=== PATIENT | male | born 1985 | race Caucasian/White ===

== ENCOUNTER 2018-02-22 01:19 | Emergency (ER) | payer OTHER ==
[2018-02-22 01:33] VITALS: RESP 16
--- NOTE | 2018-02-22 01:58 | ED ---
General Adult HPI - General Source: patient, RN notes reviewed Mode of arrival: ambulatory Limitations: no limitations <Ryan Long - Last Filed: 02/22/18 03:31> <Papo Ballesteros - Last Filed: 02/22/18 15:55> - General Chief complaint: Psychiatric Symptoms Stated complaint: mental health Time Seen by Provider: 02/22/18 01:44 - History of Present Illness Initial comments: 32-year-old male presents to the emergency department for a chief complaint of suicidal thoughts 3 days. Patient states he tried to kill himself by cutting his left arm 3 days ago. He is denies to do this. Patient admits to similar previous suicidal attempts. He states he has history of anxiety, depression, and bipolar disorder, denies taking any medications. Patient denies any events that precipitated his feelings. However, patient did recently learned his girlfriend was a few days ago. He does admit to current suicidal thoughts. Patient states he was admitted previously for psychiatric symptoms. Patient has no other complaints at this time including shortness of breath, chest pain, abdominal pain, nausea or vomiting, headache, or visual changes. ( Ryan Long) - Related Data Allergies Allergy/AdvReac Type Severity Reaction Status Date / Time No Known Allergies Allergy Verified 02/22/18 14:39 Review of Systems ROS Other: All systems not noted in ROS Statement are negative. <Ryan Long - Last Filed: 02/22/18 03:31> ROS Other: All systems not noted in ROS Statement are negative. <Papo Ballesteros - Last Filed: 02/22/18 15:55> ROS Statement: Those systems with pertinent positive or pertinent negative responses have been documented in the HPI. Past Medical History Past Medical History: No Reported History Additional Past Medical History / Comment(s): scoliosis, back pain History of Any Multi-Drug Resistant Organisms: None Reported Past Surgical History: No Surgical Hx Reported Past Psychological History: No Psychological Hx Reported Smoking Status: Current every day smoker Past Alcohol Use History: Occasional Past Drug Use History: None Reported - Past Family History Father Family Medical History: No Reported History (Father is 50-year-old has no major medical problems) Mother Family Medical History: No Reported History (Mother is 52-year-old year and has no major medical problems) Brother(s) Family Medical History: No Reported History (Patient has one brother no major medical problems) Sister(s) Family Medical History: No Reported History (Patient has one sister no major medical problems) <Ryan Long - Last Filed: 02/22/18 03:31> General Exam Limitations: no limitations General appearance: alert, in no apparent distress Head exam: Present: atraumatic, normocephalic, normal inspection Eye exam: Present: normal appearance, PERRL, EOMI. Absent: scleral icterus, conjunctival injection, periorbital swelling ENT exam: Present: normal exam, mucous membranes moist Neck exam: Present: normal inspection, full ROM. Absent: tenderness, meningismus, lymphadenopathy Respiratory exam: Present: normal lung sounds bilaterally. Absent: respiratory distress, wheezes, rales, rhonchi, stridor Cardiovascular Exam: Present: regular rate, normal rhythm, normal heart sounds. Absent: systolic murmur, diastolic murmur, rubs, gallop, clicks Extremities exam: Present: other (Patient has 4 superficial lacerations of the left volar forearm) <Ryan Long - Last Filed: 02/22/18 03:31> Course <Ryan Long - Last Filed: 02/22/18 03:31> <Papo Ballesteros - Last Filed: 02/22/18 15:55> Vital Signs 02/22/18 02/22/18 01:30 12:19 Temperature 98.5 F 98.1 F Pulse Rate 92 90 Respiratory 16 16 Rate Blood Pressure 132/91 125/78 O2 Sat by Pulse 97 98 Oximetry - Reevaluation(s) Reevaluation #1: 02/22/18 15:55 The patient was evaluated by psychiatric service and will be transferred (Papo Ballesteros) Medical Decision Making <Ryan Long - Last Filed: 02/22/18 03:31> - Lab Data Result diagrams: 02/22/18 03:35 02/22/18 03:35 <Papo Ballesteros - Last Filed: 02/22/18 15:55> - Medical Decision Making 32-year-old male presents to the emergency department for a chief complaint of suicidal thoughts 3 days. Apparently patient attempted suicide by cutting his left arm. There are 4 lacerations noted to the left volar forearm however these are very superficial. Patient is up-to-date on tetanus. Patient has a history of anxiety and depression. He does admit to active suicidal thoughts. He did recently when his girlfriend was . He denies anything specific causing these thoughts. Patient was evaluated by EPS, recommend inpatient treatment. Dr moses to cert. Care signed out to Dr Moses at 0400. (Ryan Long) - Lab Data Lab Results 02/22/18 02/22/18 02/22/18 Range/Units 02:05 03:35 03:35 WBC 13.4 H (3.8-10.6) k/uL RBC 5.11 (4.30-5.90) m/uL Hgb 15.5 (13.0-17.5) gm/dL Hct 44.4 (39.0-53.0) % MCV 87.0 (80.0-100.0) fL MCH 30.3 (25.0-35.0) pg MCHC 34.8 (31.0-37.0) g/dL RDW 12.5 (11.5-15.5) % Plt Count 265 (150-450) k/uL Neutrophils % 65 % Lymphocytes % 24 % Monocytes % 6 % Eosinophils % 3 % Basophils % 1 % Neutrophils # 8.8 H (1.3-7.7) k/uL Lymphocytes # 3.2 (1.0-4.8) k/uL Monocytes # 0.8 (0-1.0) k/uL Eosinophils # 0.4 (0-0.7) k/uL Basophils # 0.1 (0-0.2) k/uL Sodium 140 (137-145) mmol/L Potassium 3.6 (3.5-5.1) mmol/L Chloride 104 (98-107) mmol/L Carbon Dioxide 26 (22-30) mmol/L Anion Gap 10 mmol/L BUN 13 (9-20) mg/dL Creatinine 0.98 (0.66-1.25) mg/dL Est GFR (CKD-EPI)AfAm >90 (>60 ml/min/1.73 sqM) Est GFR (CKD-EPI)NonAf >90 (>60 ml/min/1.73 sqM) Glucose 114 H (74-99) mg/dL Calcium 9.7 (8.4-10.2) mg/dL Total Bilirubin 0.6 (0.2-1.3) mg/dL AST 21 (17-59) U/L ALT 21 (21-72) U/L Alkaline Phosphatase 46 (38-126) U/L Total Protein 7.4 (6.3-8.2) g/dL Albumin 4.3 (3.5-5.0) g/dL Urine Opiates Screen Detected H (NotDetected) Ur Oxycodone Screen Not Detected (NotDetected) Urine Methadone Screen Not Detected (NotDetected) Ur Propoxyphene Screen Not Detected (NotDetected) Ur Barbiturates Screen Not Detected (NotDetected) U Tricyclic Antidepress Not Detected (NotDetected) Ur Phencyclidine Scrn Not Detected (NotDetected) Ur Amphetamines Screen Not Detected (NotDetected) U Methamphetamines Scrn Not Detected (NotDetected) U Benzodiazepines Scrn Not Detected (NotDetected) Urine Cocaine Screen Not Detected (NotDetected) U Marijuana (THC) Screen Not Detected (NotDetected) Disposition Is patient prescribed a controlled substance at d/c from ED?: No <Ryan Long - Last Filed: 02/22/18 03:31> <Papo Ballesteros - Last Filed: 02/22/18 15:55> Clinical Impression: Suicidal behavior, Depression Disposition: TRANSFER TO PSYCH HOSP/UNIT Condition: Stable Referrals: None,Stated [Primary Care Provider] - 1-2 days Addendum entered and electronically signed by Papo Ballesteros MD 02/22/18 16:21: I did fill out the transfer forms.
[2018-02-22 02:34] LABS: Amphetamine Screen,Urine Not Detected (NotDetected); Barbiturate Screen,Urine Not Detected (NotDetected); Benzodiazepines Screen,Urine Not Detected (NotDetected); Cocaine Screen,Urine Not Detected (NotDetected); Methadone Screen, Urine Not Detected (NotDetected); Opiate Screen,Urine Detected (NotDetected); Oxycodone Screen, Urine Not Detected (NotDetected); Phencyclidine Screen,Urine Not Detected (NotDetected); Tricyclic Antidepressant,Urine Not Detected (NotDetected); Urn Cannabinoid Scrn Not Detected (NotDetected)
[2018-02-22 03:59] LABS: Basophils # (A) 0.1 k/uL (0-0.2); Basophils % (A) 1 %; Eosinophils # (A) 0.4 k/uL (0-0.7); Eosinophils % (A) 3 %; HCT 44.4 % (39.0-53.0); HGB 15.5 gm/dL (13.0-17.5); Lymphocytes # (A) 3.2 k/uL (1.0-4.8); Lymphocytes % (A) 24 %; MCH 30.3 pg (25.0-35.0); MCHC 34.8 g/dL (31.0-37.0); Mean Platelet Volume 6.9; Monocytes # (A) 0.8 k/uL (0-1.0); Monocytes % (A) 6 %; Neutrophils # (A) 8.8 k/uL (1.3-7.7); Neutrophils % (A) 65 %; Platelet Count 265 k/uL (150-450); RBC 5.11 m/uL (4.30-5.90); RDW 12.5 % (11.5-15.5); WBC 13.4 k/uL (3.8-10.6)
[2018-02-22 04:19] LABS: ALT 21 U/L (21-72); AST 21 U/L (17-59); Albumin 4.3 g/dL (3.5-5.0); Alkaline Phosphatase 46 U/L (38-126); Anion Gap 10 mmol/L; Blood Urea Nitrogen 13 mg/dL (9-20); Calcium 9.7 mg/dL (8.4-10.2); Carbon Dioxide 26 mmol/L (22-30); Chloride 104 mmol/L (98-107); Glucose 114 mg/dL (74-99); Potassium 3.6 mmol/L (3.5-5.1); Sodium 140 mmol/L (137-145); Total Bilirubin 0.6 mg/dL (0.2-1.3); Total Protein 7.4 g/dL (6.3-8.2)
[2018-02-22] MEDS ORDERED: LORazepam 1 MG TAB PO STA (16:17)
[2018-02-22 17:34] VITALS: BP 123/68; PULSE 75; TEMP 98.4
== END 2018-02-22 18:31 ==
LOC: EC 01:19
DX: F32.9 Major depressive disorder, single episode, unspecified (principal); R45.851 Suicidal ideations; F41.9 Anxiety disorder, unspecified; S51.812A Laceration without foreign body of left forearm, initial encounter; F17.200 Nicotine dependence, unspecified, uncomplicated; X83.8XXA Intentional self-harm by other specified means, initial encounter
CPT/HCPCS: 36415; 80053; 80306; 82075; 85025; 99285

== ENCOUNTER 2018-03-10 18:06 | Emergency (ER) | payer OTHER ==
[2018-03-10 18:40] VITALS: BP 126/89; PULSE 120; RESP 16; TEMP 98.4
--- NOTE | 2018-03-10 19:03 | ED ---
General Adult HPI - General Chief complaint: Back Pain/Injury Stated complaint: back injury Source: patient, RN notes reviewed Mode of arrival: ambulatory Limitations: no limitations - History of Present Illness Initial comments: Patient is a 32 year old male with history of scoliosis with complaint of low back pain that started about 2 hours ago when he tripped and fell at work. He reports that he fell forward, twisted and landed on a machine. He thinks the twisting caused his pain. Denies radiation of pain. Patient denies any recent head injury, loss of consciousness, lacerations, bowel or bladder incontinence, saddle anesthesia, fever, chills, shortness of breath, chest pain, abdominal pain, nausea or vomiting, numbness or tingling, headaches or visual changes, or any other complaints. - Related Data Home Medications Medication Instructions Recorded Confirmed No Known Home Medications 02/22/18 02/22/18 Allergies Allergy/AdvReac Type Severity Reaction Status Date / Time No Known Allergies Allergy Verified 03/10/18 18:40 Review of Systems ROS Statement: Those systems with pertinent positive or pertinent negative responses have been documented in the HPI. ROS Other: All systems not noted in ROS Statement are negative. Past Medical History Past Medical History: No Reported History Additional Past Medical History / Comment(s): scoliosis, back pain History of Any Multi-Drug Resistant Organisms: None Reported Past Surgical History: No Surgical Hx Reported Past Psychological History: No Psychological Hx Reported Smoking Status: Current every day smoker Past Alcohol Use History: Occasional Past Drug Use History: None Reported - Past Family History Father Family Medical History: No Reported History (Father is 50-year-old has no major medical problems) Mother Family Medical History: No Reported History (Mother is 52-year-old year and has no major medical problems) Brother(s) Family Medical History: No Reported History (Patient has one brother no major medical problems) Sister(s) Family Medical History: No Reported History (Patient has one sister no major medical problems) General Exam Limitations: no limitations General appearance: alert, in no apparent distress Head exam: Present: atraumatic, normocephalic Eye exam: Present: normal appearance Neck exam: Present: normal inspection, other (No tenderness to palpation.) Respiratory exam: Present: normal lung sounds bilaterally Cardiovascular Exam: Present: regular rate, normal rhythm Extremities exam: Present: normal capillary refill, other (DP and PT pulses palpable and strong bilaterally.) Back exam: Present: normal inspection, full ROM, tenderness (Midline tenderness over the thoracic and lumbar areas.) Neurological exam: Present: alert, oriented X3, normal gait, reflexes normal ( Patellar tendon reflex normal bilaterally.), other (Sensation intact.) Psychiatric exam: Present: normal affect, normal mood Skin exam: Present: warm, dry Course Vital Signs 03/10/18 18:37 Temperature 98.4 F Pulse Rate 120 H Respiratory 16 Rate Blood Pressure 126/89 O2 Sat by Pulse 96 Oximetry Medical Decision Making - Medical Decision Making I would like to order thoracic and lumbar x-rays as the patient has midline tenderness in these areas. He was originally agreeable to this plan and then changed his mind and refused the x-rays. I discussed the risks of possible spine injury and he acknowledged understanding the risks. He signed out against medical advice. Case discussed in detail with attending physician Dr. Kan. Disposition Clinical Impression: Back pain Disposition: Left Against Medical Advice Additional Instructions: Follow-up with your PCP in 1-2 days. Is patient prescribed a controlled substance at d/c from ED?: No Referrals: None,Stated [Primary Care Provider] - 1-2 days Cheko Del Rosario MD [STAFF PHYSICIAN] - 1-2 days Time of Disposition: 19:23
== END 2018-03-10 19:22 | disposition left against medical advice (07) ==
LOC: EC 18:06
DX: M54.5 Low back pain (principal); F17.200 Nicotine dependence, unspecified, uncomplicated; W01.0XXA Fall on same level from slipping, tripping and stumbling without subsequent striking against object, initial encounter; Y92.69 Other specified industrial and construction area as the place of occurrence of the external cause; Y99.0 Civilian activity done for income or pay
CPT/HCPCS: 99283

== ENCOUNTER 2020-03-11 18:08 | Emergency (ER) | payer OTHER ==
[2020-03-11 18:18] VITALS: RESP 18; TEMP 98.7
[2020-03-11] MEDS ORDERED: ONDANSETRON 4 MG/2 ML VIAL IVP STA (18:36)
[2020-03-11] MEDS ORDERED: SODIUM CHLORIDE 0.9% 1,000 ML IV ONE (18:36)
--- NOTE | 2020-03-11 18:45 | ED ---
Nausea/Vomiting/Diarrhea HPI - General Chief complaint: Nausea/Vomiting/Diarrhea Stated complaint: Vomiting Time Seen by Provider: 03/11/20 18:22 Source: patient Mode of arrival: ambulatory Limitations: no limitations - History of Present Illness Initial comments: This is a 34-year-old male who presents emergency department for nausea, vomiting. He states that the symptoms started approximately 8 hours ago. He states that prior to that he was feeling completely normal. He does not think he ate anything that was questionable. He denies any sick contacts. He states he's never had anything like this before. He states that he has vomited countless amount of times. He did have a little bit of blood mixed in with the last episode of vomitus or decided come emergency department. He denies abdominal pain. No diarrhea. No fevers or chills. He states that he does have some pain in a molar on the right lower jaw. He's been told that he might have an infection there and was curious if he had been developing an abscess that could be causing his symptoms. He otherwise denies any other medical problems. No acute complaints. - Related Data Home Medications Medication Instructions Recorded Confirmed Methadone HCl [Methadone Intensol] 73 mg PO DAILY 03/11/20 03/11/20 Previous Rx's Medication Instructions Recorded Ondansetron Odt [Zofran Odt] 4 mg PO Q8HR PRN #10 tab 03/11/20 Allergies Allergy/AdvReac Type Severity Reaction Status Date / Time No Known Allergies Allergy Verified 03/11/20 18:40 Review of Systems ROS Statement: Those systems with pertinent positive or pertinent negative responses have been documented in the HPI. ROS Other: All systems not noted in ROS Statement are negative. Past Medical History Past Medical History: No Reported History Additional Past Medical History / Comment(s): scoliosis, back pain, hep C History of Any Multi-Drug Resistant Organisms: None Reported Past Surgical History: No Surgical Hx Reported Past Psychological History: No Psychological Hx Reported Smoking Status: Current every day smoker Past Alcohol Use History: None Reported Past Drug Use History: None Reported - Past Family History Father Family Medical History: No Reported History (Father is 50-year-old has no major medical problems) Mother Family Medical History: No Reported History (Mother is 52-year-old year and has no major medical problems) Brother(s) Family Medical History: No Reported History (Patient has one brother no major medical problems) Sister(s) Family Medical History: No Reported History (Patient has one sister no major medical problems) General Exam - General Exam Comments Initial Comments: Constitutional: Awake alert Appears comfortable Head: Normocephalic atraumatic Eyes: no conjunctival injection No scleral icterus EOMI Teeth: The patient has multiple dental caries. He states that he has some tenderness around the right lower first molar. There is some mild gingivitis around this area however no obvious abscess formation. The patient does not have any swelling to the buccal mucosa in this area. Neck: No JVD Supple Heart: Regular rate rhythm normal S1-S2 no murmurs Lungs: Clear to auscultation bilaterally No wheezing No rales Abdomen: Soft nondistended nontender Extremities: Non edematous DP pulses intact Radial pulses intact Neuro: A&Ox3 No focal neurologic deficits Psych: Appropriate mood and affect Limitations: no limitations Course Vital Signs 03/11/20 18:14 Temperature 98.7 F Pulse Rate 88 Respiratory 18 Rate Blood Pressure 132/87 O2 Sat by Pulse 97 Oximetry Medical Decision Making - Medical Decision Making Is a 34-year-old male presents emergency department for nausea and vomiting. The patient was improved after Zofran and IV fluids. Labwork was reviewed and did show some mild transaminitis. Ultrasound was ordered and did not show any acute abnormalities. This is likely reactive from the patient's illness. Aubrey garcia denied any suspicious foods. Both do not seem high enough for hepatitis. I told to follow-up with his primary doctor regarding this. He was given Zofran for home. He can return emergency Department is persistent nausea and vomiting despite medications. All questions were answered. - Lab Data Result diagrams: 03/11/20 18:55 03/11/20 18:55 Lab Results 03/11/20 03/11/20 Range/Units 18:55 18:55 WBC 15.4 H (3.8-10.6) k/uL RBC 5.43 (4.30-5.90) m/uL Hgb 15.5 (13.0-17.5) gm/dL Hct 45.9 (39.0-53.0) % MCV 84.4 (80.0-100.0) fL MCH 28.5 (25.0-35.0) pg MCHC 33.7 (31.0-37.0) g/dL RDW 12.7 (11.5-15.5) % Plt Count 246 (150-450) k/uL MPV 7.2 Neutrophils % 87 % Lymphocytes % 8 % Monocytes % 3 % Eosinophils % 2 % Basophils % 0 % Neutrophils # 13.4 H (1.3-7.7) k/uL Lymphocytes # 1.2 (1.0-4.8) k/uL Monocytes # 0.4 (0-1.0) k/uL Eosinophils # 0.3 (0-0.7) k/uL Basophils # 0.0 (0-0.2) k/uL Sodium 139 (137-145) mmol/L Potassium 4.2 (3.5-5.1) mmol/L Chloride 102 (98-107) mmol/L Carbon Dioxide 29 (22-30) mmol/L Anion Gap 8 mmol/L BUN 17 (9-20) mg/dL Creatinine 0.86 (0.66-1.25) mg/dL Est GFR (CKD-EPI)AfAm >90 (>60 ml/min/1.73 sqM) Est GFR (CKD-EPI)NonAf >90 (>60 ml/min/1.73 sqM) Glucose 104 H (74-99) mg/dL Calcium 9.5 (8.4-10.2) mg/dL Magnesium 2.0 (1.6-2.3) mg/dL Total Bilirubin 0.6 (0.2-1.3) mg/dL AST 126 H (17-59) U/L ALT 155 H (4-49) U/L Alkaline Phosphatase 82 (38-126) U/L Total Protein 8.1 (6.3-8.2) g/dL Albumin 4.4 (3.5-5.0) g/dL Disposition Clinical Impression: Nausea & vomiting, Elevated liver enzymes Disposition: HOME SELF-CARE Instructions (If sedation given, give patient instructions): Acute Nausea and Vomiting (ED) Prescriptions: Ondansetron Odt [Zofran Odt] 4 mg PO Q8HR PRN #10 tab PRN Reason: Nausea Is patient prescribed a controlled substance at d/c from ED?: No Referrals: None,Stated [Primary Care Provider] - 1-2 days
[2020-03-11 19:08] LABS: Basophils % (A) 0 %; Eosinophils # (A) 0.3 k/uL (0-0.7); Eosinophils % (A) 2 %; HCT 45.9 % (39.0-53.0); HGB 15.5 gm/dL (13.0-17.5); Lymphocytes # (A) 1.2 k/uL (1.0-4.8); Lymphocytes % (A) 8 %; MCH 28.5 pg (25.0-35.0); MCHC 33.7 g/dL (31.0-37.0); MCV 84.4 fL (80.0-100.0); Mean Platelet Volume 7.2; Monocytes # (A) 0.4 k/uL (0-1.0); Monocytes % (A) 3 %; Neutrophils # (A) 13.4 k/uL (1.3-7.7); Neutrophils % (A) 87 %; Platelet Count 246 k/uL (150-450); RBC 5.43 m/uL (4.30-5.90); RDW 12.7 % (11.5-15.5); WBC 15.4 k/uL (3.8-10.6)
[2020-03-11 19:15] LABS: ALT 155 U/L (4-49); AST 126 U/L (17-59); African American GFR (CKD) >90 (>60 ml/min/1.73 sqM); Albumin 4.4 g/dL (3.5-5.0); Alkaline Phosphatase 82 U/L (38-126); Anion Gap 8 mmol/L; Blood Urea Nitrogen 17 mg/dL (9-20); Calcium 9.5 mg/dL (8.4-10.2); Carbon Dioxide 29 mmol/L (22-30); Chloride 102 mmol/L (98-107); Glucose 104 mg/dL (74-99); Non-African American GFR(CKD) >90 (>60 ml/min/1.73 sqM); Potassium 4.2 mmol/L (3.5-5.1); Sodium 139 mmol/L (137-145); Total Bilirubin 0.6 mg/dL (0.2-1.3); Total Protein 8.1 g/dL (6.3-8.2)
--- NOTE | 2020-03-11 20:01 | US ---
EXAMINATION TYPE: US abdomen limited DATE OF EXAM: 03/11/2020 COMPARISON: NONE CLINICAL HISTORY: transaminitis. vomiting today, elevated liver enzymes EXAM MEASUREMENTS: Liver Length: 14.4 cm Gallbladder Wall: 0.3 cm CBD: 0.5 cm Right Kidney: 11.0 x 3.6 x 4.3 cm Pancreas: Obscured by bowel gas Liver: mild starry lauren appearance Gallbladder: no evidence of stones Evidence for sonographic Bethea's sign: no CBD: appears wnl Right Kidney: dense echogenic area upper pole = 0.7cm IMPRESSION: No gallstones or dilated ducts. Nonshadowing hyperechoic focus upper pole right kidney could be a lip anna and measures 8 mm.
[2020-03-11 20:14] VITALS: BP 125/79; PULSE 80
== END 2020-03-11 20:14 | disposition home or self-care (01) ==
LOC: EC 18:08
DX: R11.2 Nausea with vomiting, unspecified (principal); R74.01 Elevation of levels of liver transaminase levels; M54.9 Dorsalgia, unspecified; K02.9 Dental caries, unspecified; K05.10 Chronic gingivitis, plaque induced; F17.200 Nicotine dependence, unspecified, uncomplicated; Z79.891 Long term (current) use of opiate analgesic
CPT/HCPCS: 36415; 80053; 83735; 85025; 76705; 99284; 96374; 96361; J2405

== ENCOUNTER 2020-05-26 17:58 | Emergency (ER) | payer OTHER ==
[2020-05-26 18:08] VITALS: RESP 18; TEMP 98.4
[2020-05-26] MEDS ORDERED: KETOROLAC 15 MG/ML 1 ML VIAL IM STA (18:18)
[2020-05-26] MEDS ORDERED: DIAZEPAM 5 MG/ML 2 ML INJ IM ONE (18:18)
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
[2020-05-26] MEDS ORDERED: MORPHINE SULFATE 4 MG/ML SYRINGE IM STA (19:52)
--- NOTE | 2020-05-26 19:55 | CT ---
EXAMINATION TYPE: CT cervical spine wo con DATE OF EXAM: 05/26/2020 COMPARISON: CT 05/07/2015 HISTORY: Pain after turning head all the way to left. CT DLP: 368.1 mGycm Automated exposure control for dose reduction was used. TECHNIQUE: CT scan of the cervical spine is obtained without contrast, axial images are obtained, sagittal and c oronal reformatted images are also reviewed. FINDINGS: There is no significant interval change. Cervical spine is visualized in its entirety from C1 through upper thoracic levels, demonstrates sati sfactory alignment without evidence of acute fracture or dislocation. Prevertebral soft tissue appea rs within normal limits. The C1-C2 articulation is within normal limits on the coronal images. IMPRESSION: There is no acute fracture or dislocation evident in the cervical spine.
[2020-05-26 20:23] VITALS: BP 131/88; PULSE 60
== END 2020-05-26 20:23 | disposition home or self-care (01) ==
LOC: EC 17:58
DX: S16.1XXA Strain of muscle, fascia and tendon at neck level, initial encounter (principal); Z87.891 Personal history of nicotine dependence; Y93.72 Activity, wrestling; X58.XXXA Exposure to other specified factors, initial encounter
CPT/HCPCS: 72125; 99283; 96372; J2270; J3360; J1885

== ENCOUNTER 2021-02-24 03:42 | Emergency (ER) | payer OTHER ==
[2021-02-24 03:51] VITALS: BP 134/83; PULSE 100; RESP 22; TEMP 98.1
--- NOTE | 2021-02-24 04:17 | ED ---
Neck Injury/Pain HPI - General Chief Complaint: Headache Stated Complaint: Headache Time Seen by Provider: 02/24/21 03:48 Mode of arrival: ambulatory Limitations: no limitations - Related Data Home Medications Medication Instructions Recorded Confirmed Methadone HCl [Methadone Intensol] 73 mg PO DAILY 03/11/20 03/11/20 Previous Rx's Medication Instructions Recorded Ondansetron Odt [Zofran Odt] 4 mg PO Q8HR PRN #10 tab 03/11/20 Allergies Allergy/AdvReac Type Severity Reaction Status Date / Time No Known Allergies Allergy Verified 02/24/21 03:50 Review of Systems ROS Statement: Those systems with pertinent positive or pertinent negative responses have been documented in the HPI. ROS Other: All systems not noted in ROS Statement are negative. Past Medical History Past Medical History: No Reported History Additional Past Medical History / Comment(s): scoliosis, back pain, hep C, History of Any Multi-Drug Resistant Organisms: None Reported Past Surgical History: No Surgical Hx Reported Past Psychological History: No Psychological Hx Reported Smoking Status: Former smoker Past Alcohol Use History: None Reported Past Drug Use History: None Reported - Past Family History Father Family Medical History: No Reported History (Father is 50-year-old has no major medical problems) Mother Family Medical History: No Reported History (Mother is 52-year-old year and has no major medical problems) Brother(s) Family Medical History: No Reported History (Patient has one brother no major medical problems) Sister(s) Family Medical History: No Reported History (Patient has one sister no major medical problems) General Exam Limitations: no limitations Course Vital Signs 02/24/21 03:47 Temperature 98.1 F Pulse Rate 100 Respiratory 22 Rate Blood Pressure 134/83 O2 Sat by Pulse 97 Oximetry Disposition Clinical Impression: Headache, Neck sprain Disposition: HOME SELF-CARE Condition: Good Instructions (If sedation given, give patient instructions): Acute Headache (ED), Cervical Sprain (ED), Neck Pain (ED) Is patient prescribed a controlled substance at d/c from ED?: No Referrals: None,Stated [Primary Care Provider] - 1-2 days
--- NOTE | 2021-02-24 04:45 | CT ---
EXAMINATION TYPE: CT brain musa faria con DATE OF EXAM: 02/24/2021 COMPARISON: 05/07/2015 HISTORY: pain CT DLP: 1455.7 mGycm Automated exposure control for dose reduction was used. Ventricles and sulci appear normal. There is no mass effect nor midline shift. There is no sign of in tracranial hemorrhage. There is no evidence of cerebral edema. Calvarium is intact. The skull base is intact. The cervical vertebra have normal spacing and alignment. Posterior elements are intact. Prevertebral soft tissues are intact. There is no compression fracture. Facet joints are intact. IMPRESSION: Negative CT scan of the brain. Negative CT scan cervical spine. No fracture.
[2021-02-24] MEDS ORDERED: MORPHINE SULFATE 4 MG/ML SYRINGE IM STA (05:08)
== END 2021-02-24 05:24 | disposition home or self-care (01) ==
LOC: EC 03:42
DX: R51.9 Headache, unspecified (principal); S16.1XXA Strain of muscle, fascia and tendon at neck level, initial encounter; Z87.891 Personal history of nicotine dependence; X58.XXXA Exposure to other specified factors, initial encounter
CPT/HCPCS: 99284; 96372; 72125; 70450; J2270

== ENCOUNTER 2021-02-24 07:52 | Emergency (ER) | payer OTHER ==
[2021-02-24 08:00] VITALS: BP 122/70; PULSE 106; RESP 18; TEMP 98.4
[2021-02-24] MEDS ORDERED: PANTOPRAZOLE 40 MG/10 ML VIAL IVP STA (08:08)
[2021-02-24] MEDS ORDERED: SODIUM CHLORIDE 0.9% 1,000 ML IV STA (08:08)
[2021-02-24] MEDS ORDERED: MAG HYDROX/AL HYDROX/SIMETH 30 ML, HYOSCYAMINE ELIXIR 10 ML, LIDOCAINE VISCOUS 2% 10 ML PO STA ×3 (08:08)
[2021-02-24] MEDS ORDERED: METOCLOPRAMIDE 5 MG/ML 2 ML VIAL IVP STA (08:08)
[2021-02-24] MEDS ORDERED: diphenhydrAMINE 50 MG/ML 1 ML VIAL IVP STA (08:08)
[2021-02-24 08:32] LABS: Basophils % (A) 0 %; Eosinophils # (A) 0.2 k/uL (0-0.7); Eosinophils % (A) 2 %; HCT 42.8 % (39.0-53.0); HGB 15.2 gm/dL (13.0-17.5); Lymphocytes # (A) 1.9 k/uL (1.0-4.8); Lymphocytes % (A) 18 %; MCH 28.6 pg (25.0-35.0); MCHC 35.4 g/dL (31.0-37.0); MCV 80.9 fL (80.0-100.0); Mean Platelet Volume 7.1; Monocytes # (A) 0.3 k/uL (0-1.0); Monocytes % (A) 3 %; Neutrophils # (A) 7.8 k/uL (1.3-7.7); Neutrophils % (A) 75 %; Platelet Count 257 k/uL (150-450); RBC 5.29 m/uL (4.30-5.90); RDW 12.8 % (11.5-15.5); WBC 10.4 k/uL (3.8-10.6)
[2021-02-24 08:47] LABS: ALT 18 U/L (4-49); African American GFR (CKD) >90 (>60 ml/min/1.73 sqM); Albumin 4.9 g/dL (3.5-5.0); Amylase 64 U/L (30-110); Anion Gap 13 mmol/L; Blood Urea Nitrogen 12 mg/dL (9-20); Calcium 10.9 mg/dL (8.4-10.2); Carbon Dioxide 21 mmol/L (22-30); Chloride 105 mmol/L (98-107); Glucose 125 mg/dL (74-99); Lipase 38 U/L (23-300); Non-African American GFR(CKD) >90 (>60 ml/min/1.73 sqM); Sodium 139 mmol/L (137-145); Total Protein 8.7 g/dL (6.3-8.2)
[2021-02-24 08:52] LABS: AST 28 U/L (17-59); Alkaline Phosphatase 54 U/L (38-126); Potassium 4.3 mmol/L (3.5-5.1)
[2021-02-24 08:59] LABS: Appearance,Urine Clear (Clear); Bilirubin,Urine Negative (Negative); Blood,Urine Negative (Negative); Color,Urine Yellow; Glucose,Urine (UA) Negative (Negative); Ketones,Urine 4+ (Negative); Leukocyte Esterase,Urine Negative (Negative); Mucus,Urine Few /hpf; Nitrite,Urine Negative (Negative); PH, Urine 6.5 (5.0-8.0); Protein,Urine 1+ (Negative); RBC,Urine 2 /hpf (0-5); Specific Gravity,Urine 1.026 (1.001-1.035); WBC,Urine 1 /hpf (0-5)
--- NOTE | 2021-02-24 09:01 | ED ---
Abdominal Pain HPI - General Chief Complaint: Abdominal Pain Stated Complaint: Abdominal Pain Time Seen by Provider: 02/24/21 08:03 Source: patient, RN notes reviewed Mode of arrival: ambulatory Limitations: no limitations - History of Present Illness Initial Comments: 35-year-old male presents emergency Department chief complaint abdominal pain. Patient was just seen in the emergency room for complaints of a headache at that time. He states he really was abdominal pain. Patient states he has a history of reflux, GERD and states he is feeling acidosis throat. Patient states that he had some nausea and spit up. Patient had no prior abdominal surgeries. Patient states she is also withdrawing from fentanyl. Patient denies any drug use denies alcohol abuse no history of pancreatic disease. - Related Data Previous Rx's Medication Instructions Recorded Famotidine [Pepcid] 20 mg PO BID #28 tablet 02/24/21 Ondansetron Odt [Zofran Odt] 4 mg PO Q8HR PRN #10 tab 02/24/21 Allergies Allergy/AdvReac Type Severity Reaction Status Date / Time No Known Allergies Allergy Verified 02/24/21 08:00 Review of Systems ROS Statement: Those systems with pertinent positive or pertinent negative responses have been documented in the HPI. ROS Other: All systems not noted in ROS Statement are negative. Past Medical History Past Medical History: No Reported History Additional Past Medical History / Comment(s): scoliosis, back pain, hep C, fentyl abuse History of Any Multi-Drug Resistant Organisms: None Reported Past Surgical History: No Surgical Hx Reported Past Psychological History: No Psychological Hx Reported Smoking Status: Former smoker Past Alcohol Use History: None Reported Past Drug Use History: Opiates, Prescription Drug Abuse - Past Family History Father Family Medical History: No Reported History (Father is 50-year-old has no major medical problems) Mother Family Medical History: No Reported History (Mother is 52-year-old year and has no major medical problems) Brother(s) Family Medical History: No Reported History (Patient has one brother no major medical problems) Sister(s) Family Medical History: No Reported History (Patient has one sister no major medical problems) General Exam Limitations: no limitations General appearance: alert, in no apparent distress Head exam: Present: atraumatic, normocephalic, normal inspection Eye exam: Present: normal appearance, PERRL, EOMI. Absent: scleral icterus, conjunctival injection, periorbital swelling ENT exam: Present: normal exam, normal oropharynx, mucous membranes moist Neck exam: Present: normal inspection, full ROM. Absent: tenderness, meningismus, lymphadenopathy Respiratory exam: Present: normal lung sounds bilaterally. Absent: respiratory distress, wheezes, rales, rhonchi, stridor Cardiovascular Exam: Present: normal rhythm, tachycardia, normal heart sounds. Absent: systolic murmur, diastolic murmur, rubs, gallop, clicks GI/Abdominal exam: Present: soft, tenderness (epigastric), normal bowel sounds. Absent: distended, guarding, rebound, rigid Course Vital Signs 02/24/21 07:58 Temperature 98.4 F Pulse Rate 106 H Respiratory 18 Rate Blood Pressure 122/70 O2 Sat by Pulse 99 Oximetry Medical Decision Making - Medical Decision Making 35-year-old male presented for abdominal pain. Patient was given antiemetics. Patient's pain related to opiate withdrawal. Patient will be discharged stable condition. - Lab Data Result diagrams: 02/24/21 08:25 02/24/21 08:25 Lab Results 02/24/21 02/24/21 02/24/21 Range/Units 08:25 08:25 08:25 WBC 10.4 (3.8-10.6) k/uL RBC 5.29 (4.30-5.90) m/uL Hgb 15.2 (13.0-17.5) gm/dL Hct 42.8 (39.0-53.0) % MCV 80.9 (80.0-100.0) fL MCH 28.6 (25.0-35.0) pg MCHC 35.4 (31.0-37.0) g/dL RDW 12.8 (11.5-15.5) % Plt Count 257 (150-450) k/uL MPV 7.1 Neutrophils % 75 % Lymphocytes % 18 % Monocytes % 3 % Eosinophils % 2 % Basophils % 0 % Neutrophils # 7.8 H (1.3-7.7) k/uL Lymphocytes # 1.9 (1.0-4.8) k/uL Monocytes # 0.3 (0-1.0) k/uL Eosinophils # 0.2 (0-0.7) k/uL Basophils # 0.0 (0-0.2) k/uL Sodium 139 (137-145) mmol/L Potassium 4.3 (3.5-5.1) mmol/L Chloride 105 (98-107) mmol/L Carbon Dioxide 21 L (22-30) mmol/L Anion Gap 13 mmol/L BUN 12 (9-20) mg/dL Creatinine 0.82 (0.66-1.25) mg/dL Est GFR (CKD-EPI)AfAm >90 (>60 ml/min/1.73 sqM) Est GFR (CKD-EPI)NonAf >90 (>60 ml/min/1.73 sqM) Glucose 125 H (74-99) mg/dL Plasma Lactic Acid Tonio 0.9 (0.7-2.0) mmol/L Calcium 10.9 H (8.4-10.2) mg/dL Total Bilirubin 1.0 (0.2-1.3) mg/dL AST 28 (17-59) U/L ALT 18 (4-49) U/L Alkaline Phosphatase 54 (38-126) U/L Total Protein 8.7 H (6.3-8.2) g/dL Albumin 4.9 (3.5-5.0) g/dL Amylase 64 (30-110) U/L Lipase 38 (23-300) U/L Disposition Clinical Impression: Opiate withdrawal, Abdominal pain Disposition: HOME SELF-CARE Condition: Stable Instructions (If sedation given, give patient instructions): Abdominal Pain (ED) Additional Instructions: Please return to the Emergency Department if symptoms worsen or any other concerns. Prescriptions: Famotidine [Pepcid] 20 mg PO BID #28 tablet Ondansetron Odt [Zofran Odt] 4 mg PO Q8HR PRN #10 tab PRN Reason: Nausea Is patient prescribed a controlled substance at d/c from ED?: No Referrals: None,Stated [Primary Care Provider] - 1-2 days Time of Disposition: 09:00
== END 2021-02-24 09:15 | disposition home or self-care (01) ==
LOC: EC 07:52
DX: F11.23 Opioid dependence with withdrawal (principal); R10.13 Epigastric pain; Z87.891 Personal history of nicotine dependence
CPT/HCPCS: 36415; 80053; 82150; 83605; 83690; 85025; 81001; 99284; 96374; 96375 ×2; J1200; J2765; C9113

== ENCOUNTER 2021-04-27 12:09 | Inpatient (IN) | payer OTHER ==
--- NOTE | 2021-04-27 12:22 | ED ---
General Adult HPI - General Chief complaint: Extremity Problem,Nontraumatic Stated complaint: L arm sore Time Seen by Provider: 04/27/21 12:19 Source: patient Mode of arrival: ambulatory Limitations: no limitations - History of Present Illness Initial comments: Patient presents to the ED complaining of having increasing left forearm swelling and pain for the past 3 days. Patient states that he is an IV drug user, and he states that he injected fentanyl and to his left distal forearm 3 days ago prior to the onset of his symptoms. Patient denies trauma or injury, fever or chills, focal numbness/weakness/neuro deficit, headache, chest pain or pressure, dyspnea, palpitations, dizziness, abdominal pain, nausea or vomiting, or any other symptoms or complaints. - Related Data Home Medications Medication Instructions Recorded Confirmed No Known Home Medications 04/27/21 04/27/21 Allergies Allergy/AdvReac Type Severity Reaction Status Date / Time ketorolac [From Toradol] Allergy Unknown Verified 04/27/21 14:38 Review of Systems ROS Statement: Those systems with pertinent positive or pertinent negative responses have been documented in the HPI. ROS Other: All systems not noted in ROS Statement are negative. Past Medical History Past Medical History: No Reported History Additional Past Medical History / Comment(s): scoliosis, back pain, hep C, fentanyl abuse History of Any Multi-Drug Resistant Organisms: None Reported Past Surgical History: No Surgical Hx Reported Past Psychological History: No Psychological Hx Reported Smoking Status: Current every day smoker Past Alcohol Use History: None Reported Past Drug Use History: Heroin, Opiates, Prescription Drug Abuse - Past Family History Father Family Medical History: No Reported History (Father is 50-year-old has no major medical problems) Mother Family Medical History: No Reported History (Mother is 52-year-old year and has no major medical problems) Brother(s) Family Medical History: No Reported History (Patient has one brother no major medical problems) Sister(s) Family Medical History: No Reported History (Patient has one sister no major medical problems) General Exam Limitations: no limitations General appearance: alert, in no apparent distress Head exam: Present: atraumatic, normocephalic Eye exam: Present: normal appearance, EOMI ENT exam: Present: mucous membranes moist Neck exam: Present: other (Trachea is in midline) Cardiovascular Exam: Present: normal rhythm, tachycardia, normal heart sounds, other (Normal radial pulses bilaterally) GI/Abdominal exam: Present: soft. Absent: distended, tenderness, guarding Extremities exam: Present: other (Diffuse left forearm swelling and tenderness; erythema and maximal swelling/tenderness is noted over left distal forearm; no crepitation is appreciated) Neurological exam: Present: alert, oriented X3. Absent: motor sensory deficit Psychiatric exam: Present: normal affect, normal mood Skin exam: Present: warm, dry, intact Course Vital Signs 04/27/21 04/27/21 04/27/21 12:13 12:16 13:42 Temperature 97.9 F Pulse Rate 136 H 100 Respiratory 20 18 Rate Blood Pressure 119/67 132/109 O2 Sat by Pulse 100 100 Oximetry - Reevaluation(s) Reevaluation #1: 04/27/21 13:18 Patient has horrible peripheral venous access due to IV drug abuse, and ED nursing staff was unable to place a peripheral IV line, so I was asked to attempt to place an IV line under ultrasound guidance. I attempted to place a right upper arm IV under ultrasound guidance, but I was unsuccessful. I was, however, able to place a 20-gauge left IJ line without complication. 04/27/21 15:17 Case, H&P, test results and ED management thus far were discussed with Dr. Sanchez. He accepts hospital admission. He recommends infectious disease consultation. He has no further recommendations at this time. 04/27/21 15:25 Patient denies development of any new symptoms while in the ED. Patient remains alert and breathing comfortable. Patient is aware of his test results, and he agrees with hospital admission at this time. Medical Decision Making - Medical Decision Making Given the patient's IV drug use history, physical exam findings, leukocytosis and CT findings, I am concerned for left upper extremity cellulitis and possible abscess versus hematoma. Patient has been treated with IV fluids, IV antibiotics and IV analgesics in the ED. Will admit the patient to the hospital for further evaluation, infectious disease consultation and continued IV antibiotic treatment. Dr. Sanchez has accepted hospital admission. - Lab Data Result diagrams: 04/27/21 13:15 04/27/21 13:15 Lab Results 04/27/21 04/27/21 04/27/21 Range/Units 13:15 13:15 13:15 WBC 25.2 H (3.8-10.6) k/uL RBC 4.59 (4.30-5.90) m/uL Hgb 13.6 (13.0-17.5) gm/dL Hct 39.3 (39.0-53.0) % MCV 85.7 (80.0-100.0) fL MCH 29.7 (25.0-35.0) pg MCHC 34.6 (31.0-37.0) g/dL RDW 13.5 (11.5-15.5) % Plt Count 276 (150-450) k/uL MPV 7.2 Neutrophils % 93 % Lymphocytes % 3 % Monocytes % 3 % Eosinophils % 1 % Basophils % 0 % Neutrophils # 23.4 H (1.3-7.7) k/uL Lymphocytes # 0.7 L (1.0-4.8) k/uL Monocytes # 0.7 (0-1.0) k/uL Eosinophils # 0.2 (0-0.7) k/uL Basophils # 0.0 (0-0.2) k/uL PT 11.7 (9.0-12.0) sec INR 1.1 (<1.2) APTT 25.2 (22.0-30.0) sec Sodium 138 (137-145) mmol/L Potassium 3.7 (3.5-5.1) mmol/L Chloride 107 (98-107) mmol/L Carbon Dioxide 22 (22-30) mmol/L Anion Gap 9 mmol/L BUN 12 (9-20) mg/dL Creatinine 0.81 (0.66-1.25) mg/dL Est GFR (CKD-EPI)AfAm >90 (>60 ml/min/1.73 sqM) Est GFR (CKD-EPI)NonAf >90 (>60 ml/min/1.73 sqM) Glucose 136 H (74-99) mg/dL Plasma Lactic Acid Tonio (0.7-2.0) mmol/L Calcium 9.3 (8.4-10.2) mg/dL Total Bilirubin 1.8 H (0.2-1.3) mg/dL AST 35 (17-59) U/L ALT 26 (4-49) U/L Alkaline Phosphatase 120 (38-126) U/L Total Protein 7.5 (6.3-8.2) g/dL Albumin 3.6 (3.5-5.0) g/dL 04/27/21 Range/Units 13:15 WBC (3.8-10.6) k/uL RBC (4.30-5.90) m/uL Hgb (13.0-17.5) gm/dL Hct (39.0-53.0) % MCV (80.0-100.0) fL MCH (25.0-35.0) pg MCHC (31.0-37.0) g/dL RDW (11.5-15.5) % Plt Count (150-450) k/uL MPV Neutrophils % % Lymphocytes % % Monocytes % % Eosinophils % % Basophils % % Neutrophils # (1.3-7.7) k/uL Lymphocytes # (1.0-4.8) k/uL Monocytes # (0-1.0) k/uL Eosinophils # (0-0.7) k/uL Basophils # (0-0.2) k/uL PT (9.0-12.0) sec INR (<1.2) APTT (22.0-30.0) sec Sodium (137-145) mmol/L Potassium (3.5-5.1) mmol/L Chloride (98-107) mmol/L Carbon Dioxide (22-30) mmol/L Anion Gap mmol/L BUN (9-20) mg/dL Creatinine (0.66-1.25) mg/dL Est GFR (CKD-EPI)AfAm (>60 ml/min/1.73 sqM) Est GFR (CKD-EPI)NonAf (>60 ml/min/1.73 sqM) Glucose (74-99) mg/dL Plasma Lactic Acid Tonio 1.4 (0.7-2.0) mmol/L Calcium (8.4-10.2) mg/dL Total Bilirubin (0.2-1.3) mg/dL AST (17-59) U/L ALT (4-49) U/L Alkaline Phosphatase (38-126) U/L Total Protein (6.3-8.2) g/dL Albumin (3.5-5.0) g/dL - Radiology Data CT left upper extremity with IV contrast: There is a 3.5 2.5 x 0.5 cm ovoid, [id number], intramuscular fluid collection at the ventral and lateral aspect of the distal radius. There is subcutaneous edema the forearm that extends from the wrist to the elbow. No underlying osseous abnormality. Findings could relate to an intramuscular hematoma. Partially visualized splenomegaly. Disposition Clinical Impression: Left arm cellulitis Narrative: Left forearm hematoma versus abscess Disposition: ADMITTED IP TO THIS [facility] Condition: Stable Is patient prescribed a controlled substance at d/c from ED?: No Referrals: None,Stated [Primary Care Provider] - 1-2 days Time of Disposition: 15:18
[2021-04-27] MEDS ORDERED: SODIUM CHLORIDE 0.9% 1,000 ML IV ONE (12:37)
[2021-04-27] MEDS ORDERED: HYDROmorphone 1 MG/ML 1 ML SYRINGE IVP STA ×4 (12:37→21:39)
[2021-04-27] MEDS ORDERED: RX INFO: IV CONTRAST WAS GIVEN 1 EACH MISC MISCELLANE PRN (12:38)
[2021-04-27] MEDS ORDERED: VANCOMYCIN IV PER PHARMACY 1 EACH MISC MISCELLANE STA (12:39)
[2021-04-27] MEDS ORDERED: PIPERACILLIN-TAZOBACTAM 3.375 GM in SODIUM CHLORIDE 0.9% 100 ML IVPB STA (12:42)
[2021-04-27] MEDS ORDERED: VANCOMYCIN 1,250 MG in SODIUM CHLORIDE 0.9% 250 ML IVPB STA (12:42)
[2021-04-27 13:44] LABS: Basophils % (A) 0 %; Eosinophils # (A) 0.2 k/uL (0-0.7); Eosinophils % (A) 1 %; HCT 39.3 % (39.0-53.0); HGB 13.6 gm/dL (13.0-17.5); INR 1.1 (<1.2); Lymphocytes # (A) 0.7 k/uL (1.0-4.8); Lymphocytes % (A) 3 %; MCH 29.7 pg (25.0-35.0); MCHC 34.6 g/dL (31.0-37.0); MCV 85.7 fL (80.0-100.0); Mean Platelet Volume 7.2; Monocytes # (A) 0.7 k/uL (0-1.0); Monocytes % (A) 3 %; Neutrophils # (A) 23.4 k/uL (1.3-7.7); Neutrophils % (A) 93 %; Partial Thromboplastin Time 25.2 sec (22.0-30.0); Platelet Count 276 k/uL (150-450); Prothrombin Time 11.7 sec (9.0-12.0); RBC 4.59 m/uL (4.30-5.90); RDW 13.5 % (11.5-15.5); WBC 25.2 k/uL (3.8-10.6)
[2021-04-27 13:50] LABS: ALT 26 U/L (4-49); African American GFR (CKD) >90 (>60 ml/min/1.73 sqM); Albumin 3.6 g/dL (3.5-5.0); Anion Gap 9 mmol/L; Blood Urea Nitrogen 12 mg/dL (9-20); Calcium 9.3 mg/dL (8.4-10.2); Carbon Dioxide 22 mmol/L (22-30); Chloride 107 mmol/L (98-107); Glucose 136 mg/dL (74-99); Non-African American GFR(CKD) >90 (>60 ml/min/1.73 sqM); Sodium 138 mmol/L (137-145); Total Bilirubin 1.8 mg/dL (0.2-1.3); Total Protein 7.5 g/dL (6.3-8.2)
[2021-04-27 13:52] LABS: AST 35 U/L (17-59); Alkaline Phosphatase 120 U/L (38-126); Potassium 3.7 mmol/L (3.5-5.1)
[2021-04-27] MEDS ORDERED: MORPHINE SULFATE 4 MG/ML SYRINGE IVP STA (14:20)
--- NOTE | 2021-04-27 14:42 | CT ---
EXAMINATION TYPE: CT upper extremity LT w con DATE OF EXAM: 04/27/2021 COMPARISON: EXAMINATION TYPE: CT upper extremity LT w con HISTORY: Left arm swelling. CT DLP: 547.3 mGycm Automated exposure control for dose reduction was used. CONTRAST: Performed with IV Contrast, patient injected with 100 mL of Isovue 300. FINDINGS: Study limited by beam hardening artifact due to patient's arms being by his side. There is a 3.5 x 2.5 x 0.5 cm ovoid, onr-pri-ykxnjzbbl fluid collection at the ventral and lateral as pect of the distal radius. There is subcutaneous edema the forearm that extends from the wrist to the elbow. No underlying osseous abnormality. Incidental note is made of a partially visualized, mildly enlarged spleen measuring up to 14 cm on ax ial imaging. IMPRESSION: There is a 3.5 x 2.5 x 0.5 cm ovoid, [id number]-ska-vvlzdnwft, intramuscular fluid collection at the ventral and lateral aspect of the distal radius. There is subcutaneous edema the forearm that extends from t he wrist to the elbow. No underlying osseous abnormality. Findings could relate to an intramuscular h ematoma. Partially visualized splenomegaly.
[2021-04-27] MEDS ORDERED: NALOXONE 0.4 MG/ML 1 ML VIAL IV PRN (15:21)
[2021-04-27] MEDS: SODIUM CHLORIDE 0.9% 1,000 ML IV SCH (15:40)
[2021-04-27] MEDS: MORPHINE SULFATE 4 MG/ML SYRINGE IV PRN ×2 (16:35→20:15)
[2021-04-27] MEDS: PANTOPRAZOLE 40 MG/10 ML VIAL IVP SCH (17:37)
[2021-04-27] MEDS ORDERED: ACETAMINOPHEN TAB 325 MG TAB PO PRN (22:04)
--- NOTE | 2021-04-27 22:10 | P.GSCN ---
History of Present Illness Consult date: 04/27/21 Reason for Consult: Left forearm pain History of present illness: 36-year-old male presents to the ER this afternoon with complaints of pain and swelling left forearm. Patient says this has been increasing in the last 3 days but is much more severe starting earlier today. Patient denies numbness or paresthesias. Says the forearm and hand feel very swollen. Patient has significant tattoos across both arms but describes the arm is being reddish in color. Feels warm. Patient has been tachycardic. White blood cell count is elevated. Patient apparently has injected into the left forearm 3 days ago. Was using fentanyl. Infectious disease has been consulted. Patient is on vancomycin currently. It appears patient received Zosyn earlier. No drainage from the arm. Patient had a CAT scan of the arm which shows an abscess versus hematoma ventral aspect of forearm in the muscular layers Review of Systems The patient denies any acute changes in vision or hearing, no dysphagia or odynophagia, no chest pain or shortness of breath, no dysuria or hematuria, no headache, no runny nose, no rectal bleeding or melena, no unexplained weight loss Past Medical History Past Medical History: No Reported History Additional Past Medical History / Comment(s): scoliosis, back pain, hep C, fentanyl abuse History of Any Multi-Drug Resistant Organisms: None Reported Past Surgical History: No Surgical Hx Reported Past Anesthesia/Blood Transfusion Reactions: No Reported Reaction Past Psychological History: No Psychological Hx Reported Smoking Status: Current every day smoker Past Alcohol Use History: None Reported Past Drug Use History: Heroin, Opiates, Prescription Drug Abuse - Past Family History Father Family Medical History: No Reported History (Father is 50-year-old has no major medical problems) Mother Family Medical History: No Reported History (Mother is 52-year-old year and has no major medical problems) Brother(s) Family Medical History: No Reported History (Patient has one brother no major medical problems) Sister(s) Family Medical History: No Reported History (Patient has one sister no major medical problems) Medications and Allergies Home Medications Medication Instructions Recorded Confirmed Type No Known Home Medications 04/27/21 04/27/21 History Allergies Allergy/AdvReac Type Severity Reaction Status Date / Time ketorolac [From Toradol] Allergy Unknown Verified 04/27/21 14:38 Surgical - Exam Vital Signs Temp Pulse Resp Pulse Ox 97.9 F 136 H 20 100 04/27/21 12:13 04/27/21 12:13 04/27/21 12:13 04/27/21 12:13 Physical exam: General: Well-developed, well-nourished male who appears in some distress related to the pain. I could hear the patient complaining of pain from outside of his room HEENT: Normocephalic, sclerae nonicteric Abdomen: Nontender, nondistended Extremities: Bilateral sleeve tattoos, bilateral oblique scars from self inflected lacerations both forearms, left forearm significantly more swollen than the right with erythema and marked tenderness, and a swollen as well, and is nontender however he does have pain with passive flexion and extension of the fingers, strong radial pulse, no numbness appreciated Neuro: Alert and oriented and agitated Results - Labs 04/27/21 13:15 04/27/21 13:15 Abnormal Lab Results - Last 24 Hours (Table) 04/27/21 04/27/21 Range/Units 13:15 13:15 WBC 25.2 H (3.8-10.6) k/uL Neutrophils # 23.4 H (1.3-7.7) k/uL Lymphocytes # 0.7 L (1.0-4.8) k/uL Glucose 136 H (74-99) mg/dL Total Bilirubin 1.8 H (0.2-1.3) mg/dL Diabetes panel 04/27/21 Range/Units 13:15 Sodium 138 (137-145) mmol/L Potassium 3.7 (3.5-5.1) mmol/L Chloride 107 (98-107) mmol/L Carbon Dioxide 22 (22-30) mmol/L BUN 12 (9-20) mg/dL Creatinine 0.81 (0.66-1.25) mg/dL Glucose 136 H (74-99) mg/dL Calcium 9.3 (8.4-10.2) mg/dL AST 35 (17-59) U/L ALT 26 (4-49) U/L Alkaline Phosphatase 120 (38-126) U/L Total Protein 7.5 (6.3-8.2) g/dL Albumin 3.6 (3.5-5.0) g/dL Calcium panel 04/27/21 Range/Units 13:15 Calcium 9.3 (8.4-10.2) mg/dL Albumin 3.6 (3.5-5.0) g/dL Pituitary panel 04/27/21 Range/Units 13:15 Sodium 138 (137-145) mmol/L Potassium 3.7 (3.5-5.1) mmol/L Chloride 107 (98-107) mmol/L Carbon Dioxide 22 (22-30) mmol/L BUN 12 (9-20) mg/dL Creatinine 0.81 (0.66-1.25) mg/dL Glucose 136 H (74-99) mg/dL Calcium 9.3 (8.4-10.2) mg/dL Adrenal panel 04/27/21 Range/Units 13:15 Sodium 138 (137-145) mmol/L Potassium 3.7 (3.5-5.1) mmol/L Chloride 107 (98-107) mmol/L Carbon Dioxide 22 (22-30) mmol/L BUN 12 (9-20) mg/dL Creatinine 0.81 (0.66-1.25) mg/dL Glucose 136 H (74-99) mg/dL Calcium 9.3 (8.4-10.2) mg/dL Total Bilirubin 1.8 H (0.2-1.3) mg/dL AST 35 (17-59) U/L ALT 26 (4-49) U/L Alkaline Phosphatase 120 (38-126) U/L Total Protein 7.5 (6.3-8.2) g/dL Albumin 3.6 (3.5-5.0) g/dL Assessment and Plan (1) Left arm cellulitis Narrative/Plan: 36-year-old male with left forearm swelling and pain. CAT scan reviewed suspect abscess. We'll proceed with operative exploration with incision and drainage. Risks of bleeding, infection, nerve injury, vascular injury, possible need for further surgeries reviewed. He understands and wishes to proceed. Patient quite anxious that this be as quickly as possible. Current Visit: Yes Status: Acute Code(s): L03.114 - CELLULITIS OF LEFT UPPER LIMB SNOMED Code(s): 006120968
[2021-04-27] MEDS ORDERED: ROPIVACAINE 5 MG/ML 30 ML VIAL ONE (22:56)
[2021-04-27] MEDS ORDERED: PROPOFOL 10 MG/ML 20 ML VIAL IV ONE (22:56)
[2021-04-27] MEDS ORDERED: DEXAMETHASONE SOD PHOSPHATE 4 MG/ML 1 ML VIAL ONE (22:56)
[2021-04-27] MEDS ORDERED: MIDAZOLAM 2 MG/2 ML VIAL ONE (22:56)
[2021-04-27] MEDS ORDERED: fentaNYL (PF) 50 MCG/ML 2 ML AMP ONE (22:56)
[2021-04-27] MEDS ORDERED: LACTATED RINGERS 1,000 ML IV ONE (23:00)
--- NOTE | 2021-04-27 23:03 | P.ANPRN ---
Procedure Note - Anesthesia - Nerve Block Performed Left Axillary Single Time Out Performed: Yes Date of Procedure: 04/27/21 Procedure Start Time: 10:40 Procedure Stop Time: 10:50 Location of Patient: PreOp Indication: Acute Post-Operative Pain, Requested by Surgeon Sedation Type: Sedate with meaningful contact maintained Preparation: Sterile Prep, Sterile Dressing Position: Supine Catheter: None Needle Types: Pajunk Needle Gauge: 20 Ultrasound used to visualize needle placement: Yes Ultrasound used to observe medication spread: Yes Injectate: 0.5% Ropivacaine (see comment for volume) (30 ml + decadron 4 mg) Blood Aspirated: No Pain Paresthesia on Injection Noted: No Resistance on Injection: Normal Image Stored and Saved: Yes Events: Uneventful and Well Tolerated
--- NOTE | 2021-04-27 23:22 | P.HPIM ---
History of Present Illness H&P Date: 04/27/21 Chief Complaint: left hand swelling Patient is a 36-year-old male with a known history of hepatitis c, fentanyl IV drug abuse, everyday smoker, Opiate drug abuse presents to ER with complaints of left upper extremity swelling and pain. Patient states that he injected fentanyl on the forearm about 3 days ago and since then he has been having increased swelling and redness and pain of the left forearm and got worse during the last 24 hours with throbbing sharp pain.. Patient otherwise denies any complaints of fever or chills. Patient was tachycardic on admission. Was also 100% on room air. Patient had upper extremity CT showed there is a 3.5 x 2.2 x 0.5 cm ovoid n onrim-enhancing intramuscular fluid collection at the ventral and lateral aspect of the distal radius. There is subcutaneous edema and the forearm the extent from the wrist to the elbow. No underlying osseous abnormality. Findings could related to intramuscular hematoma. Laboratory showed WBC 25.2 hemoglobin 13.6 and platelets 276 and neutrophils 23.4 Sodium 138 potassium 3.7 chloride 107 bicarb is 22 BUN 12 and creatinine 0.81 blood sugar is 136 and total bilirubin level is 1.8 liver enzymes are not elevated Coronavirus PCR not detected. Review of Systems Constitutional: Patient denies any fever or chills . No generalized weakness or weight loss. Abdomen: Patient denied nausea vomiting and diarrhea and abdominal pain. Cardiovascular: Patient denies any chest pain or short of breath no palpitations. Respiratory: patient denied any cough or sputum production. No shortness of breath Neurologic: Patient denied any numbness or tingling headache. Musculoskeletal: Patient denies any complaints of joint swelling or deformity.Left arm swelling and pain. Skin: Negative Psychiatric: Negative Endocrine: No heat or cold intolerance. No recent weight gain. Genitourinary: No dysuria or hematuria. All other 14 point ROS negative except the above Past Medical History Past Medical History: No Reported History Additional Past Medical History / Comment(s): scoliosis, back pain, hep C, fentanyl abuse History of Any Multi-Drug Resistant Organisms: None Reported Past Surgical History: No Surgical Hx Reported Past Anesthesia/Blood Transfusion Reactions: No Reported Reaction Past Psychological History: No Psychological Hx Reported Smoking Status: Current every day smoker Past Alcohol Use History: None Reported Past Drug Use History: Heroin, Opiates, Prescription Drug Abuse - Past Family History Father Family Medical History: No Reported History (Father is 50-year-old has no major medical problems) Mother Family Medical History: No Reported History (Mother is 52-year-old year and has no major medical problems) Brother(s) Family Medical History: No Reported History (Patient has one brother no major medical problems) Sister(s) Family Medical History: No Reported History (Patient has one sister no major medical problems) Medications and Allergies Home Medications Medication Instructions Recorded Confirmed Type No Known Home Medications 04/27/21 04/27/21 History Allergies Allergy/AdvReac Type Severity Reaction Status Date / Time ketorolac [From Toradol] Allergy Unknown Verified 04/27/21 14:38 Physical Exam Vitals: Vital Signs Temp Pulse Resp BP Pulse Ox 04/27/21 15:00 98/60 04/27/21 13:42 100 18 132/109 100 04/27/21 12:16 119/67 04/27/21 12:13 97.9 F 136 H 20 100 Intake and Output 04/27/21 04/27/21 04/28/21 14:59 22:59 06:59 Other: # Voids 1 # Bowel Movements 0 Weight 63.503 kg 63.503 kg PHYSICAL EXAMINATION: Patient is lying in the bed comfortably, no acute distress, awake alert and oriented.. HEENT: Normocephalic. Neck is supple. Pupils reactive. Nostrils clear. Oral cavity is moist. Neck reveals no JVD, carotid bruits, or thyromegaly. CHEST EXAMINATION: Trachea is central. Symmetrical expansion. Lung dubon clear to auscultation and percussion. CARDIAC: Normal S1, S2 with no gallops. No murmurs ABDOMEN: Soft. Bowel sounds normal. No organomegaly. No abdominal bruits. Extremities: reveal no edema. No clubbing or cyanosis Patient does have left upper extremity swelling, tightness and redness and tenderness extending up to the elbow. Neurologically awake, alert, oriented x3 with well-coordinated movements. No focal deficits noted Skin: No rash or skin lesions. Psychiatric: Cooperative. Nonsuicidal Musculoskeletal: No joint swelling or deformity. Normal range of motion. Results CBC & Chem 7: 04/28/21 06:16 04/28/21 15:04 Labs: Abnormal Lab Results - Last 24 Hours (Table) 04/27/21 04/27/21 Range/Units 13:15 13:15 WBC 25.2 H (3.8-10.6) k/uL Neutrophils # 23.4 H (1.3-7.7) k/uL Lymphocytes # 0.7 L (1.0-4.8) k/uL Glucose 136 H (74-99) mg/dL Total Bilirubin 1.8 H (0.2-1.3) mg/dL Thrombosis Risk Factor Assmnt - DVT/VTE Prophylaxis DVT/VTE Prophylaxis: Pharmacologic Prophylaxis ordered - Choose All That Apply Each Factor Represents 1 point: Minor surgery planned Thrombosis Risk Factor Assessment Total Risk Factor Score: 1 Thrombosis Risk Factor Assessment Level: Low Risk Assessment and Plan Assessment: Left upper extremity cellulitis with possible abscess versus hematoma. IVDU fentanyl used 3 days ago Scoliosis Chronic back pain Hepatitis C Currently everyday smoker DVT prophylax Heparin subcu Patient will be continued on antibiotics in the form of vancomycin and a dose of Zosyn was given in the ER. Continue with vancomycin and General surgery was consulted. Follow-up culture reports. Continue with pain management with Onset and Dilaudid. Follow closely. Time with Patient: Greater than 30
[2021-04-27] MEDS ORDERED: ONDANSETRON 4 MG/2 ML VIAL IVP PRN (23:30)
--- NOTE | 2021-04-27 23:40 | P.OP ---
Date of Procedure: 04/27/21 Procedure(s) Performed: PREOPERATIVE DIAGNOSIS: Left forearm abscess POSTOPERATIVE DIAGNOSIS: Same PROCEDURE: Incision and drainage left forearm abscess SURGEON: Araceli EBL: 15 mL ANESTHESIA: Left arm block with sedation COMPLICATIONS: None OPERATIVE PROCEDURE: Patient was kept in his hospital bed for the procedure. The arm block took place in preop. The patient was sedated per anesthesia. The patient's left arm was prepped and draped sterilely. A longitudinal incision was made on the Selvin aspect of the left forearm. This incision was 3 cm centrally located. As soon as the superficial skin was incised a large purulent collection was encountered. This was under significant pressure and I would estimate the purulence shot 3-4 feet out from his arm at that point. No blood was seen. Cultures were taken. The remainder of the incision was opened with electrocautery superficially. The patient's abscess cavity was noted to involve the superficial muscular layer and also penetrated down into the space between the radius and ulna. No other collections were identified. The wound bed was thoroughly irrigated. The patient had a few necrotic appearing superficial venous structures that were clipped using the Ligaclip. No deep clips were placed. Half inch iodophor gauze was then packed into the wound bed. Curlex fluff gauze and Kerlix roll was then used for dressings. Patient was taken to the recovery room at that time. DISPOSITION: Stable to recovery room. I called the patient's mother by phone to update her as to his condition and the operative findings.
--- NOTE | 2021-04-27 23:54 | P.CONS ---
History of Present Illness - Reason for Consult Consult date: 04/27/21 left arm abscess vs hematoma Requesting physician: Myra Sanchez - Chief Complaint left arm pain x 3 days - History of Present Illness History of present illness : Patient is a 36-year-old male with a past medical history significant for IV drug use in this patient injected into his left forearm about 3 days ago patient now presenting to [facility] ER this afternoon for evaluation of increasing pain swelling redness to the left forearm seem to be getting worse over the last 24 hours patient did have diffuse swelling redness to the left forearm is currently the pain to be sharp and throbbing with intensity almost 10 out of 10 no radiation with associated swelling redness but no open wound or any drainage patient complaining of some chills but no fever has been recorded he was noticed to have white count 25.2 with a left shift blood culture has been obtained which are currently pending patient was started on vancomycin has been admitted to hospital infectious disease was consulted for further management of antibiotic therapy, patient did have a CT of the left upper extremity which did shows 3.5 X2.5X 0.5 cm ovoid normal rim-enhancing intramuscular fluid collection with concern for possible hematoma Review of system: CONSTITUTIONAL: Positive for weakness denies high-grade fever. EYES: No complaint. ENT: No complaint. RESPIRATORY: No complaint. CARDIOVASCULAR: No complaint. GENITOURINARY: No complaint. GASTROINTESTINAL: No complaint. MUSCULOSKELETAL: As per history of present illness. INTEGUMENTARY: As per history of present illness. PSYCHOLOGIC: No complaint. ENDOCRINE: No complaint. NEUROLOGIC: No complaint. Past medical history : Reviewed, documented below Past surgical history : Reviewed, documented below Social history: Reviewed, documented below Medications: Reviewed, as documented below EXAMINATION: Vital sigans= Reviewed and documented below GENERAL DESCRIPTION: Middle-aged male lying in bed, no distress. No tachypnea or accessory muscle of respiration use. HEENT: Shows Pallor , no scleral icterus. Oral mucous membrane is dry. NECK: Trachea central, no thyromegaly. LUNGS: Unlabored breathing. Clear to auscultation anteriorly. No wheeze or crackle. HEART: S1, S2, regular rate and rhythm. ABDOMEN: Soft, no tenderness , guarding or rigidity EXTREMITIES: Left upper extremity swollen and red and tender to touch. SKIN: No rash, no masses palpable. NEUROLOGICAL: The patient is awake, alert, oriented x3, mood and affect normal. LABS AND RADIOLOGY: Reviewed results see below Assessment : Patient presented to hospital with extensive left upper extremity pain and swelling redness in this patient who did have a history of IV drug use and has injected into the area now with a CT did show some evidence of fluid collection intramuscularly likely representing an abscess rather than hematoma admitted to cover for the resistant gram-positive as well as gram-negative in view of his history of IV drug use Plan: 1-recommending general surgery evaluation for possible drainage of this abscess and deep cultures 2-vancomycin pharmacy to dose with a target trough of 15 while watching kidney function and Vanco trough closely. 3-we will add cefepime 2 g every 8 hours We will follow on clinical condition and cultures to further adjust medication if needed Thank you for this consultation we will follow the patient along with you Past Medical History Past Medical History: No Reported History Additional Past Medical History / Comment(s): scoliosis, back pain, hep C, fentanyl abuse History of Any Multi-Drug Resistant Organisms: None Reported Past Surgical History: No Surgical Hx Reported Past Psychological History: No Psychological Hx Reported Smoking Status: Current every day smoker Past Alcohol Use History: None Reported Past Drug Use History: Heroin, Opiates, Prescription Drug Abuse - Past Family History Father Family Medical History: No Reported History (Father is 50-year-old has no major medical problems) Mother Family Medical History: No Reported History (Mother is 52-year-old year and has no major medical problems) Brother(s) Family Medical History: No Reported History (Patient has one brother no major medical problems) Sister(s) Family Medical History: No Reported History (Patient has one sister no major m edical problems) Medications and Allergies Home Medications Medication Instructions Recorded Confirmed Type No Known Home Medications 04/27/21 04/27/21 History Allergies Allergy/AdvReac Type Severity Reaction Status Date / Time ketorolac [From Toradol] Allergy Unknown Verified 04/27/21 14:38 Physical Exam Vitals: Vital Signs Temp Pulse Resp BP Pulse Ox 04/27/21 15:00 98/60 04/27/21 13:42 100 18 132/109 100 04/27/21 12:16 119/67 04/27/21 12:13 97.9 F 136 H 20 100 Intake and Output 04/27/21 04/27/21 04/27/21 06:59 14:59 22:59 Other: Weight 63.503 kg Results CBC & Chem 7: 04/27/21 13:15 04/27/21 13:15 Labs: Abnormal Lab Results - Last 24 Hours (Table) 04/27/21 04/27/21 Range/Units 13:15 13:15 WBC 25.2 H (3.8-10.6) k/uL Neutrophils # 23.4 H (1.3-7.7) k/uL Lymphocytes # 0.7 L (1.0-4.8) k/uL Glucose 136 H (74-99) mg/dL Total Bilirubin 1.8 H (0.2-1.3) mg/dL
[2021-04-28] MEDS ORDERED: PIPERACILLIN-TAZOBACTAM 3.375 GM in SODIUM CHLORIDE 0.9% 100 ML IVPB SCH ×2
[2021-04-28] MEDS: VANCOMYCIN 1,250 MG in SODIUM CHLORIDE 0.9% 250 ML IVPB SCH ×4 (01:29→23:37)
[2021-04-28] MEDS: HEPARIN SODIUM,PORCINE/PF 5,000 UNIT/0.5 ML SYRINGE SQ SCH ×4 (01:30→23:46)
[2021-04-28] MEDS: CEFEPIME 2 GM in SODIUM CHLORIDE 0.9% 100 ML IVPB SCH ×4 (01:37→23:37)
[2021-04-28] MEDS: HYDROmorphone 1 MG/ML 1 ML SYRINGE IVP PRN ×6 (01:47→22:22)
[2021-04-28] MEDS: SODIUM CHLORIDE 0.9% 1,000 ML IV SCH ×2 (05:55→22:00)
[2021-04-28] MEDS: HYDROcodone/APAP 7.5-325MG 1 EACH TAB PO PRN ×5 (07:14→23:37)
--- NOTE | 2021-04-28 07:57 | P.PN ---
Subjective Progress Note Date: 04/28/21 Principal diagnosis: Left forearm abscess Patient states that the nerve block is still present to a certain degree. He does have some deep throbbing pain in the middle of his forearm. Pain much improved from preop however. Remains tachycardic. No fevers. Some serosanguineous strikethrough on the bandage.culture results and morning labs pending. Objective - Vital Signs Vital signs: Vital Signs Temp 98.3 F 04/28/21 04:47 Pulse 117 H 04/28/21 04:47 Resp 18 04/28/21 04:47 BP 135/77 04/28/21 04:47 Pulse Ox 98 04/28/21 04:47 Intake & Output 04/27/21 04/28/21 04/28/21 18:59 06:59 18:59 Intake Total 1000 Output Total 15 Balance 985 Weight 63.503 kg Intake: IV 500 Oral 500 Output: Estimated Blood Loss 15 Other: # Voids 1 2 # Bowel Movements 0 - Exam Left arm Kerlix roll dressing in place, some serosanguineous strikethrough, hand is warm, positive radial pulse, numbness and hand weakness persist post nerve block - Labs CBC & Chem 7: 04/27/21 13:15 04/27/21 13:15 Labs: Abnormal Lab Results - Last 24 Hours (Table) 04/27/21 04/27/21 Range/Units 13:15 13:15 WBC 25.2 H (3.8-10.6) k/uL Neutrophils # 23.4 H (1.3-7.7) k/uL Lymphocytes # 0.7 L (1.0-4.8) k/uL Glucose 136 H (74-99) mg/dL Total Bilirubin 1.8 H (0.2-1.3) mg/dL Assessment and Plan (1) Left arm cellulitis Narrative/Plan: Patient has less pain than he did preoperatively. We'll discuss with anesthesia the expected duration of the effects of the nerve block. Anticipate dressing change after showering today. Repack with Aquacel silver rope. Continue analgesics. Continue broad-spectrum antibiotics. Follow cultures. Await infectious disease consultation. Current Visit: Yes Status: Acute Code(s): L03.114 - CELLULITIS OF LEFT UPPER LIMB SNOMED Code(s): 951235283
[2021-04-28] MEDS: PANTOPRAZOLE 40 MG/10 ML VIAL IVP SCH ×2 (08:42→22:20)
[2021-04-28] MEDS ORDERED: IBUPROFEN 600 MG TAB PO SCH (09:00)
[2021-04-28 09:12] LABS: HCT 39.1 % (39.6-50.0); HGB 12.7 g/dL (13.0-17.0); MCH 27.9 pg (27.0-32.0); MCHC 32.5 g/dL (32.0-37.0); MCV 85.9 fL (80.0-97.0); Mean Platelet Volume 10.8 fL (9.5-12.2); NRBC Per 100 WBC 0 /100 WBCS (0.0-0.0); Platelet Count 291 X 10*3/uL (140-440); RBC 4.55 X 10*6/uL (4.40-5.60); RDW 13.2 % (11.5-14.5); WBC 25.91 X 10*3/uL (4.50-10.00)
[2021-04-28 09:23] LABS: African American GFR (CKD) 138.7 (60.0-200.0); Albumin 3.4 g/dL (3.8-4.9); Albumin/Globulin Ratio 1.17 (1.60-3.17); Anion Gap 15.6 mmol/L (10.00-18.00); Blood Urea Nitrogen 7.7 mg/dL (9.0-27.0); Carbon Dioxide 20.4 mmol/L (20.0-27.5); Globulin 2.9 g/dL (1.6-3.3); Non-African American GFR(CKD) 119.7 (60.0-200.0); Potassium 3.6 mmol/L (3.5-5.5); Total Bilirubin 0.6 mg/dL (0.30-1.20); Total Protein 6.3 g/dL (6.2-8.2)
[2021-04-28 09:56] LABS: Basophils # (A) 0.08 X 10*3/uL (0.00-0.10); Basophils % (A) 0.3 %; Eosinophils # (A) 0 X 10*3/uL (0.04-0.35); Eosinophils % (A) 0 %; Immature Grans, Automated 1.2 %; Lymphocytes # (A) 1.34 X 10*3/uL (0.90-5.00); Lymphocytes % (A) 5.2 %; Monocytes # (A) 0.73 X 10*3/uL (0.20-1.00); Monocytes % (A) 2.8 %; Neutrophils # (A) 23.46 X 10*3/uL (1.80-7.70); Neutrophils % (A) 90.5 %
[2021-04-28] MEDS ORDERED: HYDROmorphone 1 MG/ML 1 ML SYRINGE IVP STA ×2 (12:45→12:54)
[2021-04-28] MEDS: MORPHINE SULFATE 4 MG/ML SYRINGE IV PRN ×3 (14:52→23:38)
[2021-04-28] MEDS ORDERED: VANCOMYCIN TROUGH DUE 1 EACH MISC MISCELLANE ONE (15:00)
[2021-04-28] MEDS: IBUPROFEN 600 MG TAB PO PRN ×2 (15:11→22:21)
[2021-04-28 16:03] LABS: African American GFR (CKD) >90 (>60 ml/min/1.73 sqM); Non-African American GFR(CKD) >90 (>60 ml/min/1.73 sqM)
[2021-04-28] MEDS ORDERED: HYDROmorphone 1 MG/ML 1 ML SYRINGE IVP PRN (21:36)
[2021-04-28] MEDS ORDERED: ONDANSETRON 4 MG/2 ML VIAL IVP PRN (21:36)
[2021-04-28] MEDS: LACTATED RINGERS 1,000 ML IV SCH (21:39)
--- NOTE | 2021-04-28 22:19 | P.PN ---
Subjective Progress Note Date: 04/28/21 Patient is a 36-year-old male with a known history of hepatitis c, fentanyl IV drug abuse, everyday smoker, Opiate drug abuse presents to ER with complaints of left upper extremity swelling and pain. Patient states that he injected fentanyl on the forearm about 3 days ago and since then he has been having increased swelling and redness and pain of the left forearm and got worse during the last 24 hours with throbbing sharp pain.. Patient otherwise denies any complaints of fever or chills. Patient was tachycardic on admission. Was also 100% on room air. Patient had upper extremity CT showed there is a 3.5 x 2.2 x 0.5 cm ovoid nonrim-enhancing intramuscular fluid collection at the ventral and lateral aspect of the distal radius. There is subcutaneous edema and the forearm the extent from the wrist to the elbow. No underlying osseous abnormality. Findings could related to intramuscular hematoma. Laboratory showed WBC 25.2 hemoglobin 13.6 and platelets 276 and neutrophils 23.4 Sodium 138 potassium 3.7 chloride 107 bicarb is 22 BUN 12 and creatinine 0.81 blood sugar is 136 and total bilirubin level is 1.8 liver enzymes are not elevated Coronavirus PCR not detected. 04/28/2021 Patient is currently ambulating in the hallway. Complains of severe left forearm pain. Patient is status post I&D of left forearm abscess. Denies any complaints of fever or chills. No chest pain or shortness of breath. No nausea vomiting abdominal pain or diarrhea. No headache or dizziness or lightheadedness. Laboratory data showed WBC 25.9 hemoglobin 12.7 and platelets 291 BUN 7.7 creatinine 0.7 sodium 138 potassium 3.6 chloride 102 bicarb is 20.4 Vancomycin trough is 12.5. Patient is being continued on antibiotics in the form of vancomycin and cefepime was added. ID and general surgery is on board. Current medications reviewed. Objective - Vital Signs Vital signs: Vital Signs Temp 98.9 F 04/28/21 12:41 Pulse 100 04/28/21 12:41 Resp 20 04/28/21 12:41 BP 133/78 04/28/21 12:41 Pulse Ox 98 04/28/21 12:41 Intake & Output 04/28/21 04/28/21 04/29/21 06:59 18:59 06:59 Intake Total 1000 900 Output Total 15 800 Balance 985 900 -800 Intake: IV 500 Intake, IV Titration 900 Amount Sodium Chloride 0.9% 1, 900 000 ml @ 75 mls/hr IV . [id number] [facility] Rx#:[id number] Oral 500 Output: Urine 800 Estimated Blood Loss 15 Other: Voiding Method Toilet Toilet Urinal Urinal # Voids 2 # Bowel Movements 0 - Exam PHYSICAL EXAMINATION: Patient is lying in the bed comfortably, no acute distress, awake alert and oriented.. HEENT: Normocephalic. Neck is supple. Pupils reactive. Nostrils clear. Oral cavity is moist. Neck reveals no JVD, carotid bruits, or thyromegaly. CHEST EXAMINATION: Trachea is central. Symmetrical expansion. Lung dubon clear to auscultation and percussion. CARDIAC: Normal S1, S2 with no gallops. No murmurs ABDOMEN: Soft. Bowel sounds normal. No organomegaly. No abdominal bruits. Extremities: reveal no edema. No clubbing or cyanosis Patient does have left upper extremity swelling, tightness and redness and tenderness extending up to the elbow. Neurologically awake, alert, oriented x3 with well-coordinated movements. No focal deficits noted Skin: No rash or skin lesions. Psychiatric: Cooperative. Nonsuicidal Musculoskeletal: No joint swelling or deformity. Normal range of motion. - Labs CBC & Chem 7: 04/28/21 06:16 04/28/21 15:04 Labs: Abnormal Lab Results - Last 24 Hours (Table) 04/28/21 04/28/21 Range/Units 06:16 06:16 WBC 25.91 H (4.50-10.00) X 10*3/uL Hgb 12.7 L (13.0-17.0) g/dL Hct 39.1 L (39.6-50.0) % Immature Gran # 0.30 H (0.00-0.04) X 10*3/uL Neutrophils # 23.46 H (1.80-7.70) X 10*3/uL Eosinophils # 0 L (0.04-0.35) X 10*3/uL BUN 7.7 L (9.0-27.0) mg/dL BUN/Creatinine Ratio 11.00 L (12.00-20.00) Ratio Glucose 182 H (70-110) mg/dL Albumin 3.4 L (3.8-4.9) g/dL Albumin/Globulin Ratio 1.17 L (1.60-3.17) g/dL Microbiology - Last 24 Hours (Table) 04/27/21 13:15 Blood Culture Gram Stain - Preliminary Blood Blood Culture - Preliminary Staphylococcus epidermidis Streptococcus species 04/27/21 23:12 Anaerobic Culture - Preliminary Arm - Left 04/27/21 13:15 Blood Culture - Final Blood Assessment and Plan Assessment: Left upper extremity cellulitis with possible abscess versus hematoma. s/p I&D IVDU fentanyl used 3 days ago Scoliosis Chronic back pain Hepatitis C Currently everyday smoker DVT prophylax Heparin subcu Patient will be continued on antibiotics in the form of vancomycin and a dose of Zosyn was given in the ER. Continue with vancomycin and General surgery was consulted. Surgery was added. ID and general surgery is on board. Status post incision and drainage. Follow-up wound cultures. Continue pain management with Dilaudid and Oxly 5 increase to every 4 hourly. Continue to monitor for any opioid withdrawal symptoms. Time with Patient: Greater than 30
--- NOTE | 2021-04-28 23:16 | P.PN ---
Subjective Progress Note Date: 04/28/21 Principal diagnosis: Left arm abscess and cellulitis Patient is a 36-year-old male with a past medical history significant for IV drug use presented to hospital with left upper extremity swelling and redness in this patient has been diagnosed with a left arm abscess status post surgical drainage completed 04/27/2021. On today's evaluation and that is 04/28/2021, the patient remains to be afebrile, patient is a breathing comfortably however is complaining of pain to the left arm and more more pain medication patient denies having any chest pain shortness of breath or cough no abdominal pain and no diarrhea Objective - Vital Signs Vital signs: Vital Signs Temp 99 F 04/28/21 20:00 Pulse 89 04/28/21 20:00 Resp 18 04/28/21 20:00 BP 125/72 04/28/21 20:00 Pulse Ox 99 04/28/21 20:00 Intake & Output 04/28/21 04/28/21 04/29/21 06:59 18:59 06:59 Intake Total 1000 900 Output Total 15 800 Balance 985 900 -800 Intake: IV 500 Intake, IV Titration 900 Amount Sodium Chloride 0.9% 1, 900 000 ml @ 75 mls/hr IV . [id number] [facility] Rx#:[id number] Oral 500 Output: Urine 800 Estimated Blood Loss 15 Other: Voiding Method Toilet Toilet Urinal Urinal # Voids 2 # Bowel Movements 0 - Exam GENERAL DESCRIPTION: An middle-aged male lying in bed in no distress RESPIRATORY SYSTEM: Unlabored breathing , decreased breath sounds at bases HEART: S1 S2 regular rate and rhythm , ABDOMEN: Soft , no tenderness EXTREMITIES: Left arm is currently dressed no drainage of the dressing - Labs CBC & Chem 7: 04/28/21 06:16 04/28/21 15:04 Labs: Abnormal Lab Results - Last 24 Hours (Table) 04/28/21 04/28/21 Range/Units 06:16 06:16 WBC 25.91 H (4.50-10.00) X 10*3/uL Hgb 12.7 L (13.0-17.0) g/dL Hct 39.1 L (39.6-50.0) % Immature Gran # 0.30 H (0.00-0.04) X 10*3/uL Neutrophils # 23.46 H (1.80-7.70) X 10*3/uL Eosinophils # 0 L (0.04-0.35) X 10*3/uL BUN 7.7 L (9.0-27.0) mg/dL BUN/Creatinine Ratio 11.00 L (12.00-20.00) Ratio Glucose 182 H (70-110) mg/dL Albumin 3.4 L (3.8-4.9) g/dL Albumin/Globulin Ratio 1.17 L (1.60-3.17) g/dL Microbiology - Last 24 Hours (Table) 04/27/21 13:15 Blood Culture Gram Stain - Preliminary Blood Blood Culture - Preliminary Staphylococcus epidermidis Streptococcus species 04/27/21 23:12 Anaerobic Culture - Preliminary Arm - Left 04/27/21 13:15 Blood Culture - Final Blood Assessment and Plan (1) Abscess of left arm Current Visit: Yes Status: Acute Code(s): L02.414 - CUTANEOUS ABSCESS OF LEFT UPPER LIMB SNOMED Code(s): [id number] Plan: 1-patient with left arm abscess from IV drug use status post drainage cultures are currently pending patient also have positive blood culture with staph epi, patient to continue with the cefepime and vancomycin while waiting for the culture finalized Time with Patient: Less than 30
[2021-04-29] MEDS: HYDROmorphone 1 MG/ML 1 ML SYRINGE IVP PRN ×10 (00:33→23:27)
[2021-04-29] MEDS: HYDROcodone/APAP 7.5-325MG 1 EACH TAB PO PRN ×5 (03:32→20:45)
[2021-04-29] MEDS: MORPHINE SULFATE 4 MG/ML SYRINGE IV PRN ×3 (03:33→18:53)
[2021-04-29] MEDS: IBUPROFEN 600 MG TAB PO PRN ×3 (04:48→23:26)
[2021-04-29] MEDS: CEFEPIME 2 GM in SODIUM CHLORIDE 0.9% 100 ML IVPB SCH ×3 (07:23→23:27)
[2021-04-29] MEDS: PANTOPRAZOLE 40 MG/10 ML VIAL IVP SCH ×2 (07:24→20:46)
[2021-04-29] MEDS: HEPARIN SODIUM,PORCINE/PF 5,000 UNIT/0.5 ML SYRINGE SQ SCH ×5 (07:24→23:37)
[2021-04-29] MEDS: VANCOMYCIN 1,250 MG in SODIUM CHLORIDE 0.9% 250 ML IVPB SCH ×3 (07:24→23:39)
[2021-04-29] MEDS: SODIUM CHLORIDE 0.9% 1,000 ML IV SCH ×2 (07:46→20:48)
[2021-04-29 07:48] LABS: African American GFR (CKD) >90 (>60 ml/min/1.73 sqM); Non-African American GFR(CKD) >90 (>60 ml/min/1.73 sqM)
[2021-04-29 11:53] LABS: Basophils # (A) 0.04 X 10*3/uL (0.00-0.10); Basophils % (A) 0.2 %; Eosinophils # (A) 0.04 X 10*3/uL (0.04-0.35); Eosinophils % (A) 0.2 %; HCT 38.3 % (39.6-50.0); HGB 12.1 g/dL (13.0-17.0); Immature Grans, Automated 1.1 %; Lymphocytes # (A) 2.26 X 10*3/uL (0.90-5.00); Lymphocytes % (A) 11.3 %; MCH 27.9 pg (27.0-32.0); MCHC 31.6 g/dL (32.0-37.0); MCV 88.2 fL (80.0-97.0); Mean Platelet Volume 11.4 fL (9.5-12.2); Monocytes # (A) 1.21 X 10*3/uL (0.20-1.00); Monocytes % (A) 6.1 %; NRBC Per 100 WBC 0 /100 WBCS (0.0-0.0); Neutrophils # (A) 16.21 X 10*3/uL (1.80-7.70); Neutrophils % (A) 81.1 %; Platelet Count 267 X 10*3/uL (140-440); RBC 4.34 X 10*6/uL (4.40-5.60); RDW 13.4 % (11.5-14.5); WBC 19.97 X 10*3/uL (4.50-10.00)
--- NOTE | 2021-04-29 12:32 | P.PN ---
<EarnestChula - Last Filed: 04/29/21 12:25> Subjective Progress Note Date: 04/29/21 CHIEF COMPLAINT: HISTORY OF PRESENT ILLNESS: PHYSICAL EXAM: VITAL SIGNS: Reviewed. GENERAL: Well-developed in no acute distress. HEENT: No sclera icterus. Extraocular movements grossly intact. Moist buccal mucosa. Head is atraumatic, normocephalic. ABDOMEN: Soft. Nondistended. Nontender. EXTREMITIES: Left upper extremity with dressing clean dry and intact. Dressing removed with copious amounts of purulent and light brown foul odor drainage. Surgical debridement site with pink tissue, wound bed pink. Skin surrounding debridement site with mild erythema, swelling. Patient tender to palpation along the left arm and hand. Palpable +2 radial pulse. Patient has full range of motion of the left upper extremity as well as fingers. NEUROLOGIC: Alert and oriented. Cranial nerves II through XII grossly intact. ASSESSMENT: 1. Left arm cellulitis status post incision and drainage 2. IV drug abuse PLAN: 1. Continue with daily dressing change with Aquasol silver rope 2. Continue with IV antibiotics per recommendations from infectious disease 3. Will consult wound care for further wound management and outpatient wound management 4. Follow wound cultures The impression and plan of care has been dictated as directed. Dr. Charles I performed a history and examination of this patient, discussed the same with the dictator. I agree with the dictator's note ,documented as a scribe. Any additional findings or plans will be noted. Objective - Vital Signs Vital signs: Vital Signs Temp 97.6 F 04/29/21 04:15 Pulse 87 04/29/21 04:15 Resp 16 04/29/21 04:15 BP 129/77 04/29/21 04:15 Pulse Ox 99 04/29/21 04:15 Intake & Output 04/28/21 04/29/21 04/29/21 18:59 06:59 18:59 Intake Total 900 950 Output Total 800 Balance 900 150 Intake: Intake, IV Titration 900 950 Amount Cefepime 2 gm In Sodium 100 Chloride 0.9% 100 ml @ 25 mls/hr IVPB Q8HR [facility] Rx# :[id number] Sodium Chloride 0.9% 1, 900 600 000 ml @ 75 mls/hr IV . [id number] [facility] Rx#:[id number] Vancomycin 1,250 mg In 250 Sodium Chloride 0.9% 250 ml @ 125 mls/hr IVPB Q8HR [facility] Rx#:[id number] Output: Urine 800 Other: Voiding Method Toilet Toilet Urinal Urinal - Labs CBC & Chem 7: 04/29/21 06:58 04/29/21 06:58 Labs: Abnormal Lab Results - Last 24 Hours (Table) 04/29/21 Range/Units 06:58 WBC 19.97 H (4.50-10.00) X 10*3/uL RBC 4.34 L (4.40-5.60) X 10*6/uL Hgb 12.1 L (13.0-17.0) g/dL Hct 38.3 L (39.6-50.0) % MCHC 31.6 L (32.0-37.0) g/dL Immature Gran # 0.21 H (0.00-0.04) X 10*3/uL Neutrophils # 16.21 H (1.80-7.70) X 10*3/uL Monocytes # 1.21 H (0.20-1.00) X 10*3/uL Microbiology - Last 24 Hours (Table) 04/27/21 13:15 Blood Culture Gram Stain - Preliminary Blood Blood Culture - Preliminary Staphylococcus epidermidis Streptococcus species 04/27/21 23:12 Anaerobic Culture - Preliminary Arm - Left 04/27/21 13:15 Blood Culture - Final Blood <Rogelio Charles - Last Filed: 04/29/21 19:07> Subjective I have personally seen and examined the patient, reviewed the MACHINE I CUTTER /PAs history, exam and MDM and agree with the assessment and plan as written. Based on total visit time, I have performed more than 50% of the visit. As above. Patient says overall his pain has improved in the last 48 hours. He has no sensory loss and is able to move all digits of his hand at this time. He does still feel the pain is more than it should be however. Still having some drainage. Wound is not being packed deeply because of the discomfort. Patient has had some increased edema present above the elbow which is new from yesterday. Patient says he does not have any areas that feel like the abscess site felt Thursday evening when the incision and drainage procedure was required. Cultures are noted. Appreciate infectious disease comanagement. Repeat CBC tomorrow. Will schedule for washout of the wound tomorrow with possible additional incision and drainage if necessary. If the patient is doing better on the patient's arm swelling is decreased may forego that and continue with local wound care at the bedside. Patient is agreeable. Objective - Vital Signs Vital signs: Vital Signs Temp 97.9 F 04/29/21 12:56 Pulse 83 04/29/21 12:56 Resp 17 04/29/21 12:56 BP 113/68 04/29/21 12:56 Pulse Ox 96 04/29/21 12:56 Intake & Output 04/29/21 04/29/21 04/30/21 06:59 18:59 06:59 Intake Total 950 1070 Output Total 800 Balance 150 1070 Intake: Intake, IV Titration 950 350 Amount Cefepime 2 gm In Sodium 100 100 Chloride 0.9% 100 ml @ 25 mls/hr IVPB Q8HR [facility] Rx# :[id number] Sodium Chloride 0.9% 1, 600 000 ml @ 75 mls/hr IV . [id number] [facility] Rx#:[id number] Vancomycin 1,250 mg In 250 250 Sodium Chloride 0.9% 250 ml @ 125 mls/hr IVPB Q8HR [facility] Rx#:[id number] Oral 720 Output: Urine 800 Other: Voiding Method Toilet Toilet Urinal Urinal # Voids 4 - Labs CBC & Chem 7: 04/29/21 06:58 04/29/21 06:58 Labs: Abnormal Lab Results - Last 24 Hours (Table) 04/29/21 Range/Units 06:58 WBC 19.97 H (4.50-10.00) X 10*3/uL RBC 4.34 L (4.40-5.60) X 10*6/uL Hgb 12.1 L (13.0-17.0) g/dL Hct 38.3 L (39.6-50.0) % MCHC 31.6 L (32.0-37.0) g/dL Immature Gran # 0.21 H (0.00-0.04) X 10*3/uL Neutrophils # 16.21 H (1.80-7.70) X 10*3/uL Monocytes # 1.21 H (0.20-1.00) X 10*3/uL Microbiology - Last 24 Hours (Table) 04/27/21 13:15 Blood Culture Gram Stain - Preliminary Blood Blood Culture - Preliminary Staphylococcus epidermidis Streptococcus species Assessment and Plan (1) Left arm cellulitis Current Visit: Yes Status: Acute Code(s): L03.114 - CELLULITIS OF LEFT UPPER LIMB SNOMED Code(s): 318898473
[2021-04-29] MEDS ORDERED: MORPHINE SULFATE 4 MG/ML SYRINGE IVP STA (12:45)
--- NOTE | 2021-04-29 13:55 | P.PN ---
Subjective Patient is a 36-year-old male with a known history of hepatitis c, fentanyl IV drug abuse, everyday smoker, Opiate drug abuse presents to ER with complaints of left upper extremity swelling and pain. Patient states that he injected fentanyl on the forearm about 3 days ago and since then he has been having increased swelling and redness and pain of the left forearm and got worse during the last 24 hours with throbbing sharp pain.. Patient otherwise denies any complaints of fever or chills. Patient was tachycardic on admission. Was also 100% on room air. Patient had upper extremity CT showed there is a 3.5 x 2.2 x 0.5 cm ovoid nonrim-enhancing intramuscular fluid collection at the ventral and lateral aspect of the distal radius. There is subcutaneous edema and the forearm the extent from the wrist to the elbow. No underlying osseous abnormality. Findings could related to intramuscular hematoma. Laboratory showed WBC 25.2 hemoglobin 13.6 and platelets 276 and neutrophils 23.4 Sodium 138 potassium 3.7 chloride 107 bicarb is 22 BUN 12 and creatinine 0.81 blood sugar is 136 and total bilirubin level is 1.8 liver enzymes are not elevated Coronavirus PCR not detected. 04/28/2021 Patient is currently ambulating in the hallway. Complains of severe left forearm pain. Patient is status post I&D of left forearm abscess. Denies any complaints of fever or chills. No chest pain or shortness of breath. No nausea vomiting abdominal pain or diarrhea. No headache or dizziness or lightheadedness. Laboratory data showed WBC 25.9 hemoglobin 12.7 and platelets 291 BUN 7.7 creatinine 0.7 sodium 138 potassium 3.6 chloride 102 bicarb is 20.4 Vancomycin trough is 12.5. Patient is being continued on antibiotics in the form of vancomycin and cefepime was added. ID and general surgery is on board. 04/29/2021 Patient with left forearm infection secondary to IV drug abuse with abscess status post I&D. Today postop day #1. Patient is still complaining of from significant pain and swelling of the left upper extremity. He is afebrile and vital signs stable. Leukocytosis trending down to 19.9. Wound culture is pending. We will order ultrasound of the left upper extremity to rule out Vi disease. Continue with cefepime and IV vancomycin per ID team or following the case closely. Objective - Vital Signs Vital signs: Vital Signs Temp 97.6 F 04/29/21 04:15 Pulse 87 04/29/21 04:15 Resp 16 04/29/21 04:15 BP 129/77 04/29/21 04:15 Pulse Ox 99 04/29/21 04:15 Intake & Output 04/28/21 04/29/21 04/29/21 18:59 06:59 18:59 Intake Total 900 950 Output Total 800 Balance 900 150 Intake: Intake, IV Titration 900 950 Amount Cefepime 2 gm In Sodium 100 Chloride 0.9% 100 ml @ 25 mls/hr IVPB Q8HR [facility] Rx# :[id number] Sodium Chloride 0.9% 1, 900 600 000 ml @ 75 mls/hr IV . [id number] [facility] Rx#:[id number] Vancomycin 1,250 mg In 250 Sodium Chloride 0.9% 250 ml @ 125 mls/hr IVPB Q8HR [facility] Rx#:[id number] Output: Urine 800 Other: Voiding Method Toilet Toilet Urinal Urinal - Exam GENERAL: The patient is alert and oriented x3, not in any acute distress. Well developed, well nourished. HEENT: Pupils are round and equally reacting to light. EOMI. No scleral icterus. No conjunctival pallor. Normocephalic, atraumatic. No pharyngeal erythema. No thyromegaly. CARDIOVASCULAR: S1 and S2 present. No murmurs, rubs, or gallops. PULMONARY: Chest is clear to auscultation, no wheezing or crackles. ABDOMEN: Soft, nontender, nondistended, normoactive bowel sounds. No palpable organomegaly. MUSCULOSKELETAL: No joint swelling or deformity. -EXTREMITIES: No cyanosis, clubbing, or pedal edema. Left forearm is swollen, warm and tender, wound was dressed in a Place NEUROLOGICAL: Gross neurological examination did not reveal any focal deficits. SKIN: No rashes. no petechiae. - Labs CBC & Chem 7: 04/29/21 06:58 04/29/21 06:58 Labs: Abnormal Lab Results - Last 24 Hours (Table) 04/29/21 Range/Units 06:58 WBC 19.97 H (4.50-10.00) X 10*3/uL RBC 4.34 L (4.40-5.60) X 10*6/uL Hgb 12.1 L (13.0-17.0) g/dL Hct 38.3 L (39.6-50.0) % MCHC 31.6 L (32.0-37.0) g/dL Immature Gran # 0.21 H (0.00-0.04) X 10*3/uL Neutrophils # 16.21 H (1.80-7.70) X 10*3/uL Monocytes # 1.21 H (0.20-1.00) X 10*3/uL Microbiology - Last 24 Hours (Table) 04/27/21 13:15 Blood Culture Gram Stain - Preliminary Blood Blood Culture - Preliminary Staphylococcus epidermidis Streptococcus species 04/27/21 23:12 Anaerobic Culture - Preliminary Arm - Left 04/27/21 13:15 Blood Culture - Final Blood Assessment and Plan Assessment: Left upper extremity cellulitis with possible abscess. s/p I&D streptococcus bacteremia. IVDU fentanyl used 3 days prior to admission Scoliosis Chronic back pain Hepatitis C Currently everyday smoker Plan: This is a pleasant 36 years old male with left approximately cellulitis Continue with IV hydration and antibiotics per ID team Pain management Follow-up wound culture Left upper extremity Doppler ultrasound Labs and medication were reviewed.. Continue same treatment. Continue with symptomatic treatment. Resume home medication. Monitor lytes and vitals. DVT and GI prophylaxis. Further recommendationsas per clinical course of the patient DVT prophylaxis: Subcutaneous heparin GI Prophylaxis: Ppi PT/OT: Pending Prognosis is guarded
--- NOTE | 2021-04-29 16:01 | US ---
EXAMINATION TYPE: US venous doppler duplex UE LT DATE OF EXAM: 04/29/2021 COMPARISON: NONE CLINICAL HISTORY: pain and swelling. Patient is IV drug user and left arm developed infection in fore arm, resulting in incision and drainage of left forearm. SIDE PERFORMED: left Left Arm: Negative for DVT. Is positive for left Cephalic Vein superficial thrombosis mid level and could not be followed distally due to surgical dressing on forearm. Left mid forearm lymph node is s een = 1.3 x 1.1 x 0.5cm. Multiple edema channels are seen anteriorly from upper arm to elbow where sk in redness is seen. Limited left forearm US due to surgical dressing here. IMPRESSION: Exam is positive for superficial venous thrombosis involving the cephalic vein. Note is made there is limited assessment of the left forearm due to surgical dressing. All the visualized deep venous stru ctures no DVT seen.
[2021-04-29] MEDS: LACTATED RINGERS 1,000 ML IV SCH (22:37)
--- NOTE | 2021-04-29 23:29 | P.PN ---
Subjective Progress Note Date: 04/29/21 Principal diagnosis: Left arm abscess and cellulitis Patient is a 36-year-old male with a past medical history significant for IV drug use presented to hospital with left upper extremity swelling and redness in this patient has been diagnosed with a left arm abscess status post surgical drainage completed 04/27/2021. On today's evaluation and that is 04/29/2021, the patient continues to be afebrile, patient is a breathing comfortably, the patient is complaining of pain to the left arm and want more pain medication patient denies having any chest pain shortness of breath or cough no abdominal pain and no diarrhea Objective - Vital Signs Vital signs: Vital Signs Temp 97.9 F 04/29/21 12:56 Pulse 83 04/29/21 12:56 Resp 17 04/29/21 12:56 BP 113/68 04/29/21 12:56 Pulse Ox 96 04/29/21 12:56 Intake & Output 04/28/21 04/29/21 04/29/21 18:59 06:59 18:59 Intake Total 900 950 Output Total 800 Balance 900 150 Intake: Intake, IV Titration 900 950 Amount Cefepime 2 gm In Sodium 100 Chloride 0.9% 100 ml @ 25 mls/hr IVPB Q8HR [facility] Rx# :[id number] Sodium Chloride 0.9% 1, 900 600 000 ml @ 75 mls/hr IV . [id number] [facility] Rx#:[id number] Vancomycin 1,250 mg In 250 Sodium Chloride 0.9% 250 ml @ 125 mls/hr IVPB Q8HR [facility] Rx#:[id number] Output: Urine 800 Other: Voiding Method Toilet Toilet Urinal Urinal - Exam GENERAL DESCRIPTION: An middle-aged male lying in bed in no distress RESPIRATORY SYSTEM: Unlabored breathing , decreased breath sounds at bases HEART: S1 S2 regular rate and rhythm , ABDOMEN: Soft , no tenderness EXTREMITIES: Left arm is currently dressed no drainage of the dressing - Labs CBC & Chem 7: 04/29/21 06:58 04/29/21 06:58 Labs: Abnormal Lab Results - Last 24 Hours (Table) 04/29/21 Range/Units 06:58 WBC 19.97 H (4.50-10.00) X 10*3/uL RBC 4.34 L (4.40-5.60) X 10*6/uL Hgb 12.1 L (13.0-17.0) g/dL Hct 38.3 L (39.6-50.0) % MCHC 31.6 L (32.0-37.0) g/dL Immature Gran # 0.21 H (0.00-0.04) X 10*3/uL Neutrophils # 16.21 H (1.80-7.70) X 10*3/uL Monocytes # 1.21 H (0.20-1.00) X 10*3/uL Microbiology - Last 24 Hours (Table) 04/27/21 13:15 Blood Culture Gram Stain - Preliminary Blood Blood Culture - Preliminary Staphylococcus epidermidis Streptococcus species 04/27/21 23:12 Anaerobic Culture - Preliminary Arm - Left Assessment and Plan (1) Abscess of left arm Current Visit: Yes Status: Acute Code(s): L02.414 - CUTANEOUS ABSCESS OF LEFT UPPER LIMB SNOMED Code(s): [id number] Plan: 1-patient with left arm abscess from IV drug use status post drainage OR cultures are currently pending patient also have positive blood culture with staph epi, repeat blood culture has been obtained, patient to continue with the cefepime and vancomycin while waiting for deep OR culture to be finalized Time with Patient: Less than 30
[2021-04-30] MEDS: HYDROmorphone 1 MG/ML 1 ML SYRINGE IVP PRN ×8 (02:02→21:38)
[2021-04-30] MEDS: HYDROcodone/APAP 7.5-325MG 1 EACH TAB PO PRN ×2 (06:15→19:28)
[2021-04-30] MEDS: PANTOPRAZOLE 40 MG/10 ML VIAL IVP SCH ×2 (08:25→21:40)
[2021-04-30] MEDS: CEFEPIME 2 GM in SODIUM CHLORIDE 0.9% 100 ML IVPB SCH ×2 (08:26→16:39)
[2021-04-30] MEDS: VANCOMYCIN 1,250 MG in SODIUM CHLORIDE 0.9% 250 ML IVPB SCH ×2 (08:26→16:38)
[2021-04-30] MEDS: HEPARIN SODIUM,PORCINE/PF 5,000 UNIT/0.5 ML SYRINGE SQ SCH ×2 (08:50→16:52)
[2021-04-30 09:29] LABS: Basophils # (A) 0.1 k/uL (0-0.2); Basophils % (A) 1 %; Eosinophils # (A) 0.2 k/uL (0-0.7); Eosinophils % (A) 2 %; HGB 13.4 gm/dL (13.0-17.5); Lymphocytes # (A) 3.6 k/uL (1.0-4.8); Lymphocytes % (A) 25 %; MCH 29.5 pg (25.0-35.0); MCHC 34.4 g/dL (31.0-37.0); MCV 85.6 fL (80.0-100.0); Mean Platelet Volume 9.6; Monocytes # (A) 0.8 k/uL (0-1.0); Monocytes % (A) 6 %; Neutrophils # (A) 9.4 k/uL (1.3-7.7); Neutrophils % (A) 65 %; Platelet Count 303 k/uL (150-450); RBC 4.55 m/uL (4.30-5.90); RDW 13.1 % (11.5-15.5); WBC 14.5 k/uL (3.8-10.6)
[2021-04-30] MEDS: SODIUM CHLORIDE 0.9% 1,000 ML IV SCH (10:53)
[2021-04-30] MEDS ORDERED: LACTATED RINGERS 1,000 ML IV ONE (12:40)
--- NOTE | 2021-04-30 12:51 | P.CONS ---
History of Present Illness - Reason for Consult Consult date: 04/30/21 wound care - History of Present Illness This is a 36-year-old patient with a history of IV drug abuse being seen on 5 N. for open ulceration related to right arm cellulitis post incision and drainage of the left arm. At this time there utilizing absorptive silver rope. Patient is scheduled for a another incision and drainage and possible surgical debridement to the site. At this time the dressing is in place dry and intact. Patient declined for the dressing to be removed. He is scheduled to have this procedure today. Review Of Systems: Constitutional: No fever, no chills, no night sweats. No weight change. No weakness, fatigue or lethargy. No daytime sleepiness. Integumentary:reports wounds, no lesions. No rash or pruritus. No unusual bruising. No change in hair or nails. Physical exam: General Appearance: Alert, cooperative, no distress, appears stated age. Skin: See HPI all other Skin color, texture, tugor normal, no rashes or lesions. Neurologic: Alert oriented x3 Assessment: 1. Nonhealing ulceration with fatty layer exposure of the left arm 2. Left arm cellulitis post incision and drainage 3. IV drug abuse Plan: 1. May change dressing to Thursday. Apply absorptive silver rope, saline moistened gauze, ABDs and rolled gauze. Secure paper tape. 2. We'll be happy to see the patient in the wound care center after discharge for advance wound care. Thank you for the consultation any questions please contact the wound care center DNP note has been reviewed and discussed with Dr. Cook and the impression and plan of care has been directed as dictated. Past Medical History Past Medical History: No Reported History Additional Past Medical History / Comment(s): scoliosis, back pain, hep C, fen tanyl abuse History of Any Multi-Drug Resistant Organisms: None Reported Past Surgical History: No Surgical Hx Reported Past Anesthesia/Blood Transfusion Reactions: No Reported Reaction Past Psychological History: No Psychological Hx Reported Smoking Status: Current every day smoker Past Alcohol Use History: None Reported Past Drug Use History: Heroin, Opiates, Prescription Drug Abuse - Past Family History Father Family Medical History: No Reported History (Father is 50-year-old has no major medical problems) Mother Family Medical History: No Reported History (Mother is 52-year-old year and has no major medical problems) Brother(s) Family Medical History: No Reported History (Patient has one brother no major medical problems) Sister(s) Family Medical History: No Reported History (Patient has one sister no major medical problems) Medications and Allergies Home Medications Medication Instructions Recorded Confirmed Type No Known Home Medications 04/27/21 04/27/21 History Allergies Allergy/AdvReac Type Severity Reaction Status Date / Time ketorolac [From Toradol] Allergy Unknown Verified 04/30/21 12:25 Physical Exam Vitals: Vital Signs Temp Pulse Resp BP Pulse Ox 04/30/21 12:29 97.8 F 82 16 150/89 99 04/30/21 11:42 98.2 F 83 15 145/71 98 04/30/21 11:32 98.2 F 78 18 133/78 98 04/30/21 08:10 97.6 F 89 15 121/80 99 04/30/21 08:00 80 18 04/30/21 05:00 97.9 F 69 16 127/77 99 04/29/21 20:26 98.4 F 87 18 127/71 98 04/29/21 19:03 98.2 F 78 18 133/78 98 04/29/21 12:56 97.9 F 83 17 113/68 96 Intake and Output 04/29/21 04/30/21 04/30/21 22:59 06:59 14:59 Intake Total 1070 600 Balance 1070 600 Intake: Intake, IV Titration 350 600 Amount Cefepime 2 gm In Sodium 100 Chloride 0.9% 100 ml @ 25 mls/hr IVPB Q8HR [facility] Rx# :[id number] Sodium Chloride 0.9% 1, 600 000 ml @ 75 mls/hr IV . [id number] [facility] Rx#:[id number] Vancomycin 1,250 mg In 250 Sodium Chloride 0.9% 250 ml @ 125 mls/hr IVPB Q8HR [facility] Rx#:[id number] Oral 720 Other: Voiding Method Toilet Toilet # Voids 4 Results CBC & Chem 7: 04/30/21 08:19 04/29/21 06:58 Labs: Abnormal Lab Results - Last 24 Hours (Table) 04/30/21 Range/Units 08:19 WBC 14.5 H (3.8-10.6) k/uL Neutrophils # 9.4 H (1.3-7.7) k/uL Microbiology - Last 24 Hours (Table) 04/27/21 13:15 Blood Culture Gram Stain - Preliminary Blood Blood Culture - Preliminary Staphylococcus epidermidis Streptococcus species Assessment and Plan (1) Non-pressure chronic ulcer of skin of other sites with fat layer exposed Current Visit: Yes Status: Acute Code(s): L98.492 - NON-PRS CHRONIC ULCER OF SKIN OF SITES W FAT LAYER EXPOSED SNOMED Code(s): 72725787 (2) IV drug abuse Current Visit: Yes Status: Acute Code(s): F19.10 - OTHER PSYCHOACTIVE SUBSTANCE ABUSE, UNCOMPLICATED SNOMED Code(s): 032212178 (3) Left arm cellulitis Current Visit: Yes Status: Acute Code(s): L03.114 - CELLULITIS OF LEFT UPPER LIMB SNOMED Code(s): 816558218
[2021-04-30] MEDS ORDERED: ROPIVACAINE 5 MG/ML 30 ML VIAL ONE (13:09)
[2021-04-30] MEDS ORDERED: NEOSTIGMINE 1 MG/ML 10 ML VIAL ONE (13:09)
[2021-04-30] MEDS ORDERED: DEXAMETHASONE SOD PHOSPHATE 4 MG/ML 1 ML VIAL ONE (13:09)
[2021-04-30] MEDS ORDERED: GLYCOPYRROLATE 0.2 MG/ML 2 ML VIAL ONE (13:09)
[2021-04-30] MEDS ORDERED: PROPOFOL 10 MG/ML 20 ML VIAL IV ONE (13:09)
[2021-04-30] MEDS ORDERED: fentaNYL (PF) 50 MCG/ML 2 ML AMP ONE (13:09)
[2021-04-30] MEDS ORDERED: ROCURONIUM 10 MG/ML (5 ML VIAL) IV ONE (13:09)
[2021-04-30] MEDS ORDERED: KETAMINE 10 MG/ML 20 ML VIAL ONE (13:09)
[2021-04-30] MEDS ORDERED: LIDOCAINE 1% INJ 10MG/ML (20 ML MDV) ONE (13:09)
[2021-04-30] MEDS ORDERED: MIDAZOLAM 2 MG/2 ML VIAL ONE (13:09)
[2021-04-30] MEDS ORDERED: SUCCINYLCHOLINE CHLORIDE 100 MG/5 ML SYR IV ONE (13:09)
[2021-04-30] MEDS ORDERED: ESMOLOL 100 MG/10 ML VIAL ONE (13:09)
[2021-04-30] MEDS ORDERED: HYDROmorphone (PF) 1 MG/ML ONE (13:09)
--- NOTE | 2021-04-30 14:16 | P.OP ---
Date of Procedure: 04/30/21 Procedure(s) Performed: PREOPERATIVE DIAGNOSIS: Left forearm abscess POSTOPERATIVE DIAGNOSIS: Same PROCEDURE: Washout left forearm abscess wound, incision and drainage left forearm abscess SURGEON: Araceli PATTERSON: Maira Ramirez ANESTHESIA: Gen. COMPLICATIONS: None OPERATIVE PROCEDURE: Patient placed in the operating table in the supine position. Patient was placed under general anesthesia. A nerve block was performed by anesthesia. The left arm was prepped and draped sterilely. The patient's wound was present on the anterior aspect of the forearm. The wound was probed. The wound that was present between the radius and ulnar where the abscess was identified on Thursday was much smaller, there was no significant purulence identified here. As we palpated the subcutaneous tissues there was noted to be tracking of the abscess cavity laterally and superiorly. This seemed to reach an area distal to the elbow where the patient and I had circled an area preoperatively that was causing increased pain. Probing that area did result in some purulent fluid being evacuated. I made a counterincision at that time at the more superior extent of this tracking area. The subcutaneous tissues were inspected. Subcutaneous tunneling of the wound was identified circumferentially in that area with a diameter of approximately 6-7 cm. Again some purulence was evacuated. I then used the pulse dye weigher to irrigate out both incision sites. A [place] drain was then brought from the forearm incision site to the elbow incision site. This was sutured back to itself using 0 silk sutures. No further purulence was encountered. Both wounds were packed with 2 inch iodoform gauze. Sterile dressings were applied. DISPOSITION: Stable to recovery room
[2021-04-30] MEDS: LACTATED RINGERS 1,000 ML IV SCH (21:49)
--- NOTE | 2021-04-30 23:46 | P.PN ---
Subjective Progress Note Date: 04/30/21 04/29/2021 Patient with left forearm infection secondary to IV drug abuse with abscess status post I&D. Today postop day #1. Patient is still complaining of from significant pain and swelling of the left upper extremity. He is afebrile and vital signs stable. Leukocytosis trending down to 19.9. Wound culture is pending. We will order ultrasound of the left upper extremity to rule out Vi disease. Continue with cefepime and IV vancomycin per ID team or following the case closely. 04/30/2021 Patient is evaluated today walking in the hallways. Did not wish to go back to his room for evaluation. Doppler shows a superficial venous thrombosis in the left cephalic. Continues with left arm cellulitis is currently wrapped with Kerlix. White count today 14.5 his IV cefepime and IV Vanco being followed closely by infectious disease. Blood cultures show Staphylococcus epidermidis and Streptococcus species, repeat blood cultures ordered today. Patient went today for washout of left forearm abscess with I&D and cultures. Patient has a sam drain in place. Also evaluated today by wound care. Dressing change Thursday with absorbent silver rope, saline moistened gauze ABDs and rolled gauze. Afebrile heart rate 77, blood pressure 122/68, 95% room air. Patient complaining of pain to his left arm, there is peripheral edema up to shoulder. States that he is done using IV drugs, he has been using them for about 3 years, started with IV heroin however he states it was hard to find and began using IV fentanyl. He works in a factory type setting. ROS Constitutional: Denied any fatigue denied any fever. Cardio vascular: denied any chest pain, palpitations Gastrointestinal denied any nausea vomiting Pulmonary: Denied any shortness of breath cough Neurologic denied any new focal deficits All inpatient medications were reviewed and appropriate changes in these medications as dictated in the interval history and assessment and plan. PHYSICAL EXAMINATION: GENERAL: The patient is alert and oriented x3, not in any acute distress. Well developed, well nourished. HEENT: Pupils are round and equally reacting to light. EOMI. No scleral icterus. No conjunctival pallor. Normocephalic, atraumatic. No pharyngeal erythema. No thyromegaly. CARDIOVASCULAR: S1 and S2 present. No murmurs, rubs, or gallops. PULMONARY: Chest is clear to auscultation, no wheezing or crackles. ABDOMEN: Soft, nontender, nondistended, normoactive bowel sounds. No palpable organomegaly. MUSCULOSKELETAL: No joint swelling or deformity. EXTREMITIES: No cyanosis, clubbing, or pedal edema. Left upper extremity peripheral edema, cap refill <3 NEUROLOGICAL: Gross neurological examination did not reveal any focal deficits. SKIN: No rashes. Assessment and Plan Left upper extremity cellulitis with possible abscess. s/p I&D and follow up washout abscess wound with 2nd I&D streptococcus bacteremia. IVDU fentanyl used 3 days prior to admission Scoliosis Chronic back pain Hepatitis C Currently everyday smoker Plan: This is a pleasant 36 years old male with left approximately cellulitis Continue with IV hydration and antibiotics per ID team Pain management Follow-up wound culture Left upper extremity Doppler ultrasound Labs and medication were reviewed.. Continue same treatment. Continue with symptomatic treatment. Resume home medication. Monitor lytes and vitals. DVT and GI prophylaxis. Further recommendationsas per clinical course of the patient DVT prophylaxis: Subcutaneous heparin GI Prophylaxis: Ppi PT/OT: Pending Prognosis is guarded Objective - Vital Signs Vital signs: Vital Signs Temp 98.8 F 04/30/21 14:21 Pulse 82 04/30/21 14:30 Resp 20 04/30/21 14:30 BP 129/75 04/30/21 14:30 Pulse Ox 94 L 04/30/21 14:30 Intake & Output 04/29/21 04/30/21 04/30/21 18:59 06:59 18:59 Intake Total 1070 600 700 Output Total 10 Balance 1070 600 690 Intake: IV 700 Intake, IV Titration 350 600 Amount Cefepime 2 gm In Sodium 100 Chloride 0.9% 100 ml @ 25 mls/hr IVPB Q8HR [facility] Rx# :[id number] Sodium Chloride 0.9% 1, 600 000 ml @ 75 mls/hr IV . [id number] [facility] Rx#:[id number] Vancomycin 1,250 mg In 250 Sodium Chloride 0.9% 250 ml @ 125 mls/hr IVPB Q8HR [facility] Rx#:[id number] Oral 720 Output: Estimated Blood Loss 10 Other: Voiding Method Toilet Toilet Toilet Urinal # Voids 4 - Labs CBC & Chem 7: 04/30/21 08:19 02/07/22 06:58 Labs: Abnormal Lab Results - Last 24 Hours (Table) 04/30/21 Range/Units 08:19 WBC 14.5 H (3.8-10.6) k/uL Neutrophils # 9.4 H (1.3-7.7) k/uL Microbiology - Last 24 Hours (Table) 04/27/21 13:15 Blood Culture Gram Stain - Preliminary Blood Blood Culture - Preliminary Staphylococcus epidermidis Streptococcus species
[2021-05-01] MEDS: HYDROmorphone 1 MG/ML 1 ML SYRINGE IVP PRN ×11 (00:05→22:30)
[2021-05-01] MEDS: HEPARIN SODIUM,PORCINE/PF 5,000 UNIT/0.5 ML SYRINGE SQ SCH ×5 (00:08→23:42)
[2021-05-01] MEDS: SODIUM CHLORIDE 0.9% 1,000 ML IV SCH ×2 (00:09→12:01)
[2021-05-01] MEDS: IBUPROFEN 600 MG TAB PO PRN (00:16)
[2021-05-01] MEDS: HYDROcodone/APAP 7.5-325MG 1 EACH TAB PO PRN ×5 (00:16→19:24)
[2021-05-01] MEDS: CEFEPIME 2 GM in SODIUM CHLORIDE 0.9% 100 ML IVPB SCH ×2 (00:18→07:57)
[2021-05-01] MEDS: VANCOMYCIN 1,250 MG in SODIUM CHLORIDE 0.9% 250 ML IVPB SCH ×2 (00:19→07:58)
[2021-05-01 00:20] LABS: Hepatitis A Antibody IgM Nonreactive (Nonreactive); Hepatitis B Core IgM Nonreactive (Nonreactive); Hepatitis B Surface Antigen Nonreactive (Nonreactive); Hepatitis C IgG Antibody Reactive (Nonreactive)
[2021-05-01] MEDS ORDERED: VANCOMYCIN TROUGH DUE 1 EACH MISC MISCELLANE ONE (07:00)
[2021-05-01 07:45] LABS: African American GFR (CKD) >90 (>60 ml/min/1.73 sqM); Anion Gap 6 mmol/L; Blood Urea Nitrogen 16 mg/dL (9-20); Calcium 8.8 mg/dL (8.4-10.2); Carbon Dioxide 23 mmol/L (22-30); Chloride 106 mmol/L (98-107); Glucose 115 mg/dL (74-99); Non-African American GFR(CKD) >90 (>60 ml/min/1.73 sqM); Sodium 135 mmol/L (137-145)
[2021-05-01] MEDS: PANTOPRAZOLE 40 MG/10 ML VIAL IVP SCH ×2 (07:59→21:25)
[2021-05-01 08:28] LABS: Potassium 4.3 mmol/L (3.5-5.1)
--- NOTE | 2021-05-01 11:09 | P.PN ---
<[place] - Last Filed: 05/01/21 11:16> Subjective Progress Note Date: 05/01/21 CHIEF COMPLAINT: Left arm pain, abscess HISTORY OF PRESENT ILLNESS: Patient is a 28-year-old male with a history of IV drug abuse who came in with an abscess of the left arm. He initially underwent an I&D on 04/27/2021. History he underwent washout of the left forearm abscess wound, incision and drainage of left forearm abscess. Today he states he still continues to have pain in the left arm. He has been afebrile. He is asking to be discharged home. Blood cultures are showing staphylococcus dermatitis, Streptococcus species. He is being followed closely by infectious disease and remains on cefepime and vancomycin. Hepatitis panel was ordered and patient was found to be hepatitis C positive. PHYSICAL EXAM: VITAL SIGNS: Reviewed. GENERAL: Well-developed in no acute distress. HEENT: No sclera icterus. Extraocular movements grossly intact. Moist buccal mucosa. Head is atraumatic, normocephalic. ABDOMEN: Soft. Nondistended. Nontender. EXTREMITIES: Left upper extremity with dressing noted old bloody drainage on dressing. Patient tender to palpation along the left arm and hand. Palpable +2 radial pulse. Patient has full range of motion of the left upper extremity as well as fingers. NEUROLOGIC: Alert and oriented. Cranial nerves II through XII grossly intact. ASSESSMENT: 1. Left arm cellulitis status post incision and drainage 2. IV drug abuse 3. Positive Hepatitis C antibody 4. Positive blood culture with Staphylococcus epidermis mitis, Streptococcus species PLAN: 1. Continue with daily dressing change with Aquasol silver rope 2. Continue with IV antibiotics per recommendations from infectious disease 3. Will consult wound care for further wound management and outpatient wound management 4. Follow wound cultures 5. Recommend patient follow up with gastroenterology as outpatient for positive hepatitis C antibody The impression and plan of care has been dictated as directed. Dr. Charles I performed a history and examination of this patient, discussed the same with the dictator. I agree with the dictator's note ,documented as a scribe. Any additional findings or plans will be noted. Objective - Vital Signs Vital signs: Vital Signs Temp 97.6 F 05/01/21 08:42 Pulse 72 05/01/21 08:42 Resp 18 05/01/21 08:42 BP 137/80 05/01/21 08:42 Pulse Ox 100 05/01/21 05:00 Intake & Output 04/30/21 05/01/21 05/01/21 18:59 06:59 18:59 Intake Total 1999 Output Total 10 Balance 1989 Intake: IV 750 Intake, IV Titration 1250 Amount Cefepime 2 gm In Sodium 100 Chloride 0.9% 100 ml @ 25 mls/hr IVPB Q8HR [facility] Rx# :[id number] Sodium Chloride 0.9% 1, 900 000 ml @ 75 mls/hr IV . [id number] [facility] Rx#:[id number] Vancomycin 1,250 mg In 250 Sodium Chloride 0.9% 250 ml @ 125 mls/hr IVPB Q8HR [facility] Rx#:[id number] Output: Estimated Blood Loss 10 Other: Voiding Method Toilet Toilet # Voids 4 - Labs CBC & Chem 7: 04/30/21 08:19 05/01/21 06:46 Labs: Abnormal Lab Results - Last 24 Hours (Table) 04/30/21 05/01/21 Range/Units 16:47 06:46 Sodium 135 L (137-145) mmol/L Glucose 115 H (74-99) mg/dL Hep C IgG Ab Reactive A (Nonreactive) <Rogelio Charles - Last Filed: 05/01/21 12:28> Subjective I have personally seen and examined the patient, reviewed the DAY TREATMENT CLINICIAN/ART THERAPIST /PAs history, exam and MDM and agree with the assessment and plan as written. Based on total visit time, I have performed more than 50% of the visit. As above. Patient doing better today. Pain finally improved. Continue local wound care. Continue antibiotics. Objective - Vital Signs Vital signs: Vital Signs Temp 97.6 F 05/01/21 08:42 Pulse 72 05/01/21 08:42 Resp 18 05/01/21 08:42 BP 137/80 05/01/21 08:42 Pulse Ox 100 05/01/21 05:00 Intake & Output 04/30/21 05/01/21 05/01/21 18:59 06:59 18:59 Intake Total 1999 Output Total 10 Balance 1989 Intake: IV 750 Intake, IV Titration 1250 Amount Cefepime 2 gm In Sodium 100 Chloride 0.9% 100 ml @ 25 mls/hr IVPB Q8HR [facility] Rx# :[id number] Sodium Chloride 0.9% 1, 900 000 ml @ 75 mls/hr IV . [id number] [facility] Rx#:[id number] Vancomycin 1,250 mg In 250 Sodium Chloride 0.9% 250 ml @ 125 mls/hr IVPB Q8HR [facility] Rx#:[id number] Output: Estimated Blood Loss 10 Other: Voiding Method Toilet Toilet Toilet # Voids 4 - Labs CBC & Chem 7: 04/30/21 08:19 05/01/21 06:46 Labs: Abnormal Lab Results - Last 24 Hours (Table) 04/30/21 05/01/21 Range/Units 16:47 06:46 Sodium 135 L (137-145) mmol/L Glucose 115 H (74-99) mg/dL Hep C IgG Ab Reactive A (Nonreactive) Microbiology - Last 24 Hours (Table) 04/27/21 13:15 Blood Culture Gram Stain - Final Blood Blood Culture - Final Staphylococcus epidermidis Streptococcus species Assessment and Plan (1) Left arm cellulitis Current Visit: Yes Status: Acute Code(s): L03.114 - CELLULITIS OF LEFT UPPER LIMB SNOMED Code(s): 257712740
[2021-05-01] MEDS: CLINDAMYCIN 900 MG in DEXTROSE 5% IN WATER 50 ML IVPB SCH ×6 (12:01→19:26)
--- NOTE | 2021-05-01 12:31 | P.ANPRN ---
Procedure Note - Anesthesia - Nerve Block Performed Left Supraclavicular Single Time Out Performed: Yes Date of Procedure: 04/30/21 Procedure Start Time: : Procedure Stop Time: Location of Patient: PreOp Indication: Acute Post-Operative Pain, Requested by Surgeon Sedation Type: Sedate with meaningful contact maintained Preparation: Sterile Prep Position: Supine Needle Types: Pajunk Needle Gauge: 21 Ultrasound used to visualize needle placement: Yes Ultrasound used to observe medication spread: Yes Blood Aspirated: No Pain Paresthesia on Injection Noted: No Resistance on Injection: Normal Image Stored and Saved: Yes Events: Uneventful and Well Tolerated (ropi .5% 20cc)
[2021-05-01] MEDS: GABAPENTIN 300 MG CAP PO SCH ×2 (13:10→21:25)
--- NOTE | 2021-05-01 15:34 | P.PN ---
Subjective Progress Note Date: 05/01/21 04/29/2021 Patient with left forearm infection secondary to IV drug abuse with abscess status post I&D. Today postop day #1. Patient is still complaining of from significant pain and swelling of the left upper extremity. He is afebrile and vital signs stable. Leukocytosis trending down to 19.9. Wound culture is pending. We will order ultrasound of the left upper extremity to rule out Vi disease. Continue with cefepime and IV vancomycin per ID team or following the case closely. 04/30/2021 Patient is evaluated today walking in the hallways. Did not wish to go back to his room for evaluation. Doppler shows a superficial venous thrombosis in the left cephalic. Continues with left arm cellulitis is currently wrapped with Kerlix. White count today 14.5 his IV cefepime and IV Vanco being followed closely by infectious disease. Blood cultures show Staphylococcus epidermidis and Streptococcus species, repeat blood cultures ordered today. Patient went today for washout of left forearm abscess with I&D and cultures. Patient has a sam drain in place. Also evaluated today by wound care. Dressing change Thursday with absorbent silver rope, saline moistened gauze ABDs and rolled gauze. Afebrile heart rate 77, blood pressure 122/68, 95% room air. Patient complaining of pain to his left arm, there is peripheral edema up to shoulder. States that he is done using IV drugs, he has been using them for about 3 years, started with IV heroin however he states it was hard to find and began using IV fentanyl. 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 He is complaining of significant pain to the left upper extremity however edema is much improved and still with 3 second cap refill positive pulse. Vital stable today, afebrile, blood pressure 137/80 on room air. He is tolerating diet bowels are moving. Patient is on 1.5 mg IV push Dilaudid every 2 hours as well as Motrin 600 4 times a day as needed in addition to [place] 7.5 every 4 hours. He also has Tylenol as needed. Patient is requesting an increase in pain medication. We added gabapentin 300 tid for neuropathic pain to left extremity. Antibiotics per ID, changed today to IV cefazolin, IV clindamycin. Blood cultures show staph epidermidis and Strept ococcus species, anaerobic culture left arm showing anaerobic gram-negative bacilli organism 1 and 2 as well as anaerobic gram-positive cocci, Gram stain and culture of left arm shows beta hemolytic strep group C. ROS Constitutional: Denied any fatigue denied any fever. Cardio vascular: denied any chest pain, palpitations Gastrointestinal denied any nausea vomiting Pulmonary: Denied any shortness of breath cough Neurologic denied any new focal deficits Pain as above All inpatient medications were reviewed and appropriate changes in these medications as dictated in the interval history and assessment and plan. PHYSICAL EXAMINATION: GENERAL: The patient is alert and oriented x3, not in any acute distress. Well developed, well nourished. HEENT: Pupils are round and equally reacting to light. EOMI. No scleral icterus. No conjunctival pallor. Normocephalic, atraumatic. No pharyngeal erythema. No thyromegaly. CARDIOVASCULAR: S1 and S2 present. No murmurs, rubs, or gallops. PULMONARY: Chest is clear to auscultation, no wheezing or crackles. ABDOMEN: Soft, nontender, nondistended, normoactive bowel sounds. No palpable organomegaly. MUSCULOSKELETAL: No joint swelling or deformity. EXTREMITIES: No cyanosis, clubbing, or pedal edema. Left upper extremity peripheral edema improving, cap refill <3 NEUROLOGICAL: Gross neurological examination did not reveal any focal deficits. SKIN: No rashes. Assessment and Plan Left upper extremity cellulitis with abscess. s/p I&D and follow up washout abscess wound with 2nd I&D Streptococcus bacteremia. Repeat cultures pending IVDU fentanyl used 3 days prior to admission Scoliosis Chronic back pain Hepatitis C Currently everyday smoker Plan: This is a pleasant 36 years old male with left upper extremity cellulitis Continue with IV hydration and antibiotics per ID team Pain management Added Gabapentin today Follow-up culture. Labs and medication were reviewed.. Continue same treatment. Continue with symptomatic treatment. Resume home medication. Monitor lytes and vitals. DVT and GI prophylaxis. Further recommendationsas per clinical course of the patient DVT prophylaxis: Subcutaneous heparin GI Prophylaxis: Ppi PT/OT: Home, pt ambulating in [place] independent Prognosis is guarded Objective - Vital Signs Vital signs: Vital Signs Temp 97.6 F 05/01/21 08:42 Pulse 72 05/01/21 08:42 Resp 18 05/01/21 08:42 BP 137/80 05/01/21 08:42 Pulse Ox 100 05/01/21 05:00 Intake & Output 04/30/21 05/01/21 05/01/21 18:59 06:59 18:59 Intake Total 1999 Output Total Balance 1989 Intake: IV 750 Intake, IV Titration 1250 Amount Cefepime 2 gm In Sodium 100 Chloride 0.9% 100 ml @ 25 mls/hr IVPB Q8HR [facility] Rx# :[id number] Sodium Chloride 0.9% 1, 900 000 ml @ 75 mls/hr IV . [id number] [facility] Rx#:[id number] Vancomycin 1,250 mg In 250 Sodium Chloride 0.9% 250 ml @ 125 mls/hr IVPB Q8HR [facility] Rx#:[id number] Output: Estimated Blood Loss 10 Other: Voiding Method Toilet Toilet Toilet # Voids 4 - Labs CBC & Chem 7: 04/30/21 08:19 05/01/21 06:46 Labs: Abnormal Lab Results - Last 24 Hours (Table) 04/30/21 05/01/21 Range/Units 16:47 06:46 Sodium 135 L (137-145) mmol/L Glucose 115 H (74-99) mg/dL Hep C IgG Ab Reactive A (Nonreactive) Microbiology - Last 24 Hours (Table) 04/27/21 13:15 Blood Culture Gram Stain - Final Blood Blood Culture - Final Staphylococcus epidermidis Streptococcus species
[2021-05-01] MEDS: LACTATED RINGERS 1,000 ML IV SCH (21:21)
--- NOTE | 2021-05-01 23:47 | P.PN ---
Subjective Progress Note Date: 04/30/21 Principal diagnosis: Left arm abscess and cellulitis Patient is a 36-year-old male with a past medical history significant for IV drug use presented to hospital with left upper extremity swelling and redness in this patient has been diagnosed with a left arm abscess status post surgical drainage completed 04/27/2021. On today's evaluation and that is 04/30/2021, the patient remains to be afebrile, patient is breathing comfortably on room air, the patient is complai siobhan of pain to the left arm and want more pain medication, and the patient denies having any chest pain shortness of breath or cough no abdominal pain and no diarrhea Objective - Vital Signs Vital signs: Vital Signs Temp 97.6 F 04/30/21 08:10 Pulse 89 04/30/21 08:10 Resp 15 04/30/21 08:10 BP 121/80 04/30/21 08:10 Pulse Ox 99 04/30/21 08:10 Intake & Output 04/29/21 04/30/21 04/30/21 18:59 06:59 18:59 Intake Total 1070 600 Balance 1070 600 Intake: Intake, IV Titration 350 600 Amount Cefepime 2 gm In Sodium 100 Chloride 0.9% 100 ml @ 25 mls/hr IVPB Q8HR [facility] Rx# :[id number] Sodium Chloride 0.9% 1, 600 000 ml @ 75 mls/hr IV . [id number] [facility] Rx#:[id number] Vancomycin 1,250 mg In 250 Sodium Chloride 0.9% 250 ml @ 125 mls/hr IVPB Q8HR [facility] Rx#:[id number] Oral 720 Other: Voiding Method Toilet Toilet Urinal # Voids 4 - Exam GENERAL DESCRIPTION: An middle-aged male lying in bed in no distress RESPIRATORY SYSTEM: Unlabored breathing , decreased breath sounds at bases HEART: S1 S2 regular rate and rhythm , ABDOMEN: Soft , no tenderness EXTREMITIES: Left arm is currently dressed with no drainage on the dressing - Labs CBC & Chem 7: 04/30/21 08:19 05/01/21 06:46 Labs: Abnormal Lab Results - Last 24 Hours (Table) 04/29/21 04/30/21 Range/Units 06:58 08:19 WBC 19.97 H 14.5 H (4.50-10.00) X 10*3/uL RBC 4.34 L (4.40-5.60) X 10*6/uL Hgb 12.1 L (13.0-17.0) g/dL Hct 38.3 L (39.6-50.0) % MCHC 31.6 L (32.0-37.0) g/dL Immature Gran # 0.21 H (0.00-0.04) X 10*3/uL Neutrophils # 16.21 H 9.4 H (1.80-7.70) X 10*3/uL Monocytes # 1.21 H (0.20-1.00) X 10*3/uL Microbiology - Last 24 Hours (Table) 04/27/21 13:15 Blood Culture Gram Stain - Preliminary Blood Blood Culture - Preliminary Staphylococcus epidermidis Streptococcus species Assessment and Plan (1) Abscess of left arm Current Visit: Yes Status: Acute Code(s): L02.414 - CUTANEOUS ABSCESS OF LEFT UPPER LIMB SNOMED Code(s): 95812852849969954 Plan: 1-patient with left arm abscess from IV drug use status post drainage OR cultures are currently pending patient also have positive blood culture with staph epi, repeat blood culture has been obtained, patient is scheduled to go back to the OR for further debridement, patient to continue with the cefepime and vancomycin while waiting for deep OR culture to be finalized Time with Patient: Less than 30
--- NOTE | 2021-05-01 23:48 | P.PN ---
Subjective Progress Note Date: 05/01/21 Principal diagnosis: Left arm abscess and cellulitis Patient is a 36-year-old male with a past medical history significant for IV drug use presented to hospital with left upper extremity swelling and redness in this patient has been diagnosed with a left arm abscess status post surgical drainage completed 04/27/2021. Patient did have repeat debridement of his left forearm abscess on 04/30/2021 On today's evaluation and that is 05/01/2021, the patient remains to be afebrile, patient is a breathing comfortably, the patient continues to be complaining of pain to the left arm and want more pain medication specifically IV Dilaudid, patient denies having any chest pain shortness of breath or cough no abdominal pain and no diarrhea Objective - Vital Signs Vital signs: Vital Signs Temp 97.6 F 05/01/21 08:42 Pulse 72 05/01/21 08:42 Resp 18 05/01/21 08:42 BP 137/80 05/01/21 08:42 Pulse Ox 100 05/01/21 05:00 Intake & Output 04/30/21 05/01/21 05/01/21 18:59 06:59 18:59 Intake Total 2000 Output Total 10 Balance 1989 Intake: IV 750 Intake, IV Titration 1250 Amount Cefepime 2 gm In Sodium 100 Chloride 0.9% 100 ml @ 25 mls/hr IVPB Q8HR [facility] Rx# :[id number] Sodium Chloride 0.9% 1, 900 000 ml @ 75 mls/hr IV . [id number] [facility] Rx#:[id number] Vancomycin 1,250 mg In 250 Sodium Chloride 0.9% 250 ml @ 125 mls/hr IVPB Q8HR [facility] Rx#:[id number] Output: Estimated Blood Loss 10 Other: Voiding Method Toilet Toilet Toilet # Voids 4 - Exam GENERAL DESCRIPTION: An middle-aged male lying in bed in no distress RESPIRATORY SYSTEM: Unlabored breathing , decreased breath sounds at bases HEART: S1 S2 regular rate and rhythm , ABDOMEN: Soft , no tenderness EXTREMITIES: Left arm is currently dressed with some blood stained drainage on the dressing - Labs CBC & Chem 7: 04/30/21 08:19 05/01/21 06:46 Labs: Abnormal Lab Results - Last 24 Hours (Table) 04/30/21 05/01/21 Range/Units 16:47 06:46 Sodium 135 L (137-145) mmol/L Glucose 115 H (74-99) mg/dL Hep C IgG Ab Reactive A (Nonreactive) Microbiology - Last 24 Hours (Table) 04/27/21 13:15 Blood Culture Gram Stain - Final Blood Blood Culture - Final Staphylococcus epidermidis Streptococcus species Assessment and Plan (1) Abscess of left arm Current Visit: Yes Status: Acute Code(s): L02.414 - CUTANEOUS ABSCESS OF LEFT UPPER LIMB SNOMED Code(s): 94720580958418301 Plan: 1-patient with left arm abscess from IV drug use status post drainage OR cultures has been finalized with group C strep and anaerobes, the patient anybody has been adjusted to clindamycin and cefazolin and monitor his clinical course closely, her local wound care per the wound care team Time with Patient: Less than 30
[2021-05-02] MEDS: HYDROmorphone 1 MG/ML 1 ML SYRINGE IVP PRN ×10 (00:29→22:27)
[2021-05-02] MEDS: SODIUM CHLORIDE 0.9% 1,000 ML IV SCH ×2 (02:34→15:54)
[2021-05-02] MEDS: CLINDAMYCIN 900 MG in DEXTROSE 5% IN WATER 50 ML IVPB SCH ×6 (04:31→20:11)
[2021-05-02] MEDS: HYDROcodone/APAP 7.5-325MG 1 EACH TAB PO PRN ×4 (05:28→21:22)
[2021-05-02] MEDS: PANTOPRAZOLE 40 MG/10 ML VIAL IVP SCH ×2 (07:19→20:11)
[2021-05-02] MEDS: GABAPENTIN 300 MG CAP PO SCH ×3 (07:20→21:23)
[2021-05-02 08:26] LABS: African American GFR (CKD) >90 (>60 ml/min/1.73 sqM); Anion Gap 7 mmol/L; Blood Urea Nitrogen 15 mg/dL (9-20); Calcium 8.9 mg/dL (8.4-10.2); Carbon Dioxide 26 mmol/L (22-30); Chloride 106 mmol/L (98-107); Glucose 101 mg/dL (74-99); Non-African American GFR(CKD) >90 (>60 ml/min/1.73 sqM); Sodium 139 mmol/L (137-145)
[2021-05-02 08:29] LABS: Potassium 4.9 mmol/L (3.5-5.1)
[2021-05-02] MEDS: HEPARIN SODIUM,PORCINE/PF 5,000 UNIT/0.5 ML SYRINGE SQ SCH ×4 (08:56→23:59)
--- NOTE | 2021-05-02 09:57 | P.PN ---
Subjective Progress Note Date: 05/02/21 04/29/2021 Patient with left forearm infection secondary to IV drug abuse with abscess status post I&D. Today postop day #1. Patient is still complaining of from significant pain and swelling of the left upper extremity. He is afebrile and vital signs stable. Leukocytosis trending down to 19.9. Wound culture is pending. We will order ultrasound of the left upper extremity to rule out Vi disease. Continue with cefepime and IV vancomycin per ID team or following the case closely. 04/30/2021 Patient is evaluated today walking in the hallways. Did not wish to go back to his room for evaluation. Doppler shows a superficial venous thrombosis in the left cephalic. Continues with left arm cellulitis is currently wrapped with Kerlix. White count today 14.5 his IV cefepime and IV Vanco being followed closely by infectious disease. Blood cultures show Staphylococcus epidermidis and Streptococcus species, repeat blood cultures ordered today. Patient went today for washout of left forearm abscess with I&D and cultures. Patient has a sam drain in place. Also evaluated today by wound care. Dressing change Thursday with absorbent silver rope, saline moistened gauze ABDs and rolled gauze. Afebrile heart rate 77, blood pressure 122/68, 95% room air. Patient complaining of pain to his left arm, there is peripheral edema up to shoulder. States that he is done using IV drugs, he has been using them for about 3 years, started with IV heroin however he states it was hard to find and began using IV fentanyl. 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 He is complaining of significant pain to the left upper extremity however edema is much improved and still with 3 second cap refill positive pulse. Vital stable today, afebrile, blood pressure 137/80 on room air. He is tolerating diet bowels are moving. Patient is on 1.5 mg IV push Dilaudid every 2 hours as well as Motrin 600 4 times a day as needed in addition to [place] 7.5 every 4 hours. He also has Tylenol as needed. Patient is requesting an increase in pain medication. We added gabapentin 300 tid for neuropathic pain to left extremity. Antibiotics per ID, changed today to IV cefazolin, IV clindamycin. Blood cultures show staph epidermidis and Strept ococcus species, anaerobic culture left arm showing anaerobic gram-negative bacilli organism 1 and 2 as well as anaerobic gram-positive cocci, Gram stain and culture of left arm shows beta hemolytic strep group C. 05/02/2021 Patient is resting better. He states that the gabapentin that was added yesterday really helped with the pain control. We can lower the IV pain medication. Otherwise edema is improving, dressing is intact. Patient is tolerating diet, ambulating independently. Afebrile, heart rate 98, blood pressure 129/86, 98% room air. Electrolytes today unremarkable, glucose 101. Pending final cultures and microsensitivities, repeat blood culture pending. ROS Constitutional: Denied any fatigue denied any fever. Cardio vascular: denied any chest pain, palpitations Gastrointestinal denied any nausea vomiting Pulmonary: Denied any shortness of breath cough Neurologic denied any new focal deficits Pain as above All inpatient medications were reviewed and appropriate changes in these medications as dictated in the interval history and assessment and plan. PHYSICAL EXAMINATION: GENERAL: The patient is alert and oriented x3, not in any acute distress. Well developed, well nourished. HEENT: Pupils are round and equally reacting to light. EOMI. No scleral icterus. No conjunctival pallor. Normocephalic, atraumatic. No pharyngeal erythema. No thyromegaly. CARDIOVASCULAR: S1 and S2 present. No murmurs, rubs, or gallops. PULMONARY: Chest is clear to auscultation, no wheezing or crackles. ABDOMEN: Soft, nontender, nondistended, normoactive bowel sounds. No palpable organomegaly. MUSCULOSKELETAL: No joint swelling or deformity. EXTREMITIES: No cyanosis, clubbing, or pedal edema. Left upper extremity peripheral edema improving, cap refill <3 NEUROLOGICAL: Gross neurological examination did not reveal any focal deficits. SKIN: No rashes. Assessment and Plan Left upper extremity cellulitis with abscess. s/p I&D and follow up washout abscess wound with 2nd I&D Streptococcus bacteremia. Repeat cultures pending IVDU fentanyl used 3 days prior to admission Scoliosis Chronic back pain Hepatitis C Currently everyday smoker Plan: This is a pleasant 36 years old male with left upper extremity cellulitis Continue with IV hydration and antibiotics per ID team Pain management, with norco, tylenol, motrin, gabapentin, decrease IV dilaudid Follow-up culture. Labs and medication were reviewed.. Continue same treatment. Continue with symptomatic treatment. Resume home medication. Monitor lytes and vitals. DVT and GI prophylaxis. Further recommendationsas per clinical course of the patient DVT prophylaxis: Subcutaneous heparin GI Prophylaxis: Ppi PT/OT: Home, pt ambulating in [place] independent Prognosis is guarded Objective - Vital Signs Vital signs: Vital Signs Temp 97.7 F 05/02/21 07:23 Pulse 98 05/02/21 07:23 Resp 18 05/02/21 07:23 BP 129/86 05/02/21 07:23 Pulse Ox 98 05/02/21 07:23 Intake & Output 05/01/21 05/02/21 05/02/21 18:59 06:59 18:59 Intake Total 400 1550 Balance 400 1550 Intake: Intake, IV Titration 950 Amount Clindamycin 900 mg In 100 Dextrose 5% in Water 50 ml @ 50 mls/hr IVPB Q8H [facility] Rx#:[id number] Sodium Chloride 0.9% 1, 800 000 ml @ 75 mls/hr IV . [id number] [facility] Rx#:[id number] ceFAZolin 2 gm In Sodium 50 Chloride 0.9% 50 ml @ 100 mls/hr IVPB Q8HR [facility] Rx# :[id number] Oral 400 600 Other: Voiding Method Toilet Toilet # Voids 3 3 - Labs CBC & Chem 7: 04/30/21 08:19 05/02/21 06:52 Labs: Abnormal Lab Results - Last 24 Hours (Table) 05/02/21 Range/Units 06:52 Glucose 101 H (74-99) mg/dL Microbiology - Last 24 Hours (Table) 04/27/21 13:15 Blood Culture Gram Stain - Final Blood Blood Culture - Final Staphylococcus epidermidis Streptococcus species 04/30/21 16:47 Blood Culture - Preliminary Blood No Growth after 24 hours 04/27/21 23:12 Gram Stain - Final Arm - Left Wound Culture - Final Beta Hemolytic Strep Group C 04/27/21 23:12 Anaerobic Culture - Preliminary Arm - Left Anaerobic Gram Positive Cocci Anaerobic Gm Negative Bacilli Anaerobic Gm Negative Bacilli#2
--- NOTE | 2021-05-02 14:44 | P.PN ---
<Chula Tinoco - Last Filed: 05/02/21 14:39> Subjective Progress Note Date: 05/02/21 CHIEF COMPLAINT: Left arm pain, abscess HISTORY OF PRESENT ILLNESS: Patient is a 28-year-old male with a history of IV drug abuse who came in with an abscess of the left arm. He initially underwent an I&D on 04/27/2021. He then underwent washout of the left forearm abscess wound, incision and drainage of left forearm abscess. Today seen and examined as a follow-up. States the pain in his arm has improved. Yesterday he underwent left supraclavicular nerve block with anesthesia and states his pain is improved however he still is having some burning sensation. He was also started on gabapentin by primary medicine. He denies any fevers or chills. Wound cultures positive for beta-hemolytic strep group C. Antibiotics were changed to cefazolin and clindamycin per recommendations from infectious dise ase. He remains afebrile. PHYSICAL EXAM: VITAL SIGNS: Reviewed. GENERAL: Well-developed in no acute distress. HEENT: No sclera icterus. Extraocular movements grossly intact. Moist buccal mucosa. Head is atraumatic, normocephalic. ABDOMEN: Soft. Nondistended. Nontender. EXTREMITIES: Left upper extremity with dressing dry and intact. Swelling has improved. Palpable +2 radial pulse. Patient has full range of motion of the left upper extremity as well as fingers. NEUROLOGIC: Alert and oriented. Cranial nerves II through XII grossly intact. ASSESSMENT: 1. Left arm cellulitis status post incision and drainage 2. IV drug abuse 3. Positive Hepatitis C antibody 4. Positive blood culture with Staphylococcus epidermis mitis, Streptococcus species PLAN: 1. Continue with local wound care per recommendations from wound care center. 2. Continue with IV antibiotics per recommendations from infectious disease 3. Recommend patient follow up with gastroenterology as outpatient for positive hepatitis C antibody, genotype and quantitative ordered 4. Recommend abstinence from illicit drug use/ IV drug use The impression and plan of care has been dictated as directed. Dr. Charles I performed a history and examination of this patient, discussed the same with the dictator. I agree with the dictator's note ,documented as a scribe. Any additional findings or plans will be noted. Objective - Vital Signs Vital signs: Vital Signs Temp 97.7 F 05/02/21 07:23 Pulse 98 05/02/21 07:23 Resp 18 05/02/21 07:23 BP 129/86 05/02/21 07:23 Pulse Ox 98 05/02/21 07:23 Intake & Output 05/01/21 05/02/21 05/02/21 18:59 06:59 18:59 Intake Total 400 1550 Balance 400 1550 Intake: Intake, IV Titration 950 Amount Clindamycin 900 mg In 100 Dextrose 5% in Water 50 ml @ 50 mls/hr IVPB Q8H [facility] Rx#:[id number] Sodium Chloride 0.9% 1, 800 000 ml @ 75 mls/hr IV . [id number] [facility] Rx#:[id number] ceFAZolin 2 gm In Sodium 50 Chloride 0.9% 50 ml @ 100 mls/hr IVPB Q8HR [facility] Rx# :[id number] Oral 400 600 Other: Voiding Method Toilet Toilet # Voids 3 3 - Labs CBC & Chem 7: 04/30/21 08:19 05/02/21 06:52 Labs: Abnormal Lab Results - Last 24 Hours (Table) 05/02/21 Range/Units 06:52 Glucose 101 H (74-99) mg/dL Microbiology - Last 24 Hours (Table) 04/30/21 16:47 Blood Culture - Preliminary Blood No Growth after 24 hours 04/27/21 23:12 Gram Stain - Final Arm - Left Wound Culture - Final Beta Hemolytic Strep Group C 04/27/21 23:12 Anaerobic Culture - Preliminary Arm - Left Anaerobic Gram Positive Cocci Anaerobic Gm Negative Bacilli Anaerobic Gm Negative Bacilli#2 04/27/21 13:15 Blood Culture Gram Stain - Final Blood Blood Culture - Final Staphylococcus epidermidis Streptococcus species <Rogelio Charles - Last Filed: 05/02/21 17:33> Subjective I have personally seen and examined the patient, reviewed the [employer] /PAs history, exam and MDM and agree with the assessment and plan as written. Based on total visit time, I have performed more than 50% of the visit. As above. Cultures noted. Patient still having pain although says it's continuing to improve. He does have an area involving the posterior medial aspect of the proximal forearm that does appear slightly more edematous and erythematous than yesterday. We'll take back to the OR for washout. Patient may require further incision and drainage. Patient's edema and arm function definitely improved however. Objective - Vital Signs Vital signs: Vital Signs Temp 98.3 F 05/02/21 12:54 Pulse 88 05/02/21 12:54 Resp 15 05/02/21 12:54 BP 116/73 05/02/21 12:54 Pulse Ox 96 05/02/21 12:54 Intake & Output 05/01/21 05/02/21 05/02/21 18:59 06:59 18:59 Intake Total 400 1550 Balance 400 1550 Intake: Intake, IV Titration 950 Amount Clindamycin 900 mg In 100 Dextrose 5% in Water 50 ml @ 50 mls/hr IVPB Q8H [facility] Rx#:[id number] Sodium Chloride 0.9% 1, 800 000 ml @ 75 mls/hr IV . [id number] [facility] Rx#:[id number] ceFAZolin 2 gm In Sodium 50 Chloride 0.9% 50 ml @ 100 mls/hr IVPB Q8HR [facility] Rx# :[id number] Oral 400 600 Other: Voiding Method Toilet Toilet # Voids 3 3 - Labs CBC & Chem 7: 04/30/21 08:19 05/02/21 06:52 Labs: Abnormal Lab Results - Last 24 Hours (Table) 05/02/21 Range/Units 06:52 Glucose 101 H (74-99) mg/dL Microbiology - Last 24 Hours (Table) 04/27/21 23:12 Anaerobic Culture - Final Arm - Left Anaerobic Gram Positive Cocci Anaerobic Gm Negative Bacilli Anaerobic Gm Negative Bacilli#2 04/27/21 13:15 Blood Culture Gram Stain - Final Blood Blood Culture - Final Staphylococcus epidermidis Streptococcus species 04/30/21 16:47 Blood Culture - Preliminary Blood No Growth after 24 hours 04/27/21 23:12 Gram Stain - Final Arm - Left Wound Culture - Final Beta Hemolytic Strep Group C Assessment and Plan (1) Left arm cellulitis Current Visit: Yes Status: Acute Code(s): L03.114 - CELLULITIS OF LEFT UPPER LIMB SNOMED Code(s): 668635312
[2021-05-02] MEDS ORDERED: HYDROmorphone 1 MG/ML 1 ML SYRINGE IVP STA (17:20)
[2021-05-02] MEDS: IBUPROFEN 600 MG TAB PO PRN (20:12)
[2021-05-03] MEDS: HYDROmorphone 1 MG/ML 1 ML SYRINGE IVP PRN ×9 (00:27→22:16)
[2021-05-03] MEDS: HYDROcodone/APAP 7.5-325MG 1 EACH TAB PO PRN ×5 (03:37→23:19)
[2021-05-03] MEDS: CLINDAMYCIN 900 MG in DEXTROSE 5% IN WATER 50 ML IVPB SCH ×6 (04:27→19:11)
[2021-05-03 06:39] LABS: HCT 38.9 % (39.0-53.0); HGB 13.5 gm/dL (13.0-17.5); MCH 29.8 pg (25.0-35.0); MCHC 34.7 g/dL (31.0-37.0); MCV 85.9 fL (80.0-100.0); Mean Platelet Volume 7.4; Platelet Count 459 k/uL (150-450); RBC 4.52 m/uL (4.30-5.90); RDW 13.6 % (11.5-15.5); WBC 21.9 k/uL (3.8-10.6)
[2021-05-03 07:17] LABS: Band Neutrophils % 2 %; Basophils # (M) 0.22 k/uL (0-0.2); Eosinophils # (M) 0.22 k/uL (0-0.7); Lymphocytes # (M) 7.88 k/uL (1.0-4.8); Metamyelocytes # (M) 0.44 k/uL (0); Metamyelocytes % 2 %; Monocytes # (M) 1.31 k/uL (0-1.0); Myelocytes # (M) 0.22 k/uL (0); Myelocytes % 1 %; Neutrophils % (M) 52 %; Nucleated Red Blood Cells 0 /100 WBC (0-0); Total Cells Counted 200
[2021-05-03] MEDS: HEPARIN SODIUM,PORCINE/PF 5,000 UNIT/0.5 ML SYRINGE SQ SCH ×3 (07:23→21:30)
[2021-05-03] MEDS: PANTOPRAZOLE 40 MG/10 ML VIAL IVP SCH ×2 (07:24→19:11)
[2021-05-03] MEDS: GABAPENTIN 300 MG CAP PO SCH ×3 (08:15→19:10)
[2021-05-03] MEDS ORDERED: IV FLUID CONTINUATION 1,000 ML IV ONE (15:04)
[2021-05-03 15:09] VITALS: BMI 23.3
[2021-05-03] MEDS: SODIUM CHLORIDE 0.9% 1,000 ML IV SCH (15:14)
--- NOTE | 2021-05-03 16:24 | P.PN ---
Subjective Progress Note Date: 05/02/21 Principal diagnosis: Left arm abscess and cellulitis Patient is a 36-year-old male with a past medical history significant for IV drug use presented to hospital with left upper extremity swelling and redness in this patient has been diagnosed with a left arm abscess status post surgical drainage completed 04/27/2021. Patient did have repeat debridement of his left forearm abscess on 04/30/2021, patient is scheduled to go back to the OR 05/03/2019 for further debridement On today's evaluation and that is 05/02/2021, the patient continues to be afebrile, patient is a breathing comfortably, the patient pain to the left arm has decreased in intensity, patient denies having any chest pain shortness of breath or cough no abdominal pain and no diarrhea Objective - Vital Signs Vital signs: Vital Signs Temp 97.7 F 05/02/21 07:23 Pulse 98 05/02/21 07:23 Resp 18 05/02/21 07:23 BP 129/86 05/02/21 07:23 Pulse Ox 98 05/02/21 07:23 Intake & Output 05/01/21 05/02/21 05/02/21 18:59 06:59 18:59 Intake Total 400 1550 Balance 400 1550 Intake: Intake, IV Titration 950 Amount Clindamycin 900 mg In 100 Dextrose 5% in Water 50 ml @ 50 mls/hr IVPB Q8H [facility] Rx#:[id number] Sodium Chloride 0.9% 1, 800 000 ml @ 75 mls/hr IV . [id number] [facility] Rx#:[id number] ceFAZolin 2 gm In Sodium 50 Chloride 0.9% 50 ml @ 100 mls/hr IVPB Q8HR [facility] Rx# :[id number] Oral 400 600 Other: Voiding Method Toilet Toilet # Voids 3 3 - Exam GENERAL DESCRIPTION: An middle-aged male lying in bed in no distress RESPIRATORY SYSTEM: Unlabored breathing , decreased breath sounds at bases HEART: S1 S2 regular rate and rhythm , ABDOMEN: Soft , no tenderness EXTREMITIES: Left arm is currently dressed with some blood stained drainage on the dressing - Labs CBC & Chem 7: 05/03/21 05:58 05/02/21 06:52 Labs: Abnormal Lab Results - Last 24 Hours (Table) 05/02/21 Range/Units 06:52 Glucose 101 H (74-99) mg/dL Microbiology - Last 24 Hours (Table) 04/27/21 13:15 Blood Culture Gram Stain - Final Blood Blood Culture - Final Staphylococcus epidermidis Streptococcus species 04/30/21 16:47 Blood Culture - Preliminary Blood No Growth after 24 hours 04/27/21 23:12 Gram Stain - Final Arm - Left Wound Culture - Final Beta Hemolytic Strep Group C 04/27/21 23:12 Anaerobic Culture - Preliminary Arm - Left Anaerobic Gram Positive Cocci Anaerobic Gm Negative Bacilli Anaerobic Gm Negative Bacilli#2 Assessment and Plan (1) Abscess of left arm Current Visit: Yes Status: Acute Code(s): L02.414 - CUTANEOUS ABSCESS OF LEFT UPPER LIMB SNOMED Code(s): 84175585519267035 Plan: 1-patient with left arm abscess from IV drug use status post drainage OR cultures has been finalized with group C strep and anaerobes, the patient is cu rrently being treated with clindamycin and cefazolin and monitor his clinical course closely, local wound care per the wound care team Time with Patient: Less than 30
--- NOTE | 2021-05-03 16:26 | P.PN ---
Subjective Progress Note Date: 05/03/21 Principal diagnosis: Left arm abscess and cellulitis Patient is a 36-year-old male with a past medical history significant for IV drug use presented to hospital with left upper extremity swelling and redness in this patient has been diagnosed with a left arm abscess status post surgical drainage completed 04/27/2021. Patient did have repeat debridement of his left forearm abscess on 04/30/2021, patient is scheduled to go back to the OR 05/03/2019 for further debridement On today's evaluation and that is 05/03/2021, the patient denies any fever or any chills, patient is a breathing comfortably, the patient pain to the left arm is currently controlled with the pain medication, patient denies having any chest pain shortness of breath or cough no abdominal pain and no diarrhea Objective - Vital Signs Vital signs: Vital Signs Temp 97.7 F 05/03/21 15:09 Pulse 75 05/03/21 15:09 Resp 17 05/03/21 15:09 BP 119/65 05/03/21 15:09 Pulse Ox 98 05/03/21 15:09 Intake & Output 05/02/21 05/03/21 05/03/21 18:59 06:59 18:59 Intake Total 750 Balance 750 Weight 63.503 kg Intake: Intake, IV Titration 750 Amount Clindamycin 900 mg In 100 Dextrose 5% in Water 50 ml @ 50 mls/hr IVPB Q8H [facility] Rx#:[id number] Sodium Chloride 0.9% 1, 600 000 ml @ 50 mls/hr IV . Q20H [facility] Rx#:[id number] ceFAZolin 2 gm In Sodium 50 Chloride 0.9% 50 ml @ 100 mls/hr IVPB Q8HR [facility] Rx# :[id number] Other: Voiding Method Toilet # Voids 2 3 - Exam GENERAL DESCRIPTION: An middle-aged male lying in bed in no distress RESPIRATORY SYSTEM: Unlabored breathing , decreased breath sounds at bases HEART: S1 S2 regular rate and rhythm , ABDOMEN: Soft , no tenderness EXTREMITIES: Left arm is currently dressed with minimal blood stained drainage on the dressing - Labs CBC & Chem 7: 05/03/21 05:58 05/02/21 06:52 Labs: Abnormal Lab Results - Last 24 Hours (Table) 05/03/21 Range/Units 05:58 WBC 21.9 H (3.8-10.6) k/uL Hct 38.9 L (39.0-53.0) % Plt Count 459 H (150-450) k/uL Neutrophils # (Manual) 11.80 H (1.3-7.7) k/uL Lymphocytes # (Manual) 7.88 H (1.0-4.8) k/uL Monocytes # (Manual) 1.31 H (0-1.0) k/uL Basophils # (Manual) 0.22 H (0-0.2) k/uL Metamyelocytes # (Man) 0.44 H (0) k/uL Myelocytes # (Manual) 0.22 H (0) k/uL Microbiology - Last 24 Hours (Table) 04/30/21 16:47 Blood Culture - Preliminary Blood No Growth after 48 hours 04/27/21 23:12 Anaerobic Culture - Final Arm - Left Anaerobic Gram Positive Cocci Anaerobic Gm Negative Bacilli Anaerobic Gm Negative Bacilli#2 Assessment and Plan (1) Abscess of left arm Current Visit: Yes Status: Acute Code(s): L02.414 - CUTANEOUS ABSCESS OF LEFT UPPER LIMB SNOMED Code(s): 02029730940298965 Plan: 1-patient with left arm abscess from IV drug use status post drainage OR cultures has been finalized with group C strep and anaerobes, the patient is scheduled for further debridement and evaluation of the wound in the OR today, patient to continue with clindamycin and cefazolin and monitor his clinical course closely, local wound care per the wound care team
[2021-05-03] MEDS ORDERED: MIDAZOLAM 2 MG/2 ML VIAL ONE (16:30)
[2021-05-03] MEDS ORDERED: PROPOFOL 10 MG/ML 20 ML VIAL IV ONE (16:30)
[2021-05-03] MEDS ORDERED: SUCCINYLCHOLINE CHLORIDE 100 MG/5 ML SYR IV ONE (16:30)
[2021-05-03] MEDS ORDERED: KETAMINE 10 MG/ML 20 ML VIAL ONE (16:30)
[2021-05-03] MEDS ORDERED: fentaNYL (PF) 50 MCG/ML 2 ML AMP ONE (16:30)
[2021-05-03] MEDS ORDERED: LIDOCAINE 1% INJ 10MG/ML (20 ML MDV) ONE (16:30)
[2021-05-03] MEDS ORDERED: LACTATED RINGERS 1,000 ML IV ONE (16:33)
--- NOTE | 2021-05-03 17:07 | P.PN ---
Subjective Patient is a 36-year-old male with a known history of hepatitis c, fentanyl IV drug abuse, everyday smoker, Opiate drug abuse presents to ER with complaints of left upper extremity swelling and pain. Patient states that he injected fentanyl on the forearm about 3 days ago and since then he has been having increased swelling and redness and pain of the left forearm and got worse during the last 24 hours with throbbing sharp pain.. Patient otherwise denies any complaints of fever or chills. Patient was tachycardic on admission. Was also 100% on room air. Patient had upper extremity CT showed there is a 3.5 x 2.2 x 0.5 cm ovoid nonrim-enhancing intramuscular fluid collection at the ventral and lateral aspect of the distal radius. There is subcutaneous edema and the forearm the extent from the wrist to the elbow. No underlying osseous abnormality. Findings could related to intramuscular hematoma. Laboratory showed WBC 25.2 hemoglobin 13.6 and platelets 276 and neutrophils 23.4 Sodium 138 potassium 3.7 chloride 107 bicarb is 22 BUN 12 and creatinine 0.81 blood sugar is 136 and total bilirubin level is 1.8 liver enzymes are not elevated Coronavirus PCR not detected. 04/28/2021 Patient is currently ambulating in the hallway. Complains of severe left forearm pain. Patient is status post I&D of left forearm abscess. Denies any complaints of fever or chills. No chest pain or shortness of breath. No nausea vomiting abdominal pain or diarrhea. No headache or dizziness or lightheadedness. Laboratory data showed WBC 25.9 hemoglobin 12.7 and platelets 291 BUN 7.7 creatinine 0.7 sodium 138 potassium 3.6 chloride 102 bicarb is 20.4 Vancomycin trough is 12.5. Patient is being continued on antibiotics in the form of vancomycin and cefepime was added. ID and general surgery is on board. 04/29/2021 Patient with left forearm infection secondary to IV drug abuse with abscess status post I&D. Today postop day #1. Patient is still complaining of from significant pain and swelling of the left upper extremity. He is afebrile and vital signs stable. Leukocytosis trending down to 19.9. Wound culture is pending. We will order ultrasound of the left upper extremity to rule out Vi disease. Continue with cefepime and IV vancomycin per ID team or following the case closely. Subjective: I'm resume in the care of the patient today. 05/03/2021 Patient still been treated for his left forearm cellulitis, is status post incision and drainage by surgical team however his left upper extremity still evidence with induration, distention and tenderness with erythema especially proximal forearm close to the elbow. He couldn't bend his elbow and extended fdc up due to pain. Vitals are stable but leukocytosis worsened 21.9 today. Once culture is growing bedtime of Streptococcus and many anaerobic bacteria. Surgery team are planning for another incision and drainage today. Patient kept on cefazolin and clindamycin by ID team Check labs in the morning Objective - Vital Signs Vital signs: Vital Signs Temp 98.1 F 05/03/21 07:41 Pulse 80 05/03/21 07:41 Resp 16 05/03/21 07:41 BP 118/42 05/03/21 07:41 Pulse Ox 99 05/03/21 07:41 Intake & Output 05/02/21 05/03/21 05/03/21 18:59 06:59 18:59 Intake Total 750 Balance 750 Intake: Intake, IV Titration 750 Amount Clindamycin 900 mg In 100 Dextrose 5% in Water 50 ml @ 50 mls/hr IVPB Q8H [facility] Rx#:[id number] Sodium Chloride 0.9% 1, 600 000 ml @ 50 mls/hr IV . Q20H [facility] Rx#:[id number] ceFAZolin 2 gm In Sodium 50 Chloride 0.9% 50 ml @ 100 mls/hr IVPB Q8HR [facility] Rx# :[id number] Other: Voiding Method Toilet # Voids 2 3 - Exam GENERAL: The patient is alert and oriented x3, not in any acute distress. Well developed, well nourished. HEENT: Pupils are round and equally reacting to light. EOMI. No scleral icterus. No conjunctival pallor. Normocephalic, atraumatic. No pharyngeal erythema. No thyromegaly. CARDIOVASCULAR: S1 and S2 present. No murmurs, rubs, or gallops. PULMONARY: Chest is clear to auscultation, no wheezing or crackles. ABDOMEN: Soft, nontender, nondistended, normoactive bowel sounds. No palpable organomegaly. MUSCULOSKELETAL: No joint swelling or deformity. -EXTREMITIES: No cyanosis, clubbing, or pedal edema. Left forearm is swollen, warm and tender, wound was dressed in a Place NEUROLOGICAL: Gross neurological examination did not reveal any focal deficits. SKIN: No rashes. no petechiae. - Labs CBC & Chem 7: 05/03/21 05:58 05/02/21 06:52 Labs: Abnormal Lab Results - Last 24 Hours (Table) 05/03/21 Range/Units 05:58 WBC 21.9 H (3.8-10.6) k/uL Hct 38.9 L (39.0-53.0) % Plt Count 459 H (150-450) k/uL Neutrophils # (Manual) 11.80 H (1.3-7.7) k/uL Lymphocytes # (Manual) 7.88 H (1.0-4.8) k/uL Monocytes # (Manual) 1.31 H (0-1.0) k/uL Basophils # (Manual) 0.22 H (0-0.2) k/uL Metamyelocytes # (Man) 0.44 H (0) k/uL Myelocytes # (Manual) 0.22 H (0) k/uL Microbiology - Last 24 Hours (Table) 04/30/21 16:47 Blood Culture - Preliminary Blood No Growth after 48 hours 04/27/21 23:12 Anaerobic Culture - Final Arm - Left Anaerobic Gram Positive Cocci Anaerobic Gm Negative Bacilli Anaerobic Gm Negative Bacilli#2 04/27/21 13:15 Blood Culture Gram Stain - Final Blood Blood Culture - Final Staphylococcus epidermidis Streptococcus species Assessment and Plan Assessment: Left upper extremity cellulitis with possible abscess. s/p I&D streptococcus bacteremia. IVDU fentanyl used 3 days prior to admission Scoliosis Chronic back pain Hepatitis C Currently everyday smoker Plan: This is a pleasant 36 years old male with left approximately cellulitis Continue with IV hydration and antibiotics per ID team, currently on cefazolin and clindamycin Pain management Surgery team are planning for another I&D Labs and medication were reviewed.. Continue same treatment. Continue with symptomatic treatment. Resume home medication. Monitor lytes and vitals. DVT and GI prophylaxis. Further recommendations as per clinical course of the patient DVT prophylaxis: Subcutaneous heparin GI Prophylaxis: Ppi PT/OT: Pending Prognosis is guarded
[2021-05-03] MEDS ORDERED: HYDROmorphone 0.5 MG/0.5 ML SYRINGE IVP ONE ×5 (17:25→18:13)
--- NOTE | 2021-05-03 17:34 | P.OP ---
Date of Procedure: 05/03/21 Procedure(s) Performed: PREOPERATIVE DIAGNOSIS: Left forearm abscess POSTOPERATIVE DIAGNOSIS: Same PROCEDURE: Re-washout left forearm wound, incision and drainage left forearm abscess SURGEON: Araceli BRAMBILAL: Elizabeth Ramirez ANESTHESIA: Gen. COMPLICATIONS: None OPERATIVE PROCEDURE: Patient placed in the operating table in the supine position. Patient was placed under general anesthesia. The left arm was prepped and draped sterilely. The patient currently has 2 separate wounds one in the anterior aspect of the left forearm from our initial incision and drainage and the second in the left lateral aspect distal to the elbow. Between these 2 there was a Janie drain that we had placed previously. The wound tract was free of any purulence. There was no extension around the anterior forearm wound and that wound is actually healing in quite nicely at this time with excellent granulation tissue. The lateral wound closer and distal to the elbow did have some tunneling circumferentially. There was noted to be extension posteriorly and distally and this was again appreciated last night when I examined his arm in the room. There was some edema present there with some erythema. That was where he was more tender. Overall the degree of edema of the arm and erythema are dramatically improved. The patient has essentially no edema of the hand and has good function. In preop the patient was stating that his arm feels better than it has the whole time he has been here. The tracking posteriorly was followed and a new counterincision was created at that location using a scalpel. This was approximately 5 inches distal to the lateral wound that we had made 3 days ago. When I examined the wound during his last surgery the fascia appeared fully viable. As I examined the fascia overlying the extensor musculature there did appear to be some loss of the fascia in that location. This was patchy in nature. It was clean without any significant purulence identified. There was a small amount of tunneling seen just distal to that area by about 1 inch or so. Circumferentially all 3 wounds were irrigated with saline using the Pulsavac. No further collections were encountered. No debridement of the fascia was required as it was visible appeared quite viable. After irrigation took place I took a Janie drain from the newly made incision posteriorly to the lateral wound that had been made last time. The Janie was sutured back to itself using 0 silk sutures. At that time all 3 wounds were packed with 2 inch iodoform gauze. Sterile dressings were applied. DISPOSITION: Stable to recovery room. Spoke with the patient's mom by phone and informed her addressed to the operative findings. Also discussed the case again with infectious disease. He and I discussed that if further issues developed we would consider tertiary care transfer for consideration of hyperbaric treatment. No nerve block was performed this time as it had been performed the last 2 surgeries. Anesthesia did not feel comfortable performing this a third time.
[2021-05-03] MEDS ORDERED: diphenhydrAMINE 50 MG/ML 1 ML VIAL IVP ONE (18:10)
[2021-05-03] MEDS ORDERED: SODIUM CHLORIDE 0.9% 1,000 ML IV ONE (18:50)
[2021-05-04] MEDS: HYDROmorphone 1 MG/ML 1 ML SYRINGE IVP PRN ×11 (00:17→22:23)
[2021-05-04] MEDS: IBUPROFEN 600 MG TAB PO PRN (02:16)
[2021-05-04] MEDS: CLINDAMYCIN 900 MG in DEXTROSE 5% IN WATER 50 ML IVPB SCH ×6 (04:14→20:17)
[2021-05-04] MEDS: HEPARIN SODIUM,PORCINE/PF 5,000 UNIT/0.5 ML SYRINGE SQ SCH ×3 (07:07→23:45)
[2021-05-04] MEDS: SODIUM CHLORIDE 0.9% 1,000 ML IV SCH ×2 (07:07→15:25)
[2021-05-04 07:42] LABS: African American GFR (CKD) >90 (>60 ml/min/1.73 sqM); Anion Gap 9 mmol/L; Blood Urea Nitrogen 19 mg/dL (9-20); Calcium 9.3 mg/dL (8.4-10.2); Carbon Dioxide 24 mmol/L (22-30); Chloride 107 mmol/L (98-107); Glucose 106 mg/dL (74-99); Non-African American GFR(CKD) >90 (>60 ml/min/1.73 sqM); Sodium 140 mmol/L (137-145)
[2021-05-04 07:46] LABS: Potassium 5.6 mmol/L (3.5-5.1)
[2021-05-04] MEDS: PANTOPRAZOLE 40 MG/10 ML VIAL IVP SCH ×2 (08:29→20:17)
[2021-05-04] MEDS: GABAPENTIN 300 MG CAP PO SCH ×3 (08:29→21:10)
[2021-05-04 08:44] LABS: HCT 39.3 % (39.0-53.0); HGB 13.6 gm/dL (13.0-17.5); MCH 30.2 pg (25.0-35.0); MCHC 34.5 g/dL (31.0-37.0); MCV 87.5 fL (80.0-100.0); Mean Platelet Volume 9.7; Platelet Count 471 k/uL (150-450); RBC 4.49 m/uL (4.30-5.90); RDW 13.5 % (11.5-15.5); WBC 22.4 k/uL (3.8-10.6)
[2021-05-04] MEDS: HYDROcodone/APAP 7.5-325MG 1 EACH TAB PO PRN ×2 (09:36→21:10)
[2021-05-04 09:39] LABS: Band Neutrophils % 1 %; Basophils # (M) 0.22 k/uL (0-0.2); Lymphocytes # (M) 5.82 k/uL (1.0-4.8); Myelocytes # (M) 0.45 k/uL (0); Myelocytes % 2 %; Nucleated Red Blood Cells 0 /100 WBC (0-0)
[2021-05-04 09:58] LABS: Eosinophils # (M) 0.67 k/uL (0-0.7); Metamyelocytes # (M) 0.45 k/uL (0); Metamyelocytes % 2 %; Monocytes # (M) 1.57 k/uL (0-1.0); Neutrophils % (M) 59 %; Total Cells Counted 200
[2021-05-04] MEDS ORDERED: HYDROmorphone 1 MG/ML 1 ML SYRINGE IVP STA (09:59)
[2021-05-04 10:01] LABS: RBC Morphology Normal
--- NOTE | 2021-05-04 10:36 | P.PN ---
Progress Note - Text Progress Note Date: 05/04/21 Patient is complaining of pain at his debridement site. The dressing was taken down. The arm appears to be less cellulitic. The patient also states her swelling. The wound is clean. Status post incision and drainage of multiple abscesses left arm due to IV drug abuse. Patient will Receive supportive care and local wound care.
--- NOTE | 2021-05-04 17:40 | P.PN ---
Subjective Patient is a 36-year-old male with a known history of hepatitis c, fentanyl IV drug abuse, everyday smoker, Opiate drug abuse presents to ER with complaints of left upper extremity swelling and pain. Patient states that he injected fentanyl on the forearm about 3 days ago and since then he has been having increased swelling and redness and pain of the left forearm and got worse during the last 24 hours with throbbing sharp pain.. Patient otherwise denies any complaints of fever or chills. Patient was tachycardic on admission. Was also 100% on room air. Patient had upper extremity CT showed there is a 3.5 x 2.2 x 0.5 cm ovoid nonrim-enhancing intramuscular fluid collection at the ventral and lateral aspect of the distal radius. There is subcutaneous edema and the forearm the extent from the wrist to the elbow. No underlying osseous abnormality. Findings could related to intramuscular hematoma. Laboratory showed WBC 25.2 hemoglobin 13.6 and platelets 276 and neutrophils 23.4 Sodium 138 potassium 3.7 chloride 107 bicarb is 22 BUN 12 and creatinine 0.81 blood sugar is 136 and total bilirubin level is 1.8 liver enzymes are not elevated Coronavirus PCR not detected. 04/28/2021 Patient is currently ambulating in the hallway. Complains of severe left forearm pain. Patient is status post I&D of left forearm abscess. Denies any complaints of fever or chills. No chest pain or shortness of breath. No nausea vomiting abdominal pain or diarrhea. No headache or dizziness or lightheadedness. Laboratory data showed WBC 25.9 hemoglobin 12.7 and platelets 291 BUN 7.7 creatinine 0.7 sodium 138 potassium 3.6 chloride 102 bicarb is 20.4 Vancomycin trough is 12.5. Patient is being continued on antibiotics in the form of vancomycin and cefepime was added. ID and general surgery is on board. 04/29/2021 Patient with left forearm infection secondary to IV drug abuse with abscess status post I&D. Today postop day #1. Patient is still complaining of from significant pain and swelling of the left upper extremity. He is afebrile and vital signs stable. Leukocytosis trending down to 19.9. Wound culture is pending. We will order ultrasound of the left upper extremity to rule out Vi disease. Continue with cefepime and IV vancomycin per ID team or following the case closely. Subjective: I'm resume in the care of the patient today. 05/03/2021 Patient still been treated for his left forearm cellulitis, is status post incision and drainage by surgical team however his left upper extremity still evidence with induration, distention and tenderness with erythema especially proximal forearm close to the elbow. He couldn't bend his elbow and extended longterm up due to pain. Vitals are stable but leukocytosis worsened 21.9 today. Once culture is growing bedtime of Streptococcus and many anaerobic bacteria. Surgery team are planning for another incision and drainage today. Patient kept on cefazolin and clindamycin by ID team Check labs in the morning 05/04/2021 Patient is in the hospital for his left forearm abscess secondary to IV drug abuse, he underwent another washout of his left forearm abscess and another I and D by surgery team, his pain is less severe than yesterday however is still bothering him and still in distress due to pain, extra dose of Dilaudid is provided for him this morning. He still has leukocytosis 22,000. He is covered with antibiotics cefazolin and clindamycin as per ID team We will keep monitoring Objective - Vital Signs Vital signs: Vital Signs Temp 97.7 F 05/04/21 13:00 Pulse 89 05/04/21 13:00 Resp 14 05/04/21 13:00 BP 132/83 05/04/21 13:00 Pulse Ox 98 05/04/21 13:00 Intake & Output 05/03/21 05/04/21 05/04/21 18:59 06:59 18:59 Intake Total 1400 1350 Output Total 625 Balance 775 1350 Weight 63.503 kg Intake: IV 1400 Intake, IV Titration 750 Amount Clindamycin 900 mg In 100 Dextrose 5% in Water 50 ml @ 50 mls/hr IVPB Q8H [facility] Rx#:[id number] Sodium Chloride 0.9% 1, 600 000 ml @ 50 mls/hr IV . Q20H [facility] Rx#:[id number] ceFAZolin 2 gm In Sodium 50 Chloride 0.9% 50 ml @ 100 mls/hr IVPB Q8HR [facility] Rx# :[id number] Oral 600 Output: Urine 600 Estimated Blood Loss 25 Other: Voiding Method Toilet Toilet # Voids 1 3 - Exam GENERAL: The patient is alert and oriented x3, not in any acute distress. Well developed, well nourished. HEENT: Pupils are round and equally reacting to light. EOMI. No scleral icterus. No conjunctival pallor. Normocephalic, atraumatic. No pharyngeal erythema. No thyromegaly. CARDIOVASCULAR: S1 and S2 present. No murmurs, rubs, or gallops. PULMONARY: Chest is clear to auscultation, no wheezing or crackles. ABDOMEN: Soft, nontender, nondistended, normoactive bowel sounds. No palpable organomegaly. MUSCULOSKELETAL: No joint swelling or deformity. -EXTREMITIES: No cyanosis, clubbing, or pedal edema. Left forearm is swollen, warm and tender, wound was dressed in a Place NEUROLOGICAL: Gross neurological examination did not reveal any focal deficits. SKIN: No rashes. no petechiae. - Labs CBC & Chem 7: 05/04/21 06:19 05/04/21 06:19 Labs: Abnormal Lab Results - Last 24 Hours (Table) 05/04/21 05/04/21 Range/Units 06:19 06:19 WBC 22.4 H (3.8-10.6) k/uL Plt Count 471 H (150-450) k/uL Neutrophils # (Manual) 13.40 H (1.3-7.7) k/uL Lymphocytes # (Manual) 5.82 H (1.0-4.8) k/uL Monocytes # (Manual) 1.57 H (0-1.0) k/uL Basophils # (Manual) 0.22 H (0-0.2) k/uL Metamyelocytes # (Man) 0.45 H (0) k/uL Myelocytes # (Manual) 0.45 H (0) k/uL Potassium 5.6 H (3.5-5.1) mmol/L Glucose 106 H (74-99) mg/dL Microbiology - Last 24 Hours (Table) 04/30/21 16:47 Blood Culture - Preliminary Blood No Growth after 72 hours Assessment and Plan Assessment: Left upper extremity cellulitis with possible abscess. s/p I&D . Status post washout and another I and D on 05/03 streptococcus bacteremia. IVDU fentanyl used 3 days prior to admission Scoliosis Chronic back pain Hepatitis C Currently everyday smoker Plan: This is a pleasant 36 years old male with left approximately cellulitis Continue with IV hydration and antibiotics per ID team, currently on cefazolin and clindamycin Pain management Surgery team are planning for another I&D Labs and medication were reviewed.. Continue same treatment. Continue with sy mptomatic treatment. Resume home medication. Monitor lytes and vitals. DVT and GI prophylaxis. Further recommendations as per clinical course of the patient DVT prophylaxis: Subcutaneous heparin GI Prophylaxis: Ppi PT/OT: Pending Prognosis is guarded
[2021-05-05] MEDS: HYDROmorphone 1 MG/ML 1 ML SYRINGE IVP PRN ×11 (00:24→22:28)
[2021-05-05] MEDS: CLINDAMYCIN 900 MG in DEXTROSE 5% IN WATER 50 ML IVPB SCH ×6 (04:23→19:29)
[2021-05-05] MEDS: IBUPROFEN 600 MG TAB PO PRN ×2 (04:23→19:30)
[2021-05-05] MEDS: PANTOPRAZOLE 40 MG/10 ML VIAL IVP SCH ×2 (08:38→19:29)
[2021-05-05] MEDS: HYDROcodone/APAP 7.5-325MG 1 EACH TAB PO PRN ×4 (08:39→21:25)
[2021-05-05] MEDS: HEPARIN SODIUM,PORCINE/PF 5,000 UNIT/0.5 ML SYRINGE SQ SCH ×2 (08:39→16:50)
[2021-05-05] MEDS: GABAPENTIN 300 MG CAP PO SCH ×3 (08:39→21:25)
--- NOTE | 2021-05-05 09:58 | P.PN ---
Subjective Progress Note Date: 05/04/21 Principal diagnosis: Left arm abscess and cellulitis Patient is a 36-year-old male with a past medical history significant for IV drug use presented to hospital with left upper extremity swelling and redness in this patient has been diagnosed with a left arm abscess status post surgical drainage completed 04/27/2021. Patient did have repeat debridement of his left forearm abscess on 04/30/2021, patient did go back to the OR 05/03/2019 noticed to have some extension of necrosis status post further debridement as per discussion with the surgeon On today's evaluation and that is 05/04/2021, the patient remains to be afebrile, patient is a breathing comfortably, the patient pain to the left arm is currently controlled with the pain medication, patient denies chest pain shortness of breath or cough no abdominal pain and no diarrhea Objective - Vital Signs Vital signs: Vital Signs Temp 98.5 F 05/04/21 04:21 Pulse 85 05/04/21 08:40 Resp 16 05/04/21 08:40 BP 129/81 05/04/21 04:21 Pulse Ox 98 05/04/21 04:21 Intake & Output 05/03/21 05/04/21 05/04/21 18:59 06:59 18:59 Intake Total 1400 1350 Output Total 625 Balance 775 1350 Weight 63.503 kg Intake: IV 1400 Intake, IV Titration 750 Amount Clindamycin 900 mg In 100 Dextrose 5% in Water 50 ml @ 50 mls/hr IVPB Q8H [facility] Rx#:[id number] Sodium Chloride 0.9% 1, 600 000 ml @ 50 mls/hr IV . Q20H [facility] Rx#:[id number] ceFAZolin 2 gm In Sodium 50 Chloride 0.9% 50 ml @ 100 mls/hr IVPB Q8HR [facility] Rx# :[id number] Oral 600 Output: Urine 600 Estimated Blood Loss 25 Other: Voiding Method Toilet Toilet # Voids 1 3 - Exam GENERAL DESCRIPTION: An middle-aged male lying in bed in no distress RESPIRATORY SYSTEM: Unlabored breathing , decreased breath sounds at bases HEART: S1 S2 regular rate and rhythm , ABDOMEN: Soft , no tenderness EXTREMITIES: Left arm is currently dressed with minimal blood stained drainage on the dressing - Labs CBC & Chem 7: 05/04/21 06:19 05/04/21 06:19 Labs: Abnormal Lab Results - Last 24 Hours (Table) 05/04/21 05/04/21 Range/Units 06:19 06:19 WBC 22.4 H (3.8-10.6) k/uL Plt Count 471 H (150-450) k/uL Neutrophils # (Manual) 13.40 H (1.3-7.7) k/uL Lymphocytes # (Manual) 5.82 H (1.0-4.8) k/uL Monocytes # (Manual) 1.57 H (0-1.0) k/uL Basophils # (Manual) 0.22 H (0-0.2) k/uL Metamyelocytes # (Man) 0.45 H (0) k/uL Myelocytes # (Manual) 0.45 H (0) k/uL Potassium 5.6 H (3.5-5.1) mmol/L Glucose 106 H (74-99) mg/dL Microbiology - Last 24 Hours (Table) 04/30/21 16:47 Blood Culture - Preliminary Blood No Growth after 72 hours Assessment and Plan (1) Abscess of left arm Current Visit: Yes Status: Acute Code(s): L02.414 - CUTANEOUS ABSCESS OF LEFT UPPER LIMB SNOMED Code(s): 92998131306725713 Plan: 1-patient with left arm abscess from IV drug use status post drainage OR cultures has been finalized with group C strep and anaerobes, the patient is currently covered with with clindamycin and cefazolin and the arm looks better per discussion with the surgeon this morning white count is slightly up and will be monitored closely continue supportive care Time with Patient: Less than 30
--- NOTE | 2021-05-05 12:14 | P.PN ---
Progress Note - Text Progress Note Date: 05/05/21 Patient remains stable. There is less cellulitis of his left arm. He will continue receive local wound care and antibiotics.
--- NOTE | 2021-05-05 16:50 | P.PN ---
Subjective Patient is a 36-year-old male with a known history of hepatitis c, fentanyl IV drug abuse, everyday smoker, Opiate drug abuse presents to ER with complaints of left upper extremity swelling and pain. Patient states that he injected fentanyl on the forearm about 3 days ago and since then he has been having increased swelling and redness and pain of the left forearm and got worse during the last 24 hours with throbbing sharp pain.. Patient otherwise denies any complaints of fever or chills. Patient was tachycardic on admission. Was also 100% on room air. Patient had upper extremity CT showed there is a 3.5 x 2.2 x 0.5 cm ovoid nonrim-enhancing intramuscular fluid collection at the ventral and lateral aspect of the distal radius. There is subcutaneous edema and the forearm the extent from the wrist to the elbow. No underlying osseous abnormality. Findings could related to intramuscular hematoma. Laboratory showed WBC 25.2 hemoglobin 13.6 and platelets 276 and neutrophils 23.4 Sodium 138 potassium 3.7 chloride 107 bicarb is 22 BUN 12 and creatinine 0.81 blood sugar is 136 and total bilirubin level is 1.8 liver enzymes are not elevated Coronavirus PCR not detected. 04/28/2021 Patient is currently ambulating in the hallway. Complains of severe left forearm pain. Patient is status post I&D of left forearm abscess. Denies any complaints of fever or chills. No chest pain or shortness of breath. No nausea vomiting abdominal pain or diarrhea. No headache or dizziness or lightheadedness. Laboratory data showed WBC 25.9 hemoglobin 12.7 and platelets 291 BUN 7.7 creatinine 0.7 sodium 138 potassium 3.6 chloride 102 bicarb is 20.4 Vancomycin trough is 12.5. Patient is being continued on antibiotics in the form of vancomycin and cefepime was added. ID and general surgery is on board. 04/29/2021 Patient with left forearm infection secondary to IV drug abuse with abscess status post I&D. Today postop day #1. Patient is still complaining of from significant pain and swelling of the left upper extremity. He is afebrile and vital signs stable. Leukocytosis trending down to 19.9. Wound culture is pending. We will order ultrasound of the left upper extremity to rule out Vi disease. Continue with cefepime and IV vancomycin per ID team or following the case closely. Subjective: I'm resume in the care of the patient today. 05/03/2021 Patient still been treated for his left forearm cellulitis, is status post incision and drainage by surgical team however his left upper extremity still evidence with induration, distention and tenderness with erythema especially proximal forearm close to the elbow. He couldn't bend his elbow and extended snf up due to pain. Vitals are stable but leukocytosis worsened 21.9 today. Once culture is growing bedtime of Streptococcus and many anaerobic bacteria. Surgery team are planning for another incision and drainage today. Patient kept on cefazolin and clindamycin by ID team Check labs in the morning 05/04/2021 Patient is in the hospital for his left forearm abscess secondary to IV drug abuse, he underwent another washout of his left forearm abscess and another I and D by surgery team, his pain is less severe than yesterday however is still bothering him and still in distress due to pain, extra dose of Dilaudid is provided for him this morning. He still has leukocytosis 22,000. He is covered with antibiotics cefazolin and clindamycin as per ID team We will keep monitoring 05/05/2019 Patient left forearm cellulitis is improving slowly and gradually while he is on broad-spectrum antibiotics of cefazolin and clindamycin. Vitals stable. Patient was seen walking the hallway with no difficulties and no other new complaints. Repeat labs tomorrow Objective - Vital Signs Vital signs: Vital Signs Temp 98.0 F 05/05/21 04:31 Pulse 73 05/05/21 04:31 Resp 18 05/05/21 04:31 BP 135/84 05/05/21 04:31 Pulse Ox 98 05/05/21 04:31 Intake & Output 05/04/21 05/05/21 05/05/21 18:59 06:59 18:59 Intake Total 1350 Balance 1350 Intake: Intake, IV Titration 750 Amount Clindamycin 900 mg In 100 Dextrose 5% in Water 50 ml @ 50 mls/hr IVPB Q8H [facility] Rx#:[id number] Sodium Chloride 0.9% 1, 600 000 ml @ 50 mls/hr IV . Q20H [facility] Rx#:[id number] ceFAZolin 2 gm In Sodium 50 Chloride 0.9% 50 ml @ 100 mls/hr IVPB Q8HR [facility] Rx# :[id number] Oral 600 Other: Voiding Method Toilet Toilet # Voids 4 3 - Exam GENERAL: The patient is alert and oriented x3, not in any acute distress. Well developed, well nourished. HEENT: Pupils are round and equally reacting to light. EOMI. No scleral icterus. No conjunctival pallor. Normocephalic, atraumatic. No pharyngeal erythema. No thyromegaly. CARDIOVASCULAR: S1 and S2 present. No murmurs, rubs, or gallops. PULMONARY: Chest is clear to auscultation, no wheezing or crackles. ABDOMEN: Soft, nontender, nondistended, normoactive bowel sounds. No palpable organomegaly. MUSCULOSKELETAL: No joint swelling or deformity. -EXTREMITIES: No cyanosis, clubbing, or pedal edema. Left forearm is swollen, warm and tender, wound was dressed in a Place NEUROLOGICAL: Gross neurological examination did not reveal any focal deficits. SKIN: No rashes. no petechiae. - Labs CBC & Chem 7: 05/04/21 06:19 05/04/21 06:19 Labs: Abnormal Lab Results - Last 24 Hours (Table) 05/04/21 Range/Units 06:19 Neutrophils # (Manual) 13.40 H (1.3-7.7) k/uL Lymphocytes # (Manual) 5.82 H (1.0-4.8) k/uL Monocytes # (Manual) 1.57 H (0-1.0) k/uL Basophils # (Manual) 0.22 H (0-0.2) k/uL Metamyelocytes # (Man) 0.45 H (0) k/uL Myelocytes # (Manual) 0.45 H (0) k/uL Microbiology - Last 24 Hours (Table) 04/30/21 16:47 Blood Culture - Preliminary Blood No Growth after 96 hours Assessment and Plan Assessment: Left upper extremity cellulitis with possible abscess. s/p I&D . Status post washout and another I and D on 05/03 streptococcus bacteremia. IVDU fentanyl used 3 days prior to admission Scoliosis Chronic back pain Hepatitis C Currently everyday smoker Plan: This is a pleasant 36 years old male with left approximately cellulitis Continue with IV hydration and antibiotics per ID team, currently on cefazolin and clindamycin Pain management Surgery team are planning for another I&D Labs and medication were reviewed.. Continue same treatment. Continue with symptomatic treatment. Resume home medication. Monitor lytes and vitals. DVT and GI prophylaxis. Further recommendations as per clinical course of the patient DVT prophylaxis: Subcutaneous heparin GI Prophylaxis: Ppi PT/OT: Pending Prognosis is guarded
--- NOTE | 2021-05-05 21:42 | P.PN ---
Subjective Progress Note Date: 05/05/21 Principal diagnosis: Left arm abscess and cellulitis Patient is a 36-year-old male with a past medical history significant for IV drug use presented to hospital with left upper extremity swelling and redness in this patient has been diagnosed with a left arm abscess status post surgical drainage completed 04/27/2021. Patient did have repeat debridement of his left forearm abscess on 04/30/2021, patient did go back to the OR 05/03/2019 noticed to have some extension of necrosis status post further debridement as per discussion with the surgeon On today's evaluation and that is 05/05/2021, the patient continues to be afebrile, patient is a breathing comfortably on room air, the patient pain to the left arm is currently controlled with the pain medication, patient denies chest pain shortness of breath or cough no abdominal pain and no diarrhea, patient was threatening to leave AMA to bring his to the hospital who seems to be dealing with a right breast abscess and left AMA from the hospital a few days ago Objective - Vital Signs Vital signs: Vital Signs Temp 97.5 F L 05/05/21 13:00 Pulse 93 05/05/21 13:00 Resp 19 05/05/21 13:00 BP 130/83 05/05/21 13:00 Pulse Ox 100 05/05/21 13:00 Intake & Output 05/04/21 05/05/21 05/05/21 18:59 06:59 18:59 Intake Total 1350 Balance 1350 Intake: Intake, IV Titration 750 Amount Clindamycin 900 mg In 100 Dextrose 5% in Water 50 ml @ 50 mls/hr IVPB Q8H [facility] Rx#:[id number] Sodium Chloride 0.9% 1, 600 000 ml @ 50 mls/hr IV . Q20H [facility] Rx#:[id number] ceFAZolin 2 gm In Sodium 50 Chloride 0.9% 50 ml @ 100 mls/hr IVPB Q8HR [facility] Rx# :[id number] Oral 600 Other: Voiding Method Toilet Toilet # Voids 4 3 - Exam GENERAL DESCRIPTION: An middle-aged male lying in bed in no distress RESPIRATORY SYSTEM: Unlabored breathing , decreased breath sounds at bases HEART: S1 S2 regular rate and rhythm , ABDOMEN: Soft , no tenderness EXTREMITIES: Left arm is currently dressed with no drainage and the dressing, RN who change the dressing earlier ,mention wound base looks clean with no surrounding redness or any drainage - Labs CBC & Chem 7: 05/04/21 06:19 05/04/21 06:19 Labs: Microbiology - Last 24 Hours (Table) 04/30/21 16:47 Blood Culture - Preliminary Blood No Growth after 96 hours Assessment and Plan (1) Abscess of left arm Current Visit: Yes Status: Acute Code(s): L02.414 - CUTANEOUS ABSCESS OF LEFT UPPER LIMB SNOMED Code(s): 64733359003651131 Plan: 1-patient with left arm abscess from IV drug use status post drainage OR cultures has been finalized with group C strep and anaerobes, the patient to continue with clindamycin and cefazolin and the arm looks better per discussion with the RN, patient has been advised against leaving AGAINST MEDICAL ADVICE as doing such will jeopardize his own health and may end up losing his arm Time with Patient: Less than 30
[2021-05-06] MEDS: HYDROmorphone 1 MG/ML 1 ML SYRINGE IVP PRN ×12 (00:28→23:12)
[2021-05-06] MEDS: SODIUM CHLORIDE 0.9% 1,000 ML IV SCH ×2 (00:29→18:53)
[2021-05-06] MEDS: HEPARIN SODIUM,PORCINE/PF 5,000 UNIT/0.5 ML SYRINGE SQ SCH ×3 (00:29→15:33)
[2021-05-06] MEDS: HYDROcodone/APAP 7.5-325MG 1 EACH TAB PO PRN ×3 (02:25→15:03)
[2021-05-06] MEDS: IBUPROFEN 600 MG TAB PO PRN ×2 (04:35→12:52)
[2021-05-06] MEDS: CLINDAMYCIN 900 MG in DEXTROSE 5% IN WATER 50 ML IVPB SCH ×6 (04:35→19:34)
[2021-05-06] MEDS: PANTOPRAZOLE 40 MG/10 ML VIAL IVP SCH ×2 (07:10→19:34)
[2021-05-06 08:35] LABS: Basophils # (A) 0.1 k/uL (0-0.2); Basophils % (A) 1 %; Eosinophils # (A) 0.3 k/uL (0-0.7); Eosinophils % (A) 4 %; HCT 39.1 % (39.0-53.0); HGB 12.5 gm/dL (13.0-17.5); Hypochromasia Moderate; Lymphocytes # (A) 3.3 k/uL (1.0-4.8); Lymphocytes % (A) 35 %; MCH 29.3 pg (25.0-35.0); MCHC 31.9 g/dL (31.0-37.0); MCV 91.7 fL (80.0-100.0); Mean Platelet Volume 6.8; Monocytes # (A) 0.5 k/uL (0-1.0); Monocytes % (A) 5 %; Neutrophils % (A) 53 %; Platelet Count 406 k/uL (150-450); RBC 4.27 m/uL (4.30-5.90); RDW 13.8 % (11.5-15.5); WBC 9.4 k/uL (3.8-10.6)
[2021-05-06 08:36] LABS: African American GFR (CKD) >90 (>60 ml/min/1.73 sqM); Anion Gap 9 mmol/L; Blood Urea Nitrogen 18 mg/dL (9-20); Calcium 9.1 mg/dL (8.4-10.2); Carbon Dioxide 23 mmol/L (22-30); Chloride 105 mmol/L (98-107); Glucose 128 mg/dL (74-99); Non-African American GFR(CKD) >90 (>60 ml/min/1.73 sqM); Potassium 4.2 mmol/L (3.5-5.1); Sodium 137 mmol/L (137-145)
[2021-05-06] MEDS: GABAPENTIN 300 MG CAP PO SCH ×3 (08:46→21:08)
[2021-05-06 09:52] LABS: C Reactive Protein 0.8 mg/dL (<1.0)
--- NOTE | 2021-05-06 11:18 | P.PN ---
<Tiffanie Cervantes - Last Filed: 05/06/21 11:13> Subjective Progress Note Date: 05/06/21 CHIEF COMPLAINT: Left forearm abscess HISTORY OF PRESENT ILLNESS: Patient reports he is still having pain in his arm. It is improving since admission. He is on IV antibiotics. Patient had dressing changed by nursing staff during the night. He has been ambulating. Afebrile. WBC has normalized at 9.4 HGB 12.5 platelets 40 6 repeat blood culture no growth PHYSICAL EXAM: VITAL SIGNS: Reviewed. GENERAL: Well-developed in no acute distress. HEENT: No sclera icterus. Extraocular movements grossly intact. Moist buccal mucosa. Head is atraumatic, normocephalic. ABDOMEN: Soft. Nondistended. Nontender. NEUROLOGIC: Alert and oriented. Cranial nerves II through XII grossly intact. Extremities: Left forearm dressing small area of saturation anteriorly near the elbow crease. Otherwise clean dry and intact. ASSESSMENT: 1. Left forearm abscess status post Re-washout left forearm wound, incision and drainage left forearm abscess 2. History of IV drug abuse 3. Positive hepatitis C antibody 4. Positive blood cultures PLAN: -Continue local wound care -Continue supportive care -Continue antibiotics per ID -Continue pain medication as needed -Encourage patient to ambulate -GI prophylaxis Protonix and DVT prophylaxis subcu heparin Physician Lamp Wirer note has been reviewed by physician. Signing provider agrees with the documented findings, assessment, and plan of care. Objective - Vital Signs Vital signs: Vital Signs Temp 97.2 F L 05/06/21 04:35 Pulse 71 05/06/21 04:35 Resp 20 05/06/21 04:35 BP 136/73 05/06/21 04:35 Pulse Ox 98 05/06/21 04:35 Intake & Output 05/05/21 05/06/21 05/06/21 18:59 06:59 18:59 Intake Total 400 Balance 400 Intake: Oral 400 Other: Voiding Method Toilet # Voids 4 2 # Bowel Movements 1 - Labs CBC & Chem 7: 05/06/21 07:43 05/06/21 07:43 Labs: Abnormal Lab Results - Last 24 Hours (Table) 05/06/21 05/06/21 Range/Units 07:43 07:43 RBC 4.27 L (4.30-5.90) m/uL Hgb 12.5 L (13.0-17.5) gm/dL Glucose 128 H (74-99) mg/dL Microbiology - Last 24 Hours (Table) 04/30/21 16:47 Blood Culture - Preliminary Blood No Growth after 120 hours <Rogelio Charles - Last Filed: 05/06/21 12:41> Subjective As above. Patient doing well today. Pain is much improved. Minimal tenderness on exam. All wounds are clean. May discharge from my point of view. Objective - Vital Signs Vital signs: Vital Signs Temp 98.0 F 05/06/21 11:02 Pulse 76 05/06/21 11:02 Resp 18 05/06/21 11:02 BP 127/70 05/06/21 11:02 Pulse Ox 96 05/06/21 11:02 Intake & Output 05/05/21 05/06/21 05/06/21 18:59 06:59 18:59 Intake Total 400 Balance 400 Intake: Oral 400 Other: Voiding Method Toilet # Voids 4 2 # Bowel Movements 1 - Labs CBC & Chem 7: 05/06/21 07:43 05/06/21 07:43 Labs: Abnormal Lab Results - Last 24 Hours (Table) 05/06/21 05/06/21 Range/Units 07:43 07:43 RBC 4.27 L (4.30-5.90) m/uL Hgb 12.5 L (13.0-17.5) gm/dL Glucose 128 H (74-99) mg/dL Microbiology - Last 24 Hours (Table) 04/30/21 16:47 Blood Culture - Preliminary Blood No Growth after 120 hours Assessment and Plan (1) Left arm cellulitis Current Visit: Yes Status: Acute Code(s): L03.114 - CELLULITIS OF LEFT UPPER LIMB SNOMED Code(s): 305534773
--- NOTE | 2021-05-06 23:10 | P.PN ---
Subjective Progress Note Date: 05/06/21 Principal diagnosis: Left arm abscess and cellulitis Patient is a 36-year-old male with a past medical history significant for IV drug use presented to hospital with left upper extremity swelling and redness in this patient has been diagnosed with a left arm abscess status post surgical drainage completed 04/27/2021. Patient did have repeat debridement of his left forearm abscess on 04/30/2021, patient did go back to the OR 05/03/2019 noticed to have some extension of necrosis status post further debridement as per discussion with the surgeon On today's evaluation and that is 05/06/2021, the patient denies any fever or any chills, patient is a breathing comfortably on room air, the patient pain to the left arm is currently controlled with the pain medication, patient denies chest pain shortness of breath or cough no abdominal pain and no diarrhea, Objective - Vital Signs Vital signs: Vital Signs Temp 97.2 F L 05/06/21 04:35 Pulse 71 05/06/21 04:35 Resp 20 05/06/21 04:35 BP 136/73 05/06/21 04:35 Pulse Ox 98 05/06/21 04:35 Intake & Output 05/05/21 05/06/21 05/06/21 18:59 06:59 18:59 Intake Total 400 Balance 400 Intake: Oral 400 Other: Voiding Method Toilet # Voids 4 2 # Bowel Movements 1 - Exam GENERAL DESCRIPTION: An middle-aged male lying in bed in no distress RESPIRATORY SYSTEM: Unlabored breathing , decreased breath sounds at bases HEART: S1 S2 regular rate and rhythm , ABDOMEN: Soft , no tenderness EXTREMITIES: Left arm wound 3 wound base is clean with no slough tissue no surrounding redness or drainage - Labs CBC & Chem 7: 05/06/21 07:43 05/06/21 07:43 Labs: Abnormal Lab Results - Last 24 Hours (Table) 05/06/21 05/06/21 Range/Units 07:43 07:43 RBC 4.27 L (4.30-5.90) m/uL Hgb 12.5 L (13.0-17.5) gm/dL Glucose 128 H (74-99) mg/dL Microbiology - Last 24 Hours (Table) 04/30/21 16:47 Blood Culture - Preliminary Blood No Growth after 120 hours Assessment and Plan (1) Abscess of left arm Current Visit: Yes Status: Acute Code(s): L02.414 - CUTANEOUS ABSCESS OF LEFT UPPER LIMB SNOMED Code(s): 05880299279288732 Plan: 1-patient with left arm abscess from IV drug use status post drainage OR cultures has been finalized with group C strep and anaerobes, the patient to continue with clindamycin and cefazolin , the patient white count has normalized in view of the extensive infection may be candidate for weekly Delvance as the patient is not an ideal candidate for PICC line and outpatient IV to by therapy because of active drug use, if IV Delvance cannot be arranged we will switch him over to oral antibiotics and close outpatient follow-up Time with Patient: Less than 30
[2021-05-07] MEDS: HEPARIN SODIUM,PORCINE/PF 5,000 UNIT/0.5 ML SYRINGE SQ SCH ×3 (00:38→10:01)
[2021-05-07] MEDS: IBUPROFEN 600 MG TAB PO PRN (01:38)
[2021-05-07] MEDS: HYDROmorphone 1 MG/ML 1 ML SYRINGE IVP PRN ×5 (01:39→11:43)
[2021-05-07] MEDS: CLINDAMYCIN 900 MG in DEXTROSE 5% IN WATER 50 ML IVPB SCH ×4 (04:30→11:43)
[2021-05-07 07:03] LABS: Basophils # (A) 0.1 k/uL (0-0.2); Basophils % (A) 1 %; Eosinophils # (A) 0.4 k/uL (0-0.7); Eosinophils % (A) 4 %; HCT 39.3 % (39.0-53.0); HGB 12.8 gm/dL (13.0-17.5); Lymphocytes # (A) 3.2 k/uL (1.0-4.8); Lymphocytes % (A) 36 %; MCHC 32.6 g/dL (31.0-37.0); Mean Platelet Volume 6.9; Monocytes # (A) 0.5 k/uL (0-1.0); Monocytes % (A) 6 %; Neutrophils # (A) 4.4 k/uL (1.3-7.7); Neutrophils % (A) 50 %; Platelet Count 451 k/uL (150-450); RBC 4.42 m/uL (4.30-5.90); WBC 8.8 k/uL (3.8-10.6)
[2021-05-07] MEDS: PANTOPRAZOLE 40 MG/10 ML VIAL IVP SCH (07:50)
[2021-05-07] MEDS: GABAPENTIN 300 MG CAP PO SCH (07:51)
[2021-05-07] MEDS: HYDROcodone/APAP 7.5-325MG 1 EACH TAB PO PRN ×2 (07:56→14:04)
[2021-05-07 11:20] LABS: African American GFR (CKD) 125.1 (60.0-200.0); Anion Gap 12.1 mmol/L (10.00-18.00); BUN/Creat Ratio 14.67 Ratio (12.00-20.00); Blood Urea Nitrogen 13.2 mg/dL (9.0-27.0); Calcium 9.1 mg/dL (8.7-10.3); Carbon Dioxide 23.9 mmol/L (20.0-27.5); Potassium 4.1 mmol/L (3.5-5.5)
[2021-05-07 11:30] VITALS: BP 138/87; PULSE 91; RESP 18; TEMP 97.7
--- NOTE | 2021-05-07 13:09 | P.PN ---
<Tiffanie Cervantes - Last Filed: 05/07/21 13:07> Subjective Progress Note Date: 05/07/21 CHIEF COMPLAINT: Left forearm abscess HISTORY OF PRESENT ILLNESS: Patient reports that he has had improvement in his left arm pain. Dressing is clean dry and intact. He is hoping to be discharged today. Afebrile. WBC 8.8 PHYSICAL EXAM: VITAL SIGNS: Reviewed. GENERAL: Well-developed in no acute distress. HEENT: No sclera icterus. Extraocular movements grossly intact. Moist buccal mucosa. Head is atraumatic, normocephalic. ABDOMEN: Soft. Nondistended. Nontender. NEUROLOGIC: Alert and oriented. Cranial nerves II through XII grossly intact. Extremities: Left forearm dressing clean dry and intact ASSESSMENT: 1. Left forearm abscess status post Re-washout left forearm wound, incision and drainage left forearm abscess 2. History of IV drug abuse 3. Positive hepatitis C antibody 4. Positive blood cultures PLAN: -Patient can be discharged from surgical standpoint when medically cleared -Continue local wound care -Continue supportive care -Continue antibiotics per ID -Continue pain medication as needed -Encourage patient to ambulate -GI prophylaxis Protonix and DVT prophylaxis subcu heparin Physician Receptionist note has been reviewed by physician. Signing provider agrees with the documented findings, assessment, and plan of care. Objective - Vital Signs Vital signs: Vital Signs Temp 97.7 F 05/07/21 11:04 Pulse 91 05/07/21 11:04 Resp 18 05/07/21 11:04 BP 138/87 05/07/21 11:04 Pulse Ox 96 05/07/21 11:04 Intake & Output 05/06/21 05/07/21 05/07/21 18:59 06:59 18:59 Intake Total 3580 950 Balance 3580 950 Intake: Intake, IV Titration 700 750 Amount Clindamycin 900 mg In 100 100 Dextrose 5% in Water 50 ml @ 50 mls/hr IVPB Q8H [facility] Rx#:[id number] Sodium Chloride 0.9% 1, 400 000 ml @ 0 mls/hr IV .STK -[facility] Rx#:[id number] Sodium Chloride 0.9% 1, 600 000 ml @ 50 mls/hr IV . Q20H [facility] Rx#:[id number] ceFAZolin 2 gm In Sodium 200 50 Chloride 0.9% 50 ml @ 100 mls/hr IVPB Q8HR [facility] Rx# :[id number] Oral 2880 200 Other: Voiding Method Toilet Toilet # Voids 5 2 - Labs CBC & Chem 7: 05/07/21 06:36 05/07/21 06:36 Labs: Abnormal Lab Results - Last 24 Hours (Table) 05/07/21 Range/Units 06:36 Hgb 12.8 L (13.0-17.5) gm/dL Plt Count 451 H (150-450) k/uL Microbiology - Last 24 Hours (Table) 04/30/21 16:47 Blood Culture - Final Blood No Growth after 144 hours <Rogelio Charles - Last Filed: 05/07/21 16:13> Subjective I have personally seen and examined the patient, reviewed the [facility] history, exam and MDM and agree with the assessment and plan as written. Based on total visit time, I have performed more than 50% of the visit. As above: Patient doing better today. Pain is improved. He would like to go home. May discharge. Follow-up 1 week. Objective - Vital Signs Vital signs: Vital Signs Temp 97.7 F 05/07/21 11:04 Pulse 91 05/07/21 11:04 Resp 18 05/07/21 11:04 BP 138/87 05/07/21 11:04 Pulse Ox 96 05/07/21 11:04 Intake & Output 05/06/21 05/07/21 05/07/21 18:59 06:59 18:59 Intake Total 3580 950 Balance 3580 950 Intake: Intake, IV Titration 700 750 Amount Clindamycin 900 mg In 100 100 Dextrose 5% in Water 50 ml @ 50 mls/hr IVPB Q8H [facility] Rx#:[id number] Sodium Chloride 0.9% 1, 400 000 ml @ 0 mls/hr IV .STK -[facility] Rx#:[id number] Sodium Chloride 0.9% 1, 600 000 ml @ 50 mls/hr IV . Q20H [facility] Rx#:[id number] ceFAZolin 2 gm In Sodium 200 50 Chloride 0.9% 50 ml @ 100 mls/hr IVPB Q8HR [facility] Rx# :[id number] Oral 2880 200 Other: Voiding Method Toilet Toilet # Voids 5 2 - Labs CBC & Chem 7: 05/07/21 06:36 05/07/21 06:36 Labs: Abnormal Lab Results - Last 24 Hours (Table) 05/07/21 Range/Units 06:36 Hgb 12.8 L (13.0-17.5) gm/dL Plt Count 451 H (150-450) k/uL Microbiology - Last 24 Hours (Table) 04/30/21 16:47 Blood Culture - Final Blood No Growth after 144 hours Assessment and Plan (1) Left arm cellulitis Status: Acute Code(s): L03.114 - CELLULITIS OF LEFT UPPER LIMB SNOMED Cod e(s): 440891314
--- NOTE | 2021-05-08 13:25 | P.PN ---
Subjective Progress Note Date: 04/29/21 Principal diagnosis: Left arm abscess and cellulitis Patient is a 36-year-old male with a past medical history significant for IV drug use presented to hospital with left upper extremity swelling and redness in this patient has been diagnosed with a left arm abscess status post surgical drainage completed 04/27/2021. On today's evaluation and that is 04/29/2021, the patient is afebrile, patient is a breathing comfortably, pt is complaining of pain to the left arm and more more pain medication, patient denies having any chest pain shortness of breath or cough no abdominal pain and no diarrhea Objective - Vital Signs Vital signs: Vital Signs Temp 97.6 F 04/29/21 04:15 Pulse 87 04/29/21 04:15 Resp 16 04/29/21 04:15 BP 129/77 04/29/21 04:15 Pulse Ox 99 04/29/21 04:15 Intake & Output 04/28/21 04/29/21 04/29/21 18:59 06:59 18:59 Intake Total 900 950 Output Total 800 Balance 900 150 Intake: Intake, IV Titration 900 950 Amount Cefepime 2 gm In Sodium 100 Chloride 0.9% 100 ml @ 25 mls/hr IVPB Q8HR [facility] Rx# :[id number] Sodium Chloride 0.9% 1, 900 600 000 ml @ 75 mls/hr IV . [id number] [facility] Rx#:[id number] Vancomycin 1,250 mg In 250 Sodium Chloride 0.9% 250 ml @ 125 mls/hr IVPB Q8HR [facility] Rx#:[id number] Output: Urine 800 Other: Voiding Method Toilet Toilet Urinal Urinal - Exam GENERAL DESCRIPTION: An middle-aged male lying in bed in no distress RESPIRATORY SYSTEM: Unlabored breathing , decreased breath sounds at bases HEART: S1 S2 regular rate and rhythm , ABDOMEN: Soft , no tenderness EXTREMITIES: Left arm is currently dressed no drainage of the dressing - Labs CBC & Chem 7: 05/07/21 06:36 05/07/21 06:36 Labs: Microbiology - Last 24 Hours (Table) 04/27/21 13:15 Blood Culture Gram Stain - Preliminary Blood Blood Culture - Preliminary Staphylococcus epidermidis Streptococcus species 04/27/21 23:12 Anaerobic Culture - Preliminary Arm - Left 02/05/22 13:15 Blood Culture - Final Blood Assessment and Plan (1) Abscess of left arm Status: Acute Code(s): L02.414 - CUTANEOUS ABSCESS OF LEFT UPPER LIMB SNOMED Code(s): 51223409077110427 Plan: 1-patient with left arm abscess from IV drug use status post drainage OR cultures are currently pending patient also have positive blood culture with staph epi, patient Is currently being treated with cefepime and vancomycin while waiting for the culture finalized Time with Patient: Less than 30
--- NOTE | 2021-05-10 10:57 | CDI ---
Documentation Clarification Form Date: 05/10/21 From: Geraldine Wells Admit Date: 04/27/2021 03:21:00 PM Patient Name: Lj Theodore Visit Number: [id number] Discharge Date: 05/07/2021 03:28:00 PM ATTENTION: The Clinical Documentation Specialists (CDI) and [facility] Coding Staff appreciate your assistance in clarifying documentation. Please respond to the clarification below the line at the bottom and electronically sign. The CDI & [facility] Coding staff will review the response and follow-up if needed. Please note: Queries are made part of the Legal Health Record. If you have any questions, please contact the author of this message via ITS. Dr. Myra Sanchez, There is documentation of bacteremia [insert documentation, date, location]. Bacteremia is considered a lab finding. Additional clarification regarding bacteremia is requested. Patient history/risk factors: Fentanyl abuse, hepatitis C, scoliosis, chronic back pain, Clinical Indicators: Patient with left forearm infection secondary to IV drug abuse with abscess status post ID. WBC: 25.2 Left Shift: 23.4 Blood Culture: Streptococcus Consult: Patient presented to hospital with extensive left upper extremity pain and swelling redness in this patient who did have a history of IV drug use and has injected into the area now with a CT did show some evidence of fluid collection intramuscularly likely representing an abscess rather than hematoma admitted to cover for the resistant gram-positive as well as gram-negative in view of his history of IV drug use. Treatment: Drainage, IV Vanco, IV Cefepime Please provide additional clarification regarding the etiology/cause and/or clinical significance of the bacteremia: [ x ] Bacteremia is related to sepsis, POA [ ] Bacteremia is due to infectious process, please specify: [ ] Bacteremia is not clinically significant [ ] Other, please specify [ ] Unable to determine MTDD
--- NOTE | 2021-05-14 21:37 | P.PN ---
Subjective Progress Note Date: 05/07/21 Principal diagnosis: Left arm abscess and cellulitis Patient is a 36-year-old male with a past medical history significant for IV drug use presented to hospital with left upper extremity swelling and redness in this patient has been diagnosed with a left arm abscess status post surgical drainage completed 04/27/2021. On today's evaluation and that is 05/07/2021, the patient remains to be afebrile, patient is a breathing comfortably, the patient pain to the left arm has decreased intensity, patient denies having any chest pain shortness of breath or cough no abdominal pain and no diarrhea Objective - Vital Signs Vital signs: Vital Signs Temp 97.7 F 05/07/21 11:04 Pulse 91 05/07/21 11:04 Resp 18 05/07/21 11:04 BP 138/87 05/07/21 11:04 Pulse Ox 96 05/07/21 11:04 Intake & Output 05/06/21 05/07/21 05/07/21 18:59 06:59 18:59 Intake Total 3580 950 Balance 3580 950 Intake: Intake, IV Titration 700 750 Amount Clindamycin 900 mg In 100 100 Dextrose 5% in Water 50 ml @ 50 mls/hr IVPB Q8H [facility] Rx#:[id number] Sodium Chloride 0.9% 1, 400 000 ml @ 0 mls/hr IV .[facility]K -[facility] Rx#:[id number] Sodium Chloride 0.9% 1, 600 000 ml @ 50 mls/hr IV . Q20H [facility] Rx#:[id number] ceFAZolin 2 gm In Sodium 200 50 Chloride 0.9% 50 ml @ 100 mls/hr IVPB Q8HR [facility] Rx# :[id number] Oral 2880 200 Other: Voiding Method Toilet Toilet # Voids 5 2 - Exam GENERAL DESCRIPTION: An middle-aged male lying in bed in no distress RESPIRATORY SYSTEM: Unlabored breathing , decreased breath sounds at bases HEART: S1 S2 regular rate and rhythm , ABDOMEN: Soft , no tenderness EXTREMITIES: Left arm is currently dressed no drainage of the dressing - Labs CBC & Chem 7: 05/07/21 06:36 05/07/21 06:36 Labs: Abnormal Lab Results - Last 24 Hours (Table) 05/07/21 Range/Units 06:36 Hgb 12.8 L (13.0-17.5) gm/dL Plt Count 451 H (150-450) k/uL Microbiology - Last 24 Hours (Table) 04/30/21 16:47 Blood Culture - Final Blood No Growth after 144 hours Assessment and Plan (1) Abscess of left arm Status: Acute Code(s): L02.414 - CUTANEOUS ABSCESS OF LEFT UPPER LIMB SNOMED Code(s): [id number] Plan: 1-patient with left arm abscess from IV drug use status post drainage OR cultures has been finalized and group C streptococcus patient did have a history of IV drug use and Levaquin continued for a PICC line. We are trying to arrange for IV Delvance however the patient did not want to stay further evaluated for outpatient IV antibiotic arrangement patient has been sent home on oral Keflex 500 mg by mouth every 6 hours and clindamycin local wound care with Aquacel silver dressing advised to follow-up in the wound care center next week Time with Patient: Less than 30
--- NOTE | 2021-06-03 00:53 | P.DS ---
Providers Date of admission: 04/27/21 15:21 Expected date of discharge: 05/07/21 Attending physician: Myra Sanchez Consults: 04/27/21 15:21 Consult Physician Urgent Consulting Provider: Justine Dow Consult Reason/Comments: Left arm cellulitis; left arm abscess versus hematoma Do you want consulting provider notified?: Yes 04/27/21 18:46 Consult Physician Routine Consulting Provider: Rogelio Charles Consult Reason/Comments: Possible I&D Do you want consulting provider notified?: Yes Primary care physician: Stated None Hospital Course: Discharge diagnosis Left upper extremity cellulitis with possible abscess. s/p I&D . Status post washout and another I and D on 05/03 streptococcus bacteremia. IVDU fentanyl used 3 days prior to admission Scoliosis Chronic back pain Hepatitis C Currently everyday smoker Hospital course Patient is a 36-year-old male with a known history of hepatitis c, fentanyl IV drug abuse, everyday smoker, Opiate drug abuse presents to ER with complaints of left upper extremity swelling and pain. Patient states that he injected fentanyl on the forearm about 3 days ago and since then he has been having increased swelling and redness and pain of the left forearm and got worse during the last 24 hours with throbbing sharp pain.. Patient otherwise denies any complaints of fever or chills. Patient was tachycardic on admission. Was also 100% on room air. Patient had upper extremity CT showed there is a 3.5 x 2.2 x 0.5 cm ovoid nonrim-enhancing intramuscular fluid collection at the ventral and lateral aspect of the distal radius. There is subcutaneous edema and the forearm the extent from the wrist to the elbow. No underlying osseous abnormality. Findings could related to intramuscular hematoma. Laboratory showed WBC 25.2 hemoglobin 13.6 and platelets 276 and neutrophils 23.4 Sodium 138 potassium 3.7 chloride 107 bicarb is 22 BUN 12 and creatinine 0.81 blood sugar is 136 and total bilirubin level is 1.8 liver enzymes are not elevated Coronavirus PCR not detected. 04/28/2021 Patient is currently ambulating in the hallway. Complains of severe left forearm pain. Patient is status post I&D of left forearm abscess. Denies any complaints of fever or chills. No chest pain or shortness of breath. No nausea vomiting abdominal pain or diarrhea. No headache or dizziness or lightheadedness. Laboratory data showed WBC 25.9 hemoglobin 12.7 and platelets 291 BUN 7.7 creatinine 0.7 sodium 138 potassium 3.6 chloride 102 bicarb is 20.4 Vancomycin trough is 12.5. Patient is being continued on antibiotics in the form of vancomycin and cefepime was added. ID and general surgery is on board. 04/29/2021 Patient with left forearm infection secondary to IV drug abuse with abscess status post I&D. Today postop day #1. Patient is still complaining of from significant pain and swelling of the left upper extremity. He is afebrile and vital signs stable. Leukocytosis trending down to 19.9. Wound culture is pending. We will order ultrasound of the left upper extremity to rule out Vi disease. Continue with cefepime and IV vancomycin per ID team or following the case closely. Subjective: I'm resume in the care of the patient today. 05/03/2021 Patient still been treated for his left forearm cellulitis, is status post incision and drainage by surgical team however his left upper extremity still evidence with induration, distention and tenderness with erythema especially proximal forearm close to the elbow. He couldn't bend his elbow and extended prison up due to pain. Vitals are stable but leukocytosis worsened 21.9 today. Once culture is growing bedtime of Streptococcus and many anaerobic bacteria. Surgery team are planning for another incision and drainage today. Patient kept on cefazolin and clindamycin by ID team Check labs in the morning 05/04/2021 Patient is in the hospital for his left forearm abscess secondary to IV drug abuse, he underwent another washout of his left forearm abscess and another I and D by surgery team, his pain is less severe than yesterday however is still bothering him and still in distress due to pain, extra dose of Dilaudid is provided for him this morning. He still has leukocytosis 22,000. He is covered with antibiotics cefazolin and clindamycin as per ID team We will keep monitoring 05/05/2019 Patient left forearm cellulitis is improving slowly and gradually while he is on broad-spectrum antibiotics of cefazolin and clindamycin. Vitals stable. Patient was seen walking the hallway with no difficulties and no other new complaints. 05/06/2021 Patient is currently ambulating the hallway. No complaints of chest pain or shortness of. Pain is controlled with pain medications. No nausea vomiting abdominal pain or diarrhea. No fever no chills. No cough or sputum production. No abdominal pain no nausea or vomiting. No other acute overnight issues. Patient is being continued on antibiotics in the form of clindamycin and cefazolin.. Patient may be a candidate for weekly [employer] as an outpatient due to history of reactive IV drug use. ID is following. 05/07/2031 Patient is currently sitting on the side of the bed comfortably. Awake alert and oriented x3. No fever no chills. Left pain is better controlled. No complaints of fever or chills. No nausea vomiting abdominal pain or diarrhea. Tolerating oral diet. Patient was counseled extensively not to use IV drugs. I recommend to continue Keflex and clindamycin and dressing changes and follow-up with wound care clinic next week. Patient would like to be discharged home to ay. Anticipate discharge with oral antibiotics. - Exam GENERAL: The patient is alert and oriented x3, not in any acute distress. Well developed, well nourished. HEENT: Pupils are round and equally reacting to light. EOMI. No scleral icterus. No conjunctival pallor. Normocephalic, atraumatic. No pharyngeal erythema. No thyromegaly. CARDIOVASCULAR: S1 and S2 present. No murmurs, rubs, or gallops. PULMONARY: Chest is clear to auscultation, no wheezing or crackles. ABDOMEN: Soft, nontender, nondistended, normoactive bowel sounds. No palpable organomegaly. MUSCULOSKELETAL: No joint swelling or deformity. -EXTREMITIES: No cyanosis, clubbing, or pedal edema. Left forearm is swollen, warm and tender, wound was dressed in a Place NEUROLOGICAL: Gross neurological examination did not reveal any focal deficits. SKIN: No rashes. no petechiae. Vital signs: Vital Signs Temp 97.7 F 05/07/21 11:04 Pulse 91 05/07/21 11:04 Resp 18 05/07/21 11:04 BP 138/87 05/07/21 11:04 Pulse Ox 96 05/07/21 11:04 Intake & Output 05/06/21 05/07/21 05/07/21 18:59 06:59 18:59 Intake Total 3580 950 Balance 3580 950 Intake: Intake, IV Titration 700 750 Amount Clindamycin 900 mg In 100 100 Dextrose 5% in Water 50 ml @ 50 mls/hr IVPB Q8H [facility] Rx#:[id number] Sodium Chloride 0.9% 1, 400 000 ml @ 0 mls/hr IV .STK [facility] Rx#:[id number] Sodium Chloride 0.9% 1, 600 000 ml @ 50 mls/hr IV . Q20H [facility] Rx#:[id number] ceFAZolin 2 gm In Sodium 200 50 Chloride 0.9% 50 ml @ 100 mls/hr IVPB Q8HR [facility] Rx# :[id number] Oral 2880 200 Other: Voiding Method Toilet Toilet # Voids 5 2 Patient Condition at Discharge: Stable Plan - Discharge Summary New Discharge Prescriptions: New Cephalexin [Keflex] 500 mg PO Q6HR 14 Days #56 cap No Action HYDROcodone/APAP 7.5-325MG [[place] 7.5-325] 1 tab PO Q6HR PRN PRN Reason: Pain Discharge Medication List Cephalexin [Keflex] 500 mg PO Q6HR 14 Days #56 cap 05/07/21 [Rx] HYDROcodone/APAP 7.5-325MG [[place] 7.5-325] 1 tab PO Q6HR PRN 05/15/21 [History] Follow up Appointment(s)/Referral(s): Rogelio Charles MD [Medical Doctor] - 05/16/21 8:50 am Raeann Zamarripa MD [STAFF PHYSICIAN] - 06/17/21 12:00 pm (GI Doctor for your hepatitis C INFECTION ) Muna Davies MD [REFERRING] - 1 Week [facility], [NON-STAFF] - 1 Week None,Stated [Primary Care Provider] - 1-2 days Justine Dow MD [STAFF PHYSICIAN] - 05/14/21 1:45 pm (infectious disease doctor) Activity/Diet/Wound Care/Special Instructions: regular diet activity is restricted till you see your doctor Continue with Keflex 500 mg 4 times daily for the next 2 weeks and patient to follow-up with Dr. Dow at the wound center in the next 1 week to 10 days Discharge Disposition: HOME WITH HOME HEALTH SERVICES
== END 2021-05-07 15:28 | disposition home health service (06) | DRG 854 ==
LOC: EC 12:09 → 5NMEDONC 15:21
PROVIDERS: ADMIT Internal Medicine; ATTEND Internal Medicine
PROC: 05HN33Z Insertion of Infusion Device into Left Internal Jugular Vein, Percutaneous Approach (ICD-10-PCS; 2021-04-27)
PROC: 0K9B0ZX Drainage of Left Lower Arm and Wrist Muscle, Open Approach, Diagnostic (ICD-10-PCS; principal; 2021-04-27 22:20)
PROC: 0J9H0ZZ Drainage of Left Lower Arm Subcutaneous Tissue and Fascia, Open Approach (ICD-10-PCS; 2021-04-30)
PROC: 05H933Z Insertion of Infusion Device into Right Brachial Vein, Percutaneous Approach (ICD-10-PCS; 2021-05-01)
PROC: 0JDH0ZZ Extraction of Left Lower Arm Subcutaneous Tissue and Fascia, Open Approach (ICD-10-PCS; 2021-05-03)
DX: A40.9 Streptococcal sepsis, unspecified (principal); L02.414 Cutaneous abscess of left upper limb; I82.612 Acute embolism and thrombosis of superficial veins of left upper extremity; L03.114 Cellulitis of left upper limb; L03.113 Cellulitis of right upper limb; L98.492 Non-pressure chronic ulcer of skin of other sites with fat layer exposed; F11.10 Opioid abuse, uncomplicated; Z20.822 Contact with and (suspected) exposure to COVID-19; B95.5 Unspecified streptococcus as the cause of diseases classified elsewhere; B19.20 Unspecified viral hepatitis C without hepatic coma; M41.9 Scoliosis, unspecified; G89.29 Other chronic pain; F17.200 Nicotine dependence, unspecified, uncomplicated; M54.9 Dorsalgia, unspecified; Z88.5 Allergy status to narcotic agent
CPT/HCPCS: 36410; 36415; 64415; 76937; 76942; 80048; 80053; 80074; 80202; 82553; 82565; 83605; 85025; 85610; 85730; 86140; 87040; 87070; 87075; 87077; 87186; 87205; 87635; 96365; 96367; 96375; 99285

== ENCOUNTER 2021-05-15 20:27 | Emergency (ER) | payer OTHER ==
[2021-05-15 20:53] VITALS: BP 122/65; PULSE 93; RESP 18; TEMP 98.1
--- NOTE | 2021-05-15 23:02 | ED ---
Skin/Abscess/FB HPI - General Chief complaint: Skin/Abscess/Foreign Body Stated complaint: arm pain, post surgery Time Seen by Provider: 05/15/21 22:20 Source: patient Mode of arrival: ambulatory Limitations: no limitations - History of Present Illness Initial comments: This patient is a 36-year-old man who presents to have evaluation of his left forearm. He has had incision and drainage of left forearm abscess by Dr. Saini while he was in the hospital in early April. The patient denies any systemic symptoms no fever or chills, chest pain, tachycardia, dyspnea. He did note that there was some yellowish drainage. MD complaint: other -: days(s) Tetanus Up to Date: yes Location: LUE Severity: moderate Quality: burning Consistency: constant Improves with: none Worsens with: none Context: none Associated symptoms: denies other symptoms Treatments Prior to Arrival: none - Related Data Previous Rx's Medication Instructions Recorded Cephalexin [Keflex] 500 mg PO Q6HR 14 Days #56 cap 05/07/21 Gabapentin [Neurontin] 300 mg PO TID 7 Days #21 cap 05/07/21 HYDROcodone/APAP 7.5-325MG [[place] 1 each PO Q6HR PRN 3 Days #12 tab 05/07/21 7.5-325] Allergies Allergy/AdvReac Type Severity Reaction Status Date / Time ketorolac [From Toradol] Allergy Unknown Verified 05/15/21 20:53 Review of Systems ROS Statement: Those systems with pertinent positive or pertinent negative responses have been documented in the HPI. ROS Other: All systems not noted in ROS Statement are negative. Constitutional: Denies: fever, chills Respiratory: Denies: dyspnea Cardiovascular: Denies: chest pain, palpitations Musculoskeletal: Reports: other (Left arm pain) Skin: Reports: as per HPI Past Medical History Past Medical History: No Reported History Additional Past Medical History / Comment(s): scoliosis, back pain, hep C, fentanyl abuse History of Any Multi-Drug Resistant Organisms: None Reported Past Surgical History: No Surgical Hx Reported Additional Past Surgical History / Comment(s): cyst removal Past Anesthesia/Blood Transfusion Reactions: No Reported Reaction Past Psychological History: No Psychological Hx Reported Smoking Status: Current every day smoker Past Alcohol Use History: None Reported Past Drug Use History: Heroin, Opiates, Prescription Drug Abuse - Past Family History Father Family Medical History: No Reported History (Father is 50-year-old has no major medical problems) Mother Family Medical History: No Reported History (Mother is 52-year-old year and has no major medical problems) Brother(s) Family Medical History: No Reported History (Patient has one brother no major medical problems) Sister(s) Family Medical History: No Reported History (Patient has one sister no major medical problems) General Exam Limitations: no limitations General appearance: alert, in no apparent distress Head exam: Present: atraumatic, normocephalic Eye exam: Present: normal appearance Respiratory exam: Present: normal lung sounds bilaterally. Absent: respiratory distress, wheezes, rales, rhonchi, stridor Cardiovascular Exam: Present: regular rate, normal rhythm, normal heart sounds. Absent: systolic murmur, diastolic murmur, rubs, gallop GI/Abdominal exam: Present: soft. Absent: tenderness, guarding, rebound Neurological exam: Present: alert. Absent: motor sensory deficit Skin exam: Present: warm, dry, intact, normal color, other (The patient's left forearm looks to be in the appropriate postsurgical state. There are surgical drains present. There is no abnormal erythema. There is some fibrinous drainage on the dressing. There is no purulent discharge.). Absent: rash Course Vital Signs 05/15/21 20:49 Temperature 98.1 F Pulse Rate 93 Respiratory 18 Rate Blood Pressure 122/65 O2 Sat by Pulse 92 L Oximetry Medical Decision Making - Medical Decision Making This patient is a 36-year-old man with left forearm pain. I presents to have reevaluation of his arm it does appear to be healing appropriately following the surgery for abscess drainage. There is no purulent drainage. There is no erythema or warmth indicative of infection. The drains are still intact. The patient does have established follow-up tomorrow with Dr. Saini who is his surgeon. Disposition Clinical Impression: Encounter for postoperative wound check Disposition: HOME SELF-CARE Condition: Good Instructions (If sedation given, give patient instructions): Abscess Incision and Drainage (DC) Is patient prescribed a controlled substance at d/c from ED?: No Referrals: None,Stated [Primary Care Provider] - 1-2 days
[2021-05-15] MEDS ORDERED: IBUPROFEN 600 MG TAB PO STA (23:08)
[2021-05-15] MEDS ORDERED: ACETAMINOPHEN TAB 325 MG TAB PO STA (23:09)
== END 2021-05-15 23:28 | disposition home or self-care (01) ==
LOC: EC 20:27
DX: Z48.817 Encounter for surgical aftercare following surgery on the skin and subcutaneous tissue (principal); F17.200 Nicotine dependence, unspecified, uncomplicated; F11.90 Opioid use, unspecified, uncomplicated
CPT/HCPCS: 99283

== ENCOUNTER 2022-09-22 10:06 | Inpatient (IN) | payer OTHER ==
[2022-09-22] MEDS ORDERED: SODIUM CHLORIDE 0.9% 1,000 ML IV STA ×2 (10:13)
--- NOTE | 2022-09-22 10:13 | ED ---
Chest Pain HPI - General Chief Complaint: Chest Pain Stated Complaint: Chest Pain Time Seen by Provider: 09/22/22 10:10 Source: EMS Mode of arrival: EMS Limitations: no limitations - History of Present Illness Initial Comments: 37-year-old male presents to the emergency department for chest pain. EMS states that they were called to a house where the patient was having chest pain. Reports it's going on for the past 3 days. He denies having a cardiac history that is making him short of breath. They tried to give him aspirin but he refused. Patient was found to be markedly tachycardic. Patient is also reporting to a frontal headache. Denies history of trauma. No neck pain or stiffness. No fevers. He denies drug use. Admits that he drinks alcohol however it is very infrequent. Upon review the patient's record demonstrates that he has polysubstance abuse history. EMS states that they picked the patient up from a known drug house. - Related Data Previous Rx's Medication Instructions Recorded Dicyclomine [Bentyl] 20 mg PO QID PRN #20 tab 09/24/22 cloNIDine HCL [Catapres] 0.1 mg PO TID 5 Days #15 tab 09/24/22 Allergies Allergy/AdvReac Type Severity Reaction Status Date / Time ketorolac [From Toradol] Allergy Rash/Hives Verified 09/22/22 11:47 Review of Systems ROS Statement: Those systems with pertinent positive or pertinent negative responses have been documented in the HPI. ROS Other: All systems not noted in ROS Statement are negative. Past Medical History Past Medical History: No Reported History Additional Past Medical History / Comment(s): scoliosis, back pain, hep C, fentanyl abuse History of Any Multi-Drug Resistant Organisms: None Reported Past Surgical History: No Surgical Hx Reported Additional Past Surgical History / Comment(s): cyst removal Past Anesthesia/Blood Transfusion Reactions: No Reported Reaction Past Psychological History: No Psychological Hx Reported Smoking Status: Former smoker Past Alcohol Use History: None Reported Past Drug Use History: Heroin, Opiates, Prescription Drug Abuse - Past Family History Father Family Medical History: No Reported History (Father is 50-year-old has no major medical problems) Mother Family Medical History: No Reported History (Mother is 52-year-old year and has no major medical problems) Brother(s) Family Medical History: No Reported History (Patient has one brother no major medical problems) Sister(s) Family Medical History: No Reported History (Patient has one sister no major medical problems) General Exam General appearance: alert, anxious, in distress Head exam: Present: atraumatic, normocephalic, normal inspection Eye exam: Present: normal appearance, PERRL, EOMI. Absent: scleral icterus, conjunctival injection, periorbital swelling ENT exam: Present: normal exam, mucous membranes moist Neck exam: Present: normal inspection. Absent: tenderness, meningismus, lymphadenopathy Respiratory exam: Present: normal lung sounds bilaterally. Absent: respiratory distress, wheezes, rales, rhonchi, stridor Cardiovascular Exam: Present: normal rhythm, tachycardia, normal heart sounds. Absent: systolic murmur, diastolic murmur, rubs, gallop, clicks GI/Abdominal exam: Present: soft, normal bowel sounds. Absent: distended, tenderness, guarding, rebound, rigid Extremities exam: Present: normal inspection, full ROM, normal capillary refill. Absent: tenderness, pedal edema, joint swelling, calf tenderness Back exam: Present: normal inspection Neurological exam: Present: alert, oriented X3, CN II-XII intact Psychiatric exam: Present: normal affect, normal mood Skin exam: Present: warm, intact, normal color, diaphoretic. Absent: rash Course Vital Signs 09/22/22 09/22/22 09/22/22 10:07 10:09 10:12 Temperature 99.5 F Pulse Rate 130 H Pulse Rate [ 130 H Acquisition Cost Estimator ] Respiratory 22 30 H Rate Blood Pressure 127/86 127/86 O2 Sat by Pulse 98 Oximetry 09/22/22 09/22/22 09/22/22 10:30 11:00 11:16 Temperature Pulse Rate 124 H 121 H 125 H Pulse Rate [ Acquisition Cost Estimator ] Respiratory 29 H 20 20 Rate Blood Pressure 130/82 125/83 O2 Sat by Pulse 98 99 Oximetry 09/22/22 09/22/22 09/22/22 11:30 12:00 12:30 Temperature Pulse Rate 120 H 123 H 126 H Pulse Rate [ Acquisition Cost Estimator ] Respiratory 35 H 22 12 Rate Blood Pressure 125/83 127/82 130/87 O2 Sat by Pulse Oximetry 09/22/22 09/22/22 09/22/22 12:31 13:00 13:30 Temperature Pulse Rate 126 H 120 H Pulse Rate [ Acquisition Cost Estimator ] Respiratory 16 10 L Rate Blood Pressure 141/116 136/95 O2 Sat by Pulse 98 Oximetry 09/22/22 09/22/22 09/22/22 13:41 14:00 14:30 Temperature Pulse Rate 123 H 111 H 107 H Pulse Rate [ Acquisition Cost Estimator ] Respiratory 20 31 H 11 L Rate Blood Pressure 130/80 132/93 O2 Sat by Pulse 100 Oximetry 09/22/22 09/22/22 09/22/22 15:00 15:30 16:00 Temperature Pulse Rate 101 H 96 92 Pulse Rate [ Acquisition Cost Estimator ] Respiratory 21 22 20 Rate Blood Pressure O2 Sat by Pulse Oximetry 09/22/22 09/22/22 09/22/22 16:30 17:00 17:30 Temperature Pulse Rate 89 95 81 Pulse Rate [ Acquisition Cost Estimator ] Respiratory 16 21 19 Rate Blood Pressure O2 Sat by Pulse Oximetry 09/22/22 09/22/22 09/22/22 18:00 18:30 18:43 Temperature Pulse Rate 82 80 82 Pulse Rate [ Acquisition Cost Estimator ] Respiratory 17 18 Rate Blood Pressure 137/90 O2 Sat by Pulse 98 Oximetry 09/22/22 09/22/22 19:00 19:30 Temperature Pulse Rate 77 84 Pulse Rate [ Acquisition Cost Estimator ] Respiratory 14 16 Rate Blood Pressure 137/90 137/90 O2 Sat by Pulse Oximetry Chest Pain MDM - MDM Was pt. sent in by a medical professional or institution (SABRINA Crocker, HEALTH AND SOCIAL CARE TEACHER, urgent care, hospital, or shelter...) When possible be specific @ -No Did you speak to anyone other than the patient for history (EMS, parent, family, police, friend...)? What history was obtained from this source @ - EMS Did you review nursing and triage notes (agree or disagree)? Why? @ -I reviewed and agree with nursing and triage notes Were old charts reviewed (outside hosp., previous admission, EMS record, old EKG, old radiological studies, urgent care reports/EKG's, shelter records)? Report findings @ -old charts were reviewed - previous ED visits for drug use Differential Diagnosis (chest pain, altered mental status, abdominal pain women, abdominal pain men, vaginal bleeding, weakness, fever, dyspnea, syncope, headache, dizziness, GI bleed, back pain, seizure, CVA, palpatations, mental health, musculoskeletal)? @ -acs, coronary vasospasm, menigitis, sah, sbh, myocarditis, epicarditis EKG interpreted by me (3pts min.). @ -Yes and demonstrates sinus tach with a rate of 128. KS interval 92. QRS 82. QTC 414. No acute ST segment elevations or depressions X-rays interpreted by me (1pt min.). @ -yes, no acute process CT interpreted by me (1pt min.). @ -yes, no acute process U/S interpreted by me (1pt. min.). @ -None done What testing was considered but not performed or refused? (CT, X-rays, U/S, labs)? Why? @ -None What meds were considered but not given or refused? Why? @ -None Did you discuss the management of the patient with other professionals (professionals i.e. , PA, HEALTH AND SOCIAL CARE TEACHER, lab, RT, psych nurse, social work coordinator, plugger man, teacher, surveillance dual rate officer, case assistant)? Give summary @ -Dr. Vargas Was smoking cessation discussed for >3mins.? @ -No Was critical care preformed (if so, how long)? @ -No Were there social determinants of health that impacted care today? How? (Homelessness, low income, unemployed, alcoholism, drug addiction, transportation, low edu. Level, literacy, decrease access to med. care, nursing home, rehab)? @ -drug abuse Was there de-escalation of care discussed even if they declined (Discuss DNR or withdrawal of care, Hospice)? DNR status @ -No What co-morbidities impacted this encounter? (DM, HTN, Smoking, COPD, CAD, Cancer, CVA, ARF, Chemo, Hep., AIDS, mental health diagnosis, sleep apnea, morbid obesity)? @ -None Was patient admitted / discharged? Hospital course, mention meds given and route, prescriptions, significant lab abnormalities, going to OR and other pertinent info. @ -Upon arrival patient is placed into room 6. There are history of physical exam was performed. He is placed on continuous pulse ox and cardiac monitoring. 12-lead EKG was obtained which demonstrates that the patient is markedly tachycardic. Laboratory studies are completed which demonstrate a white blood cell count of 15. A potassium is 2.9. Urine drug screen is positive for amphetamines, methamphetamines, cocaine. It is also positive for opiates and benzos however patient had been given both these medications while within the emergency department. CT of the patient's chest is performed due to his elevated d-dimer. I also CT the patient's head because he is reporting to a headache. Upon return the results they are discussed with the patient. Magnesium is replaced. Recommended admission. Spoke with Dr. Vargas who agreed to admit the patient. He remained in stable condition with a guarded prognosis and is awaiting about on the floor Undiagnosed new problem with uncertain prognosis? @ -yes Drug Therapy requiring intensive monitoring for toxicity (Heparin, Nitro, Insulin, Cardizem)? @ -No Were any procedures done? @ -No Diagnosis/symptom? @ -acute cephalgia, acute chest pain, acute tachycardia, acute hypokalemia, leukocytosis, polysubstance abuse Acute, or Chronic, or Acute on Chronic? @ -acute Uncomplicated (without systemic symptoms) or Complicated (systemic symptoms)? @ -complicated Side effects of treatment? @ -No Exacerbation, Progression, or Severe Exacerbation? @ -No Poses a threat to life or bodily function? How? (Chest pain, [place], [place], pneumonia, PE, COPD, DKA, ARF, appy, cholecystitis, CVA, Diverticulitis, Homicidal, Suicidal, threat to staff... and all critical care pts) @ yes - patient having chest pain Disposition Clinical Impression: Chest pain, Tachycardia, Leukocytosis, Elevated d-dimer, Hypokalemia Disposition: ADMITTED IP TO THIS [facility] Condition: Stable Is patient prescribed a controlled substance at d/c from ED?: No Time of Disposition: 14:18 Decision to Admit Reason: Admit from EC Decision Date: 09/22/22 Decision Time: 14:18
[2022-09-22] MEDS ORDERED: LORazepam 2 MG/ML INJ IV STA (10:14)
--- NOTE | 2022-09-22 10:57 | CT ---
EXAMINATION TYPE: CT brain wo con DATE OF EXAM: 09/22/2022 COMPARISON: 02/24/21 HISTORY: Headache CT DLP: 1143..[address] of the brain was performed. The ventricles, basal cisterns and sulci overlying the cerebral convexities demonstrate a normal appe arance. There is no evidence for intracranial hemorrhage or sulcal effacement. No mass effects are seen. Osseous calvarium is intact. If symptoms persist consider MRI as clinically warranted. IMPRESSION: 1. No acute intracranial process is seen at this time.
[2022-09-22] MEDS ORDERED: MORPHINE SULFATE 4 MG/ML SYRINGE IVP STA (10:59)
[2022-09-22 11:00] LABS: African American GFR (CKD) >90 (>60 ml/min/1.73 sqM); Albumin 4.7 g/dL (3.5-5.0); Alkaline Phosphatase 77 U/L (38-126); Anion Gap 20 mmol/L; Blood Urea Nitrogen 21 mg/dL (9-20); Calcium 9.9 mg/dL (8.4-10.2); Carbon Dioxide 26 mmol/L (22-30); Chloride 93 mmol/L (98-107); Glucose 131 mg/dL (74-99); Lipase 79 U/L (23-300); Magnesium 2.3 mg/dL (1.6-2.3); Non-African American GFR(CKD) 86 (>60 ml/min/1.73 sqM); Potassium 2.9 mmol/L (3.5-5.1); Sodium 139 mmol/L (137-145); Total Protein 8.5 g/dL (6.3-8.2)
[2022-09-22 11:02] LABS: INR 1.1 (<1.2); Prothrombin Time 11.6 sec (9.0-12.0)
--- NOTE | 2022-09-22 11:03 | XR ---
EXAMINATION TYPE: XR chest 2V DATE OF EXAM: 09/22/2022 COMPARISON: 05/07/2015 HISTORY: Chest pain TECHNIQUE: Frontal and lateral views of the chest are obtained. FINDINGS: There is no focal air space opacity. No evidence for pneumothorax. No pleural effusion. The cardiac silhouette size is within normal limits. The osseous structures are grossly intact. IMPRESSION: 1. No acute cardiopulmonary process.
[2022-09-22 11:05] LABS: HCT 42.5 % (39.0-53.0); HGB 14.6 gm/dL (13.0-17.5); MCH 27.2 pg (25.0-35.0); MCHC 34.5 g/dL (31.0-37.0); Mean Platelet Volume 7.5; Platelet Count 305 k/uL (150-450); RBC 5.38 m/uL (4.30-5.90); RDW 14.2 % (11.5-15.5)
[2022-09-22 11:06] LABS: AST 35 U/L (17-59)
[2022-09-22 11:09] LABS: Partial Thromboplastin Time 20.9 sec (22.0-30.0)
[2022-09-22 11:28] LABS: ALT 37 U/L (4-49)
[2022-09-22 11:29] LABS: Band Neutrophils % 5 %; Lymphocytes # (M) 0.45 k/uL (1.0-4.8); Metamyelocytes # (M) 0.15 k/uL (0); Metamyelocytes % 1 %; Myelocytes # (M) 0.15 k/uL (0); Myelocytes % 1 %; Neutrophils % (M) 91 %; Nucleated Red Blood Cells 0 /100 WBC (0-0); Total Cells Counted 200
[2022-09-22] MEDS ORDERED: POTASSIUM CHLORIDE ER 20 MEQ TAB.ER PO STA (12:15)
[2022-09-22] MEDS ORDERED: POTASSIUM CHLORIDE 20 MEQ in WATER FOR INJECTION 1 100ML.BAG IVPB STA (12:15)
[2022-09-22] MEDS ORDERED: diphenhydrAMINE 50 MG/ML 1 ML VIAL IVP STA (12:37)
[2022-09-22] MEDS ORDERED: METOCLOPRAMIDE 5 MG/ML 2 ML VIAL IVP STA (12:37)
--- NOTE | 2022-09-22 13:20 | CT ---
EXAMINATION TYPE: CT chest angio for PE DATE OF EXAM: 09/22/2022 COMPARISON: None HISTORY: Chest pain CONTRAST: CT chest with contrast and 3D reconstruction with MIP imaging is performed with IV Contrast, patient injected with 100 mL of Isovue 370. Contrast-enhanced CT of the chest was performed through the course of the pulmonary arteries with hardeep g and mediastinal window settings submitted. 3D reconstruction with MIP imaging was also performed. PULMONARY ARTERIES: The pulmonary arteries and their major tributaries are patent. I do not see yony dence for sizable filling defect to suggest pulmonary embolic process. LUNGS: The lungs are clear and free of infiltrate. No evidence for atelectasis. No pulmonary nodule or mass is detected. No pleural effusion. MEDIASTINUM: Thoracic aorta is of normal caliber.The heart is not enlarged. No evidence for mediast inal mass. No mediastinal lymph nodes greater than 1cm. HILAR STRUCTURES: No evidence for mass. No hilar lymph nodes greater than 1 cm. UPPER ABDOMEN: No significant abnormality is seen. IMPRESSION: 1. No evidence for Pulmonary embolism at this time.
[2022-09-22] MEDS ORDERED: HYDROmorphone 1 MG/ML 1 ML SYRINGE IVP STA (13:38)
[2022-09-22 14:05] LABS: Appearance,Urine Clear (Clear); Bilirubin,Urine Negative (Negative); Blood,Urine Negative (Negative); Color,Urine Yellow; Glucose,Urine (UA) Negative (Negative); Ketones,Urine Negative (Negative); Leukocyte Esterase,Urine Negative (Negative); Mucus,Urine Rare /hpf; Nitrite,Urine Negative (Negative); PH, Urine 8.5 (5.0-8.0); Protein,Urine 1+ (Negative); RBC,Urine 4 /hpf (0-5); Specific Gravity,Urine 1.037 (1.001-1.035); Urobilinogen,Urine <2.0 mg/dL (<2.0); WBC,Urine 1 /hpf (0-5)
[2022-09-22] MEDS ORDERED: NALOXONE 0.4 MG/ML 1 ML VIAL IV PRN (14:18)
[2022-09-22 14:31] LABS: Amphetamine Screen,Urine Detected (NotDetected); Barbiturate Screen,Urine Not Detected (NotDetected); Benzodiazepines Screen,Urine Detected (NotDetected); Cocaine Screen,Urine Detected (NotDetected); Methadone Screen, Urine Not Detected (NotDetected); Opiate Screen,Urine Detected (NotDetected); Oxycodone Screen, Urine Not Detected (NotDetected); Phencyclidine Screen,Urine Not Detected (NotDetected); Tricyclic Antidepressant,Urine Not Detected (NotDetected); Urn Cannabinoid Scrn Not Detected (NotDetected)
[2022-09-22] MEDS: SODIUM CHLORIDE 0.9% 1,000 ML IV SCH (17:15)
--- NOTE | 2022-09-22 18:21 | P.HPIM ---
History of Present Illness H&P Date: 09/22/22 Chief Complaint: chest pain, headache 37-year-old man with a history of polysubstance abuse including heroin, methamphetamine, cocaine presented for evaluation of chest pain and headache. Patient says that his pain started 3 days ago, shortly after he ran out of his heroin. He reports some nausea associated with his headache. He reports intermittent visual changes. He denies numbness/weakness of extremities. Regarding his chest pain, he reports that he feels throbbing in nature. He does not know anything that makes it better or worse. He denies fevers, chills, p alpitations, syncope, presyncope, cough, dyspnea, abdominal pain, constipation, diarrhea, dysuria, numbness/weakness or tremors. In the emergency room, patient was afebrile, 130/80, heart rate 123, 100% on room air. CBC shows leukocytosis to 15, otherwise unremarkable. Chemistries show potassium of 2.9, chloride of 93, BUN 21, otherwise unremarkable. Liver function tests showing high total protein of 8.5, otherwise unremarkable. Troponin was less than 0.012. Repeat troponin was less than 0.012. Coags are unremarkable. D-dimer was 8.51. UA shows 1+ protein, specific gravity 1.037. Urine tox screen shows positive opiates, positive amphetamines, positive methamphetamines, positive benzos, positive cocaine. EKG shows sinus tachycardia with a short OR interval. Brain CT is negative for acute intracranial process. Chest x-ray shows no acute process. Chest CTA shows no acute pulmonary embolism. Case was discussed the emergency room provider and decision was made to have the patient observation for chest pain. All Systems reviewed and pertinent positives and negatives noted in HPI, all other symptoms are negative Gen: in no apparent distress, resting comfortably in bed Eyes: PERRL, no scleral injection or icterus HENT: normocephalic, atraumatic, good hearing acuity, moist mucous membranes Neck: no tracheal deviation, full range of motion Resp: good air exchange, breathing comfortably with no accessory muscle use, no tactile fremitus CVS: good distal perfusion x 4, no pitting edema GI: soft, NTTP, ND, no hepatosplenomegaly : no suprapubic tenderness, no CVAT, eric catheter not present MSK: no clubbing, no cyanosis, no noted contractures of extremities, multiple track rodriguez Skin: no noted rashes, petechiae; temperature of skin is appropriate Neuro: moving all extremities without signs of weakness, CN II-XII intact Psych: cooperative, euthymic mood, insight and judgment is poor Labs and imaging as above Assessment: Substance abuse withdrawal, specifically heroin Headache secondary withdrawal Nausea secondary withdrawal Chest pain, noncardiac Polysubstance abuse Plan: Vital signs reviewed and noted in the HPI Lab work reviewed and noted in the HPI EKG and CXR are personally interpreted and noted in the HPI CT of the chest, brain CT are reviewed and noted in HPI Case was discussed with the Emergency Room provider and decision was made to admit the patient for chest pain, headache For withdrawal: Zofran when necessary for nausea; Tylenol, Motrin, Fioricet when necessary for headache; 0.5 mg every 6 hours Ativan when necessary for agitation, anxiety For withdrawal we will also start clonidine 0.1 mg 3 times a day Trend troponins Avoid narcotics Check HIV, hepatitis C viral load Safe needle practices counseling provided, recommended cessation and resources will be provided on discharge Consideration of psych consult Patient is full code Past Medical History Past Medical History: No Reported History Additional Past Medical History / Comment(s): scoliosis, back pain, hep C, fentanyl abuse History of Any Multi-Drug Resistant Organisms: None Reported Past Surgical History: No Surgical Hx Reported Additional Past Surgical History / Comment(s): cyst removal Past Anesthesia/Blood Transfusion Reactions: No Reported Reaction Past Psychological History: No Psychological Hx Reported Smoking Status: Former smoker Past Alcohol Use History: None Reported Past Drug Use History: Heroin, Opiates, Prescription Drug Abuse - Past Family History Father Family Medical History: No Reported History (Father is 50-year-old has no major medical problems) Mother Family Medical History: No Reported History (Mother is 52-year-old year and has no major medical problems) Brother(s) Family Medical History: No Reported History (Patient has one brother no major medical problems) Sister(s) Family Medical History: No Reported History (Patient has one sister no major medical problems) Medications and Allergies Home Medications Medication Instructions Recorded Confirmed Type No Known Home Medications 09/22/22 09/22/22 History Allergies Allergy/AdvReac Type Severity Reaction Status Date / Time ketorolac [From Toradol] Allergy Rash/Hives Verified 09/22/22 11:47 Physical Exam Osteopathic Statement: *. No significant issues noted on an osteopathic structural exam other than those noted in the History and Physical/Consult. Vitals: Vital Signs Temp Pulse Pulse Resp BP Pulse Ox 09/22/22 13:41 123 H 20 130/80 100 09/22/22 12:31 126 H 16 141/116 98 09/22/22 11:16 125 H 20 125/83 99 09/22/22 10:12 130 H 09/22/22 10:07 99.5 F 130 H 22 127/86 98 Intake and Output 09/22/22 09/22/22 09/22/22 06:59 14:59 22:59 Other: Weight 54.431 kg Results CBC & Chem 7: 09/22/22 10:23 09/22/22 10:23 Labs: Abnormal Lab Results - Last 24 Hours (Table) 09/22/22 09/22/22 09/22/22 Range/Units 10:23 10:23 10:23 WBC 15.0 H (3.8-10.6) k/uL MCV 79.0 L (80.0-100.0) fL Neutrophils # (Manual) 14.40 H (1.3-7.7) k/uL Lymphocytes # (Manual) 0.45 L (1.0-4.8) k/uL Metamyelocytes # (Man) 0.15 H (0) k/uL Myelocytes # (Manual) 0.15 H (0) k/uL APTT 20.9 L (22.0-30.0) sec D-Dimer (<0.60) mg/L FEU Potassium (3.5-5.1) mmol/L Chloride (98-107) mmol/L BUN (9-20) mg/dL Glucose (74-99) mg/dL Total Protein (6.3-8.2) g/dL Urine pH 8.5 H (5.0-8.0) Ur Specific [place] 1.037 H (1.001-1.035) Urine Protein 1+ H (Negative) Urine Mucus Rare H (None) /hpf Urine Opiates Screen (NotDetected) Ur Amphetamines Screen (NotDetected) U Methamphetamines Scrn (NotDetected) U Benzodiazepines Scrn (NotDetected) Urine Cocaine Screen (NotDetected) 09/22/22 09/22/22 09/22/22 Range/Units 10:23 10:23 11:33 WBC (3.8-10.6) k/uL MCV (80.0-100.0) fL Neutrophils # (Manual) (1.3-7.7) k/uL Lymphocytes # (Manual) (1.0-4.8) k/uL Metamyelocytes # (Man) (0) k/uL Myelocytes # (Manual) (0) k/uL APTT (22.0-30.0) sec D-Dimer 8.51 H (<0.60) mg/L FEU Potassium 2.9 L (3.5-5.1) mmol/L Chloride 93 L (98-107) mmol/L BUN 21 H (9-20) mg/dL Glucose 131 H (74-99) mg/dL Total Protein 8.5 H (6.3-8.2) g/dL Urine pH (5.0-8.0) Ur Specific [place] (1.001-1.035) Urine Protein (Negative) Urine Mucus (None) /hpf Urine Opiates Screen Detected H (NotDetected) Ur Amphetamines Screen Detected H (NotDetected) U Methamphetamines Scrn Detected H (NotDetected) U Benzodiazepines Scrn Detected H (NotDetected) Urine Cocaine Screen Detected H (NotDetected)
[2022-09-22] MEDS: LORazepam 0.5 MG TAB PO PRN (18:46)
[2022-09-22] MEDS: cloNIDine HCL 0.1 MG TAB PO SCH ×2 (18:46→22:01)
[2022-09-22] MEDS: BUTALB/APAP/CAFF 50-325-40MG TAB PO PRN (18:46)
[2022-09-22] MEDS: ONDANSETRON 4 MG/2 ML VIAL IVP PRN (18:48)
[2022-09-23] MEDS: ONDANSETRON 4 MG/2 ML VIAL IVP PRN (02:58)
[2022-09-23] MEDS: SODIUM CHLORIDE 0.9% 1,000 ML IV SCH ×5 (04:38→23:31)
[2022-09-23] MEDS ORDERED: PROCHLORPERAZINE INJ 10 MG/2 ML VIAL IVP PRN (07:57)
[2022-09-23] MEDS: LORazepam 0.5 MG TAB PO PRN ×2 (08:55→23:31)
[2022-09-23] MEDS: cloNIDine HCL 0.1 MG TAB PO SCH ×3 (08:55→20:34)
[2022-09-23] MEDS: ACETAMINOPHEN TAB 325 MG TAB PO PRN (08:55)
[2022-09-23] MEDS ORDERED: MAG HYDROX/AL HYDROX/SIMETH 30 ML, HYOSCYAMINE ELIXIR 10 ML, LIDOCAINE VISCOUS 10 ML PO ONE ×3 (09:00)
[2022-09-23] MEDS ORDERED: LOPERAMIDE 2 MG CAP PO PRN (13:05)
--- NOTE | 2022-09-23 13:49 | P.PN ---
Subjective Progress Note Date: 09/23/22 Hospital course: Patient is a pleasant 37-year-old male with a past medical history of polysubstance abuse including heroin, methamphetamines, and cocaine. He presented to the emergency department on 09/22/22 secondary to reports of chest pain and headache secondary to withdrawal. Patient reports running out of heroin 3 days ago and since developing severe headache, nausea, and throbbing chest pain. He underwent full evaluation in the emergency department. Upon arrival patient found to be tachycardic with heart rate of 130, tachypneic with respiratory rate of 30, BP 127/86, 98% on room air, and temp 99.5F. EKG was completed showing sinus tachycardia at 128 bpm with no noted T-wave or ST abnormalities showing no signs of acute ischemia upon personal review and interpretation. CT head was completed secondary to reports of severe headache and CT head was negative for acute intercranial process. Labs completed and reviewed. CBC showing leukocytosis with WBC count of 15. BMP revealing hypokalemia with potassium of 2.9 and hypochloremia with chloride of 93. Troponin was negative at less than 0.012. D-dimer was elevated at 8.51 and patient underwent a CTA chest which was negative for acute cardiopulmonary process showing no evidence for pulmonary embolism at this time. Urine drug screen obtained positive for opiates, amphetamines, methamphetamines, benzodiaze pines, and cocaine. Physical exam: Vital signs reviewed and stable. Thin build. General: Nontoxic, patient appears in mild distress secondary to acute withdrawal. Derm: Skin warm and dry, normal coloration for ethnicity. Head: Atraumatic, normocephalic and symmetric. Eyes: EOMs intact, no lid lag, and anicteric sclera Mouth: no lip lesions, mucus membranes moist Cardiovascular: Regular rate and regular rhythm with normal S1S2, no murmur, positive posterior tibial pulses bilaterally, and cap refill < 2 seconds. Lungs: Respirations even, regular, and unlabored on room air. Lungs CTA yann aterally, no rhonchi, no rales, no wheezing, and no accessory muscle usage. Abdominal: soft, nontender to palpation, no guarding, no appreciable organomegaly Ext: ROM intact. No gross muscle atrophy, no edema, no contractures Neuro: Speech clear, face symmetrical and CN II-XII grossly intact with no noted focal neuro deficits. Patient with mild tremors and slightly unsteady gait upon walking to bathroom. Psych: Alert and oriented to person, place, time, and situation. Appropriate and pleasant affect. Assessment and Plan of Care: Substance abuse withdrawal, specifically heroin withdrawal Chest pain, noncardiac secondary to withdrawal Headache, nausea, and diarrhea secondary to withdrawal Sinus tachycardia secondary to withdrawal Elevated d-dimer, CTA ruled out PE Hypokalemia Polysubstance abuse including heroin, benzodiazepines, methamphetamines, cocaine Still Awaiting morning labs to result. Discussed with RN and lab at 12:53 PM. Continue clonidine 0.1 mg 3 times daily for opioid withdrawal Continue Ativan 0.5 mg every 6 hours for severe agitation Order placed for Vistaril 50 mg every 6 hours as needed for anxiety Order placed for Bentyl 20 mg every 6 hours as needed for abdominal cramping/GI discomfort. Order placed for blood cultures 2 sets secondary to leukocytosis and elevated d-dimer. May consider echocardiogram if positive blood cultures. Order placed for telemetry monitoring Order placed for Compazine 10 mg IVP every 6 hours as needed for nausea, as p xenaient reports Zofran 4 mg IVP every 6 hours has shown no improvement in nausea. Order placed for Imodium 2 mg by mouth every 6 hours as needed for diarrhea secondary to withdrawal. We will monitor patient for an additional 24 hours, if patient continues severe symptoms of withdrawal may consider consult to psychiatry for methadone taper. Continue close monitoring of electrolytes and replace abnormal values as indicated. Order placed for Seizure and fall precautions CODE STATUS: Full code DVT prophylaxis: Heparin Discussed with: Patient and RN Anticipated discharge date: Clinical course to determine Anticipated discharge place: Home versus inpatient drug and alcohol rehabilitation facility Patient was seen independently by Nurse Pracitioner. This document was prepared using [employer] dictation software. Please allow for errors in asphalt mixing machine operator, while rare they do occur. Jaden Nash NP rendered care for this patient independently, reviewed the findi ngs and plan as documented in the note above. I did not physically speak with or examine the patient on this date. Objective - Vital Signs Vital signs: Vital Signs Temp 98.5 F 09/23/22 04:00 Pulse 85 09/23/22 04:00 Resp 18 09/23/22 04:00 BP 121/77 09/23/22 04:00 Pulse Ox 98 09/23/22 04:00 FiO2 Intake & Output 09/22/22 09/23/22 09/23/22 18:59 06:59 18:59 Intake Total 540 Output Total 350 Balance 190 Weight 54.431 kg 54.431 kg Intake: Oral 540 Output: Urine 350 - Labs CBC & Chem 7: 09/25/22 11:11 09/25/22 11:11 Labs: Abnormal Lab Results - Last 24 Hours (Table) 09/22/22 09/22/22 09/22/22 Range/Units 10:23 10:23 10:23 WBC 15.0 H (3.8-10.6) k/uL MCV 79.0 L (80.0-100.0) fL Neutrophils # (Manual) 14.40 H (1.3-7.7) k/uL Lymphocytes # (Manual) 0.45 L (1.0-4.8) k/uL Metamyelocytes # (Man) 0.15 H (0) k/uL Myelocytes # (Manual) 0.15 H (0) k/uL APTT 20.9 L (22.0-30.0) sec D-Dimer (<0.60) mg/L FEU Potassium (3.5-5.1) mmol/L Chloride (98-107) mmol/L BUN (9-20) mg/dL Glucose (74-99) mg/dL Total Protein (6.3-8.2) g/dL Urine pH 8.5 H (5.0-8.0) Ur Specific [place] 1.037 H (1.001-1.035) Urine Protein 1+ H (Negative) Urine Mucus Rare H (None) /hpf Urine Opiates Screen (NotDetected) Ur Amphetamines Screen (NotDetected) U Methamphetamines Scrn (NotDetected) U Benzodiazepines Scrn (NotDetected) Urine Cocaine Screen (NotDetected) 09/22/22 09/22/22 09/22/22 Range/Units 10:23 10:23 11:33 WBC (3.8-10.6) k/uL MCV (80.0-100.0) fL Neutrophils # (Manual) (1.3-7.7) k/uL Lymphocytes # (Manual) (1.0-4.8) k/uL Metamyelocytes # (Man) (0) k/uL Myelocytes # (Manual) (0) k/uL APTT (22.0-30.0) sec D-Dimer 8.51 H (<0.60) mg/L FEU Potassium 2.9 L (3.5-5.1) mmol/L Chloride 93 L (98-107) mmol/L BUN 21 H (9-20) mg/dL Glucose 131 H (74-99) mg/dL Total Protein 8.5 H (6.3-8.2) g/dL Urine pH (5.0-8.0) Ur Specific [place] (1.001-1.035) Urine Protein (Negative) Urine Mucus (None) /hpf Urine Opiates Screen Detected H (NotDetected) Ur Amphetamines Screen Detected H (NotDetected) U Methamphetamines Scrn Detected H (NotDetected) U Benzodiazepines Scrn Detected H (NotDetected) Urine Cocaine Screen Detected H (NotDetected)
[2022-09-23] MEDS: hydrOXYzine pamoate 25 MG CAP PO PRN ×2 (14:30→20:33)
[2022-09-23 15:23] LABS: Basophils # (A) 0.1 k/uL (0-0.2); Basophils % (A) 0 %; Eosinophils # (A) 0.2 k/uL (0-0.7); Eosinophils % (A) 1 %; HCT 37.9 % (39.0-53.0); HGB 12.8 gm/dL (13.0-17.5); Lymphocytes # (A) 2.9 k/uL (1.0-4.8); Lymphocytes % (A) 13 %; MCH 26.8 pg (25.0-35.0); MCHC 33.7 g/dL (31.0-37.0); MCV 79.5 fL (80.0-100.0); Mean Platelet Volume 8.6; Monocytes # (A) 1.4 k/uL (0-1.0); Monocytes % (A) 6 %; Neutrophils # (A) 17.6 k/uL (1.3-7.7); Neutrophils % (A) 77 %; Platelet Count 244 k/uL (150-450); RBC 4.77 m/uL (4.30-5.90); RDW 14.3 % (11.5-15.5); WBC 22.8 k/uL (3.8-10.6)
[2022-09-23] MEDS ORDERED: LORazepam 2 MG/ML INJ IV STA (15:28)
[2022-09-23 15:40] LABS: African American GFR (CKD) >90 (>60 ml/min/1.73 sqM); Anion Gap 11 mmol/L; Blood Urea Nitrogen 17 mg/dL (9-20); Calcium 8.8 mg/dL (8.4-10.2); Carbon Dioxide 17 mmol/L (22-30); Chloride 109 mmol/L (98-107); Glucose 100 mg/dL (74-99); Non-African American GFR(CKD) >90 (>60 ml/min/1.73 sqM); Sodium 137 mmol/L (137-145)
[2022-09-23] MEDS: HEPARIN SODIUM,PORCINE/PF 5,000 UNIT/0.5 ML SYRINGE SQ SCH ×2 (15:41→23:31)
[2022-09-23 15:50] LABS: Magnesium 2.6 mg/dL (1.6-2.3); Potassium 4.8 mmol/L (3.5-5.1)
[2022-09-23] MEDS: DICYCLOMINE 20 MG TAB PO PRN (20:34)
[2022-09-23] MEDS ORDERED: ALPRAZolam 0.5 MG TAB PO STA (20:50)
[2022-09-24] MEDS: hydrOXYzine pamoate 25 MG CAP PO PRN ×4 (03:06→21:14)
[2022-09-24] MEDS: LORazepam 0.5 MG TAB PO PRN ×2 (04:54→10:36)
[2022-09-24] MEDS: SODIUM CHLORIDE 0.9% 1,000 ML IV SCH ×3 (06:17→21:37)
[2022-09-24] MEDS: cloNIDine HCL 0.1 MG TAB PO SCH ×3 (08:40→21:13)
[2022-09-24] MEDS: HEPARIN SODIUM,PORCINE/PF 5,000 UNIT/0.5 ML SYRINGE SQ SCH ×2 (08:41→15:57)
[2022-09-24] MEDS ORDERED: LORazepam 2 MG/ML INJ IV STA (10:49)
--- NOTE | 2022-09-24 14:22 | P.PN ---
Subjective Progress Note Date: 09/24/22 Hospital course: Patient is a pleasant 37-year-old male with a past medical history of polysubstance abuse including heroin, methamphetamines, and cocaine. He presented to the emergency department on 09/22/22 secondary to reports of chest pain and headache secondary to withdrawal. Patient reports running out of heroin 3 days ago and since developing severe headache, nausea, and throbbing chest pain. He underwent full evaluation in the emergency department. Upon arrival patient found to be tachycardic with heart rate of 130, tachypneic with respiratory rate of 30, BP 127/86, 98% on room air, and temp 99.5F. EKG was completed showing sinus tachycardia at 128 bpm with no noted T-wave or ST abnormalities showing no signs of acute ischemia upon personal review and interpretation. CT head was completed secondary to reports of severe headache and CT head was negative for acute intercranial process. Labs completed and reviewed. CBC showing leukocytosis with WBC count of 15. BMP revealing hypokalemia with potassium of 2.9 and hypochloremia with chloride of 93. Troponin was negative at less than 0.012. D-dimer was elevated at 8.51 and patient underwent a CTA chest which was negative for acute cardiopulmonary process showing no evidence for pulmonary embolism at this time. Urine drug screen obtained positive for opiates, amphetamines, methamphetamines, benzodiaze pines, and cocaine. Physical exam: Patient seen and fully evaluated at bedside this morning. Patient reports Bentyl and Imodium have been controlling abdominal discomfort and diarrhea secondary to withdrawal. Patient reports continued feeling of severe anxiety. Currently denies any chest pain or discomfort, shortness of breath, or palpitations. Sinus tachycardia is resolved and patient maintaining normal sinus rhythm. Vital signs reviewed and stable. Thin build. General: Nontoxic, patient appears in mild distress secondary to acute withdrawal. Derm: Skin warm and dry, normal coloration for ethnicity. Head: Atraumatic, normocephalic and symmetric. Eyes: EOMs intact, no lid lag, and anicteric sclera Mouth: no lip lesions, mucus membranes moist Cardiovascular: Regular rate and regular rhythm with normal S1S2, no murmur, positive posterior tibial pulses bilaterally, and cap refill < 2 seconds. Lungs: Respirations even, regular, and unlabored on room air. Lungs CTA bilaterally, no rhonchi, no rales, no wheezing, and no accessory muscle usage. Abdominal: soft, nontender to palpation, no guarding, no appreciable organomegaly Ext: ROM intact. No gross muscle atrophy, no edema, no contractures Neuro: Speech clear, face symmetrical and CN II-XII grossly intact with no noted focal neuro deficits. Patient with mild tremors and slightly unsteady gait upon walking to bathroom. Psych: Alert and oriented to person, place, time, and situation. Appropriate and pleasant affect. Assessment and Plan of Care: Substance abuse withdrawal, specifically heroin withdrawal Chest pain, noncardiac secondary to withdrawal Headache, nausea, and diarrhea secondary to withdrawal Sinus tachycardia secondary to withdrawal Elevated d-dimer, CTA ruled out PE Leukocytosis, likely reactive, will monitor for improvement. Hypokalemia, resolved Polysubstance abuse including heroin, benzodiazepines, methamphetamines, cocaine Patient is a very difficult lab draw. WBC count elevated at 22.8, possibly reactive secondary to withdrawal however order being placed for midline and we will repeat labs tomorrow morning to monitor for improvement. Continue clonidine 0.1 mg 3 times daily for opioid withdrawal Continue Ativan 0.5 mg every 6 hours for severe agitation Continue Vistaril 50 mg every 6 hours as needed for anxiety Continue Bentyl 20 mg every 6 hours as needed for abdominal cramping/GI discomfort. Order placed for blood cultures 2 sets secondary to leukocytosis and elevated d-dimer. May consider echocardiogram if positive blood cultures. Continue telemetry monitoring Continue Compazine 10 mg IVP every 6 hours as needed for nausea, as patient reports Zofran 4 mg IVP every 6 hours has shown no improvement in nausea. Continue Imodium 2 mg by mouth every 6 hours as needed for diarrhea secondary to withdrawal. Consult placed to psychiatry for evaluation for possible methadone taper. Discussed plan of care psychiatrist and patient planning to follow up outpatient at [facility] placed on methadone. Hypokalemia resolved with potassium of 4.8. Continue Seizure and fall precautions Orders place for repeat morning CBC, and CMP. We'll follow-up on these results closely and place additional orders as needed. CODE STATUS: Full code DVT prophylaxis: Heparin Discussed with: Patient, psychiatrist and RN Anticipated discharge date: Clinical course to determine Anticipated discharge place: Home versus inpatient drug and alcohol rehabilitation facility Patient was seen independently by Nurse Pracitioner. This document was prepared using [employer] dictation software. Please allow for errors in telecom assistant, while rare they do occur. Jaden Nash NP rendered care for this patient independently, reviewed the findings and plan as documented in the note above. I did not physically speak with or examine the patient on this date. Objective - Vital Signs Vital signs: Vital Signs Temp 98.5 F 09/24/22 04:00 Pulse 79 09/24/22 04:00 Resp 18 09/24/22 04:00 BP 129/68 09/24/22 04:00 Pulse Ox 99 09/24/22 04:00 FiO2 Intake & Output 09/23/22 09/24/22 09/24/22 18:59 06:59 18:59 Intake Total 480 Output Total 800 Balance 480 -800 Intake: Oral 480 Output: Urine 800 Other: Voiding Method Toilet # Voids 1 1 - Labs CBC & Chem 7: 09/25/22 11:11 09/25/22 11:11 Labs: Abnormal Lab Results - Last 24 Hours (Table) 09/23/22 09/23/22 Range/Units 15:07 15:07 WBC 22.8 H (3.8-10.6) k/uL Hgb 12.8 L (13.0-17.5) gm/dL Hct 37.9 L (39.0-53.0) % MCV 79.5 L (80.0-100.0) fL Neutrophils # 17.6 H (1.3-7.7) k/uL Monocytes # 1.4 H (0-1.0) k/uL Chloride 109 H (98-107) mmol/L Carbon Dioxide 17 L (22-30) mmol/L Glucose 100 H (74-99) mg/dL Magnesium 2.6 H (1.6-2.3) mg/dL
--- NOTE | 2022-09-24 14:35 | P.CN ---
Psychiatric Consult - . Consult date: 09/24/22 Consult:: 09/24/22 13:12 IDENTIFYING DATA: This patient is a 37-year-old male, he is , lives in an apartment, he has no kids. He works odd jobs. REASON FOR REFERRAL: Psychiatry was consulted for heroin withdrawal and polysubstance abuse HISTORY OF PRESENT ILLNESS: The patient presented to the hospital initially on 09/22 complaining of chest pain for the past 3 days, was found to be tachycardic and have a headache. Patient is a known polysubstance abuser, WBCs were elevated and went from 15-22.8 since admission. Troponins were negative 3. Urine urine drug screen is positive for opiates and amphetamines, methamphetamin e and benzodiazepines and cocaine. Patient had a computed tomography scan of his brain which did not show any acute changes, CTA did not show any evidence of pulmonary embolism. Patient's nurse did not report any significant behavioral changes and only that he is withdrawing from heroin. Patient claims that he is "strongly addicted to heroin" and explained that he has been using heroin IV for about 6 years now. He claims that he uses about 1 g of that per day. He claims that he is tried multiple times to stop and has successfully been on methadone in the past at [facility] and also at [facility]. His last time on methadone was about 4 months ago. He claimed that he is willing to go back there and get put back on methadone. He claims that he is somewhat anxious and is endorsing several withdrawals and pain issues. He states that his sleep and appetite are poor at this time. At this time patient denies any suicidal or homical ideations, intent or plan. Patient denies any auditory, visual hallucinations and denies any paranoia or delusions. Patients admits to using heroin as noted above, despite having a positive urine drug screen for several substances patient is denying using them. PAST PSYCHIATRIC HISTORY: Patient has no known psychiatric history aside from polysubstance abuse. Patient denies being on any psychiatric medications. Patient denies any previous psychiatric hospitalizations. Patient denies any psychiatric outpatient follow-up. Patient denies any history of suicide attempts in the past. Past Medical History: No Reported History Additional Past Medical History / Comment(s): scoliosis, back pain, hep C, fentanyl abuse History of Any Multi-Drug Resistant Organisms: None Reported Past Surgical History: No Surgical Hx Reported Additional Past Surgical History / Comment(s): cyst removal Past Anesthesia/Blood Transfusion Reactions: No Reported Reaction Past Psychological History: No Psychological Hx Reported Smoking Status: Former smoker Past Alcohol Use History: None Reported Past Drug Use History: Heroin, Opiates, Prescription Drug Abuse ALLERGIES: as per EMR. CHEMICAL DEPENDENCY HISTORY: as per HPI. FAMILY PSYCHIATRIC/SUBSTANCE USE HISTORY: denies SOCIAL HISTORY: Patient was born and raised in the [place], claims that he is currently , does not have any kids, he lives alone in an apartment, he apparently worked several different odd jobs in the past, he states that he went to shelter and half-way. completed up to the 11th grade in school. MENTAL STATUS EXAM: General Appearance: Patient appears to be then, shaved head, multiple tattoos, stated age is alert, pleasant, gaurded. Patient appears to have fair hygiene and grooming wearing hospital gown with poor eye contact. Behavior: Patient is calmly lying in bed without any agitated behavior. gaurded, focused on meds. Speech: Patient's speech is fluent and nonpressured. Mood/Affect: Patient reports their mood is "anxious and withdrawing]", affect is congruent Suicidality/Homicidality: Patient denies having any suicidal or homicidal ideation intent or plan. Perceptions: Patient denies any visual hallucinations and denies any auditory hallucinations Though content/process: There is no evidence of any delusional thought content and thought process is linear and goal-directed. focused on controlled meds Memory and concentration: AOX3, grossly intact for the purposes of this session. Can spell "WORLD" backwards Judgment and insight: poor IMPRESSIONS: Opioid use disorder severe dependence, currently in withdrawal Benzodiazepine abuse Cocaine abuse Methamphetamine abuse PLAN: -At this time patient DOES NOT meet criteria for inpatient psychiatric admission. -Would recommend the following medication changes/additions: continue with meds as perscribed. due to patient being discharged today from the medical floors patient will not be able to started on methadone taper and will need to be connected/referred by SW on discharge to or [facility] MAT program. -Home Care Scheduler spoke with patient about substance abuse and the harmful effects on medical and mental health, patient verbally understood and agreed. -machine operator hop worker to provide patient substance use treatment resources including AA/NA meetings in the community. -machine operator hop worker to provide patient with access line number to call for inpatient substance rehab -Communicated plan to patient's nurse and nurse practiitioner -Psychiatry will sign off at this time -Please contact with any questions. 09/24/22 14:28
[2022-09-24] MEDS: BUTALB/APAP/CAFF 50-325-40MG TAB PO PRN (16:02)
[2022-09-24] MEDS: ACETAMINOPHEN TAB 325 MG TAB PO PRN ×2 (16:03→21:13)
[2022-09-24] MEDS ORDERED: diphenhydrAMINE 50 MG/ML 1 ML VIAL IVP STA (17:11)
[2022-09-24] MEDS ORDERED: PROCHLORPERAZINE INJ 10 MG/2 ML VIAL IVP STA (17:11)
[2022-09-24] MEDS ORDERED: KETOROLAC 15 MG/ML 1 ML VIAL IVP STA (17:11)
[2022-09-24] MEDS: IBUPROFEN 400 MG TAB PO PRN ×2 (17:42→23:59)
[2022-09-24] MEDS: LORazepam 1 MG TAB PO PRN ×2 (17:43→23:59)
[2022-09-24 21:35] LABS: Glucose,Whole Blood 200 mg/dL (70-110)
--- NOTE | 2022-09-24 22:48 | CT ---
EXAM: CT Head Without Intravenous Contrast CLINICAL HISTORY: ITS.REASON CT Reason: Pt fall TECHNIQUE: Axial computed tomography images of the head/brain without intravenous contrast. CTDI is 45.2 mGy and DLP is 1009 mGy-cm. This CT exam was performed using one or more of the following dose reduction techniques: automated exposure control, adjustment of the mA and/or kV according to patient size, and/or use of iterative reconstruction technique. COMPARISON: 09/22/2022 FINDINGS: Brain: Unremarkable. No hemorrhage. No significant white matter disease. No edema. Ventricles: Unremarkable. No ventriculomegaly. Bones/joints: Unremarkable. No acute fracture. Soft tissues: Unremarkable. Sinuses: Unremarkable as visualized. No acute sinusitis. Mastoid air cells: Unremarkable as visualized. No mastoid effusion. IMPRESSION: Normal head/brain CT. EXAM: CT Cervical Spine Without Intravenous Contrast CLINICAL HISTORY: ITS.REASON CT Reason: Pt fall TECHNIQUE: Axial computed tomography images of the cervical spine without intravenous contrast. CTDI is 9.4 mGy and DLP is 266.3 mGy-cm. This CT exam was performed using one or more of the following dose reduction techniques: automated exposure control, adjustment of the mA and/or kV according to patient size, and/or use of iterative reconstruction technique. COMPARISON: No relevant prior studies available. FINDINGS: Vertebrae: Unremarkable. No acute fracture. Discs/spinal canal/neural foramina: No acute findings. No spinal canal stenosis. Soft tissues: Unremarkable. IMPRESSION: Normal cervical spine CT.
[2022-09-25] MEDS: hydrOXYzine pamoate 25 MG CAP PO PRN ×3 (04:16→17:43)
[2022-09-25] MEDS: ACETAMINOPHEN TAB 325 MG TAB PO PRN (04:16)
[2022-09-25] MEDS: SODIUM CHLORIDE 0.9% 1,000 ML IV SCH ×3 (04:51→17:44)
[2022-09-25] MEDS: LORazepam 1 MG TAB PO PRN (06:36)
[2022-09-25] MEDS: HEPARIN SODIUM,PORCINE/PF 5,000 UNIT/0.5 ML SYRINGE SQ SCH ×4 (08:02→22:52)
[2022-09-25] MEDS: cloNIDine HCL 0.1 MG TAB PO SCH ×3 (08:08→20:24)
[2022-09-25] MEDS: ALPRAZolam 0.5 MG TAB PO PRN ×2 (11:31→18:29)
[2022-09-25 11:47] LABS: ALT 15 U/L (4-49); AST 25 U/L (17-59); African American GFR (CKD) >90 (>60 ml/min/1.73 sqM); Albumin 3.2 g/dL (3.5-5.0); Alkaline Phosphatase 45 U/L (38-126); Anion Gap 8 mmol/L; Blood Urea Nitrogen 14 mg/dL (9-20); Calcium 8.6 mg/dL (8.4-10.2); Carbon Dioxide 20 mmol/L (22-30); Chloride 109 mmol/L (98-107); Glucose 100 mg/dL (74-99); Non-African American GFR(CKD) >90 (>60 ml/min/1.73 sqM); Sodium 137 mmol/L (137-145); Total Bilirubin 0.7 mg/dL (0.2-1.3); Total Protein 6.4 g/dL (6.3-8.2)
[2022-09-25 11:48] LABS: Magnesium 2.1 mg/dL (1.6-2.3); Potassium 4.1 mmol/L (3.5-5.1)
[2022-09-25 12:48] LABS: MCH 32.3 pg (25.0-35.0); MCV 79.6 fL (80.0-100.0); RBC 4.02 m/uL (4.30-5.90); RDW 14.1 % (11.5-15.5); WBC 15.3 k/uL (3.8-10.6)
[2022-09-25 13:53] LABS: Platelet Count 118 k/uL (150-450)
[2022-09-25 14:03] LABS: MCHC 40.5 g/dL (31.0-37.0)
[2022-09-25] MEDS: DICYCLOMINE 20 MG TAB PO PRN (14:35)
[2022-09-25] MEDS: CALCIUM CARBONATE 500 MG CHEWABLE PO PRN ×2 (14:46→23:09)
--- NOTE | 2022-09-25 18:26 | P.PN ---
Subjective Progress Note Date: 09/25/22 Hospital course: Patient is a pleasant 37-year-old male with a past medical history of polysubstance abuse including heroin, methamphetamines, and cocaine. He presented to the emergency department on 09/22/22 secondary to reports of chest pain and headache secondary to withdrawal. Patient reports running out of heroin 3 days ago and since developing severe headache, nausea, and throbbing chest pain. He underwent full evaluation in the emergency department. Upon arrival patient found to be tachycardic with heart rate of 130, tachypneic with respiratory rate of 30, BP 127/86, 98% on room air, and temp 99.5F. EKG was completed showing sinus tachycardia at 128 bpm with no noted T-wave or ST abnormalities showing no signs of acute ischemia upon personal review and interpretation. CT head was completed secondary to reports of severe headache and CT head was negative for acute intercranial process. Labs completed and reviewed. CBC showing leukocytosis with WBC count of 15. BMP revealing hypokalemia with potassium of 2.9 and hypochloremia with chloride of 93. Troponin was negative at less than 0.012. D-dimer was elevated at 8.51 and patient underwent a CTA chest which was negative for acute cardiopulmonary process showing no evidence for pulmonary embolism at this time. Urine drug screen obtained positive for opiates, amphetamines, methamphetamines, benzodiaze pines, and cocaine. Physical exam: Patient seen and fully evaluated at bedside this morning. Patient walking back and forth in bed continues to appear in mild distress secondary to withdrawal. Awaiting preliminary blood culture results and morning labs to result. Patient is a difficult lab draw. Discussed with patient that he will likely be discharged home tomorrow morning to follow-up at methadone clinic as he reports has been arranged. Vital signs reviewed and stable. Thin build. General: Nontoxic, patient appears in mild distress secondary to acute withdrawal. Derm: Skin warm and dry, normal coloration for ethnicity. Head: Atraumatic, normocephalic and symmetric. Eyes: EOMs intact, no lid lag, and anicteric sclera Mouth: no lip lesions, mucus membranes moist Cardiovascular: Regular rate and regular rhythm with normal S1S2, no murmur, positive posterior tibial pulses bilaterally, and cap refill < 2 seconds. Lungs: Respirations even, regular, and unlabored on room air. Lungs CTA bilaterally, no rhonchi, no rales, no wheezing, and no accessory muscle usage. Abdominal: soft, nontender to palpation, no guarding, no appreciable organomegaly Ext: ROM intact. No gross muscle atrophy, no edema, no contractures Neuro: Speech clear, face symmetrical and CN II-XII grossly intact with no noted focal neuro deficits. Patient with mild tremors and slightly unsteady gait upon walking to bathroom. Psych: Alert and oriented to person, place, time, and situation. Appropriate and pleasant affect. Assessment and Plan of Care: Substance abuse withdrawal, specifically heroin withdrawal Chest pain, noncardiac secondary to withdrawal Headache, nausea, and diarrhea secondary to withdrawal Sinus tachycardia secondary to withdrawal Elevated d-dimer, CTA ruled out PE Leukocytosis, likely reactive, will monitor for improvement. Hypokalemia, resolved Polysubstance abuse including heroin, benzodiazepines, methamphetamines, cocaine . Continue clonidine 0.1 mg 3 times daily for opioid withdrawal Continue Ativan 0.5 mg every 6 hours for severe agitation Continue Vistaril 50 mg every 6 hours as needed for anxiety Continue Bentyl 20 mg every 6 hours as needed for abdominal cramping/GI discomfort. Continue telemetry monitoring Continue Compazine 10 mg IVP every 6 hours as needed for nausea, as patient reports Zofran 4 mg IVP every 6 hours has shown no improvement in nausea. Continue Imodium 2 mg by mouth every 6 hours as needed for diarrhea secondary to withdrawal. Psychiatry evaluated, stated patient expressed that he has planning to follow up outpatient at [facility] to placed on methadone upon discharge. Hypokalemia resolved with potassium of 4.1. Continue Seizure and fall precautions Data review: Morning labs reviewed. WBC is slightly improving down to 15.3 and platelet count of 118. Blood cultures pending -Vital signs stable. Blood pressure 117/67, heart rate 75, respiratory rate 18, SpO2 of 99% on room air with temp of 98.2F. Imaging review: -No new imaging to follow up on. CODE STATUS: Full code DVT prophylaxis: Heparin Discussed with: Patient, psychiatrist and RN Anticipated discharge date: Tomorrow morning Anticipated discharge place: Home versus inpatient drug and alcohol rehabilitation facility Patient was seen independently by Nurse Pracitioner. This document was prepared using [employer] dictation software. Please allow for errors in farm owner operator, while rare they do occur. Jaden Nash NP rendered care for this patient independently, reviewed the findings and plan as documented in the note above. I did not physically speak with or examine the patient on this date. Objective - Vital Signs Vital signs: Vital Signs Temp 98 F 09/25/22 04:00 Pulse 71 09/25/22 04:00 Resp 16 09/25/22 04:00 BP 126/76 09/25/22 04:00 Pulse Ox 100 09/25/22 04:00 FiO2 Intake & Output 09/24/22 09/25/22 09/25/22 18:59 06:59 18:59 Output Total 675 1400 Balance -675 -1400 Output: Urine 675 1400 Other: Voiding Method Toilet Urinal # Voids 1 - Labs CBC & Chem 7: 09/25/22 11:11 09/25/22 11:11 Labs: Abnormal Lab Results - Last 24 Hours (Table) 09/24/22 Range/Units 21:33 POC Glucose (mg/dL) 200 H (70-110) mg/dL
[2022-09-25] MEDS ORDERED: QUEtiapine 25 MG TAB PO STA (20:55)
[2022-09-26] MEDS: hydrOXYzine pamoate 25 MG CAP PO PRN (03:24)
[2022-09-26] MEDS: ALPRAZolam 0.5 MG TAB PO PRN (03:24)
[2022-09-26 03:26] VITALS: BP 117/75; PULSE 62; RESP 18; TEMP 98.7
[2022-09-26] MEDS: CALCIUM CARBONATE 500 MG CHEWABLE PO PRN (06:21)
--- NOTE | 2022-09-26 08:26 | P.DS ---
Providers Date of admission: 09/22/22 14:18 Expected date of discharge: 09/26/22 Attending physician: Angela Vargas MD Consults: 09/24/22 10:48 Consult Physician Routine Consulting Provider: Rafa Olvera Consult Reason/Comments: Heroin withdrawal, polysubstance abuse, severe anxiety Do you want consulting provider notified?: Yes Primary care physician: Stated None Hospital Course: Discharge Diagnosis: Substance abuse withdrawal, specifically heroin withdrawal Chest pain, noncardiac secondary to withdrawal Headache, nausea, and diarrhea secondary to withdrawal Sinus tachycardia secondary to withdrawal Elevated d-dimer, CTA ruled out PE Leukocytosis, likely reactive, will monitor for improvement. Hypokalemia, resolved Polysubstance abuse including heroin, benzodiazepines, methamphetamines, cocaine Hospital Course: Patient is a pleasant 37-year-old male with a past medical history of polysubstance abuse including heroin, methamphetamines, and cocaine. He presented to the emergency department on 09/22/22 secondary to reports of chest pain and headache secondary to withdrawal. Patient reports running out of heroin 3 days ago and since developing severe headache, nausea, and throbbing chest pain. He underwent full evaluation in the emergency department. Upon arrival patient found to be tachycardic with heart rate of 130, tachypneic with respiratory rate of 30, BP 127/86, 98% on room air, and temp 99.5F. EKG was completed showing sinus tachycardia at 128 bpm with no noted T-wave or ST abnormalities showing no signs of acute ischemia upon personal review and interpretation. CT head was completed secondary to reports of severe headache and CT head was negative for acute intercranial process. Labs completed and reviewed. CBC showing leukocytosis with WBC count of 15. BMP revealing hypokalemia with potassium of 2.9 and hypochloremia with chloride of 93. T roponin was negative at less than 0.012. D-dimer was elevated at 8.51 and patient underwent a CTA chest which was negative for acute cardiopulmonary process showing no evidence for pulmonary embolism at this time. Urine drug screen obtained positive for opiates, amphetamines, methamphetamines, benzodiazepines, and cocaine. Patient was treated with clonidine for withdrawal and was provided with m edications to assist with withdrawal symptoms including Imodium, Bentyl, Xanax, and Compazine. Patient has blood culture showing no growth after 48 hours. Patient stable for discharge. Patient encouraged to refrain from any and all drug use. Physical exam: Vital signs reviewed and stable. Thin build. General: Nontoxic, patient appears in mild distress secondary to acute withdrawal. Derm: Skin warm and dry, normal coloration for ethnicity. Head: Atraumatic, normocephalic and symmetric. Eyes: EOMs intact, no lid lag, and anicteric sclera Mouth: no lip lesions, mucus membranes moist Cardiovascular: Regular rate and regular rhythm with normal S1S2, no murmur, positive posterior tibial pulses bilaterally, and cap refill < 2 seconds. Lungs: Respirations even, regular, and unlabored on room air. Lungs CTA bilaterally, no rhonchi, no rales, no wheezing, and no accessory muscle usage. Abdominal: soft, nontender to palpation, no guarding, no appreciable organomegaly Ext: ROM intact. No gross muscle atrophy, no edema, no contractures Neuro: Speech clear, face symmetrical and CN II-XII grossly intact with no noted focal neuro deficits. Patient with mild tremors and slightly unsteady gait upon walking to bathroom. Psych: Alert and oriented to person, place, time, and situation. Appropriate and pleasant affect. A total of 33 minutes of time were spent preparing this complex discharge summary. Pt was discharged on 09/26/22 8:14 AM. Patient was seen independently by Nurse Practitioner. This document was prepared using [employer] dictation software. Please allow for errors in inker and opaquer while rare they do occur. I reviewed the documentation as provided by the KEEGAN above, who is the original author of this note. I agree with the documented assessment and plan, with the following changes: none Patient Condition at Discharge: Stable Plan - Discharge Summary Discharge Rx Participant: No New Discharge Prescriptions: New cloNIDine HCL [Catapres] 0.1 mg PO TID 5 Days #15 tab Dicyclomine [Bentyl] 20 mg PO QID PRN #20 tab PRN Reason: Gi Upset Discharge Medication List Dicyclomine [Bentyl] 20 mg PO QID PRN #20 tab 09/24/22 [Rx] cloNIDine HCL [Catapres] 0.1 mg PO TID 5 Days #15 tab 09/24/22 [Rx] Follow up Appointment(s)/Referral(s): Le Larkin MD [STAFF PHYSICIAN] - 1 Week (Please make a hospital follow-up with Dr. Lujan) Patient Instructions/Handouts: Cocaine Abuse (DC), Methamphetamine Abuse (DC), Polysubstance Abuse (ED) Activity/Diet/Wound Care/Special Instructions: Activity: As tolerated. Diet: Regular diet. Special Instructions: Take all of your medications as directed and remember to keep all of your doctor's appointments and follow-up as needed. Strongly recommend avoidance of any and all drug use and highly recommend inpatient drug and alcohol rehabilitation facility. Patient declined assistance with finding inpatient drug and alcohol rehab, stating he would rather follow-up at [facility]. Thank you for allowing us to participate in your care, it was truly a pleasure having you for our patient!!! Discharge/Stand Alone Forms: Outpatient Counseling, Inp Substance Abuse Facilities, Area PCPs Discharge Disposition: HOME SELF-CARE
[2022-09-26] MEDS: HEPARIN SODIUM,PORCINE/PF 5,000 UNIT/0.5 ML SYRINGE SQ SCH (08:50)
[2022-09-26] MEDS ORDERED: MAG HYDROX/AL HYDROX/SIMETH 30 ML, HYOSCYAMINE ELIXIR 10 ML, LIDOCAINE VISCOUS 10 ML PO ONE ×3 (09:13)
== END 2022-09-26 10:55 | disposition home or self-care (01) | DRG 773 ==
LOC: EC 10:06 → 3SCARD 14:18
PROVIDERS: ADMIT Internal Medicine; ATTEND Internal Medicine
PROC: 05HY33Z Insertion of Infusion Device into Upper Vein, Percutaneous Approach (ICD-10-PCS; principal; 2022-09-24 12:50)
DX: F11.23 Opioid dependence with withdrawal (principal); R00.0 Tachycardia, unspecified; E87.6 Hypokalemia; F15.10 Other stimulant abuse, uncomplicated; F14.10 Cocaine abuse, uncomplicated; F13.10 Sedative, hypnotic or anxiolytic abuse, uncomplicated; M41.9 Scoliosis, unspecified; E87.8 Other disorders of electrolyte and fluid balance, not elsewhere classified; F41.9 Anxiety disorder, unspecified; D72.829 Elevated white blood cell count, unspecified; R79.1 Abnormal coagulation profile; R51.9 Headache, unspecified
CPT/HCPCS: 36410; 36415; 70450; 71046; 71275; 72125; 80048; 80053; 80306; 81001; 83690; 83735; 83880; 84484; 85025; 85027; 85379; 85610; 85730; 87040; 93005

== ENCOUNTER 2022-12-17 12:00 | Inpatient (IN) | payer OTHER, MEDICAID ==
--- NOTE | 2022-12-17 13:13 | ED ---
Psych HPI - General Chief Complaint: Psychiatric Symptoms Stated Complaint: Mental Health Source: patient, police Mode of arrival: ambulatory - History of Present Illness Initial Comments: The patient is a 37-year-old gentleman with a history of hepatitis C but is otherwise PRESENTS emergency room with complaints of suicidal ideation. Patient has had worsening depression and suicidal ideation since being incarcerated to the weeks ago. Patient attempted to commit suicide yesterday in longterm by hanging himself with a sheet and jumping off a two-story floor. Patient did become unconscious prior to being pulled up and over the railing. Patient was seen at [facility] and had a full evaluation including multiple imaging with and without contrast. He was cleared to return back to longterm yesterday but states he did not have the depression and suicidal ideation addressed. Patient comes in under the care of to please officers with the longterm. They are petitioning the patient as he continues to have worsening depression and suicidal ideation. There's been no other attempts or incidents way back to the facility yesterday. The patient complains of some anxiety and withdrawal symptoms from fentanyl and methadone. he has a small area of ecchymosis on the neck from the strangulation. of note, we were able to get [facility] from yesterday. patient had a CT angio of hte head and neck, CT head, CT chest and abdomen and other xrays done that were all neg. - Related Data Previous Rx's Medication Instructions Recorded Dicyclomine [Bentyl] 20 mg PO QID PRN #20 tab 09/24/22 cloNIDine HCL [Catapres] 0.1 mg PO TID 5 Days #15 tab 09/24/22 Allergies Allergy/AdvReac Type Severity Reaction Status Date / Time ketorolac [From Toradol] Allergy Rash/Hives Verified 09/22/22 11:47 Review of Systems ROS Statement: Those systems with pertinent positive or pertinent negative responses have been documented in the HPI. ROS Other: All systems not noted in ROS Statement are negative. Past Medical History Past Medical History: No Reported History Additional Past Medical History / Comment(s): scoliosis, back pain, hep C, fentanyl abuse History of Any Multi-Drug Resistant Organisms: None Reported Past Surgical History: No Surgical Hx Reported Additional Past Surgical History / Comment(s): cyst removal Past Anesthesia/Blood Transfusion Reactions: No Reported Reaction Past Psychological History: Depression Smoking Status: Former smoker Past Alcohol Use History: None Reported Past Drug Use History: Heroin, Opiates, Prescription Drug Abuse - Past Family History Father Family Medical History: No Reported History (Father is 50-year-old has no major medical problems) Mother Family Medical History: No Reported History (Mother is 52-year-old year and has no major medical problems) Brother(s) Family Medical History: No Reported History (Patient has one brother no major medical problems) Sister(s) Family Medical History: No Reported History (Patient has one sister no major medical problems) General Exam Limitations: no limitations General appearance: alert, in no apparent distress Head exam: Present: atraumatic Eye exam: Present: normal appearance, PERRL, other (no av nicking or hemorrhages seen) ENT exam: Present: normal exam Neck exam: Present: full ROM, other (no tenderness, small area of ecchymosis over the left anterior neck) Respiratory exam: Present: normal lung sounds bilaterally, wheezes Cardiovascular Exam: Present: regular rate, normal rhythm GI/Abdominal exam: Present: soft Extremities exam: Present: full ROM Back exam: Present: full ROM Neurological exam: Present: alert, oriented X3 Psychiatric exam: Present: depressed, anxious Skin exam: Present: warm, dry Course Vital Signs 12/17/22 12:37 Temperature 98.5 F Pulse Rate 106 H Respiratory 20 Rate Blood Pressure 142/79 O2 Sat by Pulse 99 Oximetry - Reevaluation(s) Reevaluation #1: 12/17/22 15:21 Patient evaluated at bedside by EPS to agrees with the assessment for admission to inpatient mental health services. Patient cleared to be admitted I discussed management of this patient with attending ED physician . Medical Decision Making - Medical Decision Making Was pt. sent in by a medical professional or institution (, PA, JAVA J2EE ARCHITECT, urgent care, hospital, or detention...) When possible be specific @ -Patient sent in by the Class 1 Owner Operator at the local longterm for mental health assessmentid you speak to anyone other than the patient for history (EMS, parent, family, police, friend...)? What history was obtained from this source @ -[No] Did you review nursing and triage notes (agree or disagree)? Why? @ -[I reviewed and agree with nursing and triage notes] Were old charts reviewed (outside hosp., previous admission, EMS record, old EKG, old radiological studies, urgent care reports/EKG's, detention records)? Report findings @ -[yes old charts were reviewed] patients workup including CT and imaging done yesterday at [facility] were evaluated by myself. CT imaging of the head and neck, CT of the head, CT chest and abdomen and other imaging were all reviewed and are negative. Differential Diagnosis (chest pain, altered mental status, abdominal pain women, abdominal pain men, vaginal bleeding, weakness, fever, dyspnea, syncope, headache, dizziness, GI bleed, back pain, seizure, CVA, palpatations, mental health, musculoskeletal)? @ -Suicidal ideation, depression, neck contusion EKG interpreted by me (3pts min.). @ -[As above] X-rays interpreted by me (1pt min.). @ -[None done] CT interpreted by me (1pt min.). @ -[None done] U/S interpreted by me (1pt. min.). @ -[None done] What testing was considered but not performed or refused? (CT, X-rays, U/S, labs)? Why? @ -[None] What meds were considered but not given or refused? Why? @ -[None] Did you discuss the management of the patient with other professionals (professionals i.e. , PA, JAVA J2EE ARCHITECT, lab, RT, psych nurse, social psychologist, netbackup engineer, teacher, chemistry technical officer, case supervisor)? Give summary @ -Patient's symptoms workup and management including yesterday's [facility] ER visit and for workup was discussed with attending physician Harsha emergency room today. I also spoke with the EPS nurse regarding patient's suicidal ideation, suicidal attempt and worsening depression. Patient has been accepted and clear to be admitted for psych evaluation. Was smoking cessation discussed for >3mins.? @ -[No] Was critical care preformed (if so, how long)? @ -[No] Were there social determinants of health that impacted care today? How? (Homelessness, low income, unemployed, alcoholism, drug addiction, transportation, low edu. Level, literacy, decrease access to med. care, longterm, rehab)? @ -Patient has a history of IV drug abuse and he is admitted to longterm Was there de-escalation of care discussed even if they declined (Discuss DNR or withdrawal of care, Hospice)? DNR status @ -[No] What co-morbidities impacted this encounter? (DM, HTN, Smoking, COPD, CAD, Cancer, CVA, ARF, Chemo, Hep., AIDS, mental health diagnosis, sleep apnea, morbid obesity)? @ -IV drug abuse, suicidal ideation Was patient admitted / discharged? Hospital course, mention meds given and route, prescriptions, significant lab abnormalities, going to OR and other perti nent info. @ -Patient will be admitted to the hospital for psych evaluation and hold for suicidal attempt and ideation. Undiagnosed new problem with uncertain prognosis? @ -[No] Drug Therapy requiring intensive monitoring for toxicity (Heparin, Nitro, Insulin, Cardizem)? @ -[No] Were any procedures done? @ -[No] Diagnosis/symptom? @ -Suicidal ideation, suicidal attempt, depression, history of IV drug use, withdrawal symptoms Acute, or Chronic, or Acute on Chronic? @ -Acute Uncomplicated (without systemic symptoms) or Complicated (systemic symptoms)? @ -[default] Side effects of treatment? @ -[No] Exacerbation, Progression, or Severe Exacerbation? @ -[No] Poses a threat to life or bodily function? How? (Chest pain, [place], [place], pneumonia, PE, COPD, DKA, ARF, appy, cholecystitis, CVA, Diverticulitis, Homicidal, Suicidal, threat to staff... and all critical care pts) @ -[No] - Lab Data Lab Results 12/17/22 Range/Units 13:19 Coronavirus (PCR) Not Detected (Not Detectd) Disposition Clinical Impression: Suicidal intent, Suicidal behavior with attempted self-injury, Depression, Drug withdrawal Disposition: HOME SELF-CARE Condition: Good Is patient prescribed a controlled substance at d/c from ED?: No If prescribed controlled substance>3 days was MAPS reviewed?: No Decision Time: 15:05 (admitted for psych hold and evaluation)
[2022-12-17] MEDS ORDERED: MAG HYDROX/AL HYDROX/SIMETH 30 ML CUP PO PRN (16:02)
[2022-12-17] MEDS ORDERED: ACETAMINOPHEN TAB 325 MG TAB PO PRN (16:02)
[2022-12-17] MEDS ORDERED: MAGNESIUM HYDROXIDE 2,400 MG/30 ML CUP PO PRN (16:02)
[2022-12-17] MEDS ORDERED: LORazepam 2 MG/ML INJ IM PRN (16:04)
[2022-12-17] MEDS ORDERED: LOPERAMIDE 2 MG CAP PO PRN (16:04)
[2022-12-17] MEDS ORDERED: HALOPERIDOL LACTATE 5 MG/ML 1 ML VIAL IM PRN (16:04)
[2022-12-17] MEDS: LORazepam 1 MG TAB PO PRN ×2 (17:09→23:04)
[2022-12-17] MEDS: NICOTINE 14MG/24HR PATCH TRANSDERM SCH (17:15)
[2022-12-17] MEDS: haloperidoL 5 MG TAB PO PRN (20:40)
--- NOTE | 2022-12-18 04:04 | P.CONS ---
History of Present Illness - Reason for Consult Consult date: 12/18/22 - History of Present Illness The patient is a 37-year-old male with a PMH of polysubstance abuse including methamphetamines, cocaine, heroin, and history of hepatitis C who had presented to the emergency room with complaints of depression and suicidal ideation. The patient was currently at the local penitentiary was admitted to the mental health unit where he was seen and evaluated. The patient had reportedly attempted to have hang himself via sheet and jumping off it two-story floor. The patient had become unconscious prior to being pulled up and over the railing. He was subsequently seen at [facility] and was cleared to return back to penitentiary, but he reported ongoing depression and suicidal ideation and was brought in to [place]. He denied any physical complaints at the time of interview. Reports that he smokes a pack of cigarettes daily. Currently denied any active substance use as he is in penitentiary. Denied experiencing chest discomfort, shortness of breath, fever, chills, cough, nausea, vomiting, abdominal pain, diarrhea Review of systems: Pertinent positives and negatives as discussed in HPI, a complete review of systems was performed and all other systems are negative. Physical examination: General: non toxic, no distress, appears at stated age, normal weight Derm: no unusual rashes/lesions, no unusual ecchymoses, warm, dry Head: atraumatic, normocephalic, symmetric Eyes: EOMI, no lid lag, anicteric sclera ENT: Nose and ears atraumatic, no thrush, no pharyngeal erythema Neck: trachea midline, supple Mouth: no lip lesion, mucus membranes moist Cardiovascular: S1S2 reg, no murmur, no edema Lungs: CTA bilateral, no rhonchi, no rales , no accessory muscle use Abdominal: soft, nontender to palpation, no guarding Ext: no gross muscle atrophy, no contractures, Neuro: No gross focal neuro deficits noted Psych: Alert, oriented, appropriate affect Assessment: Polysubstance abuse Depression and suicidal ideation Plan: Advised on importance of cessation Defer management of depression and suicidal ideation to the primary psychiatry service Thank you for allowing us to participate in the care of this patient. We will follow peripherally. Do not hesitate to contact us with questions. Someone can be reached from the [facility] hospitalist group at all hours of the day at [phone]. Past Medical History Past Medical History: No Reported History Additional Past Medical History / Comment(s): scoliosis, back pain, hep C, fentanyl abuse History of Any Multi-Drug Resistant Organisms: None Reported Past Surgical History: No Surgical Hx Reported Additional Past Surgical History / Comment(s): cyst removal Past Anesthesia/Blood Transfusion Reactions: No Reported Reaction Past Psychological History: Depression Smoking Status: Vaper Past Alcohol Use History: None Reported Additional Past Alcohol Use History / Comment(s): Occasional vape user Additional Drug Use History / Comment(s): Pt states that he uses methadone and Fentanyl. - Past Family History Father Family Medical History: No Reported History Mother Family Medical History: No Reported History Brother(s) Family Medical History: No Reported History Sister(s) Family Medical History: No Reported History Medications and Allergies Home Medications Medication Instructions Recorded Confirmed Type No Known Home Medications 12/17/22 12/17/22 History Allergies Allergy/AdvReac Type Severity Reaction Status Date / Time ketorolac [From Toradol] Allergy Rash/Hives Verified 12/17/22 16:12 Physical Exam Vitals: Vital Signs Temp Pulse Pulse Resp BP BP Pulse Ox 12/17/22 16:50 98.1 F 99 17 131/92 100 12/17/22 16:19 98 18 137/88 97 12/17/22 12:37 98.5 F 106 H 20 142/79 99 Intake and Output 12/17/22 12/17/22 12/18/22 14:59 22:59 06:59 Other: Weight 58.967 kg 54.431 kg
[2022-12-18] MEDS: LORazepam 1 MG TAB PO PRN ×3 (06:52→19:57)
[2022-12-18] MEDS: NICOTINE 14MG/24HR PATCH TRANSDERM SCH ×2 (06:53→13:29)
[2022-12-18] MEDS ORDERED: NICOTINE 14MG/24HR PATCH TRANSDERM SCH (09:00)
[2022-12-18] MEDS ORDERED: BUPRENORPHINE-NALOX 8-2 MG TAB 1 EACH TAB.SUBL SL SCH ×2 (09:00→21:00)
--- NOTE | 2022-12-18 10:16 | P.HP ---
Psychiatric H&P - . H&P Date: 12/18/22 History & Physical: Allergies Allergy/AdvReac Type Severity Reaction Status Date / Time ketorolac [From Toradol] Allergy Rash/Hives Verified 12/17/22 16:12 Vital Signs Temp 98.1 F 12/17/22 16:50 Pulse 120 H 12/18/22 08:56 Resp 20 12/18/22 08:56 BP 152/86 12/18/22 08:56 Pulse Ox 99 12/18/22 06:57 FiO2 Intake & Output 12/17/22 12/18/22 12/18/22 18:59 06:59 18:59 Weight 54.431 kg Laboratory Last Values Coronavirus (PCR) Not Detected (Not Detectd) 12/17/22 13:19 12/18/22 10:06 This is a psychiatric evaluation on this 37-year-old male was currently hospita lized after he had tried to hang himself in the care home Patient remains a poor historian and is mainly focused on wanting something for withdrawals Patient states that he was using fentanyl for last 4 years and that he is going through severe withdrawal symptoms He states that he used to be on methadone 95 mg a day and is open to even taking the Suboxone Patient initially was also suspected of chewing on the nicotine patch which she denied Following is an excerpt from the assessment done at the time of admission in the ER he patient is a 37-year-old gentleman with a history of hepatitis C but is otherwise PRESENTS emergency room with complaints of suicidal ideation. Patient has had worsening depression and suicidal ideation since being incarcerated to the weeks ago. Patient attempted to commit suicide yesterday in care home by hanging himself with a sheet and jumping off a two-story floor. Patient did become unconscious prior to being pulled up and over the railing. Patient was seen at [facility] and had a full evaluation including multiple imaging with and without contrast. He was cleared to return back to care home yesterday but states he did not have the depression and suicidal ideation addressed. Patient comes in under the care of to please officers with the care home. They are petitioning the patient as he continues to have worsening depression and suicidal ideation. There's been no other attempts or incidents way back to the facility yesterday. The patient complains of some anxiety and withdrawal symptoms from fentanyl and methadone. he has a small area of ecchymosis on the neck from the strangulation. of note, we were able to get records from [facility] from yesterday. patient had a CT angio of hte head and neck, CT head, CT chest and abdomen and other xrays done that were all neg. Patient continues to bargain about doing something about getting out of his care home sentence He states that he is being care home for 3 months due to some misdemeanor traffic violation several years ago He says that required of something and get him out of his situation He says that his girlfriend also is serving one year sentence for some other offense He did not go into the specifics He says that he takes care of his elderly [id number] He denies that he has been any significant treatment for his depression and anxiety or addiction Past Medical History Past Medical History: No Reported History Additional Past Medical History / Comment(s): scoliosis, back pain, hep C, fentanyl abuse Past Psychological History: Depression Smoking Status: Former smoker Past Alcohol Use History: None Reported Past Drug Use History: Heroin, Opiates, Prescription Drug Abuse Mental Status Exam: General Appearance: Patient appears to be stated age, patient has multiple tattoos all over his body Patient appears to have fair hygiene and grooming. Behavior: Patient was laying on the floor near the nurse's station but cooperative with this interview and came in to the doctors office without any problems Patient mainly bargain about his situation of being imprisoned Patient also made several threats that he cannot serve the sentence or he will kill himself He says that we need to get him out of there and writing some letters for him Speech: Patient's speech is fluent and non-pressured. Speaking with soft voice. Mood/Affect: Patient reports their mood is "horrible", affect is incongruent. He admits that is going through withdrawals Suicidality/Homicidality: Patient reports suicidal ideation if he do not get him out of the [facility] Perceptions: Patient denies any visual hallucinations and denies any auditory hallucinations Though content/process: There is no evidence of any delusional thought content and thought process is linear and goal-directed. She is bargaining and manipulative Memory and concentration: AOX3, grossly intact for the purposes of this session. 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 Patient has signed adult voluntary form. -Medications: We'll start the patient on Suboxone / twice a day to start within titrated to response -cows protocol for opiate withdrawal -NRT -hold for as a precaution -SW on board for discharge planning. Encourage patient to participate in groups to work on coping skills. likely disc harge in 2-3 days back home. We'll continue Ativan and Haldol as when necessary Jarred Chino M.D.
[2022-12-18 10:53] LABS: Basophils % (A) 0 %; Eosinophils # (A) 0.1 k/uL (0-0.7); Eosinophils % (A) 1 %; HCT 42.8 % (39.0-53.0); HGB 14.7 gm/dL (13.0-17.5); Lymphocytes # (A) 2.5 k/uL (1.0-4.8); Lymphocytes % (A) 21 %; MCH 28.5 pg (25.0-35.0); MCHC 34.4 g/dL (31.0-37.0); MCV 82.7 fL (80.0-100.0); Monocytes # (A) 0.6 k/uL (0-1.0); Monocytes % (A) 5 %; Neutrophils # (A) 8.7 k/uL (1.3-7.7); Neutrophils % (A) 72 %; Platelet Count 313 k/uL (150-450); RBC 5.17 m/uL (4.30-5.90); WBC 12.1 k/uL (3.8-10.6)
[2022-12-18 11:18] LABS: ALT 14 U/L (4-49); AST 19 U/L (17-59); African American GFR (CKD) >90 (>60 ml/min/1.73 sqM); Albumin 4.6 g/dL (3.5-5.0); Alkaline Phosphatase 49 U/L (38-126); Anion Gap 11 mmol/L; Blood Urea Nitrogen 19 mg/dL (9-20); Calcium 9.9 mg/dL (8.4-10.2); Carbon Dioxide 24 mmol/L (22-30); Chloride 107 mmol/L (98-107); Glucose 96 mg/dL (74-99); Non-African American GFR(CKD) >90 (>60 ml/min/1.73 sqM); Potassium 4.1 mmol/L (3.5-5.1); Sodium 142 mmol/L (137-145); Total Bilirubin 0.8 mg/dL (0.2-1.3); Total Protein 8.2 g/dL (6.3-8.2)
[2022-12-18] MEDS: haloperidoL 5 MG TAB PO PRN (19:57)
[2022-12-18 20:51] LABS: HIV 2 AB Non-Reactive (Non-Reactive); HIV AB P24 Non-Reactive (Non-Reactive); HIV P24 AG Non-Reactive (Non-Reactive)
[2022-12-19] MEDS: haloperidoL 5 MG TAB PO PRN (07:22)
[2022-12-19] MEDS: LORazepam 1 MG TAB PO PRN (07:22)
[2022-12-19] MEDS ORDERED: OLANZapine 2.5 MG TAB PO ONE (10:19)
[2022-12-19] MEDS ORDERED: OLANZapine 10 MG VIAL IM PRN (10:32)
--- NOTE | 2022-12-19 10:32 | P.PN ---
Progress Note - Text Progress Note Date: 12/19/22 Interval history: Patient was seen today in group and was agreeable to be seen by field underwriter in the office. Patient has a constricted affect. He was mildly trembling today. He was fairly focused on getting started on Suboxone. He was asking about other controlled medications including Xanax and Klonopin. When attempting to speak about antidepressants and other forms of treatment for anxiety patient claims that he felt "more suicidal on these meds". He was fairly focused on treatment. He states that he has not been sleeping well and hasn't been having anxiety, continues to have depression. He states that he is still having suicidal thoughts however no intent or plan. Denies any homicidal ideations. Denies any auditory or visual hallucinations. Mental status exmamination: General Appearance: Patient appears to be stated age, patient has multiple tattoos all over his body Patient appears to have fair hygiene and grooming. Behavior: Patient is not agitated, mildly trembling. Fairly superficial. Speech: Patient's speech is fluent and non-pressured. Speaking with soft voice. Mood/Affect: Patient reports their mood is "depressed", affect is incongruent. Suicidality/Homicidality: Patient reports suicidal ideation, no intent or plan. Denies any homicidal ideations. Perceptions: Patient denies any visual hallucinations and denies any auditory hallucinations Though content/process: There is no evidence of any delusional thought content and thought process is linear and goal-directed. he is bargaining and manipulative Memory and concentration: AOX3, grossly intact for the purposes of this session. Judgment and insight: Very poor, manipulative IMPRESSIONS: Adjustment disorder with disturbance of affect and conduct Opiate use disorder nicotine dependence Personality disorder unspecified legal problems PLAN: -Patient is admitted under voluntary status to MHU for stabilization of psychiatric symptoms and safety. Patient has signed adult voluntary form. -Medications: pt is not a candidate for suboxone as he will not be able to get it at the snf/senior living. will need to enroll in proper PABLO program for this. Patient is agreeable to start Zyprexa 5 mg daily at bedtime for mood stabilization/insomnia, Effexor 37.5 mg daily for mood -Clonidine and Imodium for opiate withdrawal -NRT - nicotine patch -SW on board for discharge planning. Patient has a snf hold. Encourage patient to participate in sage/anups to work on coping skills. likely discharge next week if patient improves psychiatrically.
[2022-12-19] MEDS: hydrOXYzine pamoate 25 MG CAP PO PRN ×2 (10:37→20:34)
[2022-12-19] MEDS: VENLAFAXINE HCL ER 37.5 MG CAP PO SCH (10:37)
[2022-12-19] MEDS: NICOTINE 14MG/24HR PATCH TRANSDERM SCH (10:41)
[2022-12-19] MEDS ORDERED: NICOTINE GUM (POLACRILEX) 2 MG GUM BUCCAL PRN (11:20)
[2022-12-19] MEDS: cloNIDine HCL 0.1 MG TAB PO PRN (16:32)
[2022-12-19] MEDS: OLANZapine 5 MG TAB PO SCH (20:34)
[2022-12-20] MEDS: VENLAFAXINE HCL ER 37.5 MG CAP PO SCH ×2 (08:11→20:16)
[2022-12-20] MEDS: hydrOXYzine pamoate 25 MG CAP PO PRN (08:11)
--- NOTE | 2022-12-20 10:48 | P.PN ---
Subjective Progress Note Date: 12/20/22 Principal diagnosis: IMPRESSIONS: Adjustment disorder with disturbance of affect and conduct Opiate use disorder nicotine dependence Personality disorder unspecified legal problems Patient Name: Lj Theodore Date of : 81 Patient Status: Inpatient Attending Provider: Rafa Olvera Date: 12/20/22 Interval history: Patient was seen today in any single where he was laying down and agreed to see this singer songwriter Patient has a constricted affect. He was mildly trembling today. He was fairly focused on getting back on Suboxone. He was asking about other controlled medications including Xanax and Klonopin. He states that he has not been sleeping well and hasn't been having anxiety, continues to have depression. He states that he is still having suicidal thoughts however no intent or plan. Denies any homicidal ideations. Denies any auditory or visual hallucinations. Mental status exmamination: General Appearance: Patient appears to be stated age, patient has multiple tattoos all over his body Patient appears to have fair hygiene and grooming. Behavior: Patient is not agitated, mildly trembling. Fairly superficial. Speech: Patient's speech is fluent and non-pressured. Speaking with soft voice. Mood/Affect: Patient reports their mood is "depressed", affect is incongruent. Suicidality/Homicidality: Patient reports suicidal ideation, no intent or plan. Denies any homicidal ideations. Perceptions: Patient denies any visual hallucinations and denies any auditory hallucinations Though content/process: There is no evidence of any delusional thought content and thought process is linear and goal-directed. he is bargaining and manipulative Memory and concentration: AOX3, grossly intact for the purposes of this session. Judgment and insight: Very poor, manipulative IMPRESSIONS: Adjustment disorder with disturbance of affect and conduct Opiate use disorder nicotine dependence Personality disorder unspecified legal problems PLAN: -Patient is admitted under voluntary status to MHU for stabilization of psychiatric symptoms and safety. Patient has signed adult voluntary form. -Medications: pt is not a candidate for suboxone as he will not be able to get it at the [facility]. will need to enroll in proper PABLO program for this. Patient is agreeable to start Zyprexa 5 mg daily at bedtime for mood stabilization/insomnia, increase Effexor 37.5 mg to twice a day -Clonidine and Imodium for opiate withdrawal We'll also add gabapentin 300 mg 3 times a day for anxiety and withdrawals -NRT - nicotine patch -SW on board for discharge planning. Patient has a [place] [facility] hold. Encourage patient to participate in groups to work on coping skills. likely discharge next week if patient improves psychiatrically. Jarred Chino M.D. Objective - Vital Signs Vital signs: Vital Signs Temp 97.7 F 12/19/22 06:35 Pulse 71 12/19/22 06:35 Resp 20 12/18/22 08:56 BP 133/71 12/19/22 16:33 Pulse Ox 99 12/18/22 06:57 FiO2 - Labs CBC & Chem 7: 12/18/22 10:15 12/18/22 10:15
[2022-12-20] MEDS: cloNIDine HCL 0.1 MG TAB PO PRN (11:00)
[2022-12-20] MEDS: GABAPENTIN 300 MG CAP PO SCH ×2 (14:59→21:19)
[2022-12-20] MEDS: OLANZapine 5 MG TAB PO SCH (20:16)
[2022-12-20] MEDS: traZODone HCL 50 MG TAB PO SCH ×3 (21:12→21:19)
[2022-12-21] MEDS: VENLAFAXINE HCL ER 37.5 MG CAP PO SCH ×2 (09:16→21:05)
[2022-12-21] MEDS: GABAPENTIN 300 MG CAP PO SCH ×3 (09:16→21:05)
--- NOTE | 2022-12-21 10:00 | P.PN ---
Subjective Progress Note Date: 12/21/22 Principal diagnosis: IMPRESSIONS: Adjustment disorder with disturbance of affect and conduct Opiate use disorder nicotine dependence Personality disorder unspecified legal problems Patient Name: Lj Theodore Date of : 81 Patient Status: Inpatient Attending Provider: Rafa Olevra Date: Interval history: Patient was seen today in any single where he was laying down and agreed to see this press writer Patient has a constricted affect. Patient remains focused on insomnia Patient does admit that the gabapentin has been helpful Patient states that the trazodone increase gives him restless leg syndrome and requested for Seroquel Patient remains very somatically focused and on medications Mental status exmamination: General Appearance: Patient appears to be stated age, patient has multiple tattoos all over his body Patient appears to have fair hygiene and grooming. Behavior: Patient is not agitated, . Fairly superficial. Speech: Patient's speech is fluent and non-pressured. Speaking with soft voice. Mood/Affect: Patient reports their mood is "depressed", affect is incongruent. Suicidality/Homicidality: Patient denies suicidal ideation, no intent or plan. Denies any homicidal ideations. Perceptions: Patient denies any visual hallucinations and denies any auditory hallucinations Though content/process: There is no evidence of any delusional thought content and thought process is linear and goal-directed. he is bargaining and manipulative Memory and concentration: AOX3, grossly intact for the purposes of this session. Judgment and insight: Very poor, manipulative IMPRESSIONS: Adjustment disorder with disturbance of affect and conduct Opiate use disorder nicotine dependence Personality disorder unspecified legal problems PLAN: -Patient is admitted under voluntary status to MHU for stabilization of psychiatric symptoms and safety. Patient has signed adult voluntary form. -Medications: pt is not a candidate for suboxone as he will not be able to get it at the senior living/care home. will need to enroll in proper PABLO program for this. Patient is agreeable to start Zyprexa 5 mg daily at bedtime for mood stabilization/insomnia, increase Effexor 37.5 mg to twice a day -Clonidine and Imodium for opiate withdrawal We'll also add gabapentin 300 mg 3 times a day for anxiety and withdrawals We'll discontinue the Zyprexa here to avoid multiple antipsychotics and start the patient on Seroquel 200 mg at bedtime which would be more sedating and may also help with his insomnia -NRT - nicotine patch -SW on board for discharge planning. Patient has a senior living hold. Encourage patient to participate in groups to work on coping skills. likely discharge next week if patient improves psychiatrically. Jarred Chino M.D. Objective - Vital Signs Vital signs: Vital Signs Temp 97.8 F 12/21/22 07:00 Pulse 91 12/21/22 07:00 Resp 16 12/21/22 07:00 BP 123/67 12/21/22 07:00 Pulse Ox 96 12/21/22 07:00 FiO2 - Labs CBC & Chem 7: 12/18/22 10:15 12/18/22 10:15
[2022-12-21] MEDS ORDERED: QUEtiapine 100 MG TAB PO SCH (12:15)
[2022-12-21] MEDS: cloNIDine HCL 0.1 MG TAB PO PRN (12:21)
[2022-12-21] MEDS: OLANZapine 5 MG TAB PO PRN (12:21)
[2022-12-21] MEDS: hydrOXYzine pamoate 25 MG CAP PO PRN (15:35)
[2022-12-21] MEDS: OLANZapine 5 MG TAB PO SCH (17:07)
[2022-12-21] MEDS ORDERED: OLANZapine 5 MG TAB PO SCH (21:00)
[2022-12-21] MEDS ORDERED: QUEtiapine 200 MG TAB PO SCH (21:00)
[2022-12-22] MEDS: traZODone HCL 50 MG TAB PO SCH (00:24)
[2022-12-22 07:01] VITALS: TEMP 98.2
[2022-12-22] MEDS: OLANZapine 5 MG TAB PO SCH (09:05)
[2022-12-22] MEDS: VENLAFAXINE HCL ER 37.5 MG CAP PO SCH (09:05)
[2022-12-22] MEDS: GABAPENTIN 300 MG CAP PO SCH (09:05)
[2022-12-22] MEDS ORDERED: VENLAFAXINE HCL ER 37.5 MG CAP PO STA (09:58)
[2022-12-22] MEDS ORDERED: traZODone HCL 100 MG TAB PO PRN (10:00)
--- NOTE | 2022-12-22 10:31 | P.PN ---
Progress Note - Text Progress Note Date: 12/22/22 Interval history: Patient was seen today laying in his bed and was agreeable to speak to check writer in the office today. He was fairly focused on continuing to feel suicidal and depressed. continues to endorse hopelessness. he states that somehow his story of attempting to hang himself made the news and he does not know how. continues to be focused on obtaining controlled meds. he states that the zyprexa is not helping him and wishes to try seroquel as it has helped him in the past. continue having anxiety, continues to have depression. He states that he is still having suicidal thoughts however no intent or plan. Denies any homicidal ideations. Denies any auditory or visual hallucinations. Mental status exmamination: General Appearance: Patient appears to be stated age, patient has multiple tattoos all over his body Patient appears to have fair hygiene and grooming. Behavior: Patient is not agitated, mildly trembling. Fairly superficial. Speech: Patient's speech is fluent and non-pressured. Speaking with soft voice. Mood/Affect: Patient reports their mood is "depressed and hopeless", affect is congruent. Suicidality/Homicidality: Patient reports suicidal ideation, no intent or plan. Denies any homicidal ideations. Perceptions: Patient denies any visual hallucinations and denies any auditory hallucinations Though content/process: There is no evidence of any delusional thought content and thought process is linear and goal-directed. manipulative. concrete. Memory and concentration: AOX3, grossly intact for the purposes of this session. Judgment and insight: poor, manipulative IMPRESSIONS: Adjustment disorder with disturbance of affect and conduct Opiate use disorder nicotine dependence Personality disorder unspecified legal problems PLAN: -Patient is admitted under voluntary status to MHU for stabilization of psychiatric symptoms and safety. Patient has signed adult voluntary form. -Medications: pt is not a candidate for suboxone as he will not be able to get it at the skilled nursing/[facility]way. will need to enroll in proper PABLO program for this. d/c Zyprexa as patient claims it is not effective for him. replaced with seroquel 100 mg daily at bedtime for mood stabilization/insomnia, increase Effexor 75 mg daily for mood. vistaril prn for anxiety. trazodone 100 mg qhs prn for insomnia. -Clonidine and Imodium for opiate withdrawal -NRT - nicotine patch -SW on board for discharge planning. Patient has a skilled nursing hold. Encourage patient to participate in sage/anups to work on coping skills. likely discharge in 2-3 days if patient improved psychiatrically. he is a skilled nursing hold.
[2022-12-22] MEDS: cloNIDine HCL 0.1 MG TAB PO PRN ×2 (14:30→22:46)
[2022-12-22] MEDS: hydrOXYzine pamoate 25 MG CAP PO PRN ×2 (14:30→22:46)
[2022-12-22] MEDS ORDERED: QUEtiapine 100 MG TAB PO SCH ×2 (21:00)
[2022-12-22] MEDS ORDERED: OLANZapine 7.5 MG TAB PO SCH (21:00)
[2022-12-23] MEDS: hydrOXYzine pamoate 25 MG CAP PO PRN ×2 (08:18→22:01)
[2022-12-23] MEDS ORDERED: VENLAFAXINE HCL ER 75 MG CAP PO SCH (09:00)
[2022-12-23] MEDS: cloNIDine HCL 0.1 MG TAB PO PRN (10:21)
[2022-12-23] MEDS: OLANZapine 5 MG TAB PO PRN (10:21)
--- NOTE | 2022-12-23 12:43 | P.PN ---
Progress Note - Text Progress Note Date: 12/23/22 Interval history: Patient was seen today laying in his bed and was agreeable to speak to rewriter in the office today. Patient continues to focus on Suboxone and also Klonopin. He states that "if I was on Suboxone I'd be straight". He continues to overexaggerate some of his symptoms including feeling suicidal today depressed and also anxiety. He states that he is having panic attacks. He has been going to some groups. She was fairly argumentative about his medications. He also states that he may be having a tooth infection as he feels pain in his molar tooth. States that he was sleeping on and off last night. He states that he is still having suicidal thoughts however no intent or plan. Denies any homicidal ideations. Denies any auditory or visual hallucinations. Mental status exmamination: General Appearance: Patient appears to be stated age, patient has multiple tattoos all over his body Patient appears to have fair hygiene and grooming. Behavior: Patient is not agitated, mildly trembling. Fairly superficial. Speech: Patient's speech is fluent and non-pressured. Speaking with soft voice. Demanding at times. Mood/Affect: Patient reports their mood is "depressed and anxious", affect is congruent. Suicidality/Homicidality: Patient reports suicidal ideation, no intent or plan. Denies any homicidal ideations. Perceptions: Patient denies any visual hallucinations and denies any auditory hallucinations Though content/process: There is no evidence of any delusional thought content and thought process is linear and goal-directed. manipulative. concrete. Focused on medications especially controlled once. Memory and concentration: AOX3, grossly intact for the purposes of this session. Judgment and insight: poor, manipulative IMPRESSIONS: Adjustment disorder with disturbance of affect and conduct Opiate use disorder nicotine dependence Personality disorder unspecified legal problems PLAN: -Patient is admitted under voluntary status to MHU for stabilization of psychiatric symptoms and safety. Patient has signed adult voluntary form. -Medications: pt is not a candidate for suboxone as he will not be able to get it at the senior living/[facility]. will need to enroll in proper PABLO program for this. resume Zyprexa 15 mg qhs mood stabilization/insomnia, increase Effexor 150 mg daily for mood. vistaril prn for anxiety. trazodone 100 mg qhs prn for insomnia. consider adding lithium to help with mood stabilization/SI. -Clonidine and Imodium for opiate withdrawal -NRT - nicotine patch -SW on board for discharge planning. Patient has a senior living hold. Encourage patient to participate in sage/anups to work on coping skills. likely discharge in 2-3 days if patient improved psychiatrically. he is a senior living hold.
[2022-12-23] MEDS: CEPHALEXIN 500 MG CAP PO SCH ×2 (13:13→20:33)
[2022-12-23] MEDS: NICOTINE 14MG/24HR PATCH TRANSDERM SCH (15:55)
[2022-12-23] MEDS ORDERED: OLANZapine 5 MG TAB PO SCH (21:00)
[2022-12-24] MEDS: NICOTINE 14MG/24HR PATCH TRANSDERM SCH (08:08)
[2022-12-24] MEDS: VENLAFAXINE HCL ER 150 MG CAP PO SCH (08:08)
[2022-12-24] MEDS: CEPHALEXIN 500 MG CAP PO SCH ×3 (08:08→20:46)
[2022-12-24] MEDS: hydrOXYzine pamoate 25 MG CAP PO PRN ×2 (08:11→18:37)
[2022-12-24] MEDS: cloNIDine HCL 0.1 MG TAB PO PRN (08:11)
[2022-12-24 08:12] VITALS: RESP 18
[2022-12-24] MEDS: OLANZapine 5 MG TAB PO PRN ×2 (11:35→22:54)
[2022-12-24] MEDS ORDERED: OLANZapine 5 MG TAB PO SCH (13:30)
[2022-12-24] MEDS ORDERED: DOXEPIN 10 MG CAP PO PRN (13:30)
--- NOTE | 2022-12-24 13:37 | P.PN ---
Progress Note - Text Progress Note Date: 12/24/22 Interval history: Patient was seen today l sitting in the lounge and was agreeable to speak to ankur mauro in the office today. Patient claims that he still feeling depressed and having suicidal thoughts. He still stating that he is having some panic attacks at times. He claims that he is still restless at night and not able to sleep. He asked about different options for sleep. He was agreeable to try doxepin as needed. We spoke about the medications that might not be able to be resumed in [facility]-way. He continues to focus about possibly going back to [facility]-way and he is worried. He has been going to some groups. He states that he is still having suicidal thoughts however no intent or plan. Denies any homicidal ideations. Denies any auditory or visual hallucinations. Mental status exmamination: General Appearance: Patient appears to be stated age, patient has multiple tattoos all over his body Patient appears to have fair hygiene and grooming. Behavior: Patient is not agitated, mildly trembling. Fairly superficial. Speech: Patient's speech is fluent and non-pressured. Speaking with soft voice. Less demanding today. Mood/Affect: Patient reports their mood is "depressed and anxious", affect is congruent. Suicidality/Homicidality: Patient reports suicidal ideation, no intent or plan. Denies any homicidal ideations. Perceptions: Patient denies any visual hallucinations and denies any auditory hallucinations Though content/process: There is no evidence of any delusional thought content and thought process is linear and goal-directed. Focused on medications Memory and concentration: AOX3, grossly intact for the purposes of this session. Judgment and insight: poor, manipulative, improving mildly IMPRESSIONS: Adjustment disorder with disturbance of affect and conduct Opiate use disorder nicotine dependence Personality disorder unspecified legal problems PLAN: -Patient is admitted under voluntary status to MHU for stabilization of psychiatric symptoms and safety. Patient has signed adult voluntary form. -Medications: pt is not a candidate for suboxone as he will not be able to get it at the [facility]-way/[facility]. will need to enroll in proper PABLO program for this. Zyprexa 15 mg qhs mood stabilization/insomnia, Effexor 150 mg daily for mood. vistaril prn for anxiety. d/c trazodone, replace with doxepin 10 mg qhs prn for insomnia. added lithium 150 mg bid for mood stabilization/SI. -Clonidine and Imodium for opiate withdrawal -NRT - nicotine patch -SW on board for discharge planning. Encourage patient to participate in groups to work on coping skills. likely discharge in 1-2 days if patient improved psychiatrically. he is a [facility]-way hold.
[2022-12-24] MEDS: LITHIUM CARBONATE 150 MG CAP PO SCH ×2 (14:05→20:04)
[2022-12-24] MEDS ORDERED: OLANZapine 10 MG TAB PO SCH (21:00)
[2022-12-24] MEDS ORDERED: OLANZapine 7.5 MG TAB PO SCH (21:00)
[2022-12-24 23:00] VITALS: BP 101/70; PULSE 119
[2022-12-25] MEDS: NICOTINE 14MG/24HR PATCH TRANSDERM SCH (08:01)
[2022-12-25] MEDS: CEPHALEXIN 500 MG CAP PO SCH (08:02)
[2022-12-25] MEDS: VENLAFAXINE HCL ER 150 MG CAP PO SCH (08:03)
[2022-12-25] MEDS: hydrOXYzine pamoate 25 MG CAP PO PRN (08:03)
[2022-12-25] MEDS: LITHIUM CARBONATE 150 MG CAP PO SCH (08:03)
[2022-12-25] MEDS: OLANZapine 5 MG TAB PO PRN (10:08)
--- NOTE | 2022-12-25 11:25 | P.DS ---
Providers Date of admission: 12/17/22 15:53 Expected date of discharge: 12/25/22 Attending physician: Rafa Olvera MD Consults: 12/17/22 16:02 Consult Physician Routine Consulting Provider: [place]ino Physician Consult Reason/Comments: H&P Do you want consulting provider notified?: Yes Primary care physician: Stated None - Discharge Diagnosis(es) (1) Adjustment disorder with disturbance of conduct Current Visit: Yes Status: Acute Priority: High (2) Opioid use disorder Current Visit: Yes Status: Acute Priority: Low (3) Nicotine dependence Current Visit: Yes Status: Acute Priority: Low (4) Antisocial personality disorder Current Visit: Yes Status: Acute Priority: High (5) Legal problem Current Visit: Yes Status: Acute Priority: High (6) Unspecified mood [affective] disorder Current Visit: Yes Status: Acute Priority: Medium Hospital Course: Admission HPI: Admission note was completed by [Dr Chino] "[This is a psychiatric evaluation on this 37-year-old male was currently hospitalized after he had tried to hang himself in the penitentiary Patient remains a poor historian and is mainly focused on wanting something for withdrawals Patient states that he was using fentanyl for last 4 years and that he is going through severe withdrawal symptoms He states that he used to be on methadone 95 mg a day and is open to even taking the Suboxone Patient initially was also suspected of chewing on the nicotine patch which she denied. Following is an excerpt from the assessment done at the time of admission in the ER he patient is a 37-year-old gentleman with a history of hepatitis C but is otherwise PRESENTS emergency room with complaints of suicidal ideation. Patient has had worsening depression and suicidal ideation since being incarcerated to the weeks ago. Patient attempted to commit suicide yesterday in penitentiary by hanging himself with a sheet and jumping off a two-story floor. Patient did become unconscious prior to being pulled up and over the railing. Patient was seen at [facility] and had a full evaluation including multiple imaging with and without contrast. He was cleared to return back to penitentiary yesterday but states he did not have the depression and suicidal ideation addressed. Patient comes in under the care of to please officers with the penitentiary. They are petitioning the patient as he continues to have worsening depression and suicidal ideation. There's been no other attempts or incidents way back to the facility yesterday. The patient complains of some anxiety and withdrawal symptoms from fentanyl and methadone. he has a small area of ecchymosis on the neck from the strangulation. of note, we were able to get records from [facility] from yesterday. patient had a CT angio of hte head and neck, CT head, CT chest and abdomen and other xrays done that were all neg. Patient continues to bargain about doing something about getting out of his penitentiary sentence He states that he is being penitentiary for 3 months due to some misdemeanor traffic violation several years ago He says that required of something and get him out of his situation He says that his girlfriend also is serving one year sentence for some other offense He did not go into the specifics He says that he takes care of his elderly [id number] He denies that he has been any significant treatment for his depression and anxiety or addiction.]" Hospital course: Upon admission to the unit patient was [directable and agreeable to commence treatment and signed adult voluntary form]. Patient was initially isolative however with time in treatment he eventually got along well with other patients on the unit and followed unit protocol. Patient was compliant with the medications and denied any side effects throughout hospital course. Patient was started on Zyprexa and increased her dose of 20 mg daily at bedtime for mood stabilization/insomnia, Effexor XR 150 mg daily for mood/anxiety, Vistaril twice a day when necessary for anxiety, doxepin 20 mg daily at bedtime when necessary for insomnia. Zaleski 150 mg twice a day for mood stabilization/suicidal thoughts. Patient spoke of [his] stressors and engaged in therapy both group and individual. Patient was also seen by medical team for history and physical exam. [] Throughout the course of the hospitalization patient gradually improved with regards to [mood, anxiety], suicidal thoughts, sleep and [returned back to their baseline level of functioning]. On the day of discharge patient denied any suicidal or homicidal ideations intent or plan denied any auditory or visual hallucinations. Patient endorsed wanting to live for [his health and future.] The patient denied any access to guns or weapons. Patient denied any paranoia and did not endorse any delusions. Patient does have a significant history of substance abuse [and] was counseled on abstaining from all substances including alcohol and marijuana. Patient is currently in the correctional system and claims that he is willing to enrol in [facility] treatment through this system upon discharge. Patient was also counseled on the medications and need for regular compliance and was encouraged to follow-up with their outpatient appointment for mental health and also for primary care. Patient will be picked up today by correctional officers as he is still a Intermediate hold. Mental status exam: General Appearance: Patient appears to be []short instature, stated age is alert, pleasant, and manipulative. Patient is in no acute distress and has improved hygiene and grooming Behavior: Patient is calmly seated without any agitated behavior. manipulative. Speech: Patient's speech is fluent and nonpressured. Mood/Affect: Patient reports their mood is "[alright]", affect is congruent Suicidality/Homicidality: Patient denies having any suicidal or homicidal ideation intent or plan. Perceptions: Patient denies any auditory or visual hallucinations. Though content/process: There is no evidence of any delusional thought content and thought process is linear and goal-directed. [more future oriented] Memory and concentration: AOX3, grossly intact for the purposes of this session. Can spell "WORLD" backwards correctly. Judgment and insight: [chronically poor/impulsive, however has] improved with guarded prognosis Impression: adjustment disorder with disturbance of conduct Opioid use disorder Antisocial personality disorder Mood disorder unspecified [Nicotine dependence] legal problems. Plan: -Continue with discharge today as patient has improved and stabilized psychiatrically and is not currently an imminent threat to [himself] and/or ot hers. [Patient will remain at chronically elevated risk for harm to self and/or others due to his impulsivity and personality disorder.] -Continue medications: Zyprexa 20 mg daily at bedtime for mood stabilization/insomnia, Effexor XR 150 mg daily for mood/reside, Vistaril twice a day when necessary for anxiety, doxepin 20 mg daily at bedtime when necessary for insomnia, lithium 150 mg twice a day for mood stabilization/suicidal thoughts. -Patient was counseled on the need for medication compliance and appropriate follow-up at mental health and also primary care for medical issues. Patient ve rbalized understanding and agreed. -Social work to help coordinate patients discharge today back to penitentiary. Social work also to arrange for patients follow up appointments for psychiatric care along with follow up with primary care provider. -Patient counseled on abstaining from recreational drugs and marijuana and alcohol. Was informed/educated on the adverse effects on their physical and mental health. [Patient verbally agreed and understood]. -Patient was instructed to return to the hospital or seek immediate medical care if their psychiatric or medical symptoms do worsen or reoccur. Allergies Allergy/AdvReac Type Severity Reaction Status Date / Time ketorolac [From Toradol] Allergy Rash/Hives Verified 12/17/22 16:12 Laboratory Results WBC 12.1 k/uL (3.8-10.6) H 12/18/22 10:15 RBC 5.17 m/uL (4.30-5.90) 12/18/22 10:15 Hgb 14.7 gm/dL (13.0-17.5) 12/18/22 10:15 Hct 42.8 % (39.0-53.0) 12/18/22 10:15 MCV 82.7 fL (80.0-100.0) 12/18/22 10:15 MCH 28.5 pg (25.0-35.0) 12/18/22 10:15 MCHC 34.4 g/dL (31.0-37.0) 12/18/22 10:15 RDW 14.0 % (11.5-15.5) 12/18/22 10:15 Plt Count 313 k/uL (150-450) 12/18/22 10:15 MPV 8.0 12/18/22 10:15 Neutrophils % 72 % 12/18/22 10:15 Lymphocytes % 21 % 12/18/22 10:15 Monocytes % 5 % 12/18/22 10:15 Eosinophils % 1 % 12/18/22 10:15 Basophils % 0 % 12/18/22 10:15 Neutrophils # 8.7 k/uL (1.3-7.7) H 12/18/22 10:15 Lymphocytes # 2.5 k/uL (1.0-4.8) 12/18/22 10:15 Monocytes # 0.6 k/uL (0-1.0) 12/18/22 10:15 Eosinophils # 0.1 k/uL (0-0.7) 12/18/22 10:15 Basophils # 0.0 k/uL (0-0.2) 12/18/22 10:15 Sodium 142 mmol/L (137-145) 12/18/22 10:15 Potassium 4.1 mmol/L (3.5-5.1) 12/18/22 10:15 Chloride 107 mmol/L (98-107) 12/18/22 10:15 Carbon Dioxide 24 mmol/L (22-30) 12/18/22 10:15 Anion Gap 11 mmol/L 12/18/22 10:15 BUN 19 mg/dL (9-20) 12/18/22 10:15 Creatinine 0.90 mg/dL (0.66-1.25) 12/18/22 10:15 Est GFR (CKD-EPI)AfAm >90 (>60 ml/min/1.73 sqM) 12/18/22 10:15 Est GFR (CKD-EPI)NonAf >90 (>60 ml/min/1.73 sqM) 12/18/22 10:15 Glucose 96 mg/dL (74-99) 12/18/22 10:[address] Glu mg/dL 103 mg/dL 12/18/22 10:15 Hemoglobin A1c 5.2 % (<=6.0) 12/18/22 10:15 Calcium 9.9 mg/dL (8.4-10.2) 12/18/22 10:15 Total Bilirubin 0.8 mg/dL (0.2-1.3) 12/18/22 10:15 AST 19 U/L (17-59) 12/18/22 10:15 ALT 14 U/L (4-49) 12/18/22 10:15 Alkaline Phosphatase 49 U/L (38-126) 12/18/22 10:15 Total Protein 8.2 g/dL (6.3-8.2) 12/18/22 10:15 Albumin 4.6 g/dL (3.5-5.0) 12/18/22 10:15 TSH 1.160 mIU/L (0.465-4.680) 12/18/22 10:15 Coronavirus (PCR) Not Detected (Not Detectd) 12/17/22 13:19 HIV-1 Antibody Non-Reactive (Non-Reactive) 12/18/22 10:15 HIV Ag/Ab Interpret 12/18/22 10:15 HIV p24 Antibody Non-Reactive (Non-Reactive) 12/18/22 10:15 HIV-2 Antibody Non-Reactive (Non-Reactive) 12/18/22 10:15 HIV P24 Antigen Non-Reactive (Non-Reactive) 12/18/22 10:15 Vital Signs Temp 98.2 F 12/23/22 07:01 Pulse 119 H 12/24/22 22:55 Resp 18 12/24/22 22:55 BP 101/70 12/24/22 22:55 Pulse Ox 98 12/24/22 08:11 FiO2 Patient Condition at Discharge: Stable Plan - Discharge Summary Discharge Rx Participant: No New Discharge Prescriptions: New cloNIDine HCL [Catapres] 0.1 mg PO BID PRN 5 Days #10 tab PRN Reason: opioid w/d sx Doxepin HCl 25 mg PO HS PRN 30 Days #30 capsule PRN Reason: Insomnia Cephalexin [Keflex] 500 mg PO TID 5 Days #15 cap Venlafaxine HCl ER [Effexor XR] 150 mg PO DAILY 30 Days #30 cap Nicotine 14Mg/24Hr Patch [Habitrol] 1 patch TRANSDERM DAILY 14 Days #14 patch Zaleski Carbonate 150 mg PO BID 30 Days #60 cap hydrOXYzine pamoate [Vistaril] 50 mg PO DAILY PRN 30 Days #60 cap PRN Reason: Anxiety OLANZapine [ZyPREXA] 20 mg PO HS 30 Days #30 tablet Discharge Medication List Cephalexin [Keflex] 500 mg PO TID 5 Days #15 cap 12/25/22 [Rx] Doxepin HCl 25 mg PO HS PRN 30 Days #30 capsule 12/25/22 [Rx] Zaleski Carbonate 150 mg PO BID 30 Days #60 cap 12/25/22 [Rx] Nicotine 14Mg/24Hr Patch [Habitrol] 1 patch TRANSDERM DAILY 14 Days #14 patch 12/25/22 [Rx] OLANZapine [ZyPREXA] 20 mg PO HS 30 Days #30 tablet 12/25/22 [Rx] Venlafaxine HCl ER [Effexor XR] 150 mg PO DAILY 30 Days #30 cap 12/25/22 [Rx] cloNIDine HCL [Catapres] 0.1 mg PO BID PRN 5 Days #10 tab 12/25/22 [Rx] hydrOXYzine pamoate [Vistaril] 50 mg PO DAILY PRN 30 Days #60 cap 12/25/22 [Rx] Follow up Appointment(s)/Referral(s): Care, Yes [Other] - 1-2 Days (pt to be seen 16:00 day of d/c) None,Stated [Primary Care Provider] - 1-2 days Patient Instructions/Handouts: How to Stop Smoking (DC), Depression (DC), Polysubstance Abuse (ED) Activity/Diet/Wound Care/Special Instructions: Avoid the use of street drugs and alcohol. Take all medications as prescribed. When you are in need of refills on your medications, please contact your medical provider and/or outpatient psychiatrist/provider to have this done. Please go to your scheduled outpatient appointment for aftercare treatment. If symptoms return or become worse, call the crisis line at and/or go to the nearest emergency room for evaluation. National Suicide Hotline 790. Discharge Disposition: DC/TRANSFER COURT/LAW
== END 2022-12-25 13:55 | DRG 882 ==
LOC: EC 12:00 → 3MHU 15:53
PROVIDERS: ADMIT Psychiatry & Neurology Psychiatry; ATTEND Psychiatry & Neurology Psychiatry
DX: F43.24 Adjustment disorder with disturbance of conduct (principal); F11.20 Opioid dependence, uncomplicated; R45.851 Suicidal ideations; F19.239 Other psychoactive substance dependence with withdrawal, unspecified; F14.10 Cocaine abuse, uncomplicated; F15.10 Other stimulant abuse, uncomplicated; F60.2 Antisocial personality disorder; B19.20 Unspecified viral hepatitis C without hepatic coma; Z11.52 Encounter for screening for COVID-19; Z28.310 Unvaccinated for COVID-19; F32.A Depression, unspecified; F41.0 Panic disorder [episodic paroxysmal anxiety]; G47.00 Insomnia, unspecified; S10.93XA Contusion of unspecified part of neck, initial encounter; G25.81 Restless legs syndrome; M41.9 Scoliosis, unspecified; M54.9 Dorsalgia, unspecified; T71.162D Asphyxiation due to hanging, intentional self-harm, subsequent encounter; F17.210 Nicotine dependence, cigarettes, uncomplicated; F17.290 Nicotine dependence, other tobacco product, uncomplicated; Z71.6 Tobacco abuse counseling; Z65.3 Problems related to other legal circumstances; Z71.41 Alcohol abuse counseling and surveillance of alcoholic; Z71.51 Drug abuse counseling and surveillance of drug abuser; Z88.6 Allergy status to analgesic agent
CPT/HCPCS: 80053; 82075; 83036; 84443; 85025; 87390; 87635; 99285

== ENCOUNTER 2022-12-25 19:04 | Emergency (ER) | payer MEDICAID, OTHER ==
[2022-12-25 19:08] VITALS: RESP 18
[2022-12-25 19:13] LABS: Glucose,Whole Blood 120 mg/dL (70-110)
[2022-12-25] MEDS ORDERED: fentaNYL (PF) 50 MCG/ML 2 ML AMP IV STA (19:30)
[2022-12-25 19:58] LABS: Basophils % (A) 0 %; Eosinophils # (A) 0.4 k/uL (0-0.7); Eosinophils % (A) 3 %; HCT 42.3 % (39.0-53.0); HGB 14.5 gm/dL (13.0-17.5); Lymphocytes # (A) 4.1 k/uL (1.0-4.8); Lymphocytes % (A) 28 %; MCH 28.8 pg (25.0-35.0); MCHC 34.4 g/dL (31.0-37.0); MCV 83.9 fL (80.0-100.0); Mean Platelet Volume 7.4; Monocytes # (A) 0.9 k/uL (0-1.0); Monocytes % (A) 6 %; Neutrophils # (A) 9.2 k/uL (1.3-7.7); Neutrophils % (A) 62 %; Platelet Count 272 k/uL (150-450); RBC 5.04 m/uL (4.30-5.90); RDW 14.3 % (11.5-15.5); WBC 14.9 k/uL (3.8-10.6)
--- NOTE | 2022-12-25 20:04 | ED ---
Psych HPI - General Source: patient, EMS, RN notes reviewed, old records reviewed Mode of arrival: EMS - History of Present Illness MD Complaint: suicidal ideation, feels depressed, other <Papo Ballesteros - Last Filed: 12/25/22 20:53> <Herman Chow - Last Filed: 12/26/22 20:06> - General Chief Complaint: Psychiatric Symptoms Stated Complaint: suicidal Time Seen by Provider: 12/25/22 19:04 - History of Present Illness Initial Comments: 36-year-old male history depression who was just discharged yesterday from this facility who was at the [facility] where he was found hanging by a be d sheet for approximately there for 3-4 minutes he never lost consciousness never less function is upper or lower extremities was finally taken down by staff he did complain of neck pain. He is brought in by EMS with a cervical collar on. Patient was a priority [address] Kc did respond and I did discuss the case with him (Papo Ballesteros) - Related Data Previous Rx's Medication Instructions Recorded Cephalexin [Keflex] 500 mg PO TID 5 Days #15 cap 12/25/22 Doxepin HCl 25 mg PO HS PRN 30 Days #30 capsule 12/25/22 [place] Carbonate 150 mg PO BID 30 Days #60 cap 12/25/22 Nicotine 14Mg/24Hr Patch [Habitrol] 1 patch TRANSDERM DAILY 14 Days 12/25/22 #14 patch OLANZapine [ZyPREXA] 20 mg PO HS 30 Days #30 tablet 12/25/22 Venlafaxine HCl ER [Effexor XR] 150 mg PO DAILY 30 Days #30 cap 12/25/22 cloNIDine HCL [Catapres] 0.1 mg PO BID PRN 5 Days #10 tab 12/25/22 hydrOXYzine pamoate [Vistaril] 50 mg PO DAILY PRN 30 Days #60 cap 12/25/22 Allergies Allergy/AdvReac Type Severity Reaction Status Date / Time ketorolac [From Toradol] Allergy Rash/Hives Verified 12/25/22 22:26 Review of Systems ROS Other: All systems not noted in ROS Statement are negative. <Papo Ballesteros - Last Filed: 12/25/22 20:53> ROS Other: All systems not noted in ROS Statement are negative. <Herman Chow - Last Filed: 12/26/22 20:06> ROS Statement: Those systems with pertinent positive or pertinent negative responses have been documented in the HPI. Past Medical History Past Medical History: No Reported History Additional Past Medical History / Comment(s): scoliosis, back pain, hep C, fentanyl abuse History of Any Multi-Drug Resistant Organisms: None Reported Past Surgical History: No Surgical Hx Reported Additional Past Surgical History / Comment(s): cyst removal Past Anesthesia/Blood Transfusion Reactions: No Reported Reaction Past Psychological History: Depression Smoking Status: Vaper Past Alcohol Use History: None Reported - Past Family History Father Family Medical History: No Reported History Mother Family Medical History: No Reported History Brother(s) Family Medical History: No Reported History Sister(s) Family Medical History: No Reported History <Papo Ballesteros - Last Filed: 12/25/22 20:53> General Exam Limitations: no limitations (Cervical collar) General appearance: alert, anxious Head exam: Present: atraumatic, normocephalic, normal inspection Eye exam: Present: normal appearance, PERRL, EOMI. Absent: scleral icterus, conjunctival injection, periorbital swelling ENT exam: Present: normal exam, mucous membranes moist Neck exam: Present: tenderness, other (Color place tenderness palpation over the mid cervical spineSpinous musculature. Some erythema noted from the bed she) Respiratory exam: Present: normal lung sounds bilaterally. Absent: respiratory distress, wheezes, rales, rhonchi, stridor Cardiovascular Exam: Present: normal rhythm, tachycardia. Absent: systolic murmur, diastolic murmur, rubs, gallop, clicks GI/Abdominal exam: Present: soft, normal bowel sounds. Absent: distended, tenderness, guarding, rebound, rigid Extremities exam: Present: normal inspection, full ROM, normal capillary refill. Absent: tenderness, pedal edema, joint swelling, calf tenderness Back exam: Present: normal inspection Neurological exam: Present: alert, oriented X3, CN II-XII intact. Absent: motor sensory deficit Psychiatric exam: Present: depressed, suicidal ideation Skin exam: Present: warm, dry, intact, normal color. Absent: rash <Papo Ballesteros - Last Filed: 12/25/22 20:53> - General Exam Comments Initial Comments: Is a well-developed well-nourished awake alert oriented 4 male with a [place] Coma Scale of 15 (Papo Ballesteros) Course <Papo Ballesteros - Last Filed: 12/25/22 20:53> Vital Signs 12/25/22 12/25/22 12/26/22 19:06 21:00 17:30 Temperature 98.3 F Pulse Rate 118 H 84 78 Respiratory 18 18 18 Rate Blood Pressure 148/94 128/76 134/74 O2 Sat by Pulse 96 99 98 Oximetry - Reevaluation(s) Reevaluation #1: 12/25/22 20:53 Patient's care is endorsed to Dr. Magdaleno at her shift change pending EPS evaluation (Papo Ballesteros) Medical Decision Making - Lab Data Result diagrams: 12/25/22 19:50 12/25/22 19:50 <FavianPapo - Last Filed: 12/25/22 20:53> - Lab Data Result diagrams: 12/25/22 19:50 12/25/22 19:50 <Herman Chow - Last Filed: 12/26/22 20:06> - Medical Decision Making She'll be endorsed to Dr. Magdaleno at our shift change pending EPS evaluation patient's workup thus far for injury chest x-ray interpreted by me negative for acute process computed tomography scan of the neck including angiography interpreted by me no acute processes. Cervical collar is removed. Very minimal evidence of erythema to the neck at this time no open wounds. Was pt. sent in by a medical professional or institution (, PA, INTERNET ARCHITECT, urgent care, hospital, or fpc...) When possible be specific @ -[No] Did you speak to anyone other than the patient for history (EMS, parent, family, police, friend...)? What history was obtained from this source @ -[Paramedics and police] Did you review nursing and triage notes (agree or disagree)? Why? @ -[I reviewed and agree with nursing and triage notes] Were old charts reviewed (outside hosp., previous admission, EMS record, old EKG, old radiological studies, urgent care reports/EKG's, fpc records)? Report findings @ -[ old charts were reviewed] Differential Diagnosis (chest pain, altered mental status, abdominal pain women, abdominal pain men, vaginal bleeding, weakness, fever, dyspnea, syncope, headache, dizziness, GI bleed, back pain, seizure, CVA, palpatations, mental he alth, musculoskeletal)? @ -[Cervical/soft tissue neck injury] EKG interpreted by me (3pts min.). @ -[As above interpreted by me sinus tachycardia rate 106. Interval 132 QRS duration 76 QT since QTC 318/[address]-T wave changes seen.] X-rays interpreted by me (1pt min.). @ -[Chest x-ray interpreted by me negative for acute process] CT interpreted by me (1pt min.). @ -[CT angios neck interpreted by me no evidence of acute cervical spinous injury or vascular injuries. No evidence of soft tissue injuries] U/S interpreted by me (1pt. min.). @ -[None done] What testing was considered but not performed or refused? (CT, X-rays, U/S, labs)? Why? @ -[None] What meds were considered but not given or refused? Why? @ -[Dr. Magdaleno at her shift change] Did you discuss the management of the patient with other professionals (prof casanova i.eSusan Crocker, PA, INTERNET ARCHITECT, lab, RT, psych nurse, social services coordinator, psychologist military personnel, teacher, tactical response group officer, therapeutic case manager)? Give summary @ -[No] Was smoking cessation discussed for >3mins.? @ -[No] Was critical care preformed (if so, how long)? @ -[37 minutes patient was a priority 2 trauma alert] Were there social determinants of health that impacted care today? How? (Homelessness, low income, unemployed, alcoholism, drug addiction, transportation, low edu. Level, literacy, decrease access to med. care, detention, rehab)? @ -[No] Was there de-escalation of care discussed even if they declined (Discuss DNR or withdrawal of care, Hospice)? DNR status @ -[No] What co-morbidities impacted this encounter? (DM, HTN, Smoking, COPD, CAD, Cancer, CVA, ARF, Chemo, Hep., AIDS, mental health diagnosis, sleep apnea, morbid obesity)? @ -[None] Was patient admitted / discharged? Hospital course, mention meds given and route, prescriptions, significant lab abnormalities, going to OR and other pertinent info. @ -[hospital course] Undiagnosed new problem with uncertain prognosis? @ -[No] Drug Therapy requiring intensive monitoring for toxicity (Heparin, Nitro, Insulin, Cardizem)? @ -[No] Were any procedures done? @ -[No] Diagnosis/symptom? @ -[default] Acute, or Chronic, or Acute on Chronic? @ -[default] Uncomplicated (without systemic symptoms) or Complicated (systemic symptoms)? @ -[default] Side effects of treatment? @ -[No] Exacerbation, Progression, or Severe Exacerbation? @ -[No] Poses a threat to life or bodily function? How? (Chest pain, [place], [place], pneumonia, PE, COPD, DKA, ARF, appy, cholecystitis, CVA, Diverticulitis, Homicidal, Suicidal, threat to staff... and all critical care pts) @ -[No] (Papo Ballesteros) I was informed by EPS the patient is cleared for discharge back to skilled nursing. They will remove all suicide related material from the patient's cell. He does not require placement. Patient discharged back with safety plan. (Herman Chow) - Lab Data Lab Results 12/25/22 12/25/22 12/25/22 Range/Units 19:12 19:25 19:50 WBC 14.9 H (3.8-10.6) k/uL RBC 5.04 (4.30-5.90) m/uL Hgb 14.5 (13.0-17.5) gm/dL Hct 42.3 (39.0-53.0) % MCV 83.9 (80.0-100.0) fL MCH 28.8 (25.0-35.0) pg MCHC 34.4 (31.0-37.0) g/dL RDW 14.3 (11.5-15.5) % Plt Count 272 (150-450) k/uL MPV 7.4 Neutrophils % 62 % Lymphocytes % 28 % Monocytes % 6 % Eosinophils % 3 % Basophils % 0 % Neutrophils # 9.2 H (1.3-7.7) k/uL Lymphocytes # 4.1 (1.0-4.8) k/uL Monocytes # 0.9 (0-1.0) k/uL Eosinophils # 0.4 (0-0.7) k/uL Basophils # 0.0 (0-0.2) k/uL PT (9.0-12.0) sec INR (<1.2) APTT (22.0-30.0) sec Sodium (137-145) mmol/L Potassium (3.5-5.1) mmol/L Chloride (98-107) mmol/L Carbon Dioxide (22-30) mmol/L Anion Gap mmol/L BUN (9-20) mg/dL Creatinine (0.66-1.25) mg/dL Est GFR (CKD-EPI)AfAm (>60 ml/min/1.73 sqM) Est GFR (CKD-EPI)NonAf (>60 ml/min/1.73 sqM) Glucose (74-99) mg/dL POC Glucose (mg/dL) 120 H (70-110) mg/dL POC Glu Manager [employer] ID Enoch Leyva Calcium (8.4-10.2) mg/dL Total Bilirubin (0.2-1.3) mg/dL AST (17-59) U/L ALT (4-49) U/L Alkaline Phosphatase (38-126) U/L Troponin I (0.000-0.034) ng/mL Total Protein (6.3-8.2) g/dL Albumin (3.5-5.0) g/dL Urine Color Urine Appearance (Clear) Urine pH (5.0-8.0) Ur Specific [place] (1.001-1.035) Urine Protein (Negative) Urine Glucose (UA) (Negative) Urine Ketones (Negative) Urine Blood (Negative) Urine Nitrite (Negative) Urine Bilirubin (Negative) Urine Urobilinogen (<2.0) mg/dL Ur Leukocyte Esterase (Negative) Urine Opiates Screen (NotDetected) Ur Oxycodone Screen (NotDetected) Urine Methadone Screen (NotDetected) Ur Propoxyphene Screen (NotDetected) Ur Barbiturates Screen (NotDetected) U Tricyclic Antidepress (NotDetected) Ur Phencyclidine Scrn (NotDetected) Ur Amphetamines Screen (NotDetected) U Methamphetamines Scrn (NotDetected) U Benzodiazepines Scrn (NotDetected) Urine Cocaine Screen (NotDetected) U Marijuana (THC) Screen (NotDetected) Serum Alcohol mg/dL Coronavirus (PCR) (Not Detectd) Blood Type O Positive Blood Type Recheck O Pos Bld Type Recheck Status No Antibody Screen NEGATIVE Spec Expiration Date 12/28/2022232412/25/22 12/25/22 12/25/22 Range/Units 19:50 19:50 19:50 WBC (3.8-10.6) k/uL RBC (4.30-5.90) m/uL Hgb (13.0-17.5) gm/dL Hct (39.0-53.0) % MCV (80.0-100.0) fL MCH (25.0-35.0) pg MCHC (31.0-37.0) g/dL RDW (11.5-15.5) % Plt Count (150-450) k/uL MPV Neutrophils % % Lymphocytes % % Monocytes % % Eosinophils % % Basophils % % Neutrophils # (1.3-7.7) k/uL Lymphocytes # (1.0-4.8) k/uL Monocytes # (0-1.0) k/uL Eosinophils # (0-0.7) k/uL Basophils # (0-0.2) k/uL PT 10.4 (9.0-12.0) sec INR 1.0 (<1.2) APTT 23.7 (22.0-30.0) sec Sodium 141 (137-145) mmol/L Potassium 4.6 (3.5-5.1) mmol/L Chloride 107 (98-107) mmol/L Carbon Dioxide 23 (22-30) mmol/L Anion Gap 11 mmol/L BUN 22 H (9-20) mg/dL Creatinine 1.08 (0.66-1.25) mg/dL Est GFR (CKD-EPI)AfAm >90 (>60 ml/min/1.73 sqM) Est GFR (CKD-EPI)NonAf 86 (>60 ml/min/1.73 sqM) Glucose 87 (74-99) mg/dL POC Glucose (mg/dL) (70-110) mg/dL POC Glu Manager [employer] ID Calcium 9.6 (8.4-10.2) mg/dL Total Bilirubin 0.3 (0.2-1.3) mg/dL AST 22 (17-59) U/L ALT 16 (4-49) U/L Alkaline Phosphatase 51 (38-126) U/L Troponin I <0.012 (0.000-0.034) ng/mL Total Protein 7.7 (6.3-8.2) g/dL Albumin 4.5 (3.5-5.0) g/dL Urine Color Urine Appearance (Clear) Urine pH (5.0-8.0) Ur Specific [place] (1.001-1.035) Urine Protein (Negative) Urine Glucose (UA) (Negative) Urine Ketones (Negative) Urine Blood (Negative) Urine Nitrite (Negative) Urine Bilirubin (Negative) Urine Urobilinogen (<2.0) mg/dL Ur Leukocyte Esterase (Negative) Urine Opiates Screen (NotDetected) Ur Oxycodone Screen (NotDetected) Urine Methadone Screen (NotDetected) Ur Propoxyphene Screen (NotDetected) Ur Barbiturates Screen (NotDetected) U Tricyclic Antidepress (NotDetected) Ur Phencyclidine Scrn (NotDetected) Ur Amphetamines Screen (NotDetected) U Methamphetamines Scrn (NotDetected) U Benzodiazepines Scrn (NotDetected) Urine Cocaine Screen (NotDetected) U Marijuana (THC) Screen (NotDetected) Serum Alcohol <10 mg/dL Coronavirus (PCR) (Not Detectd) Blood Type Blood Type Recheck Bld Type Recheck Status Antibody Screen Spec Expiration Date 12/26/22 12/26/22 12/26/22 Range/Units 04:06 04:06 04:06 WBC (3.8-10.6) k/uL RBC (4.30-5.90) m/uL Hgb (13.0-17.5) gm/dL Hct (39.0-53.0) % MCV (80.0-100.0) fL MCH (25.0-35.0) pg MCHC (31.0-37.0) g/dL RDW (11.5-15.5) % Plt Count (150-450) k/uL MPV Neutrophils % % Lymphocytes % % Monocytes % % Eosinophils % % Basophils % % Neutrophils # (1.3-7.7) k/uL Lymphocytes # (1.0-4.8) k/uL Monocytes # (0-1.0) k/uL Eosinophils # (0-0.7) k/uL Basophils # (0-0.2) k/uL PT (9.0-12.0) sec INR (<1.2) APTT (22.0-30.0) sec Sodium (137-145) mmol/L Potassium (3.5-5.1) mmol/L Chloride (98-107) mmol/L Carbon Dioxide (22-30) mmol/L Anion Gap mmol/L BUN (9-20) mg/dL Creatinine (0.66-1.25) mg/dL Est GFR (CKD-EPI)AfAm (>60 ml/min/1.73 sqM) Est GFR (CKD-EPI)NonAf (>60 ml/min/1.73 sqM) Glucose (74-99) mg/dL POC Glucose (mg/dL) (70-110) mg/dL POC Glu Manager [employer] ID Calcium (8.4-10.2) mg/dL Total Bilirubin (0.2-1.3) mg/dL AST (17-59) U/L ALT (4-49) U/L Alkaline Phosphatase (38-126) U/L Troponin I (0.000-0.034) ng/mL Total Protein (6.3-8.2) g/dL Albumin (3.5-5.0) g/dL Urine Color Light Yellow Urine Appearance Clear (Clear) Urine pH 5.5 (5.0-8.0) Ur Specific [place] 1.035 (1.001-1.035) Urine Protein Negative (Negative) Urine Glucose (UA) Negative (Negative) Urine Ketones Negative (Negative) Urine Blood Negative (Negative) Urine Nitrite Negative (Negative) Urine Bilirubin Negative (Negative) Urine Urobilinogen <2.0 (<2.0) mg/dL Ur Leukocyte Esterase Negative (Negative) Urine Opiates Screen Not Detected (NotDetected) Ur Oxycodone Screen Not Detected (NotDetected) Urine Methadone Screen Not Detected (NotDetected) Ur Propoxyphene Screen Not Detected (NotDetected) Ur Barbiturates Screen Not Detected (NotDetected) U Tricyclic Antidepress Not Detected (NotDetected) Ur Phencyclidine Scrn Not Detected (NotDetected) Ur Amphetamines Screen Not Detected (NotDetected) U Methamphetamines Scrn Not Detected (NotDetected) U Benzodiazepines Scrn Not Detected (NotDetected) Urine Cocaine Screen Not Detected (NotDetected) U Marijuana (THC) Screen Not Detected (NotDetected) Serum Alcohol mg/dL Coronavirus (PCR) Not Detected (Not Detectd) Blood Type Blood Type Recheck Bld Type Recheck Status Antibody Screen Spec Expiration Date - EKG Data EKG Comments: EKG interpreted by me sinus tachycardia of 106 DC interval 132 QRS duration 76 QT/QTC 318/380 (Papo Ballesteros) - Radiology Data Interpreted by me: CT imaging interpreted by me no evidence of acute processes/abnormalities chest x-ray also interpreted by me no acute processes (Papo Ballesteros) Critical Care Time Critical Care Time: Yes Total Critical Care Time: 37 <Papo Ballesteros - Last Filed: 12/25/22 20:53> Disposition <Papo Ballesteros - Last Filed: 12/25/22 20:53> - Out of Hospital Transfer - Req. Specs Out of Hospital Transfer - Requested Specifics: Other Non-Acute (Transferred back to skilled nursing. following safety plan.) <Herman Chow - Last Filed: 12/26/22 20:06> Clinical Impression: Encounter for psychological evaluation, Suicidal ideations Disposition: OTHER INSTITUTION NOT DEFINED Condition: Fair Additional Instructions: follow safety plan. Referrals: None,Stated [Primary Care Provider] - 1-2 days
[2022-12-25 20:08] LABS: Partial Thromboplastin Time 23.7 sec (22.0-30.0); Prothrombin Time 10.4 sec (9.0-12.0)
[2022-12-25 20:10] LABS: ALT 16 U/L (4-49); AST 22 U/L (17-59); African American GFR (CKD) >90 (>60 ml/min/1.73 sqM); Albumin 4.5 g/dL (3.5-5.0); Alcohol <10 mg/dL; Alkaline Phosphatase 51 U/L (38-126); Anion Gap 11 mmol/L; Blood Urea Nitrogen 22 mg/dL (9-20); Calcium 9.6 mg/dL (8.4-10.2); Carbon Dioxide 23 mmol/L (22-30); Chloride 107 mmol/L (98-107); Glucose 87 mg/dL (74-99); Non-African American GFR(CKD) 86 (>60 ml/min/1.73 sqM); Potassium 4.6 mmol/L (3.5-5.1); Sodium 141 mmol/L (137-145); Total Bilirubin 0.3 mg/dL (0.2-1.3); Total Protein 7.7 g/dL (6.3-8.2)
--- NOTE | 2022-12-25 20:29 | XR ---
EXAMINATION: XR chest 1V portable DATE AND TIME: 12/25/2022 7:14 PM CLINICAL INDICATION: [facility]; trauma TECHNIQUE: Departmental protocol COMPARISON: 09/22/2022 FINDINGS: EKG leads. The lungs are clear. The pleural spaces are negative. The cardiac silhouette is not enlarged. The remainder of the mediastinal silhouette is unremarkable. The skeletal structures and soft tissues are negative for acute findings. IMPRESSION: No acute radiographic process.
--- NOTE | 2022-12-25 20:46 | CT ---
EXAMINATION TYPE: CT angio neck DATE OF EXAM: 12/25/2022 HISTORY: attempted hanging suicide. P2T COMPARISON: 09/24/2022 CT DLP: 427.5 mGycm. Automated Exposure Control for Dose Reduction was Utilized. TECHNIQUE: CTA scan of the head and neck is performed with IV Contrast, patient injected with 65 cc w ith saline mL of Isovue 370, axial images are obtained, coronal and sagittal reformatted images are r eviewed. 3D reconstructed images are created on an independent workstation and reviewed. FINDINGS: The bilateral carotid arterial systems are widely patent. The bilateral vertebral arterial systems are widely patent. No acute skeletal incidental findings. IMPRESSION: No significant abnormality is seen.
[2022-12-26] MEDS ORDERED: hydrOXYzine pamoate 25 MG CAP PO PRN (02:22)
[2022-12-26] MEDS ORDERED: OLANZapine 10 MG TAB PO ONE (03:00)
[2022-12-26] MEDS ORDERED: DOXEPIN 25 MG CAP PO PRN (03:43)
[2022-12-26 05:40] LABS: Appearance,Urine Clear (Clear); Bilirubin,Urine Negative (Negative); Blood,Urine Negative (Negative); Color,Urine Light Yellow; Glucose,Urine (UA) Negative (Negative); Ketones,Urine Negative (Negative); Leukocyte Esterase,Urine Negative (Negative); Nitrite,Urine Negative (Negative); PH, Urine 5.5 (5.0-8.0); Protein,Urine Negative (Negative); Specific Gravity,Urine 1.035 (1.001-1.035); Urobilinogen,Urine <2.0 mg/dL (<2.0)
[2022-12-26 05:58] LABS: Amphetamine Screen,Urine Not Detected (NotDetected); Barbiturate Screen,Urine Not Detected (NotDetected); Benzodiazepines Screen,Urine Not Detected (NotDetected); Cocaine Screen,Urine Not Detected (NotDetected); Methadone Screen, Urine Not Detected (NotDetected); Opiate Screen,Urine Not Detected (NotDetected); Oxycodone Screen, Urine Not Detected (NotDetected); Phencyclidine Screen,Urine Not Detected (NotDetected); Tricyclic Antidepressant,Urine Not Detected (NotDetected); Urn Cannabinoid Scrn Not Detected (NotDetected)
[2022-12-26] MEDS ORDERED: ACETAMINOPHEN TAB 500 MG TAB PO STA (08:29)
[2022-12-26] MEDS ORDERED: cloNIDine HCL 0.1 MG TAB PO SCH (09:00)
[2022-12-26] MEDS ORDERED: NICOTINE 14MG/24HR PATCH TRANSDERM SCH (09:00)
[2022-12-26] MEDS ORDERED: VENLAFAXINE HCL ER 150 MG CAP PO SCH (09:00)
[2022-12-26] MEDS ORDERED: LITHIUM CARBONATE 150 MG CAP PO SCH (09:00)
[2022-12-26 12:39] VITALS: TEMP 98.3
[2022-12-26 17:39] VITALS: BP 134/74; PULSE 78
[2022-12-26] MEDS ORDERED: OLANZapine 10 MG TAB PO SCH (21:00)
== END 2022-12-26 18:03 | disposition other institution (70) ==
LOC: EC 19:04
DX: R45.851 Suicidal ideations (principal); Z13.39 Encounter for screening examination for other mental health and behavioral disorders; F32.A Depression, unspecified; F17.290 Nicotine dependence, other tobacco product, uncomplicated; Z79.899 Other long term (current) drug therapy; Z20.822 Contact with and (suspected) exposure to COVID-19; Z88.5 Allergy status to narcotic agent
CPT/HCPCS: 36415; 93005; 86900; 86901; 80053; 84484; 85025; 85610; 85730; 86850; 81003; 80306; 87635; 71045; 70498; 99285; 96374; G0480; S4990; J3010; Q9967; 80320

== ENCOUNTER 2023-04-01 18:00 | Emergency (ER) | payer MEDICAID, OTHER ==
--- NOTE | 2023-04-01 19:47 | ED ---
General Adult HPI - General Source: patient Mode of arrival: ambulatory Limitations: no limitations <Ramon Schuster - Last Filed: 04/01/23 19:47> <Mal Hodges - Last Filed: 04/06/23 17:08> - General Chief complaint: Skin/Abscess/Foreign Body Stated complaint: Infection on Back - History of Present Illness Initial comments: 38-year-old male with a past medical history significant for IVDA, last use 2 days ago presenting to the ED with a chief complaint of abscess. He notes that he uses heroin. States for the past 4-5 days has had an abscess in the middle of his back. States pain worsening in nature since onset. Denies fevers but notes chills. No saddle anesthesia or incontinence. Denied chest pain (Ramon Schuster) 2-year-old male with history of IVDA presenting with chief complaint of abscess to the back. Patient states that he has had this abscess for the last 4-5 days, states that about 2-3 days ago it started draining. Located near the right scapula. States the pain is worse today. He notes some chills, no fevers. No nausea, vomiting, abdominal pain. This abscess is not over a site for IV drug use. No chest pain or difficulty breathing. Has not previously been on any antibiotics for this issue. (Mal Hodges) - Related Data Previous Rx's Medication Instructions Recorded Cephalexin [Keflex] 500 mg PO Q6HR 7 Days #28 cap 04/02/23 Sulfamethox-Tmp 800-160Mg [Bactrim 1 tab PO Q12HR 7 Days #14 tab 04/02/23 DS 800-160 mg] Allergies Allergy/AdvReac Type Severity Reaction Status Date / Time ketorolac [From Toradol] Allergy Rash/Hives Verified 04/01/23 22:54 Review of Systems ROS Other: All systems not noted in ROS Statement are negative. <Ramon Schuster - Last Filed: 04/01/23 19:47> ROS Other: All systems not noted in ROS Statement are negative. <Mal Hodges - Last Filed: 04/06/23 17:08> ROS Statement: Those systems with pertinent positive or pertinent negative responses have been documented in the HPI. Past Medical History Past Medical History: No Reported History Additional Past Medical History / Comment(s): scoliosis, back pain, hep C, fentanyl abuse History of Any Multi-Drug Resistant Organisms: None Reported Past Surgical History: No Surgical Hx Reported Additional Past Surgical History / Comment(s): cyst removal Past Anesthesia/Blood Transfusion Reactions: No Reported Reaction Past Psychological History: Depression Smoking Status: Vaper Past Alcohol Use History: None Reported - Past Family History Father Family Medical History: No Reported History Mother Family Medical History: No Reported History Brother(s) Family Medical History: No Reported History Sister(s) Family Medical History: No Reported History <Ramon Schuster - Last Filed: 04/01/23 19:47> General Exam Limitations: no limitations <Ramon Schuster - Last Filed: 04/01/23 19:47> General appearance: alert, in no apparent distress Head exam: Present: atraumatic, normocephalic Eye exam: Present: normal appearance Neck exam: Present: normal inspection Respiratory exam: Present: normal lung sounds bilaterally. Absent: respiratory distress, wheezes, rales, rhonchi, stridor Cardiovascular Exam: Present: normal rhythm, tachycardia, normal heart sounds. Absent: systolic murmur, diastolic murmur, rubs, gallop, clicks Neurological exam: Present: alert, oriented X3 Psychiatric exam: Present: normal affect, normal mood Expanded Type of lesion: Present: abscess (Draining abscess near the right scapula) <Mal Hodges - Last Filed: 04/06/23 17:08> - General Exam Comments Initial Comments: Visual Physical Exam Vital signs reviewed General: Well-appearing, nontoxic, no acute distress. Head: Normocephalic, atraumatic Eyes: PERRLA, EOMI ENT: Airway patent Chest: Nonlabored breathing Skin: No visual rash, normal skin tone Neuro: Alert and oriented 3 Musculoskeletal: No gross abnormalities (Ramon Schuster) Course Vital Signs 04/01/23 04/01/23 04/01/23 19:40 22:20 23:10 Temperature 99.1 F 98.7 F Pulse Rate 119 H 91 90 Respiratory 22 16 16 Rate Blood Pressure 121/61 117/70 121/74 O2 Sat by Pulse 99 95 100 Oximetry 04/02/23 00:23 Temperature 98.9 F Pulse Rate 110 H Respiratory 16 Rate Blood Pressure 131/83 O2 Sat by Pulse 98 Oximetry Medical Decision Making <Ramon Schuster - Last Filed: 04/01/23 19:47> - Lab Data Result diagrams: 04/01/23 19:59 04/01/23 19:59 <Mal Hodges - Last Filed: 04/06/23 17:08> - Medical Decision Making Quicknote portion performed. Signed Ramon Schuster PA-C (Ramon Schuster) Was pt. sent in by a medical professional or institution ([facility], [facility] [employer], urgent care, hospital, or fpc...) When possible be specific @ -No Did you speak to anyone other than the patient for history (EMS, parent, family, police, friend...)? What history was obtained from this source @ -No Did you review nursing and triage notes (agree or disagree)? Why? @ -I reviewed and agree with nursing and triage notes Were old charts reviewed (outside hosp., previous admission, EMS record, old EKG, old radiological studies, urgent care reports/EKG's, fpc records)? Report findings @ -No old charts were reviewed Differential Diagnosis (chest pain, altered mental status, abdominal pain women, abdominal pain men, vaginal bleeding, weakness, fever, dyspnea, syncope, headache, dizziness, GI bleed, back pain, seizure, CVA, palpatations, mental health, musculoskeletal)? @ -Differential includes abscess, cellulitis, this is not an all inclusive list EKG interpreted by me (3pts min.). @ -As above X-rays interpreted by me (1pt min.). @ -Chest x-ray shows no acute cardiopulmonary process CT interpreted by me (1pt min.). @ -CT shows fluid collection area of palpable abnormality measuring 20 x 10 mm suggestive of abscess formation. There is skin thickening in this region. Fat stranding changes extend along the subcutaneous tissues of the back. No evidence of osseous erosion. U/S interpreted by me (1pt. min.). @ -None done What testing was considered but not performed or refused? (CT, X-rays, U/S, labs)? Why? @ -None What meds were considered but not given or refused? Why? @ -None Did you discuss the management of the patient with other professionals (professionals i.e. DrSusan, PA, [employer], lab, RT, psych nurse, director of social work, supplemental nurse, teacher, commanding officer garage, immigration case manager)? Give summary @ -No Was smoking cessation discussed for >3mins.? @ -No Was critical care preformed (if so, how long)? @ -No Were there social determinants of health that impacted care today? How? (Homelessness, low income, unemployed, alcoholism, drug addiction, transportation, low edu. Level, literacy, decrease access to med. care, [facility], rehab)? @ -No Was there de-escalation of care discussed even if they declined (Discuss DNR or withdrawal of care, Hospice)? DNR status @ -No What co-morbidities impacted this encounter? (DM, HTN, Smoking, COPD, CAD, Cancer, CVA, ARF, Chemo, Hep., AIDS, mental health diagnosis, sleep apnea, morbid obesity)? @ -None Was patient admitted / discharged? Hospital course, mention meds given and route, prescriptions, significant lab abnormalities, going to OR and other pertinent info. @ -38-year-old male presenting with chief complaint of abscess to the back. It has been present for the last 5 days, has been draining for the last 2-3 days. Patient is afebrile. Patient has history of IV drug use however this abscess is not over a site of injection. CT shows no bone involvement. Lab work shows WBC 14.0 and CRP 6.7, which is to be expected. ESR and blood cultures are sent out. Given that the patient is afebrile and hemodynamically stable, he will be started on Bactrim and Keflex. I discussed this case with my attending Dr. Harris Undiagnosed new problem with uncertain prognosis? @ -No Drug Therapy requiring intensive monitoring for toxicity (Heparin, Nitro, Insulin, Cardizem)? @ -No Were any procedures done? @ -No Diagnosis/symptom? @ -Abscess Acute, or Chronic, or Acute on Chronic? @ -acute Uncomplicated (without systemic symptoms) or Complicated (systemic symptoms)? @ -Uncomplicated Side effects of treatment? @ -No Exacerbation, Progression, or Severe Exacerbation? @ -No Poses a threat to life or bodily function? How? (Chest pain, USA, PA, pneumonia, PE, COPD, DKA, ARF, appy, cholecystitis, CVA, Diverticulitis, Homicidal, Suicidal, threat to staff... and all critical care pts) @ -Low likelihood (Mal Hodges) - Lab Data Lab Results 04/01/23 04/01/23 04/01/23 Range/Units 19:59 19:59 19:59 WBC 14.0 H (3.8-10.6) k/uL RBC 5.45 (4.30-5.90) m/uL Hgb 16.0 (13.0-17.5) gm/dL Hct 46.9 (39.0-53.0) % MCV 86.0 (80.0-100.0) fL MCH 29.4 (25.0-35.0) pg MCHC 34.2 (31.0-37.0) g/dL RDW 12.7 (11.5-15.5) % Plt Count 292 (150-450) k/uL MPV 8.3 Neutrophils % 85 % Lymphocytes % 9 % Monocytes % 4 % Eosinophils % 1 % Basophils % 0 % Neutrophils # 11.8 H (1.3-7.7) k/uL Lymphocytes # 1.2 (1.0-4.8) k/uL Monocytes # 0.6 (0-1.0) k/uL Eosinophils # 0.1 (0-0.7) k/uL Basophils # 0.0 (0-0.2) k/uL ESR 81 H (0-15) mm/Hr PT (10.0-12.5) sec INR (<1.2) APTT (22.0-30.0) sec Sodium 139 (137-145) mmol/L Potassium 4.7 (3.5-5.1) mmol/L Chloride 97 L (98-107) mmol/L Carbon Dioxide 25 (22-30) mmol/L Anion Gap 17 mmol/L BUN 18 (9-20) mg/dL Creatinine 0.98 (0.66-1.25) mg/dL Est GFR (CKD-EPI)AfAm >90 (>60 ml/min/1.73 sqM) Est GFR (CKD-EPI)NonAf >90 (>60 ml/min/1.73 sqM) Glucose 105 H (74-99) mg/dL Calcium 10.1 (8.4-10.2) mg/dL Magnesium 2.3 (1.6-2.3) mg/dL Total Bilirubin 1.0 (0.2-1.3) mg/dL AST 26 (17-59) U/L ALT 18 (4-49) U/L Alkaline Phosphatase 81 (38-126) U/L Troponin I (0.000-0.034) ng/mL C-Reactive Protein 6.7 H (<1.0) mg/dL Total Protein 10.2 H (6.3-8.2) g/dL Albumin 5.0 (3.5-5.0) g/dL Urine Color Light Yellow Urine Appearance Clear (Clear) Urine pH 7.0 (5.0-8.0) Ur Specific [place] >1.050 H (1.001-1.035) Urine Protein Trace H (Negative) Urine Glucose (UA) Negative (Negative) Urine Ketones 1+ H (Negative) Urine Blood Negative (Negative) Urine Nitrite Negative (Negative) Urine Bilirubin Negative (Negative) Urine Urobilinogen <2.0 (<2.0) mg/dL Ur Leukocyte Esterase Negative (Negative) 04/01/23 04/01/23 Range/Units 19:59 19:59 WBC (3.8-10.6) k/uL RBC (4.30-5.90) m/uL Hgb (13.0-17.5) gm/dL Hct (39.0-53.0) % MCV (80.0-100.0) fL MCH (25.0-35.0) pg MCHC (31.0-37.0) g/dL RDW (11.5-15.5) % Plt Count (150-450) k/uL MPV Neutrophils % % Lymphocytes % % Monocytes % % Eosinophils % % Basophils % % Neutrophils # (1.3-7.7) k/uL Lymphocytes # (1.0-4.8) k/uL Monocytes # (0-1.0) k/uL Eosinophils # (0-0.7) k/uL Basophils # (0-0.2) k/uL ESR (0-15) mm/Hr PT 10.6 (10.0-12.5) sec INR 1.0 (<1.2) APTT 20.7 L (22.0-30.0) sec Sodium (137-145) mmol/L Potassium (3.5-5.1) mmol/L Chloride (98-107) mmol/L Carbon Dioxide (22-30) mmol/L Anion Gap mmol/L BUN (9-20) mg/dL Creatinine (0.66-1.25) mg/dL Est GFR (CKD-EPI)AfAm (>60 ml/min/1.73 sqM) Est GFR (CKD-EPI)NonAf (>60 ml/min/1.73 sqM) Glucose (74-99) mg/dL Calcium (8.4-10.2) mg/dL Magnesium (1.6-2.3) mg/dL Total Bilirubin (0.2-1.3) mg/dL AST (17-59) U/L ALT (4-49) U/L Alkaline Phosphatase (38-126) U/L Troponin I <0.012 (0.000-0.034) ng/mL C-Reactive Protein (<1.0) mg/dL Total Protein (6.3-8.2) g/dL Albumin (3.5-5.0) g/dL Urine Color Urine Appearance (Clear) Urine pH (5.0-8.0) Ur Specific [place] (1.001-1.035) Urine Protein (Negative) Urine Glucose (UA) (Negative) Urine Ketones (Negative) Urine Blood (Negative) Urine Nitrite (Negative) Urine Bilirubin (Negative) Urine Urobilinogen (<2.0) mg/dL Ur Leukocyte Esterase (Negative) Disposition <Ramon Schuster - Last Filed: 04/01/23 19:47> Is patient prescribed a controlled substance at d/c from ED?: No Time of Disposition: 00:17 <Mal Hodges - Last Filed: 04/06/23 17:08> Clinical Impression: Abscess Disposition: HOME SELF-CARE Condition: Fair Instructions (If sedation given, give patient instructions): Abscess (ED) Additional Instructions: Follow-up with PCP, suggestions provided. Report back to ER with any new or worsening symptoms. Prescriptions: Sulfamethox-Tmp 800-160Mg [Bactrim DS 800-160 mg] 1 tab PO Q12HR 7 Days #14 tab Cephalexin [Keflex] 500 mg PO Q6HR 7 Days #28 cap Referrals: None,Stated [Primary Care Provider] - 1-2 days Cheko Del Rosario MD [STAFF PHYSICIAN] - 1-2 days Vipul Lance MD [STAFF PHYSICIAN] - [facility] - 1-2 days
[2023-04-01] MEDS ORDERED: ACETAMINOPHEN TAB 500 MG TAB PO STA (20:36)
[2023-04-01 21:01] LABS: ALT 18 U/L (4-49); AST 26 U/L (17-59); African American GFR (CKD) >90 (>60 ml/min/1.73 sqM); Alkaline Phosphatase 81 U/L (38-126); Anion Gap 17 mmol/L; Basophils % (A) 0 %; Blood Urea Nitrogen 18 mg/dL (9-20); C Reactive Protein 6.7 mg/dL (<1.0); Calcium 10.1 mg/dL (8.4-10.2); Carbon Dioxide 25 mmol/L (22-30); Chloride 97 mmol/L (98-107); Eosinophils # (A) 0.1 k/uL (0-0.7); Eosinophils % (A) 1 %; Glucose 105 mg/dL (74-99); HCT 46.9 % (39.0-53.0); Lymphocytes # (A) 1.2 k/uL (1.0-4.8); Lymphocytes % (A) 9 %; MCH 29.4 pg (25.0-35.0); MCHC 34.2 g/dL (31.0-37.0); Magnesium 2.3 mg/dL (1.6-2.3); Mean Platelet Volume 8.3; Monocytes # (A) 0.6 k/uL (0-1.0); Monocytes % (A) 4 %; Neutrophils # (A) 11.8 k/uL (1.3-7.7); Neutrophils % (A) 85 %; Non-African American GFR(CKD) >90 (>60 ml/min/1.73 sqM); Platelet Count 292 k/uL (150-450); Potassium 4.7 mmol/L (3.5-5.1); Prothrombin Time 10.6 sec (10.0-12.5); RBC 5.45 m/uL (4.30-5.90); RDW 12.7 % (11.5-15.5); Sodium 139 mmol/L (137-145); Total Protein 10.2 g/dL (6.3-8.2)
--- NOTE | 2023-04-01 21:08 | XR ---
EXAMINATION TYPE: XR chest 2V DATE OF EXAM: 04/01/2023 8:34 PM CLINICAL INDICATION:Male, 38 years old with history of Chest Pain; [facility] COMPARISON: Chest radiographs from 12/25/2022. TECHNIQUE: XR chest 2V Frontal and lateral views of the chest. FINDINGS: Lungs/Pleura: There is no evidence of pleural effusion, focal consolidation, or pneumothorax. Pulmonary vascularity: Unremarkable. Heart/mediastinum: Cardiomediastinal silhouette is unremarkable. Musculoskeletal: No acute osseous pathology. IMPRESSION: No acute cardiopulmonary disease/process.
[2023-04-01 21:09] LABS: Partial Thromboplastin Time 20.7 sec (22.0-30.0)
--- NOTE | 2023-04-01 21:20 | CT ---
EXAMINATION TYPE: CT CervThorLumbar spine w con CT DLP: 964.6 mGycm, Automated exposure control for dose reduction was used. DATE OF EXAM: 04/01/2023 8:45 PM COMPARISON: 04/27/2022 10/09/2022. CLINICAL INDICATION:Male, 38 years old with history of IVDA. Abscess over cervical spine. Back pain d own; PHH, Abscess marked by radiopaque BB on upper back x5days. Pt c/o entire back pain. TECHNIQUE: Multiple axial images were obtained of the spine. Soft tissue and bone windows in ortez l and sagittal planes were obtained and reviewed. Contrast used:100 ml mL of Isovue 300 with IV Contrast, (None, if empty). Oral contrast used: (None, if empty). FINDINGS: Alignment: There are 5 lumbar type vertebral bodies within normal alignment. Bone: No evidence of fracture is identified. Mild degeneration changes with osteophyte and facet mohini nt arthropathy are present. Discs: No evidence for significant spinal canal stenosis or neural foraminal stenosis. Soft tissues: Fluid collection area of palpable abnormality measuring 20 x 10 mm suggestive of absces s formation. There is skin thickening in this region. Fat stranding changes extend along the subcutan eous tissues of the back. No evidence of osseous erosion. IMPRESSION: Subcutaneous abscess in the area of palpable abnormality with surrounding phlegmonous change. No evidence for significant spinal canal or neural foraminal stenosis. Mild degeneration changes throughout the spine.
[2023-04-01] MEDS ORDERED: HYDROcodone/APAP 7.5-325MG 1 EACH TAB PO ONE (22:10)
[2023-04-01 22:41] VITALS: RESP 16
[2023-04-01] MEDS ORDERED: HYDROmorphone 1 MG/ML 1 ML SYRINGE IVP STA (22:59)
[2023-04-01 23:39] LABS: Appearance,Urine Clear (Clear); Bilirubin,Urine Negative (Negative); Blood,Urine Negative (Negative); Color,Urine Light Yellow; Glucose,Urine (UA) Negative (Negative); Ketones,Urine 1+ (Negative); Leukocyte Esterase,Urine Negative (Negative); Nitrite,Urine Negative (Negative); Protein,Urine Trace (Negative); Urobilinogen,Urine <2.0 mg/dL (<2.0)
[2023-04-01 23:40] LABS: Specific Gravity,Urine >1.050 (1.001-1.035)
[2023-04-02 00:42] VITALS: BP 131/83; PULSE 110; TEMP 98.9
[2023-04-02 03:53] LABS: Erythrocyte Sedimentation Rate 81 mm/Hr (0-15)
== END 2023-04-02 00:23 | disposition home or self-care (01) ==
LOC: EC 18:00
DX: L02.212 Cutaneous abscess of back [any part, except buttock and flank] (principal); B95.62 Methicillin resistant Staphylococcus aureus infection as the cause of diseases classified elsewhere; F17.290 Nicotine dependence, other tobacco product, uncomplicated; Z88.6 Allergy status to analgesic agent
CPT/HCPCS: 99284; 96374; 36415; 93005; 80053; 85652; 83735; 84484; 85025; 85610; 85730; 86140; 81003; 87040; 87070; 87205; 87077; 87186; 71046; 72129; 72126; 72132; J1170; Q9967